=== PATIENT | female | born 1960 | race Caucasian/White ===

== ENCOUNTER 2019-10-02 07:58 | Outpatient (CLI) | payer OTHER, SELFPAY ==
--- NOTE | 2019-10-02 08:04 | ECG_ITS ---
Measurements Intervals [place] Rate: 68 P: 26 ND: 199 QRS: 3 QRSD: 99 T: 66 QT: 389 QTc: 416 Interpretive Statements SINUS RHYTHM BORDERLINE AV CONDUCTION DELAY VOLTAGE CRITERIA FOR LVH BORDERLINE R WAVE PROGRESSION, ANTERIOR LEADS BORDERLINE ST ABNORMALITY- ANT/LAT LEADS BASELINE ARTIFACT- I, II, AVR, AVF BORDERLINE ECG Electronically Signed On 10-02-2019 9:15:47 BONE PROCESS OPERATOR by Elton Riley D.O.
== END 2019-10-02 07:59 | disposition home or self-care (01) ==
LOC: ANHSURGERY 08:04
PROVIDERS: Visit Provider Orthopaedic Surgery
DX: I10 Essential (primary) hypertension (principal)
CPT/HCPCS: 93005

== ENCOUNTER 2019-10-08 08:47 | Emergency (ER) | payer OTHER, SELFPAY ==
[2019-10-08 09:07] VITALS: BP 139/93; PULSE 63; RESP 16; TEMP 36.9; O2SAT 99
--- NOTE | 2019-10-08 09:41 | ED.GENADULT ---
HPI - General Adult General Chief complaint: Urogenital-Female Stated complaint: UTI Time Seen by Provider: 10/08/19 09:41 Source: patient and RN notes reviewed Mode of arrival: ambulatory Limitations: no limitations History of Present Illness HPI narrative: 59-year-old female presents with urinary complaints for 1 day. Dysuria consist of burning, frequency, and urgency.? History of UTIs, last one 4-5 months ago. Takes Keflex 250 mg after sex, last had sex on October 04 and used Keflex. Pyridium with little relief. Mounika says she usually gets UTI symptoms on Sunday after sexual intercourse. Denies fever or chills. No significant pelvic pain. No vaginal discharge.? No concerns for STDs. Exacerbating factors urinating.? Denies hematuria or vaginal bleeding. Denies being , LMP.? No flank pain.Denies nausea, vomiting, and abdominal pain.? Tolerating liquids well.? Remains active. Mounika denies being , Postmenopausal. Some parts of this dictation were generated by voice recognition software and may contain typographical and/or grammatical inaccuracies. Related Data Home Medications Medication Instructions Recorded Confirmed amlodipine 5 mg tablet 5 mg PO DAILY 09/23/19 10/08/19 cephalexin 250 mg capsule 250 mg PO WEEKLY 09/23/19 10/08/19 cholecalciferol (vitamin D3) 125 5,000 unit PO DAILY 09/23/19 10/08/19 mcg (5,000 unit) capsule gabapentin 600 mg tablet 600 mg PO QPM 09/23/19 10/09/19 omeprazole 20 mg capsule,delayed 20 mg PO BID 09/23/19 10/08/19 release capsaicin 1 applic TOPICAL BID 09/26/19 10/08/19 calcium carbonate [Calcium 600] 600 mg PO DAILY 10/09/19 10/09/19 vit C-E-zinc [id number]-cgug-dgl-[id number] 1 cap PO DAILY 10/09/19 10/09/19 [ICaps AREDS2] Allergies Allergy/AdvReac Type Severity Reaction Status Date / Time No Known Allergies Allergy Verified 10/08/19 09:26 Review of Systems Review of Systems: Narrative: CONSTITUTIONAL: Denies fever, chills, sweats. EYES: Denies visual changes, redness, discharge. ENT: Denies rhinorrhea, congestion, sore throat, otalgia. CARDIOVASCULAR: Denies chest pain, palpitations, edema. RESPIRATORY: Denies dyspnea, wheezing, cough. GASTROINTESTINAL: Denies abdominal pain, nausea, vomiting, diarrhea. GENITOURINARY: Complains of dysuria (burning, frequency, and urgency). Denies hematuria, abnormal discharge. SKIN: Denies rash or itching. MUSCULOSKELETAL: Denies acute back pain, joint pain, or myalgia. NEUROLOGIC: Denies numbness or focal weakness. PSYCHIATRIC: Denies anxiety or depression. All systems reviewed & are unremarkable except as noted in HPI and below. [facility] Past Medical History Medical History GERD (gastroesophageal reflux disease) Headache Hearing loss Hypertension Subscapularis tendinitis of right shoulder Surgical History Surgical History History of appendectomy Labral tear of long head of right biceps tendon Family History Family History Other Cancer Hypertension Social History Social History Smoking status: Never smoker Alcohol intake: current Drinks per week: 4 Gender identity (if verbalized by the patient): Female Comments At time of signature, agree with nurse past medical, surgical, social, and family history.? There is no relevant family history pertinent to the presenting complaint. Exam Narrative: Exam Narrative: GENERAL: This is a well-nourished, well-developed patient, in no apparent distress.? Talks in full sentences and ambulates with steady gait without dyspnea. HEAD: normocephalic, atraumatic. EYES: PERRL. Sclera clear/white. Vision is grossly intact. CARDIOVASCULAR: Regular rate and rhythm without murmurs, gallops, or rubs. RESPIRATORY: Clear to auscultation. Breath s
== END 2019-10-08 09:55 | disposition home or self-care (01) ==
PROVIDERS: Emergency Provider Nurse Practitioner Family
DX: R30.0 Dysuria (principal); K21.9 Gastro-esophageal reflux disease without esophagitis; I10 Essential (primary) hypertension
CPT/HCPCS: 81003; 87086; 87088; 99213; G0463

== ENCOUNTER 2019-10-23 00:44 | Day surgery (SDC) | payer OTHER, SELFPAY ==
[2019-09-26 12:53] VITALS: BMI 25.8
[2019-10-23] VITALS (10 sets, daily range): BP systolic 120–143; BP diastolic 56–88; PULSE 66–77; RESP 12–20; TEMP 36.6–36.8; O2SAT 92–98
--- NOTE | 2019-10-23 06:38 | WPDHPUPDATE1 ---
History and Physical Update Update Date/Time: 10/23/19 06:38 History and Physical has been reviewed, including an updated exam of the patient. There are NO changes in the patient's condition. Risks, benefits, and alternatives have been discussed and questions answered. Patient agrees to proceed with procedure.
[2019-10-23] MEDS: LACTATED RINGERS 1,000 ML 30 ML IV CONT ×2 (06:45→11:15)
--- NOTE | 2019-10-23 06:49 | WPDANESEPPF ---
Anes - Initial Pre Proc Eval Procedure: Operation Date: 10/23/19 07:30 Proposed Procedures p Right Shoulder Arthroscopy With Debridement, Biceps Tenotomy, Possible Rotator Cuff Repair, Proceed As Indicated - Jaiden Orourke MD Date/Time: 10/23/19 06:49 Surgeon: Jaiden Orourke MD Pre Op Diagnosis: Right Shoulder Biceps Tear & Rt Rotator Cuff Tear Patient Data Age: 59 Gender: F Height: 5 ft 9 in Weight: 79.38 kg Allergies Allergy/AdvReac Type Severity Reaction Status Date / Time No Known Allergies Allergy Verified 10/08/19 09:26 Home Medications Medication Instructions Recorded Confirmed Type amlodipine 5 mg tablet 5 mg PO DAILY 09/23/19 10/08/19 History cephalexin 250 mg capsule 250 mg PO WEEKLY 09/23/19 10/08/19 History cholecalciferol (vitamin D3) 125 5,000 unit PO DAILY 09/23/19 10/08/19 History mcg (5,000 unit) capsule gabapentin 600 mg tablet 600 mg PO QPM 09/23/19 10/09/19 History omeprazole 20 mg capsule,delayed 20 mg PO BID 09/23/19 10/08/19 History release capsaicin 1 applic TOPICAL BID 09/26/19 10/08/19 History sulfamethoxazole-trimethoprim 1 tablet PO Q12H #14 tablet 10/08/19 10/09/19 Rx [Bactrim DS] calcium carbonate [Calcium 600] 600 mg PO DAILY 10/09/19 10/09/19 History vit C-E-zinc er-mbap-zfg-zeax 1 cap PO DAILY 10/09/19 10/09/19 History [ICaps AREDS2] Patient hx anesthesia problems: none Family hx anesthesia problems: none PMFSH Past Medical History Medical History GERD (gastroesophageal reflux disease) Headache Hearing loss Hypertension Subscapularis tendinitis of right shoulder Surgical History Surgical History History of appendectomy Labral tear of long head of right biceps tendon Family History Family History Other Cancer Hypertension Social History Social History Smoking status: Never smoker Alcohol intake: current Drinks per week: 4 Gender identity (if verbalized by the patient): Female Anes - Eval Final PreProcedure Day of Procedure 10/23/19 06:49 Patient weight: normal Heart: regular rate and rhythm Lungs: clear to auscultation Airway: Mallampati scale class II Neurological: alert and oriented Last oral intake: >/= 8 hours ASA classification: II Emergent: no Anesthetic plan: proceed Anesthesia type and monitoring: general LMA and standard monitoring Informed Consent: The patient's anesthetic plan and its attendant risks and benefits were discussed with the patient/family/POA. Questions were solicited and answers provided to the satisfaction of the patient/family/POA.
[2019-10-23] MEDS: IBUPROFEN IV 800 MG/200 ML 800 MG/200 ML BAG 400 MG IVPB (07:51)
[2019-10-23] MEDS: ceFAZolin 2 GM/D5W 50 ML 2 GM/50 ML BAG IVPB (08:03)
[2019-10-23] MEDS: BUPIVACAINE/EPINEPHRINE 0.5% 10 ML VIAL INFILTRATE (08:37)
--- NOTE | 2019-10-23 10:25 | PM.PROC ---
Procedure Note - Detailed Date of procedure: 10/23/19 Pre-op diagnosis: Right Shoulder Biceps Tear & Rt Rotator Cuff Tear Post-op diagnosis: same Procedure performed: RT shoulder arthroscopy, debridement, biceps tenotomy, rotator cuff repair Description of procedure: Indications: Patient is a 59-year-old woman with right shoulder pain. She failed 2 rounds of physical therapy. An MRI demonstrates tear of the biceps with subluxation and possible rotator cuff tear. She presents now for operative treatment. What was done: Patient identified in the preoperative holding. Informed consent given. Operative extremity marked. Patient received intravenous antibiotics. Patient brought to the operating room where underwent general anesthetic by anesthesia team. Positioned supine on operating room table. Time-out performed confirming the patient, site of the surgery and the plan. Patient was then positioned in the beach chair position with careful securing of the head and neck. Right shoulder was then prepped and draped usual sterile surgical fashion using a ChloraPrep skin solution. Local anesthetic with 0.5% Marcaine with epinephrine was used at the portal sites. Standard posterior arthroscopy portal position with a 22 gauge spinal needle and infiltrating of the joint with saline. Eleven blade knife used to incise the skin and blunt penetration of the soft tissue and posterior capsule. Camera and inflow restarted through this portal. The shoulder was inspected and findings were noted. Anterior portal was then made using positioning from a 22 gauge spinal needle, 11 blade knife for the skin and blunt penetration of the anterior capsule. 4.5 mm arthroscopic shaver introduced and a debridement of the shoulder joint was performed including the glenoid and humeral head, undersurface of the rotator cuff, labrum and the rotator cuff tear site itself. Arthroscopic 1 introduced in bleeding points were coagulated. Any excess synovitis was removed with the Wand. The proximal biceps was then released with the arthroscopic Wand. There was partial retraction of the tendon but not complete retraction. The arthroscope was then positioned into the subacromial space. A lateral portal was made with 11 blade knife and blunt penetration and the shaver was introduced and debridement of the subacromial bursa was performed. From this position the full-thickness rotator cuff was able to be better visualized. The lateral incision was then lengthened 1 cm for a mini open type approach. Retractors were placed in the deltoid muscle was split in line with the skin incision. The rotator cuff tear was identified. The footprint on the humeral tuberosity was then prepared with a rongeur and rasp. Thorough irrigation was performed. Two medial row anchors were then placed using a punch followed by placement of the corkscrew suture anchors. Suture tape was then passed through the rotator cuff to provide sufficient tissue for repair. Repair was then performed by using 2 lateral anchors and cross stitching the suture tape. The arm was abducted to aid in the repair. Sutures were cut and the arm was then taken through a full range of motion and noted to be stable. If no impingement. There was no excess tear or dog ear which required repair. Wounds thoroughly irrigated antibiotic solution. The deltoid was repaired with 0 Vicryl suture. Subcutaneous tissue repaired with 3 0 Monocryl interrupted suture and the skin repaired with 3 Monocryl subcuticular running stitch. Steri-Strips applied followed by sterile dressing. Patient then awoke from anesthesia, extubated and taken to the recovery room in stable condition. All sponge needle and instrument counts correct in the case. Implants: Arthrex 4.75 mm speed bridge rotator cuff repair system with 4 anchors. Anesthesia: GLMA Surgeon: Jaiden Orourke MD [employer] Electrical Engineer: nurse practitioner physician assistant Estimated blood loss (mL): 10 Drains: No Packing: No Pathology: none
[2019-10-23] MEDS: ONDANSETRON INJ 4 MG/2 ML VIAL IV PUSH (11:31)
== END 2019-10-23 13:05 | disposition home or self-care (01) ==
PROVIDERS: Visit Provider Orthopaedic Surgery
PROC: (CPT 29805; principal; 2019-10-23 07:30)
DX: S46.111A Strain of muscle, fascia and tendon of long head of biceps, right arm, initial encounter (principal); S46.011A Strain of muscle(s) and tendon(s) of the rotator cuff of right shoulder, initial encounter; X50.0XXA Overexertion from strenuous movement or load, initial encounter; I10 Essential (primary) hypertension; K21.9 Gastro-esophageal reflux disease without esophagitis
CPT/HCPCS: 29827; 29823; A4565; C1713; J0690; J1100; J1741; J2250; J2270; J2405; J2704; J3010; J7120

== ENCOUNTER 2020-06-13 13:01 | Emergency (ER) | payer OTHER, SELFPAY ==
--- NOTE | 2020-06-13 13:06 | ED.SKABFB ---
HPI - Skin/Abscess/Foreign Bdy General Chief complaint: Skin/Abscess/Foreign Body Stated complaint: poison hans Time Seen by Provider: 06/13/20 13:06 Source: patient and RN notes reviewed History of Present Illness HPI narrative: Patient is a 59-year-old female who presents the urgent care with complaints of rash to bilateral legs, abdomen, face. Patient states that she uses tecnu scrub after any known or possible contact of poison hans. However, patient noticed the first area of rash to the inside of the left knee which is now on the right lower leg, right side of the abdomen, and right side of the face. Patient states that she has gotten poison hans [place] Denies of any new contact with lotions, creams, detergents. No other acute complaints. No acute distress noted. Patient aware of the plan of care. Some parts of this dictation were generated by voice recognition software and may contain typographical and/or grammatical inaccuracies. Related Data Home Medications Medication Instructions Recorded Confirmed amlodipine 5 mg tablet 5 mg PO DAILY 09/23/19 06/13/20 cholecalciferol (vitamin D3) 125 5,000 unit PO DAILY 09/23/19 10/23/19 mcg (5,000 unit) capsule gabapentin 600 mg tablet 600 mg PO QPM 09/23/19 06/13/20 omeprazole 20 mg capsule,delayed 20 mg PO BID 09/23/19 06/13/20 release ICaps AREDS2 1 cap PO DAILY 10/09/19 10/09/19 calcium carbonate [Calcium 600] 600 mg PO DAILY 10/09/19 10/23/19 Allergies Allergy/AdvReac Type Severity Reaction Status Date / Time No Known Allergies Allergy Verified 12/30/19 08:39 Review of Systems Review of Systems: Narrative: CONSTITUTIONAL: Denies fever, chills, or sweats. EYES: Denies visual changes, redness, or discharge. ENT: Denies rhinorrhea, congestion, sore throat, or otalgia. CARDIOVASCULAR: Denies chest pain, palpitations, or edema. RESPIRATORY: Denies cough or dyspnea. GASTROINTESTINAL: Denies abdominal pain, nausea, vomiting, or diarrhea. GENITOURINARY: Denies dysuria or hematuria. SKIN: Reports of a raised rash to the inside of the left knee, right lower leg, right abdomen and right face MUSCULOSKELETAL: Denies back pain, joint pain, or myalgia. NEUROLOGIC: Denies headache, numbness, or weakness. All other systems reviewed are negative, except as documented in HPI. [facility] Past Medical History Medical History (Updated 06/13/20 @ 13:26 by SANDEEP Sinha) GERD (gastroesophageal reflux disease) Headache Hearing loss Hypertension Subscapularis tendinitis of right shoulder Surgical History Surgical History History of appendectomy Labral tear of long head of right biceps tendon Family History Family History Other Cancer Hypertension Social History Social History Smoking status: Never smoker Alcohol intake: current Drinks per week: 4 Gender identity (if verbalized by the patient): Female Comments At the time of my signature, I reviewed and agree with the nursing past medical, surgical, social, and family history. There is no relevant family history pertinent to the patient complaint. Exam Narrative: Exam Narrative: GENERAL: This is a well-nourished, well-developed patient, in no apparent distress. HEAD: normocephalic, atraumatic. EYES: PERRL. Sclera clear/white. Vision is grossly intact. EARS: External ears normal NOSE: External nose normal with no obvious nasal discharge, nares without redness, no rhinorrhea. THROAT: Mucous membranes moist NECK: Neck supple, SKIN: Nonpustular/mildly erythemic papular dermatitis noted to the inside of the left knee, right lower leg, right abdomen and one small area to the right cheek. Warm, intact with no suspicious lesions, good texture and turgor. NEURO: awake, alert, and oriented to person, place and time. There we
[2020-06-13 13:15] VITALS: BP 177/91; PULSE 78; RESP 20; TEMP 36.6; O2SAT 98
== END 2020-06-13 13:38 | disposition home or self-care (01) ==
PROVIDERS: Emergency Provider Nurse Practitioner Family
DX: L25.9 Unspecified contact dermatitis, unspecified cause (principal); K21.9 Gastro-esophageal reflux disease without esophagitis; I10 Essential (primary) hypertension
CPT/HCPCS: 99213; G0463

== ENCOUNTER 2020-11-14 17:41 | Emergency (ER) | payer OTHER, SELFPAY ==
--- NOTE | 2020-11-14 17:59 | ED.WOUNDLAC ---
HPI - Wound/Laceration General Chief Complaint: Wound/Laceration Stated Complaint: Laceration on right hand Time Seen by Provider: 11/14/20 17:55 History of Present Illness HPI narrative: 60-year-old female presents to the [facility] with a 1-1/2 cm laceration to the palmar aspect of right hand. Happened approximately 30 minutes prior to arrival. Bleeding is well controlled. Unknown last Tdap. Patient states that she was washing a cup and was washing it when it broke and cut her hand. Patient has full range of motion of all 5 fingers. No numbness or tingling in extremities. Sensation intact in all 5 fingers and capillary refill is under 2 seconds. Related Data Home Medications Medication Instructions Recorded Confirmed amlodipine 5 mg tablet 5 mg PO DAILY 09/23/19 11/14/20 cholecalciferol (vitamin D3) 125 5,000 unit PO DAILY 09/23/19 11/14/20 mcg (5,000 unit) capsule gabapentin 600 mg tablet 600 mg PO QPM 09/23/19 11/14/20 omeprazole 20 mg capsule,delayed 20 mg PO BID 09/23/19 11/14/20 release ICaps AREDS2 1 cap PO DAILY 10/09/19 11/14/20 calcium carbonate [Calcium 600] 600 mg PO DAILY 10/09/19 11/14/20 montelukast mg 11/14/20 Allergies Allergy/AdvReac Type Severity Reaction Status Date / Time No Known Allergies Allergy Verified 11/14/20 17:49 Review of Systems Review of Systems: Narrative: CONSTITUTIONAL: Denies fever, chills, or sweats. EYES: Denies visual changes, redness, or discharge. ENT: Denies rhinorrhea, congestion, sore throat, or otalgia. CARDIOVASCULAR: Denies chest pain, palpitations, or edema. RESPIRATORY: Denies cough or dyspnea. GASTROINTESTINAL: Denies abdominal pain, nausea, vomiting, or diarrhea. GENITOURINARY: Denies dysuria or hematuria. SKIN: Denies rash or itching. Laceration base of right hand please see diagram MUSCULOSKELETAL: Denies back pain, joint pain, or myalgia. NEUROLOGIC: Denies headache, numbness, or weakness. PSYCHIATRIC: Denies anxiety or depression. All other systems reviewed are negative, except as documented in HPI. [facility] Past Medical History Medical History GERD (gastroesophageal reflux disease) Headache Hearing loss Hypertension Subscapularis tendinitis of right shoulder Surgical History Surgical History History of appendectomy Labral tear of long head of right biceps tendon Family History Family History Other Cancer Hypertension Social History Social History Smoking status: Never smoker Alcohol intake: current Drinks per week: 4 Gender identity (if verbalized by the patient): Female Comments At the time of my signature, I reviewed and agree with the nursing past medical, surgical, social, and family history. There is no relevant family history pertinent to the patient complaint. Exam Narrative: Exam Narrative: GENERAL: This is a well-nourished, well-developed patient, in no apparent distress. HEAD: normocephalic, atraumatic. EYES: PERRL. Sclera clear/white. EARS: External ears normal. NECK: Neck supple, non-tender without lymphadenopathy, masses or thyromegaly. CARDIOVASCULAR: Regular rate and rhythm without murmurs, gallops, or rubs. RESPIRATORY: Clear to auscultation. Breath sounds equal bilaterally. No wheezes, rales, or rhonchi. GASTROINTESTINAL: Abdomen soft, non-tender, nondistended. Bowel sounds are active. No hepato-splenomegaly, or palpable masses. No guarding. SKIN: warm, intact with no suspicious lesions or rash, good texture and turgor. 2 cm laceration to palmar aspect right hand. NEURO: awake, alert, and oriented to person, place and time. There were no obvious focal neurologic abnormalities. EXTREMITIES: No joint tenderness, effusion, or edema noted. No calf tenderness. Negative Homans sign bilaterally. BACK: Nontender without defor
[2020-11-14 18:00] VITALS: BP 154/85; PULSE 63; RESP 16; TEMP 36.7; O2SAT 98
[2020-11-14] MEDS: TETANUS,DIPHTHERIA,AC PERTUSSIS ADULT (0.5 ML) BOOSTRIX IM (18:15)
== END 2020-11-14 18:29 | disposition home or self-care (01) ==
PROVIDERS: Emergency Provider Nurse Practitioner
DX: S61.411A Laceration without foreign body of right hand, initial encounter (principal); W25.XXXA Contact with sharp glass, initial encounter; Z23 Encounter for immunization; K21.9 Gastro-esophageal reflux disease without esophagitis; I10 Essential (primary) hypertension
CPT/HCPCS: 12001; 90471; 90715; 99212; G0463

== ENCOUNTER 2021-05-10 08:42 | Emergency (ER) | payer OTHER, SELFPAY ==
[2021-05-10 08:59] VITALS: BP 142/97; PULSE 79; RESP 16; TEMP 36.6; O2SAT 99
--- NOTE | 2021-05-10 09:08 | ED.FEMALEGU ---
HPI - Female Genitourinary General Chief complaint: Urogenital-Female Stated complaint: UTI Source: patient Mode of arrival: ambulatory Limitations: no limitations History of Present Illness HPI Narrative: 60-year-old female presents to [facility] with complaints of urinary urgency, frequency, pain and burning since this morning. Patient does report long history of urinary tract infections and does take cephalexin prior to intercourse. Patient last took cephalexin 2 days ago. Patient denies abdominal pain, flank pain, vaginal discharge or concern for STDs. MD elicited complaint: UTI Onset (ago): hour(s) (1) Vaginal discharge: none Vaginal bleeding: none Urinary symptoms: Dysuria, Urgency and Frequency Associated symptoms: denies other symptoms Treatment prior to arrival: none Patient : No Related Data Home Medications Medication Instructions Recorded Confirmed amlodipine 5 mg tablet 5 mg PO DAILY 09/23/19 05/10/21 cholecalciferol (vitamin D3) 125 5,000 unit PO DAILY 09/23/19 05/10/21 mcg (5,000 unit) capsule gabapentin 600 mg tablet 600 mg PO QPM 09/23/19 05/10/21 omeprazole 20 mg capsule,delayed 20 mg PO BID 09/23/19 05/10/21 release ICaps AREDS2 1 cap PO DAILY 10/09/19 05/10/21 calcium carbonate [Calcium 600] 600 mg PO DAILY 10/09/19 05/10/21 montelukast 10 mg PO DAILY 11/14/20 05/10/21 azelastine 1 mcg INTRANASAL DIRECTED 05/10/21 05/10/21 fluticasone propionate 2 mcg INTRANASAL DAILY 05/10/21 05/10/21 Allergies Allergy/AdvReac Type Severity Reaction Status Date / Time No Known Allergies Allergy Verified 05/10/21 09:06 Review of Systems Constitutional: Constitutional: Denies chills and Denies fatigue ENT: Denies sore throat Cardiovascular: Cardiovascular: Denies chest pain, Denies rapid heart rate, Denies radiating jaw, neck or arm pain and Denies slow heart rate Respiratory: Respiratory: Denies chest congestion, Denies cough, Denies dyspnea and Denies wheezing Gastrointestinal: Gastrointestinal: Denies abdominal pain, Denies diarrhea, Denies nausea and Denies vomiting Genitourinary: Genitourinary: Reports nocturia, Reports dysuria, Denies flank pain and Denies vaginal discharge [facility] Past Medical History Medical History (Updated 05/10/21 @ 09:12 by Jerica Ellison APRN) GERD (gastroesophageal reflux disease) Headache Hearing loss Hypertension Subscapularis tendinitis of right shoulder Surgical History Surgical History History of appendectomy Labral tear of long head of right biceps tendon Family History Family History Other Cancer Hypertension Social History Social History Smoking status: Never smoker Alcohol intake: current Drinks per week: 4 Gender identity (if verbalized by the patient): Female Comments At time of signature, I agree with nursing past medical, surgical, social and family history. There is no relevant family history pertinent to the presenting complaint. Exam Const: General: no acute distress Nutritional Appearance: well nourished Orientation/consciousness: patient oriented x3 Neck: Neck: normal visual inspection Resp: Effort & Inspection: normal respiratory effort and not tachypneic Auscultation: clear to auscultation bilaterally Cardio: Rate: regular rate, not bradycardic and not tachycardic Rhythm: regular rhythm GI: GI Palp: Yes Soft to palpation, No Tenderness to palpation present (GI), No Guarding due to palpation present (GI) and No Rigid due to palpation Auscultation: normal bowel sounds : General: Yes bladder normal to palpation and Yes no CVA tenderness Back/Spine/Pelvis: Back: no CVA tenderness Skin: General skin exam: normal color Rashes: no rashes Neuro: General: patient oriented x3 and moves all extremities Psych: Mental Status: mental status
== END 2021-05-10 09:18 | disposition home or self-care (01) ==
PROVIDERS: Emergency Provider Nurse Practitioner Family
DX: N30.00 Acute cystitis without hematuria (principal); K21.9 Gastro-esophageal reflux disease without esophagitis; I10 Essential (primary) hypertension
CPT/HCPCS: 81003; 87086; 87088; 99213; G0463

== ENCOUNTER 2021-06-08 08:20 | Emergency (ER) | payer OTHER, SELFPAY ==
--- NOTE | 2021-06-08 08:27 | ED.FEMALEGU ---
HPI - Female Genitourinary General Chief complaint: Urogenital-Female Stated complaint: uti Time Seen by Provider: 06/08/21 08:55 Source: patient and RN notes reviewed Mode of arrival: ambulatory Limitations: no limitations History of Present Illness HPI Narrative: 60-year-old female presents with concern for urinary tract infection symptoms. Reports symptoms started last night, woke up in the middle the night. She reports frequency, urgency, burning reports history of urinary tract infections. Reports she was on Macrobid a month ago for urinary tract infection. Reports she takes 1 dose of cephalexin after intercourse to prevent UTIs. She denies fever, body aches, nausea, vomiting, back pain, abdominal pain. MD elicited complaint: UTI Related Data Home Medications Medication Instructions Recorded Confirmed amlodipine 5 mg tablet 5 mg PO DAILY 09/23/19 05/10/21 cholecalciferol (vitamin D3) 125 5,000 unit PO DAILY 09/23/19 05/10/21 mcg (5,000 unit) capsule gabapentin 600 mg tablet 600 mg PO QPM 09/23/19 05/10/21 omeprazole 20 mg capsule,delayed 20 mg PO BID 09/23/19 05/10/21 release ICaps AREDS2 1 cap PO DAILY 10/09/19 05/10/21 calcium carbonate [Calcium 600] 600 mg PO DAILY 10/09/19 05/10/21 montelukast 10 mg PO DAILY 11/14/20 05/10/21 azelastine 1 mcg INTRANASAL DIRECTED 05/10/21 05/10/21 fluticasone propionate 2 mcg INTRANASAL DAILY 05/10/21 05/10/21 Allergies Allergy/AdvReac Type Severity Reaction Status Date / Time No Known Allergies Allergy Verified 05/10/21 09:06 Review of Systems Review of Systems: CONSTITUTIONAL: Denies malaise, chills, sweats, or fever. CARDIOVASCULAR: Denies chest pain, palpitations, or edema. RESPIRATORY: Denies cough or dyspnea. GASTROINTESTINAL: Denies abdominal pain, nausea, vomiting, diarrhea GENITOURINARY: Reports dysuria, frequency, urgency. Denies back pain or hematuria. SKIN: Reports mild vaginal itching MUSCULOSKELETAL: Denies back pain, or myalgia. All systems reviewed & are unremarkable except as noted in HPI and below PMFSH Past Medical History Medical History (Updated 10/13/21 @ 09:04 by Emma Portillo NP) GERD (gastroesophageal reflux disease) Headache Hearing loss Hypertension Subscapularis tendinitis of right shoulder Surgical History Surgical History History of appendectomy Labral tear of long head of right biceps tendon Family History Family History Other Cancer Hypertension Social History Social History Smoking status: Never smoker Alcohol intake: current Drinks per week: 4 Gender identity (if verbalized by the patient): Female Comments At time of signature, agree with nursing past medical, surgical, social and family history. There is no relevant family history pertinent to the presenting complaint Exam Narrative: GENERAL: Well-appearing, well-nourished, and in no acute distress. HEAD: Normocephalic. EYES: PERRLA, conjunctivae clear. NECK: Supple. No lymphadenopathy CHEST: Clear to auscultation. No respiratory distress. HEART: Regular rate and rhythm. ABDOMEN: Soft, nontender upon palpation, nondistended, normal active bowel sounds, no palpable or pulsatile masses, no guarding. No CVA tenderness SKIN: Warm, dry, no rash. NEURO: Alert and oriented x3. PSYCH: Normal mood and affect Course Course Emergency Course: Patient is aware of diagnosis, understands and agrees to treatment plan. Anticipatory guidance given. Patient agrees to follow-up as directed and is aware of reasons to seek care at the emergency department. Portions of this record may have been created with voice recognition software Vital Signs Vital signs: Reviewed. MDM - Female Genitourinary MDM Narrative Medical decision making narrative: Patient took Azo, UA unable to determine infection.
[2021-06-08 08:35] VITALS: BP 130/83; PULSE 61; RESP 18; TEMP 36.6; O2SAT 97
== END 2021-06-08 09:15 | disposition home or self-care (01) ==
PROVIDERS: Emergency Provider Nurse Practitioner
DX: R35.0 Frequency of micturition (principal); R30.0 Dysuria; R39.15 Urgency of urination; K21.9 Gastro-esophageal reflux disease without esophagitis; I10 Essential (primary) hypertension
CPT/HCPCS: 87077; 87086; 87088; 87186; 99213; G0463

== ENCOUNTER 2021-08-19 10:44 | Emergency (ER) | payer OTHER, SELFPAY ==
[2021-08-19 11:42] VITALS: BP 152/97; PULSE 81; RESP 16; TEMP 36.8; O2SAT 98
--- NOTE | 2021-08-19 12:33 | ED.NAVMDI ---
HPI - Nausea/Vomiting/Diarrhea General Chief complaint: Nausea/Vomiting/Diarrhea Stated complaint: abd pain Time Seen by Provider: 08/19/21 12:15 Source: patient and RN notes reviewed Mode of arrival: ambulatory Limitations: no limitations History of Present Illness HPI Narrative: Patient presents today planing of a 3-day history of extreme burping and belching. 2 days ago she was fine , but last night she developed a decreased appetite and fatigue. This morning she vomited once after eating a bowl of oatmeal. She denies any nausea, abdominal pain, constipation and diarrhea. She has history of GERD and has been taking Prilosec, Advil, and [place], which has been providing some relief. MD elicited complaint: vomiting and other (Belching) Related Data Home Medications Medication Instructions Recorded Confirmed amlodipine 5 mg tablet 5 mg PO DAILY 09/23/19 08/19/21 cholecalciferol (vitamin D3) 125 5,000 unit PO DAILY 09/23/19 08/19/21 mcg (5,000 unit) capsule gabapentin 600 mg tablet 600 mg PO QPM 09/23/19 08/19/21 omeprazole 20 mg capsule,delayed 20 mg PO BID 09/23/19 08/19/21 release ICaps AREDS2 1 cap PO DAILY 10/09/19 08/19/21 calcium carbonate [Calcium 600] 600 mg PO DAILY 10/09/19 08/19/21 montelukast 10 mg PO DAILY 11/14/20 08/19/21 azelastine 1 mcg INTRANASAL DIRECTED 05/10/21 08/19/21 fluticasone propionate 2 mcg INTRANASAL DAILY 05/10/21 08/19/21 Allergies Allergy/AdvReac Type Severity Reaction Status Date / Time No Known Allergies Allergy Verified 08/19/21 11:51 Review of Systems Review of Systems: CONSTITUTIONAL: Denies body aches, fever, chills, or sweats. EYES: Denies visual changes, redness, or discharge. ENT: Denies rhinorrhea, congestion, sore throat, or otalgia. CARDIOVASCULAR: Denies chest pain, palpitations, or edema. RESPIRATORY: Denies cough or dyspnea. GASTROINTESTINAL: Denies abdominal pain, nausea, or diarrhea.+ Belching, vomiting GENITOURINARY: Denies dysuria or hematuria. SKIN: Denies rash, itching, or wounds. MUSCULOSKELETAL: Denies back pain, joint pain, or myalgia. NEUROLOGIC: Denies headache, numbness, tingling, or weakness. PSYCH: Denies depression or anxiety. [facility] Past Medical History Medical History (Updated 08/19/21 @ 12:38 by Bety Lion, SANDEEP, ) GERD (gastroesophageal reflux disease) Headache Hearing loss Hypertension Subscapularis tendinitis of right shoulder Surgical History Surgical History History of appendectomy Labral tear of long head of right biceps tendon Family History Family History Other Cancer Hypertension Social History Social History Smoking status: Never smoker Alcohol intake: current Drinks per week: 4 Gender identity (if verbalized by the patient): Female Comments At time of signature, I have reviewed and agree with nursing past medical, surgical, social and family history unless otherwise noted. Please see nursing chart for further information. There is no relevant family history pertinent to the presenting complaint Exam Narrative: GENERAL: Well-appearing, well-nourished, and in no acute distress. HEAD: Normocephalic, atraumatic. EYES: EOMI. No redness or drainage. Conjunctivae normal. ENT: Mucous membranes pink and moist. NECK: Normal AROM. Supple. No lymphadenopathy. CHEST: No respiratory distress. Clear to auscultation. HEART: Regular rate and rhythm. No murmur appreciated. Normal peripheral pulses. ABDOMEN: Soft, nontender, nondistended, normal active bowel sounds. Frequent belching. MUSCULOSKELETAL: No bony tenderness. EXTREMITIES: Normal range of motion. No edema. SKIN: Warm, dry, no rash. Capillary refill normal. Normal skin turgor. NEURO: No focal deficits. Alert and oriented x3. Gait steady. PSYCH: Normal af
== END 2021-08-19 12:45 | disposition home or self-care (01) ==
PROVIDERS: Emergency Provider Nurse Practitioner
DX: K21.9 Gastro-esophageal reflux disease without esophagitis (principal); I10 Essential (primary) hypertension
CPT/HCPCS: 99211; G0463

== ENCOUNTER 2021-08-31 09:52 | Emergency (ER) | payer OTHER, SELFPAY ==
[2021-08-31 10:46] VITALS: BP 153/90; PULSE 62; RESP 16; TEMP 36.6; O2SAT 99
--- NOTE | 2021-08-31 11:26 | ED.FEMALEGU ---
HPI - Female Genitourinary General Chief complaint: Urogenital-Female Stated complaint: uti Time Seen by Provider: 08/31/21 11:26 Source: patient Mode of arrival: ambulatory Limitations: no limitations History of Present Illness HPI Narrative: Mounika Beach is a 60 yo female with GERD and HTN [facility] complaints of burning and frequency that started last night and into this morning. She has had UTIs in the past and is on a preventative pill of Keflex when she has intercourse because she is DNA tested for UTI and is being treated by her TRAVEL COUNSELOR-she is using it infrequently enough that it will not impact treating her UTI with this Related Data Home Medications Medication Instructions Recorded Confirmed amlodipine 5 mg tablet 5 mg PO DAILY 09/23/19 08/31/21 gabapentin 600 mg tablet 600 mg PO QPM 09/23/19 08/31/21 omeprazole 20 mg capsule,delayed 20 mg PO BID 09/23/19 08/31/21 release ICaps AREDS2 1 cap PO DAILY 10/09/19 08/31/21 calcium carbonate [Calcium 600] 600 mg PO DAILY 10/09/19 08/31/21 azelastine 1 mcg INTRANASAL DIRECTED 05/10/21 08/31/21 fluticasone propionate 2 mcg INTRANASAL DAILY 05/10/21 08/31/21 Allergies Allergy/AdvReac Type Severity Reaction Status Date / Time No Known Allergies Allergy Verified 08/19/21 11:51 Review of Systems Review of Systems: CONSTITUTIONAL: Denies fever, chills, sweats. EYES: Denies visual changes, redness, discharge. ENT: Denies rhinorrhea, congestion, sore throat, otalgia. CARDIOVASCULAR: Denies chest pain, palpitations, edema. RESPIRATORY: Denies dyspnea, wheezing, cough GASTROINTESTINAL: Denies abdominal pain, nausea, vomiting, diarrhea. GENITOURINARY: Patient has frequency and this morning has burning SKIN: Denies rash or itching. NEUROLOGIC: Denies numbness, or focal weakness. PSYCHIATRIC: Denies anxiety or depression. [facility] Past Medical History Medical History (Updated 08/31/21 @ 11:43 by Estela Nielsen CNP) GERD (gastroesophageal reflux disease) Headache Hearing loss Hypertension Subscapularis tendinitis of right shoulder Surgical History Surgical History History of appendectomy Labral tear of long head of right biceps tendon Family History Family History Other Cancer Hypertension Social History Social History Smoking status: Never smoker Alcohol intake: current Drinks per week: 4 Gender identity (if verbalized by the patient): Female Comments At time of signature, I agree with nursing past medical, surgical, social and family history. There is no relevant family history pertinent to the presenting complaint. Exam Narrative: GENERAL: This is a well-nourished, well-developed patient, in mild distress. HEAD: normocephalic, atraumatic. EYES: . Sclera clear/white. Vision is grossly intact. EARS: External ears normal. Hearing grossly intact. NOSE: External nose normal nares without redness, no rhinorrhea. THROAT: Mucous membranes moist, NECK: Neck supple, CARDIOVASCULAR: Regular rate and rhythm without murmurs, gallops, or rubs. RESPIRATORY: Clear to auscultation. Breath sounds equal bilaterally. No wheezes, rales, or rhonchi. GASTROINTESTINAL: SKIN: warm, intact with no suspicious lesions or rash, good texture and turgor. NEURO: awake, alert, and oriented to person, place and time. There were no obvious focal neurologic abnormalities. Steady gait EXTREMITIES: Normal range of motion. BACK: Nontender without deformity Course Course Emergency Course: Patient is here with complaints of burning and frequency that started last night Discussion started on Keflex 500 mg 1 twice daily x5 days Level of Care: Express Care Visit Vital Signs Vital signs: Vital Signs Temperature 97.8 F 08/31/21 10:46 Pulse Rate 62 08/31/21 10:46 Respiratory
== END 2021-08-31 12:05 | disposition home or self-care (01) ==
PROVIDERS: Emergency Provider Nurse Practitioner
DX: N30.90 Cystitis, unspecified without hematuria (principal); K21.9 Gastro-esophageal reflux disease without esophagitis; I10 Essential (primary) hypertension
CPT/HCPCS: 81003; 87077; 87086; 87088; 87186; 99213; G0463

== ENCOUNTER 2021-10-12 08:57 | Outpatient (CLI) | payer OTHER, SELFPAY ==
--- NOTE | 2021-10-12 09:00 | ECG_ITS ---
Measurements Intervals [place] Rate: 68 P: 22 OR: 209 QRS: -12 QRSD: 92 T: 24 QT: 397 QTc: 423 Interpretive Statements SINUS RHYTHM INCOMPLETE RIGHT BUNDLE BRANCH BLOCK VOLTAGE CRITERIA FOR LVH BORDERLINE ECG Electronically Signed On 10-12-2021 10:23:08 [employer]AD RADI[employer]CH[employer]OLOG[employer] by Elton Riley D.O.
== END 2021-10-12 08:58 | disposition home or self-care (01) ==
PROVIDERS: Visit Provider Podiatrist Foot & Ankle Surgery
DX: Z01.818 Encounter for other preprocedural examination (principal); I10 Essential (primary) hypertension
CPT/HCPCS: 93005

== ENCOUNTER 2021-10-14 03:58 | Day surgery (SDC) | payer OTHER, SELFPAY ==
[2021-10-10 16:20] VITALS: BMI 26.6
--- NOTE | 2021-10-10 16:57 | PC.NURSE ---
Addendum entered by Dorota Brush RN 10/11/21 11:19: please take Amlodipine morning of surgery with a sip of water along with meds listed below. Original Note: Report to the Outpatient Waiting Room, entrance under the green pavilion located off [facility], at time 0600 on date 10/14/21. OR Time: 0730. - You will be asked a series of questions to screen for COVID 19 for your protection. - A mask is required within the hospital. Preoperative COVID Testing Requirements: No COVID Test needed if: (proof is required; if not received patient will have Rapid Test prior to entry) - Patient has received COVID Vaccine at least 14 days prior to procedure date or - Patient has positive COVID test result within last 90 days of surgery date. COVID Test needed if above criteria is not met If not COVID vaccinated a COVID test must be conducted within 72 hours of surgery and patient is asked to isolate self from time of testing until procedure. You will go to the [facility] for your COVID testing. The [facility] site is located at the corner of [address] [facility]. You will only be called if COVID results are positive and your surgeon may reschedule your elective surgery date. Patients may have clear liquids (water, carbonated beverages, clear teas, apple juice) until 3 hours prior to surgery with a maximum of 20 ounces. - No food from midnight until time of surgery - Infants may have breast milk until 4 hours before surgery, formula 6 hours prior to surgery. - Children will be allowed to drink immediately following surgery. If applicable, please bring a bottle or sippy cup to assist with drinking. Juice, water, soda, and popsicles are readily available. For infants on formula, please bring formula the day of surgery. Pacifiers are allowed. Take the following medications with a SIP of water the morning of surgery: azelastine, fluticasone Medications to discontinue per physician vitamins Date to take last dose 10/11/21 Please no make-up, nail luxembourger, hairspray, perfume, deodorant, or body powder the day of surgery. No jewelry (including any body piercings) or valuables the day of surgery, leave them at home. Please take a shower or bath the night before, or the morning of, surgery with an antibacterial soap. Wear comfortable, loose fitting clothing. Children are encouraged to wear pajamas. - Jewelry must be removed prior to entering the operating room. Rings and piercings that are not removed may be cut off. - The hospital will not accept responsibility for valuables. - Please leave all valuables, including medications, at home the day of surgery. If you are going home after surgery, a licensed nascar driver must drive you home. - NO public transportation without another adult. - We recommend that an adult stay with you for 24 hours following discharge. - We also recommend that you do not drive, make important decision, drink alcoholic beverages, or take any drugs that were not prescribed by your health care provider for at least 24 hours after your discharge time. For Pediatric surgeries, we recommend two adults accompany the child home (only one inside the building at this time). Follow any additional instructions given to you from your surgeon. Telephone instructions given to Mounika Beach and asked if any additional questions and then verbalized understanding. Patient advised to call surgeon office or pre surgery nurse liaison [phone] if any additional questions.
[2021-10-14] VITALS (7 sets, daily range): BP systolic 125–160; BP diastolic 64–91; PULSE 71–86; RESP 12–20; TEMP 36.8–36.9; O2SAT 96–100
--- NOTE | ~2021-10-14 | XR_ITS ---
EXAMINATION: XR surgery orthopedic DATE: 10/14/2021 08:48 INDICATION: Left foot arthrodesis TECHNIQUE: 2 fluoroscopic images of the left foot were obtained during procedure performed by Dr. Darian payne. Radiologist was not present for the imaging or procedure. The amount of fluoroscopy time used during this procedure was 0.3 minutes. COMPARISON: None. FINDINGS: First tarsal metatarsal arthrodesis with dorsal plate and screw fixation between the first metatarsal and medial cuneiform and additional lag screw fixation extending between the base of the first metat arsal and the middle cuneiform. Realignment osteotomy at the base of the first proximal phalanx with dorsal staple fixation. Alignment appears near-anatomic. No fractures identified although sensitivity decreased by fluoroscopic technique. Joint spaces are unremarkable. IMPRESSION: 1. First tarsal metatarsal arthrodesis and alignment osteotomy at the base of the first proximal phal anx. See procedure note for further detail. Reviewed, dictated and finalized at location A. [facility] IMPRESSION: 1. First tarsal metatarsal arthrodesis and alignment osteotomy at the base of t he first proximal phalanx. See procedure note for further detail.
--- NOTE | 2021-10-14 06:30 | WPDANESEPPF ---
Anes - Initial Pre Proc Eval Procedure: Operation Date: 10/14/21 07:30 Proposed Procedures p Lapidus Bunionectomy Left Foot, - Delano Busch JR, MD s Kush Phalangeal Osteotomy Left Hallux - Delano Busch JR, MD Date/Time: 10/14/21 06:30 Surgeon: Delano Busch JR, MD Pre Op Diagnosis: bunion left foot Patient Data Age: 61 Gender: F Height: 1.75 m Weight: 82 kg Allergies Allergy/AdvReac Type Severity Reaction Status Date / Time No Known Allergies Allergy Verified 08/19/21 11:51 Home Medications Medication Instructions Recorded Confirmed Type amlodipine 5 mg tablet 5 mg PO DAILY 09/23/19 10/10/21 History gabapentin 600 mg tablet 600 mg PO QPM 09/23/19 10/10/21 History omeprazole 20 mg capsule,delayed 20 mg PO BID 09/23/19 10/10/21 History release ICaps AREDS2 1 cap PO DAILY 10/09/19 10/10/21 History calcium carbonate [Calcium 600] 600 mg PO DAILY 10/09/19 10/10/21 History azelastine 1 mcg INTRANASAL DIRECTED 05/10/21 10/10/21 History fluticasone propionate 2 mcg INTRANASAL DAILY 05/10/21 10/10/21 History cephalexin 500 mg PO Q12H #10 cap 08/31/21 10/10/21 Rx cetirizine [Zyrtec] 5 mg PO DAILY 10/10/21 10/10/21 History Patient hx anesthesia problems: none Family hx anesthesia problems: none Results Review: All pre-operative results and documents have been reviewed as part of the pre-operative evaluation. [facility] Past Medical History Medical History GERD (gastroesophageal reflux disease) Headache Hearing loss Hypertension Subscapularis tendinitis of right shoulder Surgical History Surgical History History of appendectomy Labral tear of long head of right biceps tendon Family History Family History Other Cancer Hypertension Social History Social History Smoking status: Never smoker Alcohol intake: current Drinks per week: 4 Substance use: never Living arrangements: with family Gender identity (if verbalized by the patient): Female Spiritual care concerns: No Anes - Eval Final PreProcedure Day of Procedure 10/14/21 06:30 Patient weight: overweight Heart: regular rate and rhythm Lungs: clear to auscultation Airway: Mallampati scale class II Neurological: alert and oriented Last oral intake: >/= 8 hours ASA classification: II Emergent: no Anesthetic plan: proceed Anesthesia type and monitoring: general LMA and standard monitoring Results Review: All pre-operative results and documents have been reviewed as part of the pre-operative evaluation. Informed Consent: The patient's anesthetic plan and its attendant risks and benefits were discussed with the patient/family/POA. Questions were solicited and answers provided to the satisfaction of the patient/family/POA.
[2021-10-14] MEDS: LACTATED RINGERS 1,000 ML 30 ML IV CONT ×2 (06:55→09:05)
[2021-10-14] MEDS: SCOPOLAMINE 1.5 MG PATCH TRANSDERM (07:01)
--- NOTE | 2021-10-14 07:08 | WPDHPUPDATE1 ---
History and Physical Update Update Date/Time: 10/14/21 07:08 History and Physical has been reviewed, including an updated exam of the patient. There are NO changes in the patient's condition. Risks, benefits, and alternatives have been discussed and questions answered. Patient agrees to proceed with procedure.
--- NOTE | 2021-10-14 07:16 | WPDANESPNB ---
Anes - Peripheral Nerve Block Date/Time: 10/14/21 07:16 I have discussed with the patient/family/POA the placement of a peripheral nerve block for post-operative pain management, including associated risks, benefits, complications, and side effects. Alternative methods of post-operative analgesia were detailed. Questions were solicited and answers provided to the satisfaction of the patient/family/POA. Time-Out: A pre-procedural Time-Out was completed immediately before starting the procedure and confirmed: Patient Identification, Site, Procedure, Patient Position and the Availability of Requisite Equipment. Clinical Indications: Acute post-operative pain management requested by the operative surgeon. Nerve Block Insertion Note Anes-nerve block: posterior fossa sciatic left and other (saphenous) Patient position: supine Skin prep: chlorhexidine Needle: 22 gauge, stimulating, insulated echogenic needle. Needle length: 80 mm Technique: nerve stimulation lost at (mA) (0.2) Injectate: bupivacaine 0.5% with epi 5 mcg/ml (25cc sciatic, 10cc saphenous) and dexamethasone (mg) (8) Observations: tolerated well Complications: none Procedure start time:: 709 Procedure end time:: 714
[2021-10-14] MEDS: ceFAZolin 2 GM/D5W 50 ML 2 GM/50 ML BAG IVPB (07:20)
--- NOTE | 2021-10-14 09:06 | W.PM.PROC2 ---
Procedure Note - Detailed Date of Procedure 10/14/21 Pre-op Diagnosis Bunion left foot Post-op Diagnosis same Procedure Performed Lapidus bunionectomy left foot Kush phalangeal osteotomy left hallux Surgeon Delano Busch JR, WILFRID Anesthesia general and regional Indications Painful left forefoot Description of Procedure Under mild sedation, the patient was brought to the operating room, placed on the operating table in the supine position. A pneumatic ankle tourniquet was placed about the patient's ankle. Following general anesthesia and a previous popliteal fossa block, the foot was then scrubbed, prepped, and draped in the usual aseptic manner. An Esmarch bandage was then used to examine the patient's foot and pneumatic ankle tourniquet was then inflated. Surgery began in the following manner. Attention was directed to the dorsal aspect of the 1st metatarsocuneiform of the foot where fluoroscopy was used to identify the joint. A 3 cm incision was made overlying the dorsal aspect of the 1st metatarsocuneiform joint of the foot just medial to the extensor hallucis longus tendon. The incision was then continued deep down through the subcutaneous tissues using sharp and blunt dissection. All bleeders were ligated and cauterized as necessary. At this point, the extensor tendon was identified and reflected laterally. Next, the periosteum and capsular incision was made at the full length of the skin incision exposing the medial cuneiform as well as the base of the 1st metatarsal. Next, a sagittal bone saw was introduced from dorsal to plantar across the 1st metatarsocuneiform joint in order to free up any ankylosed portions of the joint and also to release any adhesions. Two Steinmann Pins were driven from dorsal to plantar 1cm proximal and distal to the 1st metatarsal cuneiform joint. The provided curved osteotome and curette was used to resect the cartilage and subchondral bone and a 2.0mm drill bit was used to fenestrate the joint to promote fusion. At this point, a small 2 cm incision was made along the lateral aspect of the 1st metatarsophalangeal joint of the right foot and a lateral release consisting of a lateral capsule incision as well as release of the adductor hallucis tendon with the tenotomy as well as releasing the distal aspect and lateral aspect and proximal aspect of the fibular sesamoid. After this, a lateral release was performed. The hallux was noted to be slightly reduced as far as the track-bound hallux. A 3m incision was made medial to the first metatarsal head extending proximal to the proximal phalanx. A 1.4mm Steinmann pin was driven from medial to lateral across the 1st metatarsal head. Next the Lapifuse positioner was used to obtain 3 plane correction of the hallux abductovalgus deformity. Fluoroscopy was used to make sure that the 1st MPJ was congruous and the sesamoid apparatus was centered under the first metatarsal. Next a 4mm cannulated screw was driven from the medial base of the 1st metatarsal to the central and lateral cuneiform bone. Excellent compression was noted, next a Lapifuse plate was placed dorsal medially along the 1st metatarsal cuneiform joint and 4 locking and one eccentrically drilled non locking screws was used to further compress the joint to ensure arthrodesis. At this point the positioner was removed and fluoroscopy was used to make sure that deformity correction was maintained. The patient still had slight hallux abductus so I made a closing medial base wedge resection from the base of the proximal phalanx and compressed the osteotomy with a [employer] 8mm nitinol compression staple. After the Kush osteotomy the hallux was noted to be in a rectus position. The periosteum and capsular structures were reapproximated and coapted utilizing horizontal mattress as well as simple interrupted suture fashion technique along the 1st metatarsophalangeal joint and then 3-0 PDS was
--- NOTE | 2021-10-14 09:48 | SUR.PHASEI ---
PT AWAKE AND ALERT. DENIES PAIN. READY TO SEE SPOUSE AND SIT IN RECLINER.
== END 2021-10-14 10:52 | disposition home or self-care (01) ==
PROVIDERS: Visit Provider Podiatrist Foot & Ankle Surgery
PROC: (CPT 28299; principal; 2021-10-14 07:30)
PROC: (CPT 28750; 2021-10-14 07:30)
DX: M21.612 Bunion of left foot (principal); G89.18 Other acute postprocedural pain; I10 Essential (primary) hypertension; K21.9 Gastro-esophageal reflux disease without esophagitis; H91.90 Unspecified hearing loss, unspecified ear
CPT/HCPCS: 28298; 64450; 64445; A9270; C1713; C9290; J0690; J1100; J2250; J2370; J2405; J2704; J3010; J7120

== ENCOUNTER 2022-12-14 01:48 | Day surgery (SDC) | payer OTHER, SELFPAY ==
[2022-12-05 10:45] VITALS: BMI 26.6
--- NOTE | 2022-12-13 15:32 | PM.HPGS ---
History of Present Illness History of Present Illness Consent: Risks, benefits, and alternatives have been discussed and questions answered. Patient agrees to proceed with procedure. Chief complaint: positive cologuard Narrative: Mounika Beach is a 62 year old female Referred for colon cancer screening. A Cologuard test was positive. Review of Systems Review of Systems: All systems reviewed & are unremarkable except as noted in HPI and below PMFSH Past Medical History Medical History GERD (gastroesophageal reflux disease) Headache Hearing loss Hypertension Subscapularis tendinitis of right shoulder Surgical History Surgical History History of appendectomy Labral tear of long head of right biceps tendon Family History Family History Other Cancer Hypertension Social History Social History Smoking status: Never smoker Alcohol intake: current Drinks per week: 4 Substance use: never Substance use type: does not use Living arrangements: with family Gender identity (if verbalized by the patient): Female Spiritual care concerns: No Meds Home Medications and Allergies Home Medications Medication Instructions Recorded Confirmed Type amlodipine 5 mg tablet 5 mg PO DAILY 09/23/19 12/05/22 History gabapentin 600 mg tablet 600 mg PO QPM 09/23/19 12/05/22 History omeprazole 20 mg capsule,delayed 20 mg PO BID 09/23/19 12/05/22 History release calcium carbonate 600 mg calcium 600 mg PO DAILY 10/09/19 12/05/22 History (1,500 mg) tablet (Calcium) vit C 250 mg-vit E 200 unit-zinc 1 cap PO BID 10/09/19 12/05/22 History ox 12.5 uj-zfnbyc-ahmdvj-zeax capsule (ICaps AREDS2) azelastine 137 mcg (0.1 %) nasal 1 mcg intranasal DIRECTED 05/10/21 12/05/22 History spray aerosol fluticasone propionate 50 2 spray intranasal DAILY 05/10/21 12/05/22 History mcg/actuation nasal spray,suspension cetirizine 5 mg tablet 5 mg PO BID 10/10/21 12/05/22 History cephalexin 250 mg capsule 250 mg PO DAILY PRN other 12/05/22 12/05/22 History Allergies Allergy/AdvReac Type Severity Reaction Status Date / Time No Known Allergies Allergy Verified 12/14/22 06:34 Exam Const: General: alert Orientation/consciousness: patient oriented x3 Resp: Auscultation: clear to auscultation bilaterally Cardio: Rhythm: regular rhythm GI: GI Palp: Yes Soft to palpation and No Tenderness to palpation present (GI) Neuro: General: patient oriented x3 Assessment and Plan Assessment and plan (1) Colon cancer screening: Code(s): Z12.11 - Encounter for screening for malignant neoplasm of colon Status: Acute Assessment and Plan: Colonoscopy with possible biopsy or polypectomy or cautery or injection of substances.
[2022-12-14 06:37] VITALS: BP 148/101; PULSE 78; RESP 18; TEMP 36.4; O2SAT 98
[2022-12-14] MEDS: LACTATED RINGERS 1,000 ML 150 ML IV CONT (06:45)
--- NOTE | 2022-12-14 07:08 | WPDANESEPPF ---
Anes - Initial Pre Proc Eval Procedure: Operation Date: 12/14/22 07:30 Proposed Procedures p Colonoscopy - Conrad Ortega MD Date/Time: 12/14/22 07:08 Surgeon: Conrad Ortega MD Pre Op Diagnosis: positive cologuard Patient Data Age: 62 Gender: F Height: 1.75 m Weight: 83.2 kg Last Vital Signs Temp 97.5 F L 12/14/22 06:37 Pulse 78 12/14/22 06:37 Resp 18 12/14/22 06:37 BP 148/101 H 12/14/22 06:37 Pulse Ox 98 12/14/22 06:37 O2 Del Method Room Air 12/14/22 06:37 Allergies Allergy/AdvReac Type Severity Reaction Status Date / Time No Known Allergies Allergy Verified 12/14/22 06:34 Home Medications Medication Instructions Recorded Confirmed Type amlodipine 5 mg tablet 5 mg PO DAILY 09/23/19 12/05/22 History gabapentin 600 mg tablet 600 mg PO QPM 09/23/19 12/05/22 History omeprazole 20 mg capsule,delayed 20 mg PO BID 09/23/19 12/05/22 History release calcium carbonate 600 mg calcium 600 mg PO DAILY 10/09/19 12/05/22 History (1,500 mg) tablet (Calcium) vit C 250 mg-vit E 200 unit-zinc 1 cap PO BID 10/09/19 12/05/22 History ox 12.5 op-fgbbys-uzzrgv-zeax capsule (ICaps AREDS2) azelastine 137 mcg (0.1 %) nasal 1 mcg intranasal DIRECTED 05/10/21 12/05/22 History spray aerosol fluticasone propionate 50 2 spray intranasal DAILY 05/10/21 12/05/22 History mcg/actuation nasal spray,suspension cetirizine 5 mg tablet 5 mg PO BID 10/10/21 12/05/22 History cephalexin 250 mg capsule 250 mg PO DAILY PRN other 12/05/22 12/05/22 History Patient hx anesthesia problems: none Family hx anesthesia problems: none Results Review: All pre-operative results and documents have been reviewed as part of the pre-operative evaluation. [facility] Past Medical History Medical History (Updated 12/13/22 @ 15:33 by Conrad Ortega MD) GERD (gastroesophageal reflux disease) Headache Hearing loss Hypertension Subscapularis tendinitis of right shoulder Surgical History Surgical History History of appendectomy Labral tear of long head of right biceps tendon Family History Family History Other Cancer Hypertension Social History Social History Smoking status: Never smoker Alcohol intake: current Drinks per week: 4 Substance use: never Substance use type: does not use Living arrangements: with family Gender identity (if verbalized by the patient): Female Spiritual care concerns: No Anes - Eval Final PreProcedure Day of Procedure 12/14/22 07:08 Patient weight: normal Heart: regular rate and rhythm Lungs: clear to auscultation Airway: Mallampati scale class II Neurological: alert and oriented Last oral intake: >/= 8 hours ASA classification: II Emergent: no Anesthetic plan: proceed Anesthesia type and monitoring: general GIVS and standard monitoring Results Review: All pre-operative results and documents have been reviewed as part of the pre-operative evaluation. Informed Consent: The patient's anesthetic plan and its attendant risks and benefits were discussed with the patient/family/POA. Questions were solicited and answers provided to the satisfaction of the patient/family/POA.
[2022-12-14 07:57] VITALS: BP 122/78; PULSE 77; RESP 20; O2SAT 97
[2022-12-14 08:07] VITALS: BP 110/72; PULSE 68; RESP 21; O2SAT 99
[2022-12-14 08:17] VITALS: BP 156/86; PULSE 65; RESP 17; O2SAT 98
== END 2022-12-14 08:23 | disposition home or self-care (01) ==
PROVIDERS: Visit Provider Internal Medicine Gastroenterology
PROC: 0DJD8ZZ Inspection of Lower Intestinal Tract, Via Natural or Artificial Opening Endoscopic (ICD-10-PCS; CPT 45378; principal; 2022-12-14 07:30)
DX: Z12.11 Encounter for screening for malignant neoplasm of colon (principal); D12.8 Benign neoplasm of rectum; R19.5 Other fecal abnormalities; I10 Essential (primary) hypertension; K21.9 Gastro-esophageal reflux disease without esophagitis
CPT/HCPCS: 45385; 88305; J2704; J7120

== ENCOUNTER 2025-02-22 09:37 | Emergency (ER) | payer OTHER, SELFPAY ==
[2025-02-22 09:45] VITALS: BP 166/84; PULSE 76; RESP 16; TEMP 36.5; O2SAT 100
--- NOTE | 2025-02-22 10:06 | ED_ITS ---
HPI - Abdominal Pain General Chief Complaint: Abdominal Pain Stated Complaint: ABD PAIN Time Seen by Provider: 02/22/25 09:50 Source: patient and RN notes reviewed Mode of arrival: ambulatory Limitations: no limitations History of Present Illness HPI narrative: 64-year-old female presents Express Care complaining of right lower quadrant pain since yesterday. Patient states she can not pinpoint to specific area in her right lower quadrant. Patient states that is sharp intense stabbing pain that comes and goes. Patient said denied it was very intense and she had to take some Motrin and said it helped. Patient says she is still having the pain this morning but is not as intense as it was the night. Patient states she has a history of an appendectomy. Patient denies any nausea, vomiting, diarrhea, fevers, vaginal bleeding, urinary symptoms, no blood in her urine, bloody stools, or vomiting blood. Patient states her last bowel movement was this morning. Related Data Home Medications ?Medication ?Instructions ?Recorded ?Confirmed ?Last Taken ?Type gabapentin 600 mg tablet 600 mg PO QPM 09/23/19 02/22/25 12/13/22 History calcium carbonate (Calcium 600) 600 mg PO DAILY 10/09/19 02/22/25 12/13/22 History vit C 250 mg-vit E 200 unit-zinc 1 cap PO BID 10/09/19 02/22/25 12/13/22 History ox 12.5 oq-phtijb-scueqo-zeax capsule (ICaps AREDS2) azelastine 137 mcg (0.1 %) nasal 1 mcg intranasal DIRECTED 05/10/21 02/22/25 12/13/22 History spray fluticasone propionate 50 2 spray intranasal DAILY 05/10/21 02/22/25 12/13/22 History mcg/actuation nasal spray,suspension cetirizine 5 mg tablet 5 mg PO BID 10/10/21 02/22/25 12/13/22 History cephalexin 250 mg capsule 250 mg PO DAILY PRN other 12/05/22 02/22/25 12/13/22 History amlodipine 5 mg tablet 10 mg PO DAILY 04/03/23 02/22/25 Unknown History cholecalciferol (vitamin D3) 10 10 mcg PO DAILY 11/03/24 11/03/24 Unknown History mcg (400 unit) capsule famotidine 40 mg tablet 40 mg PO DAILY 11/03/24 11/03/24 Unknown History montelukast 10 mg tablet 10 mg PO DAILY 11/03/24 11/03/24 Unknown History multivitamin with iron (Daily 1 tablet PO DAILY 11/03/24 11/03/24 Unknown History Vitamin with Iron tablet) ferrous sulfate 325 mg (65 mg mg 02/22/25 Unknown History iron) tablet (FeroSul) hydrochlorothiazide 25 mg tablet mg 02/22/25 Unknown History Allergies Allergy/AdvReac Type Severity Reaction Status Date / Time No Known Allergies Allergy Verified 02/22/25 11:00 Review of Systems Review of Systems: CONSTITUTIONAL: Denies fever, chills, body aches, or sweats. EYES: Denies visual changes, redness, or discharge. ENT: Denies rhinorrhea, congestion, sore throat, or otalgia. CARDIOVASCULAR: Denies chest pain, palpitations, or edema. RESPIRATORY: Denies cough or dyspnea. GASTROINTESTINAL: Positive for abdominal pain. Negative for nausea, vomiting, melena, hematochezia, or diarrhea. GENITOURINARY: Denies dysuria, flank pain, hesitancy, frequency, vaginal bleeding, or hematuria. SKIN: Denies rash or itching. MUSCULOSKELETAL: Denies back pain, joint pain, or myalgia. NEUROLOGIC: Denies headache, numbness, or weakness. PSYCHIATRIC: Denies anxiety or depression. All other systems reviewed are negative, except as documented in HPI. [facility] Past Medical History Medical History Chronic cough Impingement of right shoulder Rotator cuff tendinitis GERD (gastroesophageal reflux disease) Hypertension Hearing loss Headache Subscapularis tendinitis of right shoulder Surgical History Surgical History History of appendectomy Labral tear of long head of right biceps tendon Family History Family History Other Cancer Hypertension Social History Social History Smoking status: Never smoker Alcohol intake: current Drinks per week: 4 Substance use: never Substance use type: does not use Living arrangements: with family Gender identity (if verbalized by the patient): Female Spiritual care concerns: No Comments At the time of my signature, I reviewed and agree with the nursing past medical, surgical, social, and family history. There is no relevant family history pertinent to the patient complaint. Exam Narrative: GENERAL: This is a well-nourished, well-developed adult, in no apparent distress. They are non ill-appearing, nontoxic appearing. HEAD: normocephalic, atraumatic. EYES: Sclera clear/white. Conjunctiva normal. Vision is grossly intact. Extraocular movements intact EARS: External ears normal, Hearing grossly intact. NOSE: External nose normal THROAT: Mucous membranes moist, NECK: Neck supple, CARDIOVASCULAR: Regular rate and rhythm without murmurs, gallops, or rubs. RESPIRATORY: Clear to auscultation. Breath sounds equal bilaterally. No wheezes, rales, or rhonchi. GASTROINTESTINAL: Abdomen soft, flat, tender to palpation to right lower quadrant,, nondistended. Bowel sounds are active. No hepato-splenomegaly, or palpable masses. No guarding or rigidity. No rebound tenderness. Negative obturator sign. SKIN: warm, Dry, intact with no suspicious lesions or rash, good texture and turgor. NEURO: awake, alert, and oriented to person, place and time. There were no obvious focal neurologic abnormalities. EXTREMITIES: No joint tenderness, effusion, or edema noted. BACK: Nontender without deformity. No CVA tenderness. Course Course Emergency Course: Portions of this record may have been created with voice recognition software Level of Care: Express Care Visit Vital Signs Vital signs: Vital Signs Temperature 97.7 F 02/22/25 09:45 Pulse Rate 76 02/22/25 09:45 Respiratory Rate 16 02/22/25 09:45 Blood Pressure 166/84 H 02/22/25 09:45 Pulse Oximetry 100 02/22/25 09:45 Temperature 97.7 F 02/22/25 09:45 Pulse Rate 76 02/22/25 09:45 Respiratory Rate 16 02/22/25 09:45 Blood Pressure 166/84 H 02/22/25 09:45 Pulse Oximetry 100 02/22/25 09:45 Reviewed Transfer Transfered to: [facility] Transportation: Other (Private vehicle) Transfer rationale: Higher level care, advanced imaging, further testing and evaluation, right lower quadrant pain Accepting physician: Dr. Delacruz MDM - Abdominal Pain MDM Narrative Medical decision making narrative: Patient has right lower quadrant tenderness, states she has had a previous appendectomy. However given patient's symptoms, it is recommend the patient seek a higher level care and proceed immediately to the emergency department. Patient is agreeable to go to [facility]. [facility] and spoke to Dr. Delacruz who is aware this patient accepted the patient for transfer. Patient advised to remain NPO and proceed immediately to the ER. Patient is hemodynamically stable for transfer. Patient is in no apparent distress, nontoxic appearing. Patient states spouse will take her via private vehicle. Differential Diagnosis Differential diagnosis: Likely abdominal pain, acute appendicitis, calculus of kidney, constipation, diverticulitis and other (Ovarian cyst) Critical Care Time Critical Care Time Critical Care Time: No Discharge Plan Discharge Clinical Impression: Acute right lower quadrant pain Patient Disposition: Acute Care Hospital Condition: Stable Patient Language: Ukrainian Prescriptions: No Action ferrous sulfate [FeroSul] 325 mg (65 mg iron) tablet hydrochlorothiazide 25 mg tablet azelastine 137 mcg (0.1 %) aerosol,spray 1 mcg INTRANASAL DIRECTED fluticasone propionate 50 mcg/actuation spray,suspension 2 spray INTRANASAL DAILY gabapentin 600 mg tablet 600 mg PO QPM amlodipine 5 mg tablet 10 mg PO DAILY cholecalciferol (vitamin D3) 10 mcg (400 unit) capsule 10 mcg PO DAILY multivitamin with iron [Daily Vitamin with Iron] Tablet 1 tablet PO DAILY famotidine 40 mg tablet 40 mg PO DAILY montelukast 10 mg tablet 10 mg PO DAILY omeprazole 40 mg capsule,delayed release(DR/EC) 40 mg PO BID 90 Days Qty: 180 3RF calcium carbonate [Calcium 600] 600 mg calcium (1,500 mg) Tablet 600 mg PO DAILY ICaps AREDS2 250 mg-200 unit -12.5 mg-1 mg Capsule 1 cap PO BID dicyclomine 20 mg tablet 20 mg PO TID PRN (Reason: abdominal pain) Qty: 20 0RF cetirizine 5 mg Tablet 5 mg PO BID cephalexin 250 mg capsule 250 mg PO DAILY PRN (Reason: other) Follow-up/Referrals: [place], [Primary Care Provider] - Time of Disposition: 10:06
== END 2025-02-22 10:08 | disposition short-term general hospital (02) ==
DX: R10.31 Right lower quadrant pain (principal); I10 Essential (primary) hypertension; K21.9 Gastro-esophageal reflux disease without esophagitis
CPT/HCPCS: 99212; G0463

== ENCOUNTER 2025-02-22 10:36 | Emergency (ER) | payer OTHER, SELFPAY ==
--- NOTE | ~2025-02-22 | CT_ITS ---
Non-contrast CT scan of the Abdomen and Pelvis Clinical indication: Abdominal pain Technique: 2.5 mm axial scans were obtained through the abdomen and pelvis without intravenous or or al contrast. Dose reduction technique was used on this scan by utilizing automated exposure control a nd iterative reconstruction technique. The dose-length product (DLP) was 433.98 mGy-cm. Findings: Images through the lung bases reveal no abnormalities. There is no evidence of renal or ureteral calculi. The kidneys and the ureters are nondilated. The liver, spleen, pancreas, gallbladder, and adrenals appear normal. There is no aortic aneurysm. P ossible 17 mm densely calcified splenic artery aneurysm. There is no evidence of bowel obstruction. Images through the pelvis were performed. There is no evidence of ascites or lymphadenopathy. Urinary bladder unremarkable. No pelvic mass seen. No ascites. Impression: No acute abnormality. Possible 17 mm densely calcified splenic artery aneurysm. Reviewed, dictated and finalized at location . Impression: No acute abnormality. Possible 17 mm densely calcified splenic artery aneurysm.
--- NOTE | ~2025-02-22 | US_ITS ---
Pelvic ultrasound. Clinical History: Right lower quadrant pain Technique: Realtime transabdominal and transvaginal scanning of the pelvis was performed. Color flow Doppler and Doppler spectral analysis were performed. Findings: The uterus is absent, compatible prior hysterectomy. Neither ovary clearly visualized. No abnormal adnexal mass seen. There is no evidence of free fluid in the cul de sac. Impression: Neither ovary clearly visualized. No abnormal adnexal mass seen. Status post hysterectomy. Reviewed, dictated and finalized at location . Impression: Neither ovary clearly visualized. No abnormal adnexal mass seen. Status post hysterectomy.
[2025-02-22 10:40] VITALS: BP 171/93; PULSE 93; RESP 18; TEMP 36.5; O2SAT 99
--- NOTE | 2025-02-22 11:06 | ED.ABDPAIN ---
HPI - Abdominal Pain General Chief Complaint: Abdominal Pain Stated Complaint: abd pain Time Seen by Provider: 02/22/25 10:40 History of Present Illness HPI narrative: 64-year-old female with history of hypertension and GERD as well as a surgical history including appendectomy, hysterectomy. Patient presents to the emergency department with right lower quadrant pain that is focal in pinpoint and colicky in nature. She states that there are no exacerbating or alleviating factors and pain comes on gradually and reaches intensity shortly afterwards followed by dissipating on its own. Has tried some Motrin at home with some intermittent relief of symptoms. Does not notice any component to trigger symptoms such as food or with exertion, movement. Symptoms going on for last 3 days and she went to urgent care today and referred to the emergency department for further evaluation. Presently patient is asymptomatic and denies any pain but is able to reproduce the area in question with palpation. Denies any other symptoms such as nausea, vomiting, constipation, fever, chill, shortness of breath or chest pain. Related Data Home Medications ?Medication ?Instructions ?Recorded ?Confirmed ?Last Taken ?Type gabapentin 600 mg tablet 600 mg PO QPM 09/23/19 02/23/25 12/13/22 History calcium carbonate (Calcium 600) 600 mg PO DAILY 10/09/19 02/23/25 12/13/22 History vit C 250 mg-vit E 200 unit-zinc 1 cap PO BID 10/09/19 02/23/25 12/13/22 History ox 12.5 ed-infqyr-zpdhuk-zeax capsule (ICaps AREDS2) azelastine 137 mcg (0.1 %) nasal 1 mcg intranasal DIRECTED 05/10/21 02/23/25 12/13/22 History spray fluticasone propionate 50 2 spray intranasal DAILY 05/10/21 02/23/25 12/13/22 History mcg/actuation nasal spray,suspension cetirizine 5 mg tablet 5 mg PO BID 10/10/21 02/23/25 12/13/22 History cephalexin 250 mg capsule 250 mg PO DAILY PRN other 12/05/22 02/23/25 12/13/22 History amlodipine 5 mg tablet 10 mg PO DAILY 04/03/23 02/23/25 Unknown History cholecalciferol (vitamin D3) 10 10 mcg PO DAILY 11/03/24 02/23/25 Unknown History mcg (400 unit) capsule famotidine 40 mg tablet 40 mg PO DAILY 11/03/24 02/23/25 Unknown History montelukast 10 mg tablet 10 mg PO DAILY 11/03/24 02/23/25 Unknown History multivitamin with iron (Daily 1 tablet PO DAILY 11/03/24 02/23/25 Unknown History Vitamin with Iron tablet) ferrous sulfate 325 mg (65 mg 325 mg PO DAILY 02/22/25 02/23/25 Unknown History iron) tablet (FeroSul) hydrochlorothiazide 25 mg tablet 25 mg PO DAILY 02/22/25 02/23/25 Unknown History Allergies Allergy/AdvReac Type Severity Reaction Status Date / Time No Known Allergies Allergy Verified 02/23/25 14:43 Review of Systems Review of Systems: As reviewed above in [facility] Past Medical History Medical History Chronic cough Impingement of right shoulder Rotator cuff tendinitis GERD (gastroesophageal reflux disease) Hypertension Hearing loss Headache Subscapularis tendinitis of right shoulder Surgical History Surgical History History of appendectomy Labral tear of long head of right biceps tendon Family History Family History Other Cancer Hypertension Social History Social History Smoking status: Never smoker Alcohol intake: current Drinks per week: 1 Substance use: never Substance use type: does not use Living arrangements: with family Gender identity (if verbalized by the patient): Female Spiritual care concerns: No Exam Narrative: GENERAL: [Well-appearing, well-nourished, and in no acute distress.] HEAD: [Normocephalic, atraumatic.] EYES: [PERRLA and EOMI.] ENT: Nares clear, no rhinorrhea or epistaxis. Mucous membranes moist. NECK: Supple. CHEST: [Clear to auscultation. No respiratory distress.] HEART: [Regular rate and rhythm]. No murmur heard. [Normal peripheral pulses.] ABDOMEN: [Soft, nondistended], focal pinpoint tenderness to palpation over the right lower quadrant without any rebound or guarding, no CVA tenderness, no exacerbation with movement or manipulation of the right lower extremity or hip. Negative radial drill press set up operator Corbett's and Rovsing signs. EXTREMITIES: Normal range of motion. [No edema.] SKIN: Warm, dry, no rash. NEURO: [No focal deficits]. Alert and oriented [x3.] PSYCH: [Normal mood and affect.] Course Vital Signs Vital signs: Vital Signs Temperature 36.5 C 02/22/25 10:40 Pulse Rate 93 02/22/25 10:40 Respiratory Rate 18 02/22/25 10:40 Blood Pressure 171/93 H 02/22/25 10:40 Pulse Oximetry 99 02/22/25 10:40 Oxygen Delivery Room Air 02/22/25 10:40 Temperature 36.5 C 02/22/25 10:40 Pulse Rate 75 02/22/25 14:02 Respiratory Rate 18 02/22/25 14:02 Blood Pressure 170/89 H 02/22/25 14:02 Pulse Oximetry 99 02/22/25 14:02 Oxygen Delivery Room Air 02/22/25 10:40 MDM - Abdominal Pain MDM Narrative Medical decision making narrative: 64-year-old female presenting with intermittent right lower quadrant pain for last few days that is very pinpoint location with no other associated symptoms. No urinary symptoms nausea, vomiting, constipation, fever, chills. History of appendectomy and hysterectomy but still has her ovaries. No history of ovarian cysts or masses to her knowledge. Pain is focal and presently only reproducible with deep palpation but patient states that she intermittently gets waves of significant pain that causes her to bend over in pain but this is short-lived. She has normal vital signs aside from some asymptomatic hypertension. Differential includes ovarian cyst or torsion, kidney stone, stump appendicitis, intra-abdominal infection, diverticulitis, colitis. Pelvic ultrasound and CT of the abdomen without contrast was ordered for further delineation. Patient is presently asymptomatic but will be given pain medications upon request. Laboratory studies and urinalysis obtained. Patient's laboratory studies are reassuring without any leukocytosis or anemia. Normal platelet count. Electrolytes are largely unremarkable, normal renal function, normal glucose, normal LFTs. Urinalysis without any blood or infection. Pelvic ultrasound shows no clear visualized will ovary but no adnexal masses are seen which is reassuring. No free fluid in the pelvic cul-de-sac. CT of the abdomen pelvis with no acute abnormalities. Calcified splenic artery aneurysm which patient is already aware of an knows about and has outpatient monitoring for this without symptoms. Given patient's lack of symptoms at this time and unremarkable CT scan pelvic ultrasound and laboratory studies I believe she can be safely discharged with outpatient follow-up and return precautions and will be sent home with Bentyl as needed for her cramping abdominal pain which seems intermittent in nature but has no clear focal cause. Medical Records Attestation: I reviewed the patient's medical records. Lab Data Attestation: I reviewed the patient's lab results. 02/22/25 11:04 02/22/25 11:04 Labs: Lab Results 02/22/25 Range/Units 11:04 WBC 7.5 (4.5-10.0) K/mm3 RBC 4.76 (4.2-5.4) M/mm3 Hgb 13.6 (12.0-15.0) g/dL Hct 41.3 (37.0-47.0) % MCV 86.8 (80-100) fl MCH 28.6 (26-34) pg MCHC 32.9 (32-36) g/dl RDW 15.6 H (11.5-14.5) % Plt Count 281 (150-375) k/mm3 MPV 9.8 (7.4-10.4) fl Immature Gran % (Auto) 0.8 H (0-0.5) % Neut % (Auto) 50.4 (45.5-73.1) % Lymph % (Auto) 33.6 (18.3-44.2) % [place] % (Auto) 12.1 H (2.6-8.5) % Eos % (Auto) 2.3 (0-4.4) % Baso % (Auto) 0.8 (0.2-1.2) % Lymph # (Auto) 2.50 (0.9-3.2) K/mm3 Hamb[place] # (Auto) 0.9 H (0.1-0.6) K/mm3 Eos # (Auto) 0.2 (0-0.3) K/mm3 Baso # (Auto) 0.1 (0.0-0.1) K/mm3 Abs Immat Gran (auto) 0.06 H (0.00-0.031) K/mm3 Absolute Neuts (auto) 3.8 (1.3-6.7) K/mm3 Absolute Nucleated RBC 0.000 (0.0-0.012) K/mm3 Nucleated RBC % 0.0 (0.0-0.2) % Sodium 134 L (137-145) mmol/L Potassium 3.3 L (3.4-5.0) mmol/L Chloride 94 L (98-107) mmol/L Carbon Dioxide 31 H (22-30) mmol/L Anion Gap 9 (4-12) mmol/L BUN 15 (7-17) mg/dL Creatinine 0.64 L (0.7-1.0) mg/dL Estim Creat Clear Calc 80 ml/min Estimated GFR > 60 (59 - ) Glucose 97 (65-110) mg/dL Calcium 9.5 (8.4-10.2) mg/dL Total Bilirubin 0.5 (0.2-1.3) mg/dL AST 31 (14-36) U/L ALT 24 (6-35) U/L Alkaline Phosphatase 87 (38-126) U/L Total Protein 8.3 H (6.3-8.2) g/dL Albumin 4.8 (3.5-5.1) g/dL Lipase 129 (23-300) U/L Urine Color Yellow (Yellow) Urine Appearance Clear (Clear) Urine pH 7.5 (5.0-9.0) Ur Specific [place] 1.010 (1.001-1.035) Urine Protein Negative (Negative) mg/dL Urine Glucose (UA) Negative (Negative) mg/dL Urine Ketones Negative (Negative) mg/dL Ur Blood (Man) Negative (Negative) Urine Nitrate Negative (Negative) Urine Bilirubin Negative (Negative) Urine Urobilinogen 0.2 (<2.0) mg/dL Leukocyte Esterase Rfl Trace H (Negative) ELIO/UL Urine RBC 0-2 (0-2) /hpf Urine WBC 0-5 (0-3) /hpf Ur Squamous Epith Cells Occasional (Few) /hpf Urine Bacteria None seen /hpf Urine Casts 0-2 Imaging Data Attestation: I personally reviewed and interpreted this imaging study as follows: My impression: Impressions Abdomen/Pelvis CT 02/22/25 11:26 Impression: No acute abnormality. Possible 17 mm densely calcified splenic artery aneurysm. Pelvis Ultrasound 02/22/25 12:13 Impression: Neither ovary clearly visualized. No abnormal adnexal mass seen. Status post hysterectomy. Radiologist's impression: ITS Impressions Abdomen/Pelvis CT 02/22/25 11:26 Impression: No acute abnormality. Possible 17 mm densely calcified splenic artery aneurysm. Pelvis Ultrasound 02/22/25 12:13 Impression: Neither ovary clearly visualized. No abnormal adnexal mass seen. Status post hysterectomy. Discharge Plan Discharge Clinical Impression: Colicky right lower quadrant pain Patient Disposition: Home Condition: Stable Instructions: Antibiotic Form, Acute Abdominal Pain (ED) Additional Instructions: Your laboratory studies are all reassuring and there are no signs of infection in her urine or blood. CT scan shows no acute abnormalities aside from the splenic artery aneurysm which is known to you without any interval changes or concern at this time. The ultrasound does not show any adnexal masses or concern in the pelvis. Your symptoms do not seem to have an identifiable cause at this time but no apparent urgent or emergent concerns are identified. We can send you home with Sonja which can help with these kinds of abdominal cramping sensations in heavy follow-up with regular doctor. Return with any emergent concerns at any time. Patient Language: Cymraes Prescriptions: New dicyclomine 20 mg tablet 20 mg PO TID PRN (Reason: abdominal pain) Qty: 20 0RF No Action ferrous sulfate [FeroSul] 325 mg (65 mg iron) tablet 325 mg PO DAILY hydrochlorothiazide 25 mg tablet 25 mg PO DAILY azelastine 137 mcg (0.1 %) aerosol,spray 1 mcg INTRANASAL DIRECTED fluticasone propionate 50 mcg/actuation spray,suspension 2 spray INTRANASAL DAILY gabapentin 600 mg tablet 600 mg PO QPM amlodipine 5 mg tablet 10 mg PO DAILY cholecalciferol (vitamin D3) 10 mcg (400 unit) capsule 10 mcg PO DAILY multivitamin with iron [Daily Vitamin with Iron] Tablet 1 tablet PO DAILY famotidine 40 mg tablet 40 mg PO DAILY montelukast 10 mg tablet 10 mg PO DAILY omeprazole 40 mg capsule,delayed release(DR/EC) 40 mg PO BID 90 Days Qty: 180 3RF calcium carbonate [Calcium 600] 600 mg calcium (1,500 mg) Tablet 600 mg PO DAILY ICaps AREDS2 250 mg-200 unit -12.5 mg-1 mg Capsule 1 cap PO BID cetirizine 5 mg Tablet 5 mg PO BID cephalexin 250 mg capsule 250 mg PO DAILY PRN (Reason: other) Follow-up/Referrals: [place], [Primary Care Provider] - Time of Disposition: 13:48
[2025-02-22 11:12] LABS: Basophils Absolute Auto 0.1 K/mm3 (0.0-0.1); Basophils Percent Auto 0.8 % (0.2-1.2); Eosinophils Absolute Auto 0.2 K/mm3 (0-0.3); Eosinophils Percent Auto 2.3 % (0-4.4); Hematocrit 41.3 % (37.0-47.0); Hemoglobin 13.6 g/dL (12.0-15.0); Immature Granulocyte Absolute 0.06 K/mm3 (0.00-0.031); Immature Granulocyte Percent A 0.8 % (0-0.5); Lymphocytes Percent Auto 33.6 % (18.3-44.2); Mean Corpuscular HGB Conc 32.9 g/dl (32-36); Mean Corpuscular Hemoglobin 28.6 pg (26-34); Mean Corpuscular Volume 86.8 fl (80-100); Mean Platelet Volume 9.8 fl (7.4-10.4); Monocytes Absolute Auto 0.9 K/mm3 (0.1-0.6); Monocytes Percent Auto 12.1 % (2.6-8.5); Neutrophils Absolute Auto 3.8 K/mm3 (1.3-6.7); Neutrophils Percent Auto 50.4 % (45.5-73.1); Platelet Count Result 281 k/mm3 (150-375); Red Blood Count 4.76 M/mm3 (4.2-5.4); Red Cell Distribution Width 15.6 % (11.5-14.5); White Blood Count 7.5 K/mm3 (4.5-10.0)
[2025-02-22 11:19] LABS: Add Urine Microscopic? YES; Appearance Urine Clear (Clear); Bacteria Urine None Seen /hpf; Bilirubin Urine Negative (Negative); Blood Urine Negative (Negative); Color Urine Yellow (Yellow); Glucose Urine UA Negative (Negative); Ketones Urine Negative (Negative); Leukocyte Esterase Ur Trace LEU/UL (Negative); Nitrate Urine Negative (Negative); Non Pathogenic Casts 0-2; Protein Urine Negative (Negative); RBC Urine 0-2 /hpf (0-2); Squamous Epithelial Cell Urine Occasional /hpf (Few); Urobilinogen Urine 0.2 mg/dL (<2.0); WBC Urine 0-5 /hpf (0-3); pH Urine 7.5 (5.0-9.0)
[2025-02-22 11:23] LABS: Alanine Aminotransferase 24 U/L (6-35); Albumin Level 4.8 g/dL (3.5-5.1); Alkaline Phosphatase 87 U/L (38-126); Anion Gap 9 mmol/L (4-12); Aspartate Amino Transferase 31 U/L (14-36); Bilirubin,Total 0.5 mg/dL (0.2-1.3); Blood Urea Nitrogen 15 mg/dL (7-17); Calcium 9.5 mg/dL (8.4-10.2); Carbon Dioxide 31 mmol/L (22-30); Chloride 94 mmol/L (98-107); Estimated CRCL calculation 80 ml/min; Estimated Glomerular Filt Rate > 60; Glucose 97 mg/dL (65-110); Lipase 129 U/L (23-300); Potassium 3.3 mmol/L (3.4-5.0); Sodium 134 mmol/L (137-145); Total Protein 8.3 g/dL (6.3-8.2)
[2025-02-22] MEDS: LACTATED RINGERS 1,000 ML 999 ML IV CONT (12:21)
[2025-02-22 14:02] VITALS: BP 170/89; PULSE 75; RESP 18; O2SAT 99
== END 2025-02-22 14:04 | disposition home or self-care (01) ==
PROVIDERS: Emergency Provider Student in an Organized Health Care Education/Training Program
DX: R10.31 Right lower quadrant pain (principal); I10 Essential (primary) hypertension; I72.8 Aneurysm of other specified arteries; K21.9 Gastro-esophageal reflux disease without esophagitis; Z90.710 Acquired absence of both cervix and uterus
CPT/HCPCS: 36415; 74176; 76856; 80053; 81001; 83690; 85025; 96360; 99284; J7120

== ENCOUNTER 2025-03-12 02:20 | Day surgery (SDC) | payer OTHER, SELFPAY ==
[2025-02-23 14:48] VITALS: BMI 26.6
--- OUTSIDE RECORDS SUMMARY | 2025-03-12 02:23 | XMS_ITS | Clinical Summary ---
Author Organization [facility] Address [address] [place] [address] Care Team Providers Care Mica Machine Operator Name Role Phone [facility]ergies No known active allergies Medications amLODIPine (NORVASC) 5 mg tablet 02/26/20 21 Active cetirizine (ZyrTEC) 10 mg tablet 02/23/20 21 Active cholecalcifero l (VITAMIN D-3) 5,000 unit capsule cholecalciferol (vitamin D3) 125 mcg (5,000 unit) capsule Active estrogens, conjugated, (Premarin) vaginal cream Premarin 0.625 mg/gram vaginal cream Active gabapentin (NEURONTIN) 600 mg tablet 02/26/20 21 Active meloxicam (MOBIC) 15 mg tablet meloxicam 15 mg tablet Active omeprazole (PriLOSEC) 20 mg capsule omeprazole 20 mg capsule,delayed release Active ofloxacin (FLOXIN) 0.3 % otic solution Administer 5 drops into the right ear 2 (two) times a day 5 mL 2 07/16/20 21 Active HYDROcodone-ac etaminophen (NORCO) 5-325 mg per tabletIndicati ons:Pain Take 1 tablet by mouth every 6 (six) hours as needed for pain 15 tablet 07/14/20 21 Active azelastine (ASTELIN) 137 mcg (0.1 %) nasal spray 10/31/19 22 Active fluticasone propionate (FLONASE) 50 mcg/actuation nasal spray 11/25/19 22 Active Xarelto 10 mg tablet 10/07/19 22 Active cephalexin (KEFLEX) 250 mg capsule 12/18/19 23 Active EPINEPHrine (EpiPen 2-Bryant) 0.3 mg/0.3 mL auto-injection syringe as directed Active montelukast (SINGULAIR) 10 mg tablet 1 tab(s) Active famotidine (PEPCID) 40 mg tablet 1 tab(s) Active polyethylene glycol (GoLYTELY) 236-22.74-6.74 -5.86 gram solution Follow Instructions sent by Doctors office by mail 4000 mL 09/17/19 24 Active hydroCHLOROthi azide (HYDRODIURIL) 12.5 mg tablet 10/05/19 24 Active Norvasc 10 mg tablet 1 tablet (10 mg total) 01/25/20 23 Active Active Problems Problem Noted Date Diagnosed Date Encounter for colonoscopy following colon polyp removal 09/17/2023 Encounter for colonoscopy du e to history of adenomatous colonic polyps 09/17/2023 Family history of colon polyps, unspecified 08/28 Hearing disorder, conductive 03/29/2021 Overview (03/29/2021): Added automatically from request for surgery [id number] Tinnitus 03/28/2021 Conductive hearing loss, bilateral 03/28/2021 Knee pain 10/19/2015 Pain of toe 04/08/2014 Bunion 04/08/2014 Nocturia 12/30/2010 Surgical History Surgery Date Site/Laterality Comments MA APPENDECTOMY Appendectomy - (Added by TW Conv) FOOT SURGERY Foot Surgery - (Added by TW Conv) STAPEDECTOMY 08/27/2020 - 08/26/2021 Right COLONOSCOPY POLYPECTOMY PARTIAL HYSTERECTOMY VITRECTOMY Bilateral Medical History Medical History Date Comments Personal history of other di seases of the circulatory system History of hypertension - (A dded by TW Conv) Stress incontinence Female stres s incontinence - (Added by TW Conv) PONV (postoperative nausea and vomiting) Colon polyp GERD (gastroesophageal reflux disease) Hypertension Family History Medical History Relation Name Comments Scoliosis Daughter Family history of scoliosis - (Added by TW Conv) Colon polyps Father Hypertension Father Family history of hypertension - (Added by TW Conv) Stroke Father Family history of cerebrovascular accident (CVA) - (Added by TW Conv) Cancer Mother Family history of malignant neoplasm - (Added by TW Conv) Hypertension Mother Family history of hypertension - (Added by TW Conv) Colon polyps Sister Relation Name Status Comments Daughter Father Mother Sister Social History Tobacco Use Types Packs/Day Years Used Date Smoking Tobacco: Never Tobacco Cessation:Counseling Given: Not Answered AUDIT-C Answer Date Recorded Q1: How often do you have a drink containing alc ohol? 2-3 times a week 11/01/2023 Q2: How many drinks containi ng alcohol do you have on a typical day when you are drinking? 1 or 2 11/01/2023 Q3: How often do you have si x or more drinks on one occasion? Never 11/01/2023 Personal Safety Answer Date Recorded Have you ever been in or are you currently in a harmful physical or emotional relationship or is someone making you feel afraid or unsafe? Denies 11/01/2023 Comments No Sex and Gender Information Value Date Recorded Sex Assigned at Not on file Legal Sex Female 8:51 AM CHIEF DESIGN DRAFTER Gender Identity Female 04/04/2021 9:17 AM CDT Sexual Orientation Not on file Obstetrics History Last Filed Vital Signs Vital Sign Reading Time Taken Comments Blood Pressure 142/77 11/01/2023 8:55 AM CHIEF DESIGN DRAFTER Pulse 72 11/01/2023 8:55 AM CHIEF DESIGN DRAFTER Temperature 36.2 C (97.2 F) 11/01/2023 8:25 AM CHIEF DESIGN DRAFTER Respiratory Rate 30 11/01/2023 8:55 AM CHIEF DESIGN DRAFTER Oxygen Saturation 99% 11/01/2023 8:55 AM CHIEF DESIGN DRAFTER Inhaled Oxygen Concentration - - Weight 86.2 kg (190 lb) 11/01/2023 7:05 AM CHIEF DESIGN DRAFTER Height 175.3 cm (5' 9) 11/01/2023 7:05 AM CHIEF DESIGN DRAFTER Body Mass Index 28.06 11/01/2023 7:05 AM CHIEF DESIGN DRAFTER Plan of Treatment Health Maintenance Due Date Last Done Comments Breast Cancer Screening-Mammogram 1960 Depression Screening 1960 Hepatitis C Screening 1960 Hepatitis B Screening 1979 Regular Well Visit/Exam 18-64 1979 Zoster Vaccine (1 of 2) 2011 Covid-19 Vaccine (4 - 2023-2 5 season) 2024 08/05/2021, 11/14/2020, 10/23/2020 Influenza Vaccine (#1) 2025 , 08/06/2019, 06/16/2018 DTaP/Tdap/Td Vaccine (2 - Td or Tdap) 11/14/2030 11/14/2020 Colon Cancer Screening-Colonoscopy 10/31/2033 11/01/2023, 02/15/2023 Pneumococcal vaccine <65 Aged Out No longer eligible based on patient's age to complete this topic Medical Devices Implanted Type Area Collar Stitcher Device Identifier Shelf Expiration Date Model / Serial / Lot Screws Right: Foot [employer] [id number] Eclipse .6mm 4.5mm Wide Flat Ribbon Incus 360d Piston Otology - [id number] Implanted:Qty: 1 on 07/14/2021 by Cole Adam MD at [facility] Right: Ear [employer] [id number] 04/23/2023 [id number] / / [id number] Procedures Procedure Name Priority Date/Time Associated Diagnosis Comments COLONOSCOPY 11/01/2023 7:47 AM CHIEF DESIGN DRAFTER from Last 3 Months or Most Recently Relevant to Health Maintenance Results * Colonoscopy (11/01/2023 7:47 AM CHIEF DESIGN DRAFTER) Anatomical Region Laterality Modality Other Narrative Procedure Note Junaid Stewart MD - 11/01/2023 7:47 AM CST ENDOSCOPY LAB Patient Name: Mounika Beach Procedure Date: 11/01/2023 7:47 AM Date of : 1960 Admit Type: Outpatient Age: 63 Gender: Female Attending MD: Massimo Stewart M.D. Room: [facility] ENDOSCOPY ROOM 03 Note Status: Finalized Procedure: Colonoscopy Indications: Surveillance: Personal history of colonic polyps, Incomplete colonoscopy 1 year ago, virtualcolography demonstrated a cecal polyp Providers: Massimo Stewart M.D. Referring MD: Conrad Ortega M.D., [facility] Medicines: Monitored Anesthesia Care Complications: No immediate complications. Estimated Blood Loss: Estimated blood loss was minimal. Procedure: Pre-Anesthesia Assessment: - Immediately prior to administration ofmedications, the patient was re-assessed for adequacy to receive sedatives. The benefits, risks and alternatives of theprocedure and sedation were discussed and informed consentwas obtained. All questions were answered. Please referto the signed informed consent document in the medical record. The scope was passed under direct vision.The [id number] was introduced through the anusand advanced to the cecum, identified by appendiceal orifice and ileocecal valve. The colonoscopy was performed without difficulty. The patient tolerated the procedure well. The quality of the bowel preparation was good. The quality of the bowel preparation was evaluated using the BBPS (BostonBowel Preparation Scale) with scores of: Right Colon = 3, Transverse Colon = 3 and Left Colon = 3 (entiremucosa seen well with no residual staining, smallfragments of stool or opaque liquid). The total BBPS score equals 9. Bowel prep was administered using a split dose. Findings: Five sessile polyps were found in the sigmoid colon (one), ascending colon (three) and cecum (one). The polyps were 3 to 6 mm in size.These polyps were removed with a cold biopsy forceps. Resection andretrieval were complete. An 8 mm polyp was found in the transverse colon. The polyp wassessile. The polyp was removed with a cold snare. Resection and retrieval were complete. The exam was otherwise without abnormality on direct and retroflexion views. Impression: - Six total polyps. Resected and retrieved. - The examination was otherwise normal on directand retroflexion views. Recommendation: - Await pathology results. Repeat colonoscopy in 3 years for surveillance. Electronically signed by Massimo Stewart MD Massimo Stewart M.D. 11/01/2023 8:23:46 AM Number of Addenda: 0 Note Initiated On: 11/01/2023 7:47 AM Junaid Stewart MD ENDOSCOPY PROCEDURES Final Result from Last 3 Months or Most Recently Relevant to Health Maintenance Insurance [employer] [facility] Advance Directives For more information, please contact: [phone] * Full Code (Latest Code Status on File) Date Activated Date Inactivated Comments 11/01/2023 7:11 AM 11/01/2023 1:06 PM Care Teams Mica Machine Operator Relationship Specialty Start Date End Date [facility] [address] [place] [address] PCP - General 10/23/23
--- OUTSIDE RECORDS SUMMARY | 2025-03-12 02:23 | XMS_ITS | Patient Health Record ---
Author Organization [facility] Address [address] [place], [place] [id number] Care Team Providers Care Technical Implementation Lead Name Role Phone MOLLY Roe Unavailable Reason For Referral No Information Plan Of Treatment No Information Insurance Providers Payer Name Payer Address Payer Phone Subscriber Number Group Number Insured Name Patient Relationship to Insured Coverage Start Date Coverage End Date Chidi Beckham ([place] 1[place]) [address] [place], [place] [id number] KIMBERLI NICHOLE Self - patient is the insured
--- OUTSIDE RECORDS SUMMARY | 2025-03-12 02:23 | XMS_ITS | Referral Summary ---
Author Organization [facility] Medical Office Building [address] Address [address] [place] [address] Care Team Providers Care Interactive Developer Name Role Phone [facility] Allergies No known active [...] (03/29/2021): Added automatically from request for surgery [id number] Tinnitus 03/28/2021 Conductive hearing loss, bilateral 03/28/2021 Knee pain 10/19/2015 Pain of toe 04/08/2014 Bunion 04/08/2014 Nocturia 12/30/2010 Social History Tobacco Use Types Packs/Day Years [...] on file Legal Sex Female 8:51 AM LOCATION WORKER Gender Identity Female 04/04/2021 9:17 AM CDT Sexual Orientation Not on file Last Filed Vital Signs Vital Sign Reading Time Taken Comments Blood Pressure 142/77 11/01/2023 8:55 AM LOCATION WORKER Pulse 72 11/01/2023 8:55 AM LOCATION WORKER Temperature 36.2 C (97.2 F) 11/01/2023 8:25 AM LOCATION WORKER Respiratory Rate 30 11/01/2023 8:55 AM LOCATION WORKER Oxygen Saturation 99% 11/01/2023 8:55 AM LOCATION WORKER Inhaled Oxygen Concentration - - Weight 86.2 kg (190 lb) 11/01/2023 7:05 AM LOCATION WORKER Height 175.3 cm (5' 9) 11/01/2023 7:05 AM LOCATION WORKER Body Mass Index 28.06 11/01/2023 7:05 AM LOCATION WORKER Plan of Treatment Not on file Medical Devices Implanted Type Area Panel Sewer Device Identifier Shelf Expiration Date Model / Serial / Lot Screws Right: Foot [employer] 472-450 Eclipse .6mm 4.5mm Wide Flat Ribbon Incus 360d Piston Otology - [id number] Implanted:Qty: 1 on 07/14/2021 by Cole Adam MD at [facility] Right: Ear [employer] [id number] 04/23/2023 [id number] / / [id number] Procedures Procedure Name Priority Date/Time Associated Diagnosis Comments COLONOSCOPY 11/01/2023 7:47 AM LOCATION WORKER from Last 3 Months or Most Recently Relevant to Health Maintenance Results * Colonoscopy (11/01/2023 7:47 AM LOCATION WORKER) Anatomical Region Laterality Modality Other Narrative Procedure Note Junaid Stewart MD - 11/01/2023 7:47 AM CST ENDOSCOPY LAB Patient Name: Mounika Beach Procedure Date: 11/01/2023 7:47 AM Date of : 1960 Admit Type: Outpatient Age: 63 Gender: Female Attending MD: Massimo Stewart M.D. Room: [facility] ENDOSCOPY ROOM 03 Note Status: Finalized Procedure: Colonoscopy Indications: Surveillance: Personal history of colonic polyps, Incomplete colonoscopy 1 year ago, virtualcolography demonstrated a cecal polyp Providers: Massimo Stewart M.D. Referring MD: Conrad Ortega M.D., [facility] Medicines: Monitored Anesthesia Care Complications: No immediate [...] The scope was passed under direct vision.The [id number] was introduced through the anusand advanced to [...] Most Recently Relevant to Health Maintenance Insurance [employer] [facility] CLAIMS [facility] [place] [facility] Advance Directives For more information, please contact: [phone] * Full Code (Latest Code Status on File) Date Activated Date Inactivated Comments 11/01/2023 7:11 AM 11/01/2023 1:06 PM Care Teams Interactive Developer Relationship Specialty Start Date End Date [facility] [address] [place] [address] PCP - General 10/23/23
--- OUTSIDE RECORDS SUMMARY | 2025-03-12 02:23 | XMS_ITS | Clinical Summary ---
Author Organization [facility] Address [address] [place] [address] Care Team Providers Care Caption Writer Name Role Phone Mk Rod MD Primary Care Provider Social History Tobacco Use Types Packs/Day Years Used Date Smoking Tobacco: Never Assessed Comments Unknown Sex and Gender Information Value Date Recorded Sex Assigned at Not on file Legal Sex Female 8:11 PM CDT Gender Identity Not on file Sexual Orientation Not on file Plan of Treatment Health Maintenance Due Date Last Done Comments Cervical Cancer Screening Pa p Smear (Age 30 to 64) Every 3 Years 1960 Colorectal Cancer Screening Colonoscopy (10 Years) 1961 Annual Physical 1964 Hepatitis C 1979 DTaP, Tdap and Td Vaccines ( 1 - Tdap) 1980 Cervical Cancer Screening Pa p with HPV Testing (Age 30 to 64) Every 5 Years 1991 Cervical Cancer Screening with HPV 1991 Mammogram Screening 2001 Pneumococcal Vaccine: 50+ Ye ars (1 of 1 - PCV) 2011 Zoster Vaccines (1 of 2) 2011 COVID-19 Vaccine (2023-2 5 season) 2024 RSV Immunization or 60+ Years (1 - 1-dose 75+ series) 2036 Meningococcal B Vaccine Aged Out No l onger eligible based on patient's age to complete this topic Meningococcal Vaccine Aged Out No bassem lexii eligible based on patient's age to complete this topic RSV Immunizations Under 20 Months Aged Out No longer eligible based on patient's age to complete this topic Care Teams Caption Writer Relationship Specialty [place] [address] [place] [address] PCP - General 11/20/12
--- OUTSIDE RECORDS SUMMARY | 2025-03-12 02:24 | XMS_ITS | Patient Health Record ---
Author Organization [facility] ([address]) Address [address] [place] [address] Care Team Providers Care Relay Motorman Name Role Phone MarylouwillieIndy Primary Care Provider Robbie Garcia Unavailable [phone] Joshua Parra Unavailable [phone] Allergies No Known Allergies Reason For Referral Referring Provider First Name Stephanie Referring Provider Last Name Richar Garcia Referring Provider Speciality Audiologis ts Referred Organization [facility] Referred Provider Joshua Parra Referred Address [address] [place], [place],[address], Referred Provider Specialty Allergy/Immu nology Referral Priority Routine Medications Medication SIG (Take, Route, Frequency, Duration) Notes Start Date End Date Status PriLOSEC OTC 20 MG 1 tab(s) orally BID, PRN Active EpiPen 2-Bryant 0.3 MG/0.3ML as directed intramuscularly once; Duration: 30 day(s) Active Azelastine HCl 137 MCG/SPRAY 2 spray(s) intranasally 2 times a day; Duration: 90 days Active ZyrTEC Allergy 10 MG 1 tab(s) orally once a day; Duration: 90 days Active amLODIPine Besylate 5 MG 1 tab(s) orally once a day Active GABAPENTIN 100 mg 1 cap(s) orally Qday Active FeroSul 325 (65 Fe) MG Oral; Duration: 9 0 Days Active CALCIUM CARBONATE 500 mg 1 tab(s) chewed once a day Active hydroCHLOROthiazide *Please revi ew and pick correct strength-formul ation from Medispan options. If intended option is not shown, discontinue and re-order from Quick Search* Active Montelukast Sodium 10 MG 1 tab(s) orally 30 minutes prior to shots; Duration: 30 day(s) Active Famotidine 40 MG 1 tab(s) orally 30 minutes prior to shots; Duration: 30 day(s) Active ZYRTEC 10 mg 1 tab(s) orally once a day; Duration: 90 days Active PRILOSEC OTC 20 mg 1 tab(s) orally BID, PRN Active CEPHALEXIN 500 mg 1 cap(s) orally weekly Active Vitamin D3 125 MCG (5000 UT) Oral; Duration: 90 Days Active AMLODIPINE 5 mg 1 tab(s) orally once a day Not-Taking FLONASE 0.05 mg/inh 2 spray(s) intranasally (avoid nasal septum) once a day Not-Taking MONTELUKAST SODIUM 10 mg 1 tab(s) orally 30 minutes prior to shots; Duration: 30 day(s) Active FAMOTIDINE 40 mg 1 tab(s) orally 30 minutes prior to shots; Duration: 30 day(s) Active EPINEPHrine 0.3 MG/0.3ML as directed Injection as needed; Duration: 30 days 5 Active AZELASTINE HYDROCHLORIDE NASAL 137 mcg/inh 2 spray(s) intranasally 2 times a day; Duration: 90 days Active HYDROCHLOROTHIAZIDE Not-Taking FLONASE 0.05 mg/inh 2 spray(s) intranasally (avoid nasal septum) once a day Active EPIPEN 2-BRYANT 0.3 mg as directed intramuscularly once; Duration: 30 day(s) Not-Taking Calcium Carbonate 500 MG 1 TAB(S) CHEWED ONCE A DAY *Please review and pick correct strength-formul ation from Medispan options. If intended option is not shown, discontinue and re-order from Quick Search* Active Flonase Allergy Relief 50 MCG/ACT 2 spray(s) intranasally (avoid nasal septum) once a day Active NASAL WASHES N/A as directed intranasally as needed; Duration: 30 days Active SIT (TRADITIONAL) variable per schedule SC per schedule; Duration: to be determined Active Cephalexin 500 MG 1 cap(s) orally weekly Active Gabapentin 100 MG 1 cap(s) orally Qday Active Immunizations Vaccine Route Administration Date Status Comme nts Covid 19 (Pfizer) Unknown 10/23/2020 Administered Covid 19 (Pfizer) Unknown 11/14/2020 Administered Covid 19 (Pfizer) Unknown 08/05/2021 Administered H1N1 Influenza Unknown 10/01/2009 Administered Portal I nformation Hepatitis B (20 and more) Unknown 03/04/2021 Administer ed Portal Information Influenza Unknown 06/10/2020 Administered Portal Infor mation NOC Tdap Unknown 11/14/2020 Administered NOC Tdap Unknown 12/09/2020 Administered Portal Infor mation Hepatitis A Unknown 03/11/2007 Administered Portal Info rmation Social History Tobacco Use: Social History Observation Description Date Details (start date - stop date) Never Smoker NA - NA Smoking Smart Form: Question Answer Notes Are you a: never smoker Problems Problem Type SNOMED Code ICD Code Onset Dates Problem Status W/U Status Risk Notes Problem Information temporarily unavailable Wheezing (R06.2) Active confirmed Problem Information temporarily unavailable Insomnia, unspecified (G47.00) Active confirmed Problem Information temporarily unavailable Other chronic allergic conjunctivitis (H10.45) Active confirmed Problem Information temporarily unavailable Essential (primary) hypertension (I10) Active confirmed Problem Information temporarily unavailable Allergic rhinitis due to pollen (J30.1) Active confirmed Problem Information temporarily unavailable Allergic rhinitis due to animal (cat) (dog) hair and dander (J30.81) Active confirmed Problem Information temporarily unavailable Other allergic rhinitis (J30.89) Active confirmed Problem Information temporarily unavailable Allergic rhinitis, unspecified (J30.9) Active confirmed Problem Information temporarily unavailable Cough (R05) Active confirmed Problem Information temporarily unavailable Allergic rhinitis due to pollen (J30.1) Active confirmed Problem Information temporarily unavailable Allergic rhinitis due to animal (cat) (dog) hair and dander (J30.81) Active confirmed Problem Information temporarily unavailable Other allergic rhinitis (J30.89) Active confirmed Problem Information temporarily unavailable Other chronic allergic conjunctivitis (H10.45) Active confirmed Problem Information temporarily unavailable Gastro-esophageal reflux disease without esophagitis (K21.9) Active confirmed Problem Information temporarily unavailable Chronic cough (R05.3) Active confirmed Vital Signs Blood pressure diastolic 83 mm Hg 10/27/2024 Oximetry 100 % 10/27/2024 Height 70 in 10/27/2024 Blood pressure systolic 147 mm Hg 10/27/2024 Weight 187.6 lbs 10/27/2024 BMI 26.91 kg/m2 10/27/2024 Encounters Encounter Location Date Provider Diagnosis [address] [phone] 11/19/2024 Joshua Fidel Allergic rhinitis du e to pollen J30.1 ; Allergic rhinitis due to animal (cat) (dog) hair and dander J30.81 ; Other allergic rhinitis J30.89 and Other chronic allergic conjunctivitis H10.[address] [address] 12/01/2024 Joshua Fidel Allergic rhinitis du e to pollen J30.1 ; Allergic rhinitis due to animal (cat) (dog) hair and dander J30.81 ; Other allergic rhinitis J30.89 and Other chronic allergic conjunctivitis H10.45 [facility] [address] [place] [phone] 12/08/2024 Joshua Parra Allergic rhinitis du e to pollen J30.1 ; Allergic rhinitis due to animal (cat) (dog) hair and dander J30.81 ; Other allergic rhinitis J30.89 and Other chronic allergic conjunctivitis H10.[address] [address] 04/09/2024 Joshua Parra Allergic rhinitis du e to pollen J30.1 ; Allergic rhinitis due to animal (cat) (dog) hair and dander J30.81 ; Other allergic rhinitis J30.89 and Other chronic allergic conjunctivitis H10.[address] [address] 05/05/2024 Joshua Parra Allergic rhinitis du e to pollen J30.1 ; Allergic rhinitis due to animal (cat) (dog) hair and dander J30.81 ; Other allergic rhinitis J30.89 and Other chronic allergic conjunctivitis H10.45 [facility] [address] [place] [phone] 06/04/2024 Joshua Parra Allergic rhinitis du e to pollen J30.1 ; Allergic rhinitis due to animal (cat) (dog) hair and dander J30.81 ; Other allergic rhinitis J30.89 and Other chronic allergic conjunctivitis H10.45 [facility] [address] [place] [phone] 07/02/2024 Joshua Parra Allergic rhinitis du e to pollen J30.1 ; Allergic rhinitis due to animal (cat) (dog) hair and dander J30.81 ; Other allergic rhinitis J30.89 and Other chronic allergic conjunctivitis H10.[address] [address] 07/31/2024 Joshua Parra Allergic rhinitis du e to pollen J30.1 ; Allergic rhinitis due to animal (cat) (dog) hair and dander J30.81 ; Other allergic rhinitis J30.89 and Other chronic allergic conjunctivitis H10.[address] [address] 08/28/2024 Joshua Parra Allergic rhinitis du e to pollen J30.1 ; Allergic rhinitis due to animal (cat) (dog) hair and dander J30.81 ; Other allergic rhinitis J30.89 and Other chronic allergic conjunctivitis H10.45 [facility] [address] [place] [phone] 09/29/2024 Joshua Parra Allergic rhinitis du e to pollen J30.1 ; Allergic rhinitis due to animal (cat) (dog) hair and dander J30.81 ; Other allergic rhinitis J30.89 and Other chronic allergic conjunctivitis H10.[address] [address] 10/27/2024 Robbie Singh Allergic rhinitis du e to pollen J30.1 ; Chronic cough R05.3 ; Wheezing R06.2 ; Allergic rhinitis due to animal (cat) (dog) hair and dander J30.81 ; Other allergic rhinitis J30.89 ; Other chronic allergic conjunctivitis H10.45 and Gastro-esophageal reflux disease without esophagitis K21.9 [facility] [address] [place] [phone] 11/12/2024 Joshua Parra Allergic rhinitis du e to pollen J30.1 ; Allergic rhinitis due to animal (cat) (dog) hair and dander J30.81 ; Other allergic rhinitis J30.89 and Other chronic allergic conjunctivitis H10.45 [facility] [address] [address] 01/12/2025 Joshua Parra Allergic rhinitis du e to pollen J30.1 ; Allergic rhinitis due to animal (cat) (dog) hair and dander J30.81 ; Other allergic rhinitis J30.89 and Other chronic allergic conjunctivitis H10.45 [facility] [address] [address] 02/09/2025 Joshua Parra Allergic rhinitis du e to pollen J30.1 ; Allergic rhinitis due to animal (cat) (dog) hair and dander J30.81 ; Other allergic rhinitis J30.89 and Other chronic allergic conjunctivitis H10.45 Assessments Encounter Date Diagnosis (ICD Code) Assessment Notes Treatment Notes Treatment Clinical Notes Section Notes 04/09/2024 Allergic rhinitis due to pollen (ICD-10 - J30.1) 05/05/2024 Allergic rhinitis due to pollen (ICD-10 - J30.1) 06/04/2024 Allergic rhinitis due to pollen (ICD-10 - J30.1) 07/02/2024 Allergic rhinitis due to pollen (ICD-10 - J30.1) 07/31/2024 Allergic rhinitis due to pollen (ICD-10 - J30.1) 08/28/2024 Allergic rhinitis due to pollen (ICD-10 - J30.1) 09/29/2024 Allergic rhinitis due to pollen (ICD-10 - J30.1) 10/27/2024 Allergic rhinitis due to pollen (ICD-10 - J30.1) Mounika clearly suffers from atopic disease based upon our skin testing and history. She continues on meds and allergy-specific avoidance measures and SCIT without issues. She continues to see improvement with SCIT. Has not needef Zyrtec this past Winter. Currently on new vial build. Procedure tolerated today without large local or systemic reaction. Keep AIE on hand for hours after SCIT. Continue triple premedication. Consider increasing SCIT frequency in peak seasons PRN 11/12/2024 Allergic rhinitis due to pollen (ICD-10 - J30.1) 11/19/2024 Allergic rhinitis due to pollen (ICD-10 - J30.1) 12/01/2024 Allergic rhinitis due to pollen (ICD-10 - J30.1) 12/08/2024 Allergic rhinitis due to pollen (ICD-10 - J30.1) 01/12/2025 Allergic rhinitis due to pollen (ICD-10 - J30.1) 10/27/2024 Chronic cough (ICD-10 - R05.3) Cough likely multifactorial given her history of severe atopic disease and GERD. Since adding in Azelastine her symptoms have improved. Now reproting worse when lying down. Currently set to establish [facility] as she also has increased hearburn. Agree with currnent plan. No other SOB or wheezing. Continue on current medications. Last spirometry was normal Consider repeat spirometry. 02/09/2025 Allergic rhinitis due to pollen (ICD-10 - J30.1) 02/09/2025 Allergic rhinitis due to animal (cat) (dog) hair and dander (ICD-10 - J30.81) 01/12/2025 Allergic rhinitis due to animal (cat) (dog) hair and dander (ICD-10 - J30.81) 12/08/2024 Allergic rhinitis due to animal (cat) (dog) hair and dander (ICD-10 - J30.81) 12/01/2024 Allergic rhinitis due to animal (cat) (dog) hair and dander (ICD-10 - J30.81) 11/19/2024 Allergic rhinitis due to animal (cat) (dog) hair and dander (ICD-10 - J30.81) 11/12/2024 Allergic rhinitis due to animal (cat) (dog) hair and dander (ICD-10 - J30.81) 09/29/2024 Allergic rhinitis due to animal (cat) (dog) hair and dander (ICD-10 - J30.81) 10/27/2024 Wheezing (ICD-10 - R06.2) Prior wheezing and prior controller use. Watch for recurrent symptoms and consider NGA trial PRN. Otherwise, plan as above. She denies interval wheezing 08/28/2024 Allergic rhinitis due to animal (cat) (dog) hair and dander (ICD-10 - J30.81) 07/31/2024 Allergic rhinitis due to animal (cat) (dog) hair and dander (ICD-10 - J30.81) 07/02/2024 Allergic rhinitis due to animal (cat) (dog) hair and dander (ICD-10 - J30.81) 06/04/2024 Allergic rhinitis due to animal (cat) (dog) hair and dander (ICD-10 - J30.81) 05/05/2024 Allergic rhinitis due to animal (cat) (dog) hair and dander (ICD-10 - J30.81) 04/09/2024 Allergic rhinitis due to animal (cat) (dog) hair and dander (ICD-10 - J30.81) 04/09/2024 Other allergic rhinitis (ICD-10 - J30.89) 05/05/2024 Other allergic rhinitis (ICD-10 - J30.89) 06/04/2024 Other allergic rhinitis (ICD-10 - J30.89) 07/02/2024 Other allergic rhinitis (ICD-10 - J30.89) 07/31/2024 Other allergic rhinitis (ICD-10 - J30.89) 08/28/2024 Other allergic rhinitis (ICD-10 - J30.89) 09/29/2024 Other allergic rhinitis (ICD-10 - J30.89) 10/27/2024 Allergic rhinitis due to animal (cat) (dog) hair and dander (ICD-10 - J30.81) Continue avoidance, meds and continue SCIT per schedule. 11/12/2024 Other allergic rhinitis (ICD-10 - J30.89) 11/19/2024 Other allergic rhinitis (ICD-10 - J30.89) 12/01/2024 Other allergic rhinitis (ICD-10 - J30.89) 12/08/2024 Other allergic rhinitis (ICD-10 - J30.89) 01/12/2025 Other allergic rhinitis (ICD-10 - J30.89) 02/09/2025 Other allergic rhinitis (ICD-10 - J30.89) 11/12/2024 Other chronic allergic conjunctivitis (ICD-10 - H10.45) 02/09/2025 Other chronic allergic conjunctivitis (ICD-10 - H10.45) 01/12/2025 Other chronic allergic conjunctivitis (ICD-10 - H10.45) 12/08/2024 Other chronic allergic conjunctivitis (ICD-10 - H10.45) 12/01/2024 Other chronic allergic conjunctivitis (ICD-10 - H10.45) 11/19/2024 Other chronic allergic conjunctivitis (ICD-10 - H10.45) 10/27/2024 Other allergic rhinitis (ICD-10 - J30.89) Continue avoidance, meds and continue SCIT per schedule. 09/29/2024 Other chronic allergic conjunctivitis (ICD-10 - H10.45) 08/28/2024 Other chronic allergic conjunctivitis (ICD-10 - H10.45) 07/31/2024 Other chronic allergic conjunctivitis (ICD-10 - H10.45) 07/02/2024 Other chronic allergic conjunctivitis (ICD-10 - H10.45) 06/04/2024 Other chronic allergic conjunctivitis (ICD-10 - H10.45) 05/05/2024 Other chronic allergic conjunctivitis (ICD-10 - H10.45) 04/09/2024 Other chronic allergic conjunctivitis (ICD-10 - H10.45) 10/27/2024 Other chronic allergic conjunctivitis (ICD-10 - H10.45) Given ocular signs and symptoms I encouraged allergy avoidance measures and meds as above. If symptoms persist, consider adding additional medications including intraocular antihistamine/mast cell stabilizer, PRN and continue SCIT as an adjunctive measure. 10/27/2024 Gastro-esophageal reflux disease without esophagitis (ICD-10 - K21.9) Likely underlying contributor to cough. Agree with plan to establish with new GI 10/27/2024 Other Plan Of Treatment Next Appt Details Provider Name:Joshua Parar , 03/16/2025 08:30:00 AM, [address], [address], Provider Name:Nadia sanchez, 05/18/2025 09:30:00 AM, [address], [address], [place], [address], Insurance Providers Payer Name Payer Address Payer Phone Subscriber Number Group Number Insured Name Patient Relationship to Insured Coverage Start Date Coverage End Date [facility] [place] [address] [place] [address] [phone] [id number] Roberto Beach Spouse - patient is the spouse of the insured 01/01/202 5 Medical (General) History Medical History History ICD Code Essential (primary) hypertension I10 Insomnia, unspecified G47.00 Allergic rhinitis due to pollen J30.1 Allergic rhinitis due to animal (cat) (d og) hair and dander J30.81 Other allergic rhinitis J30.89 Other chronic allergic conjunctivitis H1 0.45 Surgical History Surgery Date(Month/Year) Hysterectomy 12/05/2012 Endoscopy 10/05/2016 Bunionectomy 07/06/2006 Rotator cuff repair - bicep tendon repai r 10/23/2019 Bunionectomy Left Foot 10/14/2021 Hospitalization History Reason Date(Month/Year) SEE SURGICAL HX
--- OUTSIDE RECORDS SUMMARY | 2025-03-12 02:24 | XMS_ITS ---
Author Organization [facility] [employer] [place] ([address]) Address [address] [place] [address] Care Team Providers Care Painter Chassis Name Role Phone Indy Nunez Primary Care Provider UnavailRobbie Peres Unavailable [phone] Joshua Parra Unavailable [phone] REASON FOR VISIT SCIT - Traditional Schedule Allergy immunotherapy Medications Medication SIG (Take, Route, Frequency, Duration) Notes Start Date End Date Status Montelukast Sodium 10 MG 1 tab(s) orally 30 minutes prior to shots; Duration: 30 day(s) Active hydroCHLOROthiazide *Please revi ew and pick correct strength-formul ation from Medispan options. If intended option is not shown, discontinue and re-order from Quick Search* Active Famotidine 40 MG 1 tab(s) orally 30 minutes prior to shots; Duration: 30 day(s) Active FeroSul 325 (65 Fe) MG Oral; Duration: 9 0 Days Active Vitamin D3 125 MCG (5000 UT) Oral; Duration: 90 Days Active EpiPen 2-Bryant 0.3 MG/0.3ML as directed intramuscularly once; Duration: 30 day(s) Active ZyrTEC Allergy 10 MG 1 tab(s) orally once a day; Duration: 90 days Active Azelastine HCl 137 MCG/SPRAY 2 spray(s) intranasally 2 times a day; Duration: 90 days Active amLODIPine Besylate 5 MG 1 tab(s) orally once a day Active PriLOSEC OTC 20 MG 1 tab(s) orally BID, PRN Active NASAL WASHES N/A as directed intranasally as needed; Duration: 30 days Active Flonase Allergy Relief 50 MCG/ACT 2 spray(s) intranasally (avoid nasal septum) once a day Active Cephalexin 500 MG 1 cap(s) orally weekly Active Calcium Carbonate 500 MG 1 TAB(S) CHEWED ONCE A DAY *Please review and pick correct strength-formul ation from Medispan options. If intended option is not shown, discontinue and re-order from Quick Search* Active Gabapentin 100 MG 1 cap(s) orally Qday Active MONTELUKAST SODIUM 10 mg 1 tab(s) orally 30 minutes prior to shots; Duration: 30 day(s) Active SIT (TRADITIONAL) variable per schedule SC per schedule; Duration: to be determined Active FAMOTIDINE 40 mg 1 tab(s) orally 30 minutes prior to shots; Duration: 30 day(s) Active FLONASE 0.05 mg/inh 2 spray(s) intranasally (avoid nasal septum) once a day Active AZELASTINE HYDROCHLORIDE NASAL 137 mcg/inh 2 spray(s) intranasally 2 times a day; Duration: 90 days Active CALCIUM CARBONATE 500 mg 1 tab(s) chewed once a day Active PRILOSEC OTC 20 mg 1 tab(s) orally BID, PRN Active ZYRTEC 10 mg 1 tab(s) orally once a day; Duration: 90 days Active GABAPENTIN 100 mg 1 cap(s) orally Qday Active CEPHALEXIN 500 mg 1 cap(s) orally weekly Active HYDROCHLOROTHIAZIDE Not-Taking EPINEPHrine 0.3 MG/0.3ML as directed Injection as needed; Duration: 30 days Active EPIPEN 2-BRYANT 0.3 mg as directed intramuscularly once; Duration: 30 day(s) Not-Taking FLONASE 0.05 mg/inh 2 spray(s) intranasally (avoid nasal septum) once a day Not-Taking AMLODIPINE 5 mg 1 tab(s) orally once a day Not-Taking Encounters Encounter Location Date Provider Diagnosis [facility] [address] [place] [address] 12/08/2024 Joshua Parra Allergic rhinitis du e to pollen J30.1 ; Allergic rhinitis due to animal (cat) (dog) hair and dander J30.81 ; Other allergic rhinitis J30.89 and Other chronic allergic conjunctivitis H10.45 Assessments Encounter Date Diagnosis (ICD Code) Assessment Notes Treatment Notes Treatment Clinical Notes Section Notes 12/08/2024 Allergic rhinitis due to pollen (ICD-10 - J30.1) 12/08/2024 Allergic rhinitis due to animal (cat) (dog) hair and dander (ICD-10 - J30.81) 12/08/2024 Other allergic rhinitis (ICD-10 - J30.89) 12/08/2024 Other chronic allergic conjunctivitis (ICD-10 - H10.45) Plan Of Treatment Next Appt Details Follow Up: 1 Week, Reason: Provider Name:Joshua Parra , 03/16/2025 08:30:00 AM, [address] [facility], [address], [address], Provider Name:Nadia sanchez, 05/18/2025 09:30:00 AM, [address] [facility], [address], [address], Progress Notes * Mounika BEACH BDOB: [birth year] (64 yo F)Acc No.[id number]:12/08/2024 SCIT-Aeroallergen Patient: Mounika GALLEGOS Provider: Jenna Parra MD :[id number] A ge:64 Y S ex:Female Date:12/08/2024 Address:[address] [place], [place] [id number] Pcp:Indy Nunez Subjective: * Chief Complaints: * 1 . SCIT - Traditional Schedule Allergy immunotherapy. * HPI: * Introduction: The patient is here for scheduled immunotherapy. Please see the attached specialty form regarding the specifics of the administration of these vaccines. As per our protocol, they must undergo a screening health questionnaire (medication changes, reaction(s) to last immunotherapy dose(s), current health status, ACT (if appropriate), self-injectable epinephrine on patient(?) and peak flow (if appropriate)). Also, the patient must wait in our office for 30 minutes after receiving the vaccine(s). Furthermore, every patient must have an epinephrine pen (self-injectable) with them at the time of administration--and carry if for the following 1.5 hours after they leave our office. The patient must also have taken their antihistamine the day of the injection, preferably 2 hours prior. The consent form for SCIT (subcutaneous immunotherapy) is on file. * Medical History: * Medications: T aking CALCIUM CARBONATE 500 mg tablet, chewable 1 tab(s) chewed once a day , Taking GABAPENTIN 100 mg capsule 1 cap(s) orally Qday , Taking CEPHALEXIN 500 mg capsule 1 cap(s) orally weekly , Taking PRILOSEC OTC 20 mg delayed release tablet 1 tab(s) orally BID, PRN , Taking ZYRTEC 10 mg tablet 1 tab(s) orally once a day , Taking FLONASE 0.05 mg/inh spray 2 spray(s) intranasally (avoid nasal septum) once a day , Taking AZELASTINE HYDROCHLORIDE NASAL 137 mcg/inh spray 2 spray(s) intranasally 2 times a day , Taking FAMOTIDINE 40 mg tablet 1 tab(s) orally 30 minutes prior to shots , Taking MONTELUKAST SODIUM 10 mg tablet 1 tab(s) orally 30 minutes prior to shots , Taking SIT (TRADITIONAL) variable see record per schedule SC per schedule , Taking NASAL WASHES N/A 1 quart of sterilized tap water or distilled water, 1 tsp NaCl, 1 pinch of baking soda as directed intranasally as needed , Taking Flonase Allergy Relief 50 MCG/ACT Suspension 2 spray(s) intranasally (avoid nasal septum) once a day , Taking Calcium Carbonate 500 MG TABLET, CHEWABLE 1 TAB(S) CHEWED ONCE A DAY , Notes to Pharmacist: *Please review and pick correct strength-formulation from Medispan options. If intended option is not shown, discontinue and re-order from Quick Search*, Taking Gabapentin 100 MG Capsule 1 cap(s) orally Qday , Taking Cephalexin 500 MG Capsule 1 cap(s) orally weekly , Taking PriLOSEC OTC 20 MG Tablet Delayed Release 1 tab(s) orally BID, PRN , Taking amLODIPine Besylate 5 MG Tablet 1 tab(s) orally once a day , Taking ZyrTEC Allergy 10 MG Tablet 1 tab(s) orally once a day , Taking Azelastine HCl 137 MCG/SPRAY Solution 2 spray(s) intranasally 2 times a day , Taking EpiPen 2-Bryant 0.3 MG/0.3ML Solution Auto-injector as directed intramuscularly once , Taking Famotidine 40 MG Tablet 1 tab(s) orally 30 minutes prior to shots , Taking Montelukast Sodium 10 MG Tablet 1 tab(s) orally 30 minutes prior to shots , Taking hydroCHLOROthiazide , Notes to Pharmacist: *Please review and pick correct strength-formulation from [employer] options. If intended option is not shown, discontinue and re-order from Quick Search*, Taking FeroSul 325 (65 Fe) MG Tablet Oral , Taking Vitamin D3 125 MCG (5000 UT) Capsule Oral , Taking EPINEPHrine 0.3 MG/0.3ML Solution Auto-injector as directed Injection as needed , Not- Taking/PRN FLONASE 0.05 mg/inh spray 2 spray(s) intranasally (avoid nasal septum) once a day , Not-Taking/PRN AMLODIPINE 5 mg tablet 1 tab(s) orally once a day , Not- Taking/PRN EPIPEN 2-BRYANT 0.3 mg kit as directed intramuscularly once , Not-Taking/PRN HYDROCHLOROTHIAZIDE Objective: * Vitals: Assessment: * Assessment: 1. A llergic rhinitis due to pollen - J30.1 (Primary) 2 . A llergic rhinitis due to animal (cat) (dog) hair and dander - J30.81 3 . O ther allergic rhinitis - J30.89 4 . O ther chronic allergic conjunctivitis - H10.45 Plan: * Treatment: * Follow Up: 1 Week * Billing Information: * Visit Code: * Procedure Codes: 15504 IMMUNOTHERAPY INJECTIONS. * Electronic signature of Manjula Parra MD, FAAAAI on 03/12/2025 at 02:24 AM CDT Sign off status: Pending * Provider: Jenna Parra MD Date: 0 12/08/2024 Generated for Anna galvez/Nevaeh/Jase on: 0 03/12/2025 02:24 AM CDT History and Physical Notes * HPI (History of Present Illness) Category Sub-Category Detail Notes Category Not es *Introduction The patient is here for scheduled immunotherapy. Please see the attached specialty form regarding the specifics of the administration of these vaccines. As per our protocol, they must undergo a screening health questionnaire (medication changes, reaction(s) to last immunotherapy dose(s), current health status, ACT (if appropriate), self-injectable epinephrine on patient(?) and peak flow (if appropriate)). Also, the patient must wait in our office for 30 minutes after receiving the vaccine(s). Furthermore, every patient must have an epinephrine pen (self-injectable) with them at the time of administration--and carry if for the following 1.5 hours after they leave our office. The patient must also have taken their antihistamine the day of the injection, preferably 2 hours prior. The consent form for SCIT (subcutaneous immunotherapy) is on file.
--- OUTSIDE RECORDS SUMMARY | 2025-03-12 02:26 | XMS_ITS | Continuity of Care Document ---
Author Name [facility] Organization [facility] Care Team Providers Care Management Lead Name Role Phone [facility] Unavailable Unavailable Problems Combined list of problems from Department of Defense and Veterans Affairs facilities. It does not include entries that were removed or entered in error. Problem Status Onset Date Problem Type Date of Resolution Comments Source Right lower quadrant pain Active 5 Diagnosis 0055C-375 th [facility] estefani Unspecified contact dermatitis due to plants, except food Active 9 Condition DoD Acute cystitis without hematuria Active 9 Condition DoD Acute cystitis with hematuria Active 9 Condition DoD Incomplete rotator cuff tear or rupture of right shoulder, not specified as traumatic Active 9 Condition DoD CERVICAL POLYPS Active Condition DoD Gynecologic Services Contraceptive General Counseling Inactive Condition will thin k about her next BP method....opt ions discussed DoD PHARYNGITIS Inactive Condition DoD Dermatophytosis, unspecified Active Condition DoD Allergic rhinitis due to pollen Active Condition DoD OTITIS MEDIA Active Condition DoD ALLERGIC RHINITIS - ANIMALS Active Condition DoD ALLERGIC RHINITIS - DUST MITE Active Condition DoD ALLERGIC RHINITIS - POLLEN Active Condition DoD Allergen Desensitization Inactive Condition DoD ESOPHAGEAL REFLUX Active Condition [facility] visit for: postsurgical exam Active Condition [facility] Observation For Suspected Condition Inactive Condition [facility] Outpatient Physician Consultation Active Condition DoD excessive bleeding during period (menorrhagia) Active Condition DoD CONDITIONS INFLUENCING HEALTH STATUS Active Condition DoD HYPOKALEMIA Inactive Condition DoD BUNION LEFT Active Condition [facility] visit for: refer patient without exam or treatment Inactive Condition DoD ANEMIA Active Condition [facility] Preventive Medicine Establ. Patient Checkup Adult 18-[address] [facility] Patient Counseling: Active Condition Do D Gynecologic Services Contraceptive Management Inactive Condition DoD CERVICALGIA Active Condition DoD Overweight Active Condition DoD Aftercare Active Condition DoD visit for: screening malignant neoplasm colon Inactive Condition DoD Colonoscopy (Fiberoptic) Screening Inactive Condition [facility] Gynecologic Service Prescrip Of Contracept Agent - Repeat Rx Inactive Condition [facility] visit for: screening exam Inactive Condition DoD drip or drainage down throat from above Active Condition DoD Patient Education - Asthma Active Condition DoD ASTHMA Active Condition DoD visit for: issue repeat prescription Inactive Condition DoD UTEROVAGINAL PROLAPSE Active Condition DoD OVARIAN CYST LEFT Active Condition DoD abdominal pain Active Condition DoD Anal Pap Smear Abnormal Atypical Squamous Cells Of Undetermined Significance Active Condition DoD ASTHMA EXERCISE-INDUCED Active Condition DoD Abnormal Pap Smear: ASCUS Favor Benign Active Condition DoD BACTERIAL VAGINOSIS Inactive Condition D oD cough Active Condition DoD SINUSITIS Inactive Condition DoD visit for: issue repeat prescription for medication Inactive Condition DoD EUSTACHIAN TUBE DYSFUNCTION Inactive Condition DoD UPPER RESPIRATORY INFECTION Inactive Condition DoD Gynecologic Services Intrauterine Device (IUD) Reinsertion Inactive Condition DoD Test Negative Inactive Condition DoD visit for: screening exam cardiovascular disorders Active Condition DoD HYPERTENSION (SYSTEMIC) Active Condition DoD Mammogram Screening Inactive Condition D oD ROUTINE GYNECOLOGICAL EXAM WITH CERVICAL PAP SMEAR Inactive Condition DoD Inquiry And Counseling: Contraceptive Practices Inactive Condition DoD headache Inactive Condition DoD lightheadedness Inactive Condition DoD Blood Pressure Isolated Elevated Active Condition DoD pain during urination (dysuria) Active Condition DoD visit for: screening exam hypertension Active Condition DoD URINARY TRACT INFECTION Active Condition DoD DYSFUNCTIONAL UTERINE BLEEDING Active Condition DoD visit for: laboratory Active Condition DoD Laboratory Studies Active Condition DoD urinary symptoms Active Condition DoD joint pain, localized in the hip Active Condition DoD HIP SPRAIN LEFT Inactive Condition DoD MENOMETRORRHAGIA Active Condition DoD menses abnormal Active Condition DoD BREAST LUMP OR MASS Active Condition Do D visit for: screening exam for malignant neoplasm cervix Inactive Condition DoD NORMAL ROUTINE HISTORY AND PHYSICAL Active Condition DoD Need For Vaccination Hepatitis A Inactive Condition DoD DERMATOPHYTOSIS TINEA PEDIS Inactive Condition pt w/ active severe maceration and ulcer at base of right pinky toe; pt currrently on ABX for strep; pt showed how to perform wet to dry treatments; once healed pt to ensure feet are dry and to apply med to area when starts to 'split' DoD PHARYNGITIS STREPTOCOCCUS, GROUP A: BETA HEMOLYTIC Inactive Condition Pt to take full course of abx, to get new toothbrush after on abx for 24 hours and to follow-up if not better in 3-5 days. 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 Will place a profile for no running on hard surfaces DoD visit for: services physical Inactive Condition DoD STRESS INCONTINENCE Active Condition Will refer to gynecology for her well woman exam with hx of abn paps and follow-up on her prolonged periods and stress incontinence. DoD CYSTITIS ACUTE Inactive Condition DoD visit for: pre-employment physical Inactive Condition DoD visit for: screening exam pulmonary tuberculosis Inactive Condition DoD Gynecologic Services Intrauterine Device (IUD) Checking Active Condition DoD ROUTINE PELVIC EXAM Inactive Condition D oD ALLERGIC RHINITIS Active Condition DoD control method - intrauterine device (IUD) Active Condition DoD MENORRHAGIA Active Condition DoD UTERINE NEOPLASM, BENIGN - LEIOMYOMA Active Condition DoD Allergic rhinitis Active Condition 0055 C-375 th [facility] est[facility] Asthma Active Condition 0055C-375 th [facility] estef[facility] Esophageal reflux finding Active Condition 0055C-375 th [facility] estefani PARDEEP - Iron deficiency anemia Active Condition 0055C-3 75 th [facility] estef[facility] Primary hypertension Active Condition 0 055C-375 th [facility] estef[facility] Splenic artery aneurysm Active Condition 0055C-375 th [facility] estef[facility] Medications Combined list of outpatient medications from Department of Defense and Veterans Affairs facilities.Medications provided include 1) outpatient medications from the last 15 months, and 2) patient-reported medications. Medication Details Route Status Patient Instructions Prescription Expires Prescription Number Last Dispense Date Ordering Provider Order Date Order Qty Source amLODIPine 10 mg oral tablet 1 tab(s), Oral, Daily, # 90 tab(s), 3 total refill(s ), Hard Stop, Pharmacy : [facility] Oral (given by mouth) Complet ed 12/22/2024 5 2024 90.0 0055C-3 [facility] Erma amLODIPine 10 mg oral tablet 1 tab(s), Oral, Daily, Take one tablet by mouth daily, # 90 tab(s), 3 total refill(s ), Jose Maria nvwillie, Pharmacy : [facility] Oral (given by mouth) Ordered 5 2024 90.0 0055C-3 75[facility] amLODIPine 10 mg oral tablet 1 tab(s), Oral, Daily, # 90 tab(s), 3 total refill(s ), Jose Maria harmon, Pharmacy : [facility] Oral (given by mouth) Discont inued 01/14/2024 4 2023 90.0 0055C-3 [facility] amLODIPine 10 mg oral tablet 1 tab(s), Oral, Daily, # 30 tab(s), 0 total refill(s ), Jose Maria [facility], Pharmacy : [facility] Oral (given by mouth) Discont inued 02/28/2023 3 2022 30.0 0055C-3 [facility] amLODIPine 5 mg oral tablet TAKE ONE TABLET BY MOUTH DAILY, # 90 EA, 2 total refill(s ), Acute Discont inued 01/27/2023 3 2022 90.0 Ambulat ory Pharmac y AZELASTINE 0.1 % AMANDA SPRP [30 ML] May cause drowsine ss.Do not drink alcohol. Obtain advice for OTCs.May impair driving. For the nose.Kerri ck with your doctor before becoming . 02/05/2025 [id number] 4 [address] [place] [address]) AZELASTINE 0.1 % AMNADA SPRP [30 ML] May cause drowsine ss.Do not drink alcohol. Obtain advice for OTCs.May impair driving. For the nose.Kerri ck with your doctor before becoming . 12/09/2024 [id number] 4 [address] [place] [address]) azelastine 137 mcg/inh (0.1%) nasal spray 1 spray(s) , Nostril- Both, BID, # 30 mL, 3 total refill(s ), Hard Stop, 1 spray(s) in each nostril daily, Pharmacy : [facility] Nostri l-Both (into the nose) Complet ed 12/22/2024 4 2024 30.0 0055C-3 [facility] azelastine 137 mcg/inh (0.1%) nasal spray 1 spray(s) , Nostril- Both, BID, [place] in each nostril twice a day, # 30 mL, 3 total refill(s ), Maintena nce, 1 spray(s) in each nostril daily, Pharmacy : [facility] Nostri l-Both (into the nose) Ordered 5 2024 30.0 0055C-3 75th [facility] azelastine 137 mcg/inh (0.1%) nasal spray 1 spray(s) , Nostril- Both, BID, [place] in each nostril twice a day, # 30 mL, 3 total refill(s ), Hard Stop, 1 spray(s) in each nostril daily, Pharmacy : [facility] Nostri l-Both (into the nose) Complet ed 12/25/20242024 30.0 0055C-3 75th [facility] azelastine 137 mcg/inh (0.1%) nasal spray 60 mL, 0 total refill(s ), Soft Stop Discont inued 01/27/20232022 0055C-3 75th [facility] azelastine 137 mcg/inh (0.1%) nasal spray See Instruct ions, 1 spray(s) in each nostril daily, # 3 EA, 3 total refill(s ), Hard Stop, 1 spray(s) in each nostril daily, Pharmacy : [facility] Complet ed 02/06/2024 4 2023 3.0 0055C-3 75th [facility] azelastine 137 mcg/inh (0.1%) nasal spray See Instruct ions, 1 spray in each nostril twice daily, # 1 EA, 3 total refill(s ), Maintena nce, Pharmacy : [facility] Discont inued 01/14/2024 4 2023 1.0 0055C-3 75th [facility] azelastine 137 mcg/inh (0.1%) nasal spray See Instruct ions, 1 spray(s) in each nostril daily, # 3 EA, 3 total refill(s ), Maintena nce, 1 spray(s) in each nostril daily, Pharmacy : [facility] Discont inued 12/10/20232023 3.0 0055C-[address] [place] [address] Erma calcium (as carbonate) 500 mg oral tablet 0 total refill(s ), Maintena nce Ordered 2022 0055C-[address] [place], [place] [address]ROMERO Erma cephalexin 250 mg oral capsule See Instruct ions, 1 cap(s) Oral once prior to intercou rse., # 30 cap(s), 1 total refill(s ), Acute, 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, Pharmacy : [facility] Complet ed 09/04/2024 2024 30.0 0055C-3 [facility] Erma cephalexin 250 mg oral capsule See Instruct ions, 1 cap(s) Oral once prior to intercou rse., # 30 cap(s), 1 total refill(s ), Acute, 03/27/25 12:00:00 AM CDT, Pharmacy : [facility] , Urinary, uncompli cated UTI Ordered 03/27/2025 5 2024 30.0 0055C-3 75[facility] Erma cephalexin 250 mg oral capsule See Instruct ions, 1 cap(s) Oral once prior to intercou rse., # 30 cap(s), 1 total refill(s ), Acute, 09/04/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 05/13/2024 [id number] 3 2023 90 [employer]ma [facility] [place] cetirizine 10 mg oral tablet 1 tab(s), Oral, Daily, Take one tablet daily for allergie s, # 90 tab(s), 3 total refill(s ), Maintena nce, Pharmacy : [facility] Oral (given by mouth) Ordered 5 2023 90.0 0055C-3 75[facility] MARIBETH Bella cetirizine 10 mg oral tablet 1 tab(s), Oral, BID, PRN allergy symptoms , TAKE ONE TABLET TWICE DAILY FOR ALLERGIE S, # 180 tab(s), 3 total refill(s ), [facility], Pharmacy : [facility] Oral (given by mouth) Discont inued 04/08/2024 4 2023 180.0 0055C[facility]3 [facility] cetirizine 10 mg oral tablet 1 tab(s), Oral, Daily, Take one tablet daily for allergie s, # 90 tab(s), 3 total refill(s ), Hard Stop, 06/16/24 3:28:40 PM CDT, Pharmacy : [facility] Oral (given by mouth) Complet ed 06/16/2024 4 2023 90.0 0055C-3 [facility] MARIB[facility] Bella cetirizine 10 mg oral tablet 1 tab(s), Oral, BID, PRN allergy symptoms , TAKE ONE TABLET TWICE DAILY FOR ALLERGIE S, # 180 tab(s), 3 total refill(s ), [facility], Pharmacy : [facility] Oral (given by mouth) Discont inued 09/04/20232023 180.0 0055C-3 [facility] cetirizine 10 mg oral tablet 120 tab(s), 0 total refill(s ), Soft Stop Discont inued 01/27/20232022 0055C-3 75[facility] Erma cetirizine 10 mg oral tablet 1 tab(s), Oral, Daily, 120 tab(s), # 90 tab(s), 3 total refill(s ), [facility], Pharmacy : [facility] Oral (given by mouth) Discont inued 05/14/2023 3 2022 90.0 0055C-3 [facility] cholecalcif ac 125 mcg (5000 intl units) oral capsule 1 cap(s), Oral, Daily, with food, # 90 cap(s), 0 total refill(s ), Hard Stop, Pharmacy : [facility] Oral (given by mouth) Complet ed 12/25/2024 5 2024 90.0 0055C-3 75[facility] MARIBETH Bella cholecalcif ac 125 mcg (5000 intl units) oral capsule 1 cap(s), Oral, Daily, with food, # 90 cap(s), 0 total refill(s ), Maintena nve, Pharmacy : [facility] Oral (given by mouth) Ordered 5 2024 90.0 0055C-3 75[facility] MAR[facility] Bella Compounded Prilosec Capsule Conventiona l 20 mg Oral Take or use exactly as directed .Obtain advice for OTCs.Lamontcésar simon whole. 01/27/2024 [id number] 3 2023 180 [employer] [facility] Erma [facility] [place] EpiPen 2-Bryant 0.3 mg injectable kit 0.3 mg, IntraMus cular, As Directed , Inject 1 pen into muscle of mid-oute r thigh as needed for allergic emergenc y. Seek medical attentio n. May repeat dose with new pen after 5 minutes if symptoms persist, # 2 EA, 1 total refill(s ), Liannea [facility], Pharmacy : [facility] IntraM uscula r (in a muscle ) Ordered 5 2024 2.0 0055C-3 75[facility] MARIBETH Bella famotidine 40 mg oral tablet 1 tab(s), Oral, Daily, take one tablet by mouth daily as needed, # 30 tab(s), 1 total refill(s ), Hard Stop, 12/25/24 2:19:54 PM CDT, Pharmacy : [facility] Oral (given by mouth) Complet ed 12/25/2024 4 2024 30.0 0055C-3 75[facility] MARIBETH Bella famotidine 40 mg oral tablet 1 tab(s), Oral, Daily, take one tablet by mouth daily as needed, # 90 tab(s), 3 total refill(s ), Maintena nve, Pharmacy : [facility] Oral (given by mouth) Ordered 5 2024 90.0 0055C-3 [facility] ferrous sulfate 325 mg (65 mg elemental iron) oral delayed release tablet 1 tab(s), Oral, every other day, # 45 tab(s), 0 total refill(s ), Maintena nce, Pharmacy : [facility] Oral (given by mouth) Discont inued 12/25/2024 5 2024 45.0 0055C-3 75[facility] ferrous sulfate 325 mg (65 mg elemental iron) oral tablet 1 tab(s), Oral, every other day, # 45 tab(s), 0 total refill(s ), Maintena nce, Pharmacy : [facility] Oral (given by mouth) Ordered 5 2024 45.0 0055C-3 [facility] ferrous sulfate 325 mg (65 mg elemental iron) oral tablet 1 tab(s), Oral, every other day, # 45 tab(s), 0 total refill(s ), Hard Stop, Pharmacy : [facility] Oral (given by mouth) Complet ed 12/25/20242024 45.0 0055C-3 [facility] Flonase 50 mcg/inh nasal spray 50 mcg, Nostril- Both, BID, use one spray in both nostrils twice daily, # 3 EA, 5 total refill(s ), Maintena nce, please dispense 3 bottles if able., Pharmacy : [facility] Nostri l-Both (into the nose) Discont inued 01/21/2025 4 2024 3.0 0055C-3 [facility] Flonase 50 mcg/inh nasal spray 50 mcg, Nostril- Both, BID, # 16 g, 5 total refill(s ), Maintena nce, Pharmacy : [facility] Nostri l-Both (into the nose) Ordered 5 2024 16.0 0055C-3 [facility] Flonase 50 mcg/inh nasal spray 50 mcg, Nostril- Both, BID, use one spray in both nostrils twice daily, # 16 g, 5 total refill(s ), Maintena nce, please dispense 3 bottles if able., Pharmacy : [facility] Nostri l-Both (into the nose) Discont inued 05/21/20232022 16.0 0055C-3 75[facility] Erma Flonase 50 mcg/inh nasal spray 50 mcg, Nostril- Both, BID, use one spray in both nostrils twice daily, # 3 EA, 5 total refill(s ), Maintena nce, please dispense 3 bottles if able., Pharmacy : [facility] Nostri l-Both (into the nose) Discont inued 10/04/20232023 3.0 0055C-3 75[facility] Erma FLONASE-OTC (BRAND) 50 MCG AMANDA SPSN [9.9] Take or use exactly as directed .For the nose. 10/03/2024 [id number] 4 2023 48 [facility] Erma [facility] [place] fluticasone 50 mcg/inh nasal spray See Instruct ions, use one spray in each nostril twice daily ., # 16 g, 3 total refill(s ), Maintena nce, Pharmacy : [facility] Discont inued 10/05/2023 4 2023 16.0 0055C-3 75[facility] Erma fluticasone 50 mcg/inh nasal spray 32 spray(s) , 0 total refill(s ), Soft Stop Discont inued 01/27/20232022 0055C-3 75[facility] Erma fluticasone 50 mcg/inh nasal spray 50 mcg, Nostril- Both, Daily, 32 spray(s) , # 16 g, 3 total refill(s ), Maintena nce, Pharmacy : [facility] Nostri l-Both (into the nose) Discont inued 09/04/2023 3 2023 16.0 0055C-[address] [place] [address] Erma gabapentin 600 mg oral tablet 1 tab(s), Oral, Daily, 90 tab(s), # 90 tab(s), 3 total refill(s ), Hard Stop, 12/22/24 4:37:02 PM CDT, Pharmacy : [facility] Oral (given by mouth) Complet ed 12/22/2024 5 2024 90.0 0055C-[address] [place] [address] gabapentin 600 mg oral tablet TAKE ONE TABLET BY MOUTH EVERY NIGHT, # 90 EA, 2 total refill(s ), Acute Discont inued 01/27/2023 3 2022 90.0 Ambulat ory Pharmac y gabapentin 600 mg oral tablet 1 tab(s), Oral, Daily, Take one tablet by mouth daily, # 90 tab(s), 3 total refill(s ), Maintena [facility], Pharmacy : [facility] Oral (given by mouth) Ordered 5 2024 90.0 0055C-[address] [place] [address] gabapentin 600 mg oral tablet 1 tab(s), Oral, Daily, 90 tab(s), # 90 tab(s), 3 total refill(s ), Hard Stop, 02/06/24 12:57:39 PM CDT, Pharmacy : [facility] Oral (given by mouth) Complet ed 02/06/2024 4 2023 90.0 0055C-3 [facility] Hydrochloro thiazide (Oretic) Tablet 25 mg Oral Take orange juice or banana.T fidel with food/mil k.Avoid exposure to sun.Take or use exactly as directed . 01/13/2025 [id number] 4 [address] [place] [address]) Hydrochloro thiazide (Oretic) Tablet 25 mg Oral Take orange juice or banana.T fidel with food/mil k.Avoid exposure to sun.Take or use exactly as directed . 12/09/2024 [id number] 4 [address] [place] [address]) hydroCHLORO thiazide 12.5 mg oral tablet 1 tab(s), Oral, Daily, for blood pressure , # 45 tab(s), 0 total refill(s ), Maintena nve, Pharmacy : [facility] Oral (given by mouth) Discont inued 04/08/2024 4 2023 45.0 0055C-3 [facility] hydroCHLORO thiazide 12.5 mg oral tablet 1 tab(s), Oral, Daily, for blood pressure , # 30 tab(s), 0 total refill(s ), [facility] Oral (given by mouth) Discont inued 10/26/2023 4 2023 30.0 0055C-3 [facility] hydroCHLORO thiazide 25 mg oral tablet 1 tab(s), Oral, Daily, for blood pressure , # 90 tab(s), 0 total refill(s ), [facility] Oral (given by mouth) Discont inued 04/08/2024 4 2023 90.0 0055C-3 [facility] hydroCHLORO thiazide 25 mg oral tablet 1 tab(s), Oral, Daily, for blood pressure , # 90 tab(s), 0 total refill(s ), [facility], [facility] Oral (given by mouth) Discont inued 04/30/2024 4 2023 90.0 0055C-3 [facility] hydroCHLORO thiazide 25 mg oral tablet 1 tab(s), Oral, Daily, for blood pressure , # 90 tab(s), 3 total refill(s ), [facility] Oral (given by mouth) Ordered 5 2023 90.0 0055C-3 [facility] hydroCHLORO thiazide 25 mg oral tablet 1 tab(s), Oral, Daily, for blood pressure , # 30 tab(s), 0 total refill(s ), [facility] Oral (given by mouth) Discont inued 01/14/2024 4 2023 30.0 0055C-[address] [place] [address] montelukast 10 mg oral tablet 1 tab(s), Oral, Daily, take one tablet by mouth daily as needed, # 30 tab(s), 1 total refill(s ), [facility], Pharmacy : [facility] Oral (given by mouth) Complet ed 12/25/2024 4 2024 30.0 0055C-[address] [place] [address] Erma montelukast 10 mg oral tablet 1 tab(s), Oral, Daily, take one tablet by mouth daily as needed, # 90 tab(s), 3 total refill(s ), [facility], Pharmacy : [facility] Oral (given by mouth) Ordered 5 2024 90.0 0055C-[address] [place], [place] [address]Dora Bella Naproxen (Naprosyn) Tablet 500 mg Oral Take with food/mil k.Obtain advice for OTCs.May cause drowsine ss/dizzi ness.Kerri ck with your doctor before becoming . 01/13/2025 [id number] 4 2023 60 [employer] [facility]ma [facility] [place] naproxen 500 mg oral tablet 1 tab(s), Oral, BID, Take BID as needeed for knee pain, # 60 tab(s), 0 total refill(s ), Acute, 04/26/24 12:00:00 AM CDT, Pharmacy : [facility] Oral (given by mouth) Complet ed 04/26/2024 4 2023 60.0 0055C-[address] [place], [place] [address]Dora Bella omeprazole 20 mg oral delayed release capsule 1 cap(s), Oral, BID, take one tablet by mouth twice a day every day, # 180 cap(s), 3 total refill(s ), [facility], [facility] Oral (given by mouth) Discont inued 12/25/2024 5 2024 180.0 0055C-3 [facility] Erma omeprazole 20 mg oral delayed release capsule 120 cap(s), 0 total refill(s ), Soft Stop Discont inued 01/27/20232022 0055C-[address] [place] [address] Erma omeprazole 20 mg oral delayed release capsule 1 cap(s), Oral, BID, 120 cap(s), # 180 cap(s), 3 total refill(s ), Maintena nce, Pharmacy : [facility] Oral (given by mouth) Discont inued 03/19/2024 4 2023 180.0 0055C-[address] [place] [address] Erma omeprazole 40 mg oral delayed release capsule 1 cap(s), Oral, BID, 30 to 60 minutes before breakfas t and dinner., # 180 cap(s), 2 total refill(s ), [facility], Pharmacy : [facility] Oral (given by mouth) Ordered 08/10/2025 5 2024 180.0 0055C-[address] [place] [address] [place] Allergies, Adverse Reactions, Alerts Combined list of allergies from Department of Defense and Veterans Affairs facilities. It does not include entries that were removed or entered in error. Substance Category Reaction Severity Reaction type Status Date Reported Comments Source OTHER Drug allergy (disorder) active 6 [employer] Other Living Organism Allergy to substance Unknown Unknown Active 2 - [facility] OTHER {Cla } Drug allergy (disorder) Unknown active 2 [employer] [place] [place] Immunizations Combined list of available immunizations from the Department of Defense and Veterans Affairs facilities. Immunization Series Date Given Administered By Site Reaction Lot Number CVX Code Drug Sheet Cutting Operator Status Comments Source Influenza, injectable, MDCK-pf 2023 JOSHUARWASHIN GTON 153 complet ed Result Comment: Route: Unknown Manufactu rer: [facility] (SEQ) 0055A-[address] [place] [address] [place] Influenza, inj, MDCK, quadrivalent- pf 2022 JOSHUARWASHIN GTON 171 complet ed Result Comment: Route: Unknown Manufactu rer: [facility] (SEQ) 0055A-[address] [place], [place] [address]Dora Bella influenza, injectable, quadrivalent- pf 2021 JOSHUARWASHIN GTON 150 complet ed Result Comment: Route: Unknown Manufactu rer: [facility] (SKB) 5A-[address] [place] [address] [place] tetanus-dipht h toxoids (Td) adult/adol 2021 zzLef t Arm [id number] sanofi pasteur complet ed tetanus-d iphth toxoids (Td) adult/ado l 02/01/22 Given Ambulat ory Pharmac y tetanus and diphtheria toxoids, adsorbed, preservative free, for adult use (2 Lf of tetanus toxoid and 2 Lf of diphtheria toxoid) 1 2021 Unknown, Provider [id number] Sanofi Pasteur ([facility]) complet ed tetanus and diphtheri a toxoids, adsorbed, preservat rebekah free, for adult use (2 Lf of tetanus toxoid and 2 Lf of diphtheri a toxoid) DoD COVID Vaccine Pfizer 2020 DANIA LOVELACEON 208 complet ed COVID Vaccine Pfizer 08/05/21 Recorded 0055A-[address] [place] [address] hepatitis B adult vaccine 2020 zzLef t Arm [id number] AptDeco ne complet ed hepatitis B adult vaccine 03/04/21 Given Ambulat ory Pharmac y hepatitis B vaccine, adult dosage 1 2020 Unknown, Provider [id number] [facility] (SKB) complet ed hepatitis B vaccine, adult dosage DoD COVID Vaccine Pfizer 2020 [id number] PFIZER complet ed COVID Vaccine Pfizer 11/14/20 Given Ambulat ory Pharmac y SARS-COV-2 (COVID-19) vaccine, mRNA, spike protein, LNP, preservative free, 30 mcg/0.3mL dose 2 2020 Unknown, Provider [id number] Rachio, [employer] (PFR) complet ed SARS-COV- 2 (COVID-19 ) vaccine, mRNA, spike protein, LNP, preservat rebekah free, 30 mcg/0.3mL dose DoD tetanus, diphtheria, acellular pertu is 2020 DAINA LOPEZ [id number] complet ed tetanus, diphtheri a, acellular pertussis 11/14/20 Recorded 0055A-[address] [place] [address] COVID Vaccine Pfizer 2020 [id number] PFIZER complet ed COVID Vaccine Pfizer 10/23/20 Given Ambulat ory Pharmac y SARS-COV-2 (COVID-19) vaccine, mRNA, spike protein, LNP, preservative free, 30 mcg/0.3mL dose 1 2020 Unknown, Provider [id number] Rachio, [employer] (PFR) complet ed SARS-COV- 2 (COVID-19 ) vaccine, mRNA, spike protein, LNP, preservat rebekah free, 30 mcg/0.3mL dose DoD hepatitis B adult vaccine 2020 zzLef t Arm [id number] 43 GlaxoSmithKli ne complet ed hepatitis B adult vaccine 09/03/20 Given Ambulat ory Pharmac y hepatitis B vaccine, adult dosage 1 2020 Unknown, [facility] [id number] complet ed hepatitis B vaccine, adult dosage DoD hepatitis B adult vaccine 2019 zzLef t Arm [id number] 43 GlaxoSmithKli ne complet ed hepatitis B adult vaccine 07/26/20 Given Ambulat ory Pharmac y hepatitis B vaccine, adult dosage 1 2019 Unknown, Provider [id number] [employer] (SKB) complet ed hepatitis B vaccine, adult dosage DoD influenza, recombinant, quadrivalent, injectable, preservative free 2019 ALUL, () Not Given influenza , recombina nt, quadrival ent,injec table, preservat rebekah free DoD influenza virus vaccine, inactivated 2019 JOSHUARWASHIN GTON 88 complet ed Result Comment: Route: Unknown Manufactu rer: [facility] ([facility]) 0055A-3 [facility] [place] influenza, injectable, quadrivalent, preservative free 2018 ALUL, () Not Given influenza , injectabl e, quadrival ent, preservat rebekah free DoD influenza, injectable, quadrivalent- pf 2018 JOSHUARWASHIN GTON 150 complet ed Result Comment: Route: Unknown Manufactu rer: [facility] ([facility]) 0055A-3 [facility] [place] influenza, injectable, quadrivalent- pf 2017 150 GlaxoSmithKli ne complet ed influenza , injectabl e, quadrival ent-pf 06/16/18 Given Ambulat ory Pharmac y Influenza, inj, MDCK, quadrivalent- pf 2016 zzLef t Arm [id number] [employer] complet ed Influenza , inj, MDCK, quadrival ent-pf 07/25/17 Given Ambulat ory Pharmac y Influenza, injectable, Madin Anjana Canine Kidney, preservative free, quadrivalent 1 2016 Unknown, Provider [id number] 171 [employer] (SEQ) complet ed Influenza , injectabl e, Madin Highland Canine Kidney, preservat rebekah free, quadrival ent DoD influenza, seasonal, injectable-pf 2015 zzLef t Arm [id number] [employer] complet ed influenza , seasonal, injectabl e-pf 07/18/16 Given Ambulat ory Pharmac y Influenza, seasonal, injectable, preservative free 1 2015 Unknown, Provider [id number] [employer] (SEQ) complet ed Influenza , seasonal, injectabl e, preservat rebekah free DoD influenza, injectable, quadrivalent 2014 zzLef t Arm [id number] 158 [facility] , injectabl e, quadrival ent 06/21/15 Given Ambulat ory Pharmac y influenza, injectable, quadrivalent, contains preservative 1 2014 Unknown, Provider [id number] [facility] (SKB) complet ed influenza , injectabl e, quadrival ent, contains preservat rebekah DoD influenza, seasonal, injectable-pf 2013 zzLef t Arm [id number] 140 Novartis Pharmaceutica ls complet ed influenza , seasonal, injectabl e-pf 06/15/14 Given Ambulat ory Pharmac y Influenza, seasonal, injectable, preservative free 1 2013 Unknown, Provider [id number] 140 Novartis Pharmaceutica l Tati. (NOV) complet ed Influenza , seasonal, injectabl e, preservat rebekah free DoD influenza, seasonal, injectable-pf 2012 zzLef t Arm [id number] 140 sanofi pasteur complet ed influenza , seasonal, injectabl e-pf 06/23/13 Given Ambulat ory Pharmac y Influenza, seasonal, injectable, preservative free 8 2012 Unknown, Provider [id number] 140 Sanofi Pasteur ([facility]) complet ed Influenza , seasonal, injectabl e, preservat rebekah free DoD influenza, seasonal, injectable 2011 [id number] sanofi pasteur complet ed influenza , seasonal, injectabl e 05/27/12 Given Ambulat ory Pharmac y Influenza, seasonal, injectable 0 2011 [id number] 141 Sanofi Pasteur ([facility]) complet ed Influenza , seasonal, injectabl e DoD tetanus, diphtheria, acellular pertu is 2011 [id number] 115 GlaxoSmithKli ne complet ed tetanus, diphtheri a, acellular pertussis 03/15/12 Given Ambulat ory Pharmac y tetanus toxoid, reduced diphtheria toxoid, and acellular pertu is vaccine, adsorbed 1 [id number] [place] [address] (SKB) complet ed tetanus toxoid, reduced diphtheri a toxoid, and acellular pertussis vaccine, adsorbed DoD influenza virus vaccine, live 2010 [id number] 111 Medimmune Inc comple t ed influenza virus vaccine, live 05/19/11 Given Ambulat ory Pharmac y influenza virus vaccine, live, attenuated, for intranasal use 0 2010 [id number] 111 MedImmune, Inc. (MED) complet ed influenza virus vaccine, live, attenuate d, for intranasa l use DoD influenza virus vaccine, live 2009 [id number] 111 Medimmune Inc comple t ed influenza virus vaccine, live 07/12/10 Given Ambulat ory Pharmac y influenza virus vaccine, live, attenuated, for intranasal use 1 2009 [id number] 111 MedImmune, Inc. (MED) complet ed influenza virus vaccine, live, attenuate d, for intranasa l use DoD Novel Influenza-H1N 1-09,live virus,nasal 2009 [id number] 125 Medimmune Inc comple t ed Novel Influenza -O3W8-07, live virus,amanda al 10/01/09 Given Ambulat ory Pharmac y Novel Influenza-H1N 1-09, live virus for nasal administratio n 1 2009 [id number] 125 [employer] Inc. (MED) complet ed Novel Influenza -U0L0-47, live virus for nasal administr ation DoD influenza virus vaccine, live 2008 [id number] 111 Medimmune Inc complet ed influenza virus vaccine, live 06/28/09 Given Ambulat ory Pharmac y influenza virus vaccine, live, attenuated, for intranasal use 1 2008 [id number] 111 MedImmune, Inc. (MED) complet ed influenza virus vaccine, live, attenuate d, for intranasa l use DoD influenza virus vaccine, live 2007 [id number] 111 Medimmune Inc comple t ed influenza virus vaccine, live 06/25/08 Given Ambulat ory Pharmac y influenza virus vaccine, live, attenuated, for intranasal use 1 2007 [id number] 111 [employer] (MED) complet ed influenza virus vaccine, live, attenuate d, for intranasa l use DoD influenza virus vaccine, live 2007 [id number] 111 Med[employer] Inc comple t ed influenza virus vaccine, live 10/04/07 Given Ambulat ory Pharmac y influenza virus vaccine, live, attenuated, for intranasal use 1 2007 [id number] 111 [employer] (MED) complet ed influenza virus vaccine, live, attenuate d, for intranasa l use DoD hepatitis A adult vaccine 2006 [id number] 52 GlaxoSmithKli ne complet ed hepatitis A adult vaccine 03/11/07 Given Ambulat ory Pharmac y hepatitis A vaccine, adult dosage 2 2006 [id number] 52 [employer] (SKB) complet ed hepatitis A vaccine, adult dosage DoD hepatitis A adult vaccine 2006 [id number] [id number] 52 GlaxoSmithKli ne complet ed hepatitis A adult vaccine 09/03/06 Given Ambulat ory Pharmac y influenza virus vaccine,split 2006 [id number] 15 GlaxoSmithKli ne complet ed influenza virus vaccine,s plit 09/03/06 Given Ambulat ory Pharmac y influenza virus vaccine, split virus (incl. purified surface antigen)-reti red CODE 1 2006 [id number] 15 [employer] (SKB) complet ed influenza virus vaccine, split virus (incl. purified surface antigen)- retired CODE DoD hepatitis A vaccine, adult dosage 1 2006 [id number] 9AA 52 [employer] (SKB) complet ed hepatitis A vaccine, adult dosage DoD tuberculin purified protein derivative 2004 zzLef t Arm [id number] 96 sanofi pasteur complet ed Patient Tolerance : Negative Ambulat ory Pharmac y tuberculin skin test; purified protein derivative solution, intradermal 1 2004 Unknown, Provider [id number] 96 Sanofi Pasteur ([facility]) complet ed tuberculi n skin test; purified protein derivativ e solution, intraderm al DoD tetanus-dipht h toxoids (Td) adult/adol 2003 [id number] sanofi pasteur complet ed tetanus-d iphth toxoids (Td) adult/ado l 11/12/03 Given Ambulat ory Pharmac y measles, mumps and rubella virus vaccine 0 2003 03 () Not Given measles, mumps and rubella virus vaccine DoD tetanus and diphtheria toxoids, adsorbed, preservative free, for adult use (2 Lf of tetanus toxoid and 2 Lf of diphtheria toxoid) 1 2003 [id number] 09 Sanofi Pasteur ([facility]) complet ed tetanus and diphtheri a toxoids, adsorbed, preservat rebekah free, for adult use (2 Lf of tetanus toxoid and 2 Lf of diphtheri a toxoid) DoD varicella virus vaccine 0 2003 21 () Not Given varicella virus vaccine DoD meningococcal polysaccharid e (MPSV4) 2003 32 complet ed meningoco ccal polysacch aride (MPSV4) 10/26/03 Given Ambulat ory Pharmac y meningococcal polysaccharid e vaccine (MPSV4) 1 2003 32 Transcribed (TRS) complet ed meningoco ccal polysacch aride vaccine (MPSV4) DoD poliovirus vaccine, live, oral 1985 02 complet ed polioviru s vaccine, live, oral 04/24/86 Given Ambulat ory Pharmac y trivalent poliovirus vaccine, live, oral 3 1985 02 Transcribed (TRS) complet ed trivalent polioviru s vaccine, live, oral DoD measles/mumps /rubella virus vaccine 1969 03 complet ed measles/m umps/rube lla virus vaccine 12/25/69 Given Ambulat ory Pharmac y measles, mumps and rubella virus vaccine 1 1969 03 Transcribed (TRS) complet ed measles, mumps and rubella virus vaccine DoD Results Combined list of recent chemistry, hematology and other laboratory results from Department of Defense and Veterans Affairs, ranging from 15 months to all on record, depending upon the facility. Order Name Results Value Reference Range Date Interpretation Specimen Comments Source Hematolog y Eosinophil % Auto 3 % 0 - 5 12/30 N 0055A-3 [facility] Hematolog y Baso Absolute 0.1 x10^3/mc L 0.0 - 0.1103 12/30 N [facility] [place] Absolute 0.6 x10^3/mc L 0.2 - 0.8103 12/30 N -[address] [place] [address] Hematolog y Eos Absolute 0.2 x10^3/mc L 0.0 - 0.7103 12/[address] [place] [address] Hematolog y Monocyte % Auto 9 % 1 - 12 12/[address] [place] [address] Hematolog y Lymph Absolute 2.4 x10^3/mc L 1.2 - 4.0103 12/30 N - [address] [place] [address] Hematolog y Neutrophil % Auto 51 % 46 - 77 12/[address] [place] [address] Hematolog y Lymphocyte % Auto 35 % 20 - 40 12/[address] [place] [address] Hematolog y Basophil % Auto 1.2 % 0.0 - 2.5 12/[address] [place] [address] Hematolog y Neutro Absolute 3.6 x10^3/mc L 2.0 - 7.0103 12/[address] [place] [address] Chemistry Vitamin D 25 OH 53.6 ng/mL 30.0 - 100.0 12/30 N Interpretiv e Data: Classificat ion of Vitamin D Status: Deficient: <20 ng/mL Insufficien t: 20-29 ng/mL Sufficient: 30-100 ng/mL Possible Toxicity: >100 ng/mL This assay is for the quantitativ e determinati on of total 25 (OH) vitamin D. It is intended as an aid in the determinati on of vitamin D sufficiency . Results should always be interpreted in conjunction with the patient's medical history, clinical presentatio n, and other findings. Testing performed by [facility] [employer]. [id number]-U [facility] Hematolog y Platelets 300 x10^3/mc L 150 - 160101 12/[address] [place] [address] Hematolog y MCHC 31.4 g/dL 33.0 - 36.5 12/30 L - [address] [place] [address] Hematolog y MPV 10.6 fL 7.4 - 10.4 12/30 H 0055A-[address] [place] [address] [place] Hematolog y RDW 19.2 % 11.0 - 14.9 12/30 H 0055A-[address] [place] [address] Hematolog y Hemoglobin 12.8 g/dL 11.0 - 15.0 12/30 N 0055A-[address] [place] [address] [place] Hematolog y MCH 26 pg 28 - 33 12/30 L 0055A-[address] [place] [address] [place] Hematolog y MCV 83 fL 80 - 97 12/30 N 0055A-[address] [place] [address] Hematolog y Hematocrit 41 % 34 - 46 12/30 N 0055A-[address] [place] [address] [place] Hematolog y RBC 4.9 x10^6/mc L 3.6 - 5.0106 12/30 N 0055A-[address] [place] [address] [place] Hematolog y WBC 6.9 x10^3/mc L 4.0 - 11.0103 12/30 N 0055A-[address] [place] [address] [place] Hematolog y Differentia l? Auto (12/30/24 12:43 PM) 12/30 N 5A-[address] [place] [address] Chemistry TIBC 342 ug/dL 250 - 400 12/30 N 5600A[facility]U [facility] Chemistry Iron 49 ug/dL 37 - 145 12/30 N Interpretiv e Data: METHODOLOGY : Testing performed by colorimetri c assay. 5600A-U [facility] Chemistry UIBC, 293.0 ug/dL 112.0 - 347.0 12/30 N 5600A-U [facility] Chemistry Transferrin Sat 14 % 14 - 50 12/30 N 5600A-U [facility] Chemistry Ferritin Lvl 18.80 ng/mL 13.00 - 150.00 12/30 N Interpretiv e Data: METHODOLOGY : Testing performed by electrochem iluminescen t immunoassay (ECLIA). 5600A-U [facility] Hematolog y Differentia l? Auto+Mor ph 16 *ABN* (12/05/24 12:13 PM) 12/05 A Result Comment: Verified by slide screen. 0055A-[address] [place] [address]- [place] Hematolog y Hematocrit 36 % 34 - 46 12/05 N 0055A-3 [facility]- [place] Hematolog y MPV 10.2 fL 7.4 - 10.4 12/05 N 0055A-3 [facility]- [place] Hematolog y Platelets 290.0 x10^3/mc L 150.0 - 450.0103 12/05 N 0055A-3 [facility]- [place] Hematolog y MCV 80 fL 80 - 97 12/05 N 0055A-3 [facility]- [place] Hematolog y RBC 4.5 x10^6/mc L 3.6 - 5.0106 12/05 N 0055A-3 [facility]- [place] Hematolog y RDW 20.5 % 11.0 - 14.9 12/05 H 0055A-3 [facility]- [place] Hematolog y WBC 8.4 x10^3/mc L 4.0 - 11.0103 12/05 N 0055A-[address] [place] [address]- [place] Hematolog y Hemoglobin 11.8 g/dL 11.0 - 15.0 12/05 N 0055A-3 [facility] [place] Hematolog y MCH 26 pg 28 - 33 12/05 L 0055A-3 [facility] [place] Hematolog y MCHC 32.9 g/dL 33.0 - 36.5 12/05 L 0055A-[address] [place] [address]- [place] Chemistry UIBC, 269.0 ug/dL 112.0 - 347.0 12/05 N [facility] Chemistry Transferrin Sat 20 % 14 - 50 12/05 N 56[facility] Chemistry TIBC 336 ug/dL 250 - 400 12/05 N 56[facility]U [facility] Chemistry Iron 67 ug/dL 37 - 145 12/05 N Interpretiv e Data: METHODOLOGY : Testing performed by colorimetri c assay. 5600A-U [facility] Chemistry Ferritin Lvl 22.50 ng/mL 13.00 - 150.00 12/05 N Interpretiv e Data: METHODOLOGY : Testing performed by electrochem iluminescen t immunoassay (ECLIA). 5600A-U [facility] Hematolog y PLT Estimate Not Performe d (12/05/24 12:13 PM) 150.0 - 450.0 12/05 N 0055A-3 [facility]- [place] Hematolog y Anisocytosi s 2+ *ABN* (12/05/24 12:13 PM) 12/05 A 0055A-3 [facility] [place] Hematolog y Stomatocyte s 2+ *ABN* (12/05/24 12:13 PM) 12/05 A 0055A-3 [facility] [place] Hematolog y Target Cells Occasion al (12/05/24 12:13 PM) 12/05 N 0055A-3 [facility] [place] Hematolog y Eosinophil % Auto 2 % 0 - 5 12/05 N 0055A-3 [facility] [place] Hematolog y Lymphocyte % Auto 21.8 % 20.0 - 40.0 12/05 N 0055A-3 [facility] [place] Hematolog y Eos Absolute 0.1 x10^3/mc L 0.0 - 0.7103 12/05 N 0055A-3 [facility] [place] Hematolog y Lymph Absolute 1.8 x10^3/mc L 1.2 - 4.0103 12/05 N 0055A-3 [facility] [place] Hematolog y Neutro Absolute 5.5 x10^3/mc L 2.0 - 7.0103 12/05 N 0055A-3 [facility]- [place] Hematolog y Neutrophil % Auto 65.5 % 46.0 - 77.0 12/05 N 0055A-3 [facility]- [place] Hematolog y Coryell Absolute 0.8 x10^3/mc L 0.2 - 0.8103 12/05 N 0055A-3 [facility] [place] Hematolog y Monocyte % Auto 10 % 1 - 12 12/05 N 0055A-3 [facility] [place] Hematolog y Baso Absolute 0.1 x10^3/mc L 0.0 - 0.1103 12/05 N 0055A-3 [facility]- [place] Hematolog y Basophil % Auto 0.7 % 0.0 - 2.5 12/05 N 0055A-[address] [place] [address]- [place] Hematolog y RDW 15.3 % 11.0 - 14.9 09/16 H 0055A-3 [facility] [place] Hematolog y MPV 8.9 fL 7.4 - 10.4 09/16 N 0055A-[address] [place] [address]- [place] Hematolog y Platelets 346.0 x10^3/mc L 150.0 - 450.0103 09/16 N 0055A-[address] [place] [address]- [place] Hematolog y RBC 3.9 x10^6/mc L 3.6 - 5.0106 09/16 N 0055A-[address] [place] [address]- [place] Hematolog y MCHC 31.8 g/dL 33.0 - 36.5 09/16 L 0055A-[address] [place] [address]- [place] Hematolog y MCV 79 fL 80 - 97 09/16 L 0055A-[address] [place] [address] [place] Hematolog y Hemoglobin 9.8 g/dL 11.0 - 15.0 09/16 L 0055A-[address] [place] [address] [place] Hematolog y MCH 25 pg 28 - 33 09/16 L 0055A-[address] [place] [address] [place] Hematolog y Hematocrit 31 % 34 - 46 09/16 L 0055A-[address] [place] [address] [place] Hematolog y Differentia l? Auto (09/16/24 3:34 PM) 09/16 N 0055A-[address] [place] [address] [place] Hematolog y WBC 6.8 x10^3/mc L 4.0 - 11.0103 09/16 N 0055A-[address] [place] [address] Chemistry AGAP 9.00 0.00 - 15.00 09/16 N 0055A-[address] [place] [address] Chemistry Glucose Lvl 93 mg/dL 74 - 99 09/16 N 0055A-3 [facility] Chemistry Potassium Lvl 3.2 mmol/L 3.5 - 5.1 09/16 L 0055A-[address] [place] [address] Chemistry Sodium 135 mmol/L 136 - 145 09/16 L 0055A-3 [facility] Chemistry Protein Total 7.3 g/dL 6.4 - 8.3 09/16 N -[address] [place] [address] Chemistry Creatinine Level 0.80 mg/dL 0.57 - 1.11 09/16 N -[address] [place] [address] Chemistry CO2 29 mmol/L 22 - 29 09/16 N [address] [place] [address] Chemistry BUN 16 mg/dL 7 - 20 09/16 N -[address] [place] [address] Chemistry BUN/Creat Ratio 20 mg/dL 12 - 20 09/16 N -[address] [place] [address] Chemistry Calcium 9.0 mg/dL 8.4 - 10.2 09/16 N [address] [place] [address] Chemistry Chloride 97 mmol/L 98 - 107 09/[address] [place] [address] Chemistry Bilirubin Total 0.4 mg/dL 0.2 - 1.2 09/16 N [address] [place] [address] Chemistry Albumin 4.20 g/dL 3.50 - 5.20 09/16 N -[address] [place] [address] Chemistry Alk Phos 75 U/L 40 - 150 09/[address] [place] [address] Chemistry ALT 17 U/L 5 - 55 09/16 N [address] [place] [address] Chemistry AST 18 U/L 5 - 34 09/16 N [address] [place] [address] Chemistry eAvg Glucose 105 mg/dL 09/[address] [place] [address] Chemistry Hemoglobin A1c 5.3 % 4.0 - 5.6 09/16 N Interpretiv e Data: Normal: 4.0 - 5.6% Increased Risk: 5.7 - 6.4% Diabetic Range: 6.5% For patients without diabetes, the normal range for the hemoglobin A1c test is between 4% and 5.6%. Hemoglobin A1c levels between 5.7% and 6.4% indicate increased risk of diabetes, and levels of 6.5% or higher indicate diabetes. Because studies have repeatedly shown that out-of-cont rol diabetes results in complicatio ns from the disease, the goal for people with diabetes is a hemoglobin A1c less than 7%. The higher the hemoglobin A1c, the higher the risks of developing complicatio ns related to diabetes. If confirmatio n is needed, consider recalling the patient and ordering Hemoglobin Electrophor esis. [facility] Chemistry Triglycerid es 102 mg/dL 7 - 149 09/16 N Interpretiv e Data: AGES 0-9: Desirable: < 75 mg/dL Borderline High: 75-99 mg/dL High: >/= 100 mg/dL AGES 10-19: Desirable: < 90 mg/dL Borderline High: 90-129 mg/dL High: >/= 130 mg/dL ADULTS: Desirable: < 150 mg/dL Borderline High: 150-199 mg/dL High: >/= 240 mg/dL Very High: >/= 500 mg/dL [facility] Chemistry HDL Cholesterol 51 mg/dL 40 - 59 09/16 N Interpretiv e Data: HDL (HIGH DENSITY LIPOPROTEIN ): ADULTS: Low: < 40 mg/dL High: >/= 60 mg/dL AGES 0 -19: Low: < 40 mg/dL Borderline Low: 40 - 45 mg/dL Acceptable: > 45 mg/dL [facility] Chemistry LDL 117 mg/dL 100 - 130 09/16 N Interpretiv e Data: AGES 0-19: Desirable: < 110 mg/dL Borderline High: 110-129 mg/dL High: >/= 130 mg/dL ADULTS: Desirable: <100 mg/dL Near/above optimal: 100-130 mg/dL Borderline High: 131-159 mg/dL High: 160-189 mg/dL Very High: 190 mg/dL [facility] Chemistry LDL/HDL 2 09/[address] [place], [place] [address] Chemistry Chol/HDL 3 mg/dL 09/[address] [place], [place] [address] Chemistry Cholesterol Total 175 mg/dL 09/16 N Interpretiv e Data: According to the [place] [employer] : AGES 0-19: Desirable: < 170 mg/dL Borderline High: 170-199 mg/dL High Blood Cholesterol : >/= 200 mg/dL ADULTS: Desirable < 200 mg/dL Borderline High: 200-239 mg/dL High Blood Cholesterol : >/= 240 mg/dL [facility] [place] Chemistry TSH 0.922 mIU/L 0.270 - 4.200 09/16 N Interpretiv e Data: Recommend: TPO/Thyrope roxidase Antibody when TSH result is > 4.2 uIU/mL [facility] Chemistry Vitamin D 25 OH 26 ng/mL 30 - 100 09/16 L Interpretiv e Data: Classificat ion of Vitamin D Status: Deficient: <20 ng/mL Insufficien t: 20-29 ng/mL Sufficient: 30-100 ng/mL Possible Toxicity: >100 ng/mL This assay is for the quantitativ e determinati on of total 25 (OH) vitamin D. It is intended as an aid in the determinati on of vitamin D sufficiency . Results should always be interpreted in conjunction with the patient's medical history, clinical presentatio n, and other findings. Testing performed by Electrochem iluminescen ce. [facility] Chemistry Iron 20 ug/dL 37 - 145 09/16 L Interpretiv e Data: METHODOLOGY : Testing performed by colorimetri c assay. [facility] Chemistry TIBC 373 ug/dL 250 - 400 09/16 N [facility] Chemistry Transferrin Sat 5 % 14 - 50 09/16 L [facility] Chemistry UIBC, 353.0 ug/dL 112.0 - 347.0 09/16 H [facility] Chemistry Ferritin Lvl 7.97 ng/mL 13.00 - 150.00 09/16 L Interpretiv e Data: METHODOLOGY : Testing performed by electrochem iluminescen t immunoassay (ECLIA). [facility] Hematolog y Lymph Absolute 2.1 x10^3/mc L 1.2 - 4.0103 09/16 N [facility] [place] Hematolog y Basophil % Auto 0.7 % 0.0 - 2.5 09/16 N 0055A[facility] [place] Hematolog y Eos Absolute 0.1 x10^3/mc L 0.0 - 0.7103 09/16 N 0055A[facility] [place] Hematolog y Eosinophil % Auto 2 % 0 - 5 09/[address] [place] [address] Hematolog y Lymphocyte % Auto 30.4 % 20.0 - 40.0 09/[address] [place] [address] Hematolog y Baso Absolute 0.0 x10^3/mc L 0.0 - 0.1103 09/[address] [place] [address] Hematolog y Coryell Absolute 0.7 x10^3/mc L 0.2 - 0.8103 09/[address] [place] [address] Hematolog y Monocyte % Auto 10 % 1 - 12 09/[address] [place] [address] Hematolog y Neutro Absolute 3.9 x10^3/mc L 2.0 - 7.0103 09/[address] [place] [address] Hematolog y Neutrophil % Auto 57.5 % 46.0 - 77.0 09/[address] [place] [address] Chemistry eGFR CKD EPI 83 mL/min/1 .73_m2 09/16 Interpretiv e Data: Estimated Glomerular Filtration Rate (eGFR) calculated using the 2020 Chronic Kidney Disease-Epi demiology (CKD-EPI) Collaborati on creatinine equation; units of measure are mL/min/1.73 m2. Results are only valid for adults (>=18 years) whose serum creatinine is in steady state. eGFR calculation s are not valid for patients with acute kidney injury and for patients on dialysis. Creatinine- based estimates of kidney function may also be inaccurate in patients with reduced creatinine generation due to decreased muscle mass (e.g., malnutritio n, severe hypoalbumin emia, sarcopenia, chronic neuromuscul ar disease, amputations , severe heart failure or liver disease) and in patients with increased creatinine generation due to increased muscle mass (e.g., muscle builders, anabolic steroids) or increased dietary intake. CKD is diagnosed based on abnormaliti es of kidney structure or function, present for >3 months, with implication s for health and disease. CKD is classified and staged based on cause, eGFR and albuminuria (quantified as urine albumin to creatinine ratio). An eGFR >60 mL/min/1.73 m2 in the absence of increased urine albumin excretion or structural abnormaliti es does not CKD. eGFR provides only an estimate of measured GFR within +/- 30% for most patients. As mentioned, nutritional status and muscle mass, among many factors, may lead to inaccuracy in the estimate. Consider ordering the creatinine- cystatin C panel if better accuracy is needed for clinical decision-savage jin. eGFR (mL/min/1.7 3 m2) CKD stage Interpretat ion Normal 60-89 Mild decrease 45-59 Mild to moderate decrease 30-44 Moderate to severe decrease 15-29 Severe decrease <15 Kidney failure -3 [facility] [place] Hematolog y Basophil % Auto 1.2 % 0.0 - 2.5 09/27 N - [facility] [place] Hematolog y Baso Absolute 0.1 x10^3/mc L 0.0 - 0.1103 09/27 N [facility] [place] Hematolog y Eosinophil % Auto 2 % 0 - 5 09/27 N [facility] [place] Hematolog y Eos Absolute 0.1 x10^3/mc L 0.0 - 0.7103 09/27 N -3 [facility] [place] Hematolog y Lymphocyte % Auto 28.9 % 20.0 - 40.0 09/27 N 3 [facility] [place] [facility] Lymph Absolute 2.0 x10^3/mc L 1.2 - 4.0103 09/27 N -3 [facility] [place] Hematolog y Monocyte % Auto 10 % 1 - 12 09/27 N 005-3 [facility] [place] Hematolog y Neutro Absolute 4.0 x10^3/mc L 2.0 - 7.0103 09/27 N -3 [facility] [place] Hematolog y Coryell Absolute 0.7 x10^3/mc L 0.2 - 0.8103 09/27 N - [facility] [place] Hematolog y Neutrophil % Auto 57.7 % 46.0 - 77.0 09/27 N - [address] [place] [address]- [place] Chemistry Sodium 138 mmol/L 136 - 145 09/27 N - [address] [place] [address] Chemistry Protein Total 7.2 g/dL 6.4 - 8.3 09/27 N 5A-[address] [place] [address]- [place] [facility] AGAP 8.00 0.00 - 15.00 09/27 N 5A-[address] [place] [address]- [place] Chemistry Albumin 4.10 g/dL 3.50 - 5.20 09/27 N 5A-[address] [place] [address] Chemistry Alk Phos 90 U/L 40 - 150 09/27 N 5A-[address] [place] [address] Chemistry ALT 15 U/L 5 - 55 09/27 N 5A-[address] [place] [address] Chemistry AST 17 U/L 5 - 34 09/27 N -[address] [place] [address] Chemistry Bilirubin Total 0.6 mg/dL 0.2 - 1.2 09/27 N 5A-[address] [place] [address] Chemistry BUN 16 mg/dL 7 - 20 09/27 N -[address] [place] [address] Chemistry BUN/Creat Ratio 23 mg/dL 12 - 20 09/27 H 5A-[address] [place] [address] Chemistry Calcium 9.6 mg/dL 8.4 - 10.2 09/27 N -[address] [place] [address] Chemistry Chloride 102 mmol/L 98 - 107 09/27 N -[address] [place] [address] Chemistry CO2 28 mmol/L 22 - 29 09/27 N -[address] [place] [address] Chemistry Creatinine Level 0.70 mg/dL 0.57 - 1.11 09/27 N 5A-[address] [place] [address] Chemistry Glucose Lvl 88 mg/dL 74 - 99 09/27 N 5A-[address] [place] [address] Chemistry Potassium Lvl 3.8 mmol/L 3.5 - 5.1 09/27 N -[address] [place] [address] Chemistry Chol/HDL 4 mg/dL 09/27 0055A-[address] [place] [address] Chemistry Triglycerid es 123 mg/dL 7 - 149 09/27 N Interpretiv e Data: AGES 0-9: Desirable: < 75 mg/dL Borderline High: 75-99 mg/dL High: >/= 100 mg/dL AGES 10-19: Desirable: < 90 mg/dL Borderline High: 90-129 mg/dL High: >/= 130 mg/dL ADULTS: Desirable: < 150 mg/dL Borderline High: 150-199 mg/dL High: >/= 240 mg/dL Very High: >/= 500 mg/dL [address] [place], [place] [address] Chemistry LDL 123 mg/dL 100 - 130 09/27 N Interpretiv e Data: AGES 0-19: Desirable: < 110 mg/dL Borderline High: 110-129 mg/dL High: >/= 130 mg/dL ADULTS: Desirable: <100 mg/dL Near/above optimal: 100-130 mg/dL Borderline High: 131-159 mg/dL High: 160-189 mg/dL Very High: 190 mg/dL [facility] LDL/HDL 2 09/[address] [place], [place] [address] Chemistry Cholesterol Total 185 mg/dL 09/27 N Interpretiv e Data: According to the [place] [employer] : AGES 0-19: Desirable: < 170 mg/dL Borderline High: 170-199 mg/dL High Blood Cholesterol : >/= 200 mg/dL ADULTS: Desirable < 200 mg/dL Borderline High: 200-239 mg/dL High Blood Cholesterol : >/= 240 mg/dL [address] [place], [place] [address] Chemistry HDL Cholesterol 51 mg/dL 40 - 59 09/27 N Interpretiv e Data: HDL (HIGH DENSITY LIPOPROTEIN ): ADULTS: Low: < 40 mg/dL High: >/= 60 mg/dL AGES 0 -19: Low: < 40 mg/dL Borderline Low: 40 - 45 mg/dL Acceptable: > 45 mg/dL [address] [place] [address]- [facility] Hematocrit 39 % 34 - 46 09/27 N - [address] [place] [address]- [facility] Hemoglobin 12.8 g/dL 11.0 - 15.0 09/27 N - [address] [place] [address]- [facility] MCV 90 fL 80 - 97 09/27 N - [address] [place] [address]- [place] MCH 30 pg 28 - 33 09/27 N -[address] [place] [address]- [place] MCHC 32.8 g/dL 33.0 - 36.5 09/27 L 5A-3 [facility] [place] Hematolog y Platelets 276.0 x10^3/mc L 150.0 - 450.0103 09/27 N - [facility] [place] Hematolog y RBC 4.3 x10^6/mc L 3.6 - 5.0106 09/27 N -3 [facility] [place] H[facility]olog y MPV 10.2 fL 7.4 - 10.4 09/27 N -3 [facility] [place] Hematolog y RDW 13.7 % 11.0 - 14.9 09/27 N - [facility] [place] Hematolog y WBC 6.9 x10^3/mc L 4.0 - 11.0103 09/27 N - [address] [place] [address]- [place] [facility] Differentia l? Auto (09/27/23 10:41 AM) 09/27 N - [address] [place] [address] Chemistry eAvg Glucose 100 mg/dL 09/[address] [place] [address] Chemistry Hemoglobin A1c 5.1 % 4.0 - 5.6 09/27 N Interpretiv e Data: Normal: 4.0 - 5.6% Increased Risk: 5.7 - 6.4% Diabetic Range: 6.5% For patients without diabetes, the normal range for the hemoglobin A1c test is between 4% and 5.6%. Hemoglobin A1c levels between 5.7% and 6.4% indicate increased risk of diabetes, and levels of 6.5% or higher indicate diabetes. Because studies have repeatedly shown that out-of-cont rol diabetes results in complicatio ns from the disease, the goal for people with diabetes is a hemoglobin A1c less than 7%. The higher the hemoglobin A1c, the higher the risks of developing complicatio ns related to diabetes. If confirmatio n is needed, consider recalling the patient and ordering Hemoglobin Electrophor esis. [address] [place] [address] Chemistry Potassium Lvl 3.8 mmol/L 3.5 - 5.1 09/[address] [place] [address] Chemistry Sodium 138 mmol/L 136 - 145 09/[address] [place] [address]- [place] [facility] Phosphorus 3.6 mg/dL 2.3 - 4.7 09/[address] [place] [address]- [place] [facility] Creatinine Level 0.70 mg/dL 0.57 - 1.11 09/[address] [place] [address]- [place] [facility] Glucose Lvl 88 mg/dL 74 - 99 09/[address] [place] [address] Chemistry Calcium 9.6 mg/dL 8.4 - 10.2 09/[address] [place] [address] Chemistry CO2 28 mmol/L 22 - 29 09/[address] [place] [address] Chemistry BUN 16 mg/dL 7 - 20 09/[address] [place] [address] Chemistry BUN/Creat Ratio 23 mg/dL 12 - 20 09/[address] [place] [address] Chemistry Albumin 4.10 g/dL 3.50 - 5.20 09/[address] [place] [address] Chemistry AGAP 8.00 0.00 - 15.00 09/[address] [place] [address] Chemistry Albumin 4.10 g/dL 3.50 - 5.20 09/[address] [place] [address] Chemistry Alk Phos 90 U/L 40 - 150 09/[address] [place] [address] Chemistry ALT 15 U/L 5 - 55 09/27 N [address] [place] [address] Chemistry AST 17 U/L 5 - 34 09/27 N -[address] [place] [address] Chemistry Bilirubin Direct 0.2 mg/dL 0.1 - 0.5 09/27 N -[address] [place] [address] Chemistry Bilirubin Total 0.6 mg/dL 0.2 - 1.2 09/[address] [place] [address] Chemistry Protein Total 7.2 g/dL 6.4 - 8.3 09/27 N - [address] [place] [address] Chemistry eGFR CKD EPI 98 mL/min/1 .73_m2 09/27 Interpretiv e Data: Estimated Glomerular Filtration Rate (eGFR) calculated using the 2020 Chronic Kidney Disease-Epi demiology (CKD-EPI) Collaborati on creatinine equation; units of measure are mL/min/1.73 m2. Results are only valid for adults (>=18 years) whose serum creatinine is in steady state. eGFR calculation s are not valid for patients with acute kidney injury and for patients on dialysis. Creatinine- based estimates of kidney function may also be inaccurate in patients with reduced creatinine generation due to decreased muscle mass (e.g., malnutritio n, severe hypoalbumin emia, sarcopenia, chronic neuromuscul ar disease, amputations , severe heart failure or liver disease) and in patients with increased creatinine generation due to increased muscle mass (e.g., muscle builders, anabolic steroids) or increased dietary intake. CKD is diagnosed based on abnormaliti es of kidney structure or function, present for >3 months, with implication s for health and disease. CKD is classified and staged based on cause, eGFR and albuminuria (quantified as urine albumin to creatinine ratio). An eGFR >60 mL/min/1.73 m2 in the absence of increased urine albumin excretion or structural abnormaliti es does not CKD. eGFR provides only an estimate of measured GFR within +/- 30% for most patients. As mentioned, nutritional status and muscle mass, among many factors, may lead to inaccuracy in the estimate. Consider ordering the creatinine- cystatin C panel if better accuracy is needed for clinical decision-savage jin. eGFR (mL/min/1.7 3 m2) CKD stage Interpretat ion Normal 60-89 Mild decrease 45-59 Mild to moderate decrease 30-44 Moderate to severe decrease 15-29 Severe decrease <15 Kidney failure 0055A-3 [facility] Vital Signs Combined list of inpatient and outpatient Vital Signs from Department of Defense and Veterans Affairs, ranging from 12 months to all on record, depending upon the facility. Vital Sign Value Date Comments Source Systolic Blood Pressure 116 mm[Hg] 02/28/2023 13:53:00 [facility] Diastolic Blood Pressure 69 mm[Hg] 02/28/2023 13:53:00 [facility] Temperature Oral 36.7 Esme 02/28/2023 13:53:00 [facility] Respiratory Rate 16 br/min 02/28/2023 13:53:00 [facility] Mean Arterial Pressure, Calc 85 mm[Hg] 02/28/2023 13:53:00 [facility] BP Site Left arm 02/28/2023 13:53:00 00[facility] Peripheral Pulse Rate 75 bpm 02/28/2023 13:53:00 [facility] Blood Pressure Manual Automatic 02/28/2023 13:53:00 [facility] Peripheral Pulse Rate 74 bpm 02/24/2025 18:08:00 [facility] Mean Arterial Pressure, Calc 90 mm[Hg] 02/24/2025 18:08:00 [facility] Respiratory Rate 16 br/min 02/24/2025 18:08:00 [facility] BP Site Left arm 02/24/2025 18:08:00 0055[facility] Systolic Blood Pressure 119 mm[Hg] 02/24/2025 18:08:00 [facility] Diastolic Blood Pressure 76 mm[Hg] 02/24/2025 18:08:00 [facility] Temperature Oral 36.7 Esme 02/24/2025 18:08:00 [facility] Blood Pressure Manual Automatic 02/24/2025 18:08:00 [facility] Blood Pressure Manual Automatic 12/25/2024 19:26:00 [facility] BP Site Left arm 12/25/2024 19:26:00 0055C [facility] Systolic Blood Pressure 122 mm[Hg] 12/25/2024 19:26:00 [facility] Diastolic Blood Pressure 79 mm[Hg] 12/25/2024 19:26:00 [facility] Mean Arterial Pressure, Calc 93 mm[Hg] 12/25/2024 19:26:00 [facility] Peripheral Pulse Rate 80 bpm 12/25/2024 19:26:00 [facility] Respiratory Rate 14 br/min 12/25/2024 19:26:00 [facility] Temperature Oral 36.4 Esme 12/25/2024 19:26:00 [facility] Mean Arterial Pressure, Calc 97 mm[Hg] 04/30/2024 15:38:00 [facility] Peripheral Pulse Rate 82 bpm 04/30/2024 15:38:00 [facility] Systolic Blood Pressure 130 mm[Hg] 04/30/2024 15:38:00 [facility] Diastolic Blood Pressure 80 mm[Hg] 04/30/2024 15:38:00 [facility] Blood Pressure Manual Automatic 04/30/2024 15:38:00 [facility] BP Site Left arm 04/30/2024 15:38:00 00[facility] Temperature Oral 37 Esme 04/30/2024 15:38:00 [facility] Respiratory Rate 12 br/min 04/30/2024 15:38:00 [facility] Temperature Oral 36.8 Esme 10/26/2023 20:49:00 [facility] BP Site Left arm 10/26/2023 20:49:00 0055[facility] Blood Pressure Manual Automatic 10/26/2023 20:49:00 [facility] Systolic Blood Pressure 125 mm[Hg] 10/26/2023 20:49:00 [facility] Diastolic Blood Pressure 69 mm[Hg] 10/26/2023 20:49:00 [facility] Mean Arterial Pressure, Calc 88 mm[Hg] 10/26/2023 20:49:00 [facility] Peripheral Pulse Rate 71 bpm 10/26/2023 20:49:00 [facility] Respiratory Rate 16 br/min 10/26/2023 20:49:00 [facility] Blood Pressure Manual Automatic 09/30/2024 17:19:00 [facility] Temperature Oral 36.6 Esme 09/30/2024 17:19:00 [facility] BP Site Left arm 09/30/2024 17:19:00 00[facility] Mean Arterial Pressure, Calc 89 mm[Hg] 09/30/2024 17:19:00 [facility] Respiratory Rate 16 br/min 09/30/2024 17:19:00 [facility] Peripheral Pulse Rate 78 bpm 09/30/2024 17:19:00 [facility] Systolic Blood Pressure 121 mm[Hg] 09/30/2024 17:19:00 [facility] Diastolic Blood Pressure 73 mm[Hg] 09/30/2024 17:19:00 [facility] Mean Arterial Pressure, Calc 98 mm[Hg] 01/27/2023 14:42:00 [facility] Systolic Blood Pressure 139 mm[Hg] 01/27/2023 14:42:00 [facility] Diastolic Blood Pressure 78 mm[Hg] 01/27/2023 14:42:00 [facility] Blood Pressure Manual Automatic 01/27/2023 14:42:00 [facility] Temperature Oral 36.4 Esme 01/27/2023 14:42:00 [facility] BP Site Left arm 01/27/2023 14:42:00 0055[facility] -[facility] Respiratory Rate 16 br/min 01/27/2023 14:42:00 [facility] Peripheral Pulse Rate 72 bpm 01/27/2023 14:42:00 [facility] Temperature Oral 36.6 Esme 10/04/2023 16:07:00 [facility] BP Site Left arm 10/04/2023 16:07:00 00[facility] Respiratory Rate 16 br/min 10/04/2023 16:07:00 [facility] Blood Pressure Manual Automatic 10/04/2023 16:07:00 [facility] Mean Arterial Pressure, Calc 110 mm[Hg] 10/04/2023 16:07:00 [facility] Systolic Blood Pressure 153 mm[Hg] 10/04/2023 16:07:00 [facility] Diastolic Blood Pressure 88 mm[Hg] 10/04/2023 16:07:00 [facility] Peripheral Pulse Rate 70 bpm 10/04/2023 16:07:00 [facility] Systolic Blood Pressure 132 mm[Hg] 01/14/2024 14:37:00 [facility] Diastolic Blood Pressure 85 mm[Hg] 01/14/2024 14:37:00 [facility] Peripheral Pulse Rate 80 bpm 01/14/2024 14:37:00 [facility] Mean Arterial Pressure, Calc 101 mm[Hg] 01/14/2024 14:37:00 [facility] Respiratory Rate 18 br/min 01/14/2024 14:37:00 [facility] Temperature Oral 36.6 Esme 01/14/2024 14:37:00 [facility] Blood Pressure Manual Automatic 01/14/2024 14:37:00 [facility] BP Site Right arm 01/14/2024 14:37:00 0055[facility] Encounters Combined list of: 1) Encounters from Department of Veterans Affairs facilities going backup to the last 18 months, not all VA inpatient encounters are included; 2) Encounters from the Department of Defense facilities going backup to 280 months. Location Location Details Encounter Type Encounter Number Reason For Visit Attending Provider ADM Date DC Date Status Disposition Source [facility](Urgent [facility] FE) OUTPATIENT [id number] POSSIBL E STREP THROAT ARIANA MUÑOZ 10/18 Released w/o Limitations [facility] FE) [facility]([employer] [place]) OUTPATIENT [id number] annual pap CHRISTINA SKELTON 11/01 Released w/o Limitations [facility]([employer] [place]) [facility]) OUTPATIENT [id number] need ref RERE CHARLES 12/14 Released w/o Limitations [facility]) [facility] FE) OUTPATIENT [id number] iud ins CELESTINO AREVALO 01/10 Released w/o Limitations [facility]) [facility](human intelligence [facility] FE) TELE CONSULT [id number] request for patrol guard referra ALTON Ochoa 02/01 [facility](Tri age RN [facility] FE) [facility] FE) OUTPATIENT [id number] f/u CELESTINO AREVALO 02/01 Released w/o Limitations [facility] FE) [facility]) OUTPATIENT [id number] CELESTINO AREVALO 02/11 Released w/o Limitations [facility]) [facility]) OUTPATIENT [id number] allergi MAC Stovall 12/21 Released w/o Limitations [facility]) [facility]([employer] [place]) OUTPATIENT [id number] PT NEEDS ANNUAL PAP CHRISTINA SKELTON 02/20 Released w/o Limitations [facility]([employer] [place]) [employer] [facility] [place] Non-GME FHI2) OUTPATIENT [id number] TB TEST SHAWN HURLEY 04/04 Released w/o Limitations [employer] [facility] [place]F amily Practic e Non-GME FHI2) [employer] [facility] [place] Non-GME FHI2) OUTPATIENT [id number] MELISSA Becker 04/25 Released w/o Limitations [employer] [facility] [place]F amily Practic e Non-GME FHI2) [employer] [facility] [place] Non-GME FHI2) OUTPATIENT [id number] uti JOAO ROMAN 09/13 Released w/o Limitations [address] [place] [address] [employer] ([facility]F amily Practic e Non-GME FHI2) [address] [place] [address] [employer] [facility] Non-[facility]ME FHI2) OUTPATIENT [id number] bladder issues JOAO ROMAN 09/29 Released w/o Limitations [address] [place] [address] [employer] ([facility]F amily Practic e Non-GME FHI2) [address] [place] [address] [employer] ([facility] Non-GME FHI2) OUTPATIENT [id number] huge bruise on foot not getting better JEB VELARDE 11/09 Released w/o Limitations [address] [place] [address] [employer] ([facility]F amily Practic e Non-GME FHI2) [address] [place] [address] [employer] ([facility] Non-GME FHI2) OUTPATIENT [id number] rcpha JOAO ROMAN 01/16 Released w/o Limitations [address] [place] [address] [employer] ([facility]F amily Practic e Non-GME FHI2) [address] [place] [address] [employer] ([facility]Pod iatry) OUTPATIENT [id number] BUNION HAYLEE JONES 02/05 Released w/o Limitations [address] [place] [address] [employer] ([facility]P odiatry ) [address] [place] [address] [employer] ([facility] Practice Non-GME FHI2) OUTPATIENT [id number] annual exam JOAO ROMAN 02/13 Released w/o Limitations [address] [place] [address] [employer] ([facility]F amily Practic e Non-GME FHI2) [address] [place] [address] [employer] [place] Practice Non-GME FHI1) TELE CONSULT [id number] ER visit MARK JUSTA 03/[address] [place] [address] [employer] ([facility]F amily Practic e Non-GME FHI1) [address] [place] [address] [employer] ([facility]Pod iatry) OUTPATIENT [id number] PREOP HAYLEE JONES 03/14 Released w/o Limitations [address] [place] [address] Group [employer] ([facility]P odiatry ) [facility] [employer] ([facility]Phy sical Therapy) OUTPATIENT [id number] BRIAN VALENCIA 03/14 Released w/o Limitations [employer] ([facility]P hysical Therapy ) [employer] ([facility]Pod iatry) OUTPATIENT [id number] postop HAYLEE JONES P 03/20 Released w/o Limitations [employer] ([facility]P odiatry ) [facility] [employer] ([facility]Pod iatry) OUTPATIENT [id number] rt foot XOP mwj HAYLEE JONES P 04/02 Released w/o Limitations [employer] ([facility]P odiatry ) [facility] [employer] ([facility]Pod iatry) OUTPATIENT [id number] f/u HAYLEE JONES P 04/16 Released w/o Limitations [employer] ([facility]P odiatry ) [facility] [employer] ([facility]Pod iatry) OUTPATIENT [id number] POP HAYLEE JONES P 05/02 Released w/o Limitations [employer] ([facility]P odiatry ) [facility] [employer] ([facility]Pod iatry) OUTPATIENT [id number] f/u rt foot needs xrays HAYLEE JONES P 05/25 Released w/o Limitations [employer] ([facility]P odiatry ) [facility] [employer] ([facility]Pod iatry) OUTPATIENT [id number] f/u rt foot HAYLEE JONES P 07/09 Released w/o Limitations [employer] ([facility]P odiatry ) [facility] [employer] ([facility]Fam alysa Practice Non-GME FHI2) OUTPATIENT [id number] R. ankle pain JOAO ROMAN 09/03 Released w/o Limitations [employer] ([facility]F amily Practic e Non-GME FHI2) [employer] ([facility]Pod iatry) OUTPATIENT [id number] f/u rt foot/an kle pain EVA JONESEL Jenna 09/19 Released w/o Limitations [facility] [employer] ([facility]P odiatry ) [facility] [employer] ([facility] Practice Non-GME FHI1) TELE CONSULT [id number] referra l for eye care- IVANIA Irvin 09/21[facility] [employer] ([facility]F amily Practic e Non-GME FHI1) [address] [place] [address] [employer] ([facility] alysa Practice Non-GME FHI1) OUTPATIENT [id number] poison TIAGO Ivey 12/24 Released w/o Limitations [facility] [employer] ([facility]F amily Practic e Non-GME FHI1) [address] [place] [address] [employer] ([facility]) OUTPATIENT [id number] [facility] PHA JEB VELARDE 01/09 Released w/o Limitations [facility] [employer] ([facility]) [address] [place] [address] [employer] ([facility] Practice Non-GME FHI1) OUTPATIENT [id number] strep test JOAO ROMAN 02/22 Released w/o Limitations [address] [place] [address] [employer] ([facility]F amily Practic e Non-GME FHI1) [address] [place] [address] [employer] ([facility] Non-GME FHI2) OUTPATIENT [id number] Have my foot looked at HIRAM CANTOR 02/22 Released w/o Limitations [address] [place] [address] [employer] ([facility]F amily Practic e Non-GME FHI2) [address] [place] [address] [employer] ([facility] Practice Non-GME FHI1) OUTPATIENT [id number] hep a shot-pc m JOAO Coelho 03/11 Released w/o Limitations [facility] [employer] ([facility]F amily Practic e Non-GME FHI1) [address] [place] [address] [employer] ([facility] Practice Non-GME FHI2) OUTPATIENT [id number] Pap smear JOAO ROMAN 05/21 Released w/o Limitations [facility] [employer] ([facility]F amily Practic e Non-GME FHI2) [facility] [employer] ([facility]Phy sical Therapy) OUTPATIENT [id number] DAILYDANIELLAMaggy BRIAN Karen 05/28 Released w/o Limitations [facility] [employer] ([facility]P hysical Therapy ) [address] [place] [address] [employer] ([facility] Practice Non-GME FHI1) OUTPATIENT [id number] [facility] Based Assessm ent TIAGO MIJARES 12/26 Released w/o Limitations [facility] [employer] ([facility]F amily Practic e Non-GME FHI1) [address] [place] [address] [employer] ([facility] Non-GME FHI1) OUTPATIENT [id number] allergi COLLINS Hall 01/28 Released w/o Limitations [facility] [employer] ([facility]F amily Practic e Non-GME FHI1) [address] [place] [address] [employer] ([facility] Practice Non-GME FHI1) OUTPATIENT [id number] lump on breast MEMO FIGUEROA 04/06 Released w/o Limitations [facility] [employer] ([facility]F amily Practic e Non-GME FHI1) [address] [place] [address] [employer] ([facility] Practice Non-GME FHI2) TELE CONSULT [id number] Seen by MARK Figueroa, needs mammo changed from routine screeni lenny, to bilat diagnos AVELINO Bond 04/06[facility] [employer] [facility]F amily Practic e Non-GME FHI2) [address] [place] [address] [employer] ([facility] Practice Non-GME FHI2) OUTPATIENT [id number] lump in breast JOAO ROMAN 06/02 Released w/o Limitations [address] [place] [address] [employer] ([facility]F amily Practic e Non-GME FHI2) [address] [place] [address] [employer] [facility]Marker [employer] ecology) OUTPATIENT [id number] menses abnorma l HEMAL NICHOLE 06/12 Released w/o Limitations [address] [place] [address] [employer] ([facility]G ynecolo gy) [facility] [employer] ([facility]Fam alysa Practice Non-GME FHI2) TELE CONSULT [id number] AYUSH SALGADOLY R 06/[address] [place] [address] [employer] ([facility]F amily Practic e Non-GME FHI2) [address] [place] [address] [employer] ([facility] alysa Practice Non-GME FHI2) TELE CONSULT [id number] AYUSH SALGADOLY R 06/[address] [place] [address] [employer] ([facility]F amily Practic e Non-GME FHI2) [facility] [employer] ([facility]Fam alysa Practice Non-GME FHI2) OUTPATIENT [id number] left hip pain,du ll/tomasz p jarretan t pain HIRAM CANTOR 08/13 Released w/o Limitations [facility] [employer] ([facility]F amily Practic e Non-GME FHI2) [facility] [employer] ([facility]Phy sical Therapy) OUTPATIENT [id number] tensor fasciae latae pain TESS DOBSON 08/25 Released w/o Limitations [employer] ([facility]P hysical Therapy ) [facility] [employer] ([facility]Phy sical Therapy) OUTPATIENT [id number] SONIA MOHAN 09/01 Released w/o Limitations [employer] ([facility]P hysical Therapy ) [facility] [employer] ([facility]Phy sical Therapy) OUTPATIENT [id number] MICHAEL OREILLY 09/04 Released w/o Limitations [employer] ([facility])(P hysical Therapy ) [facility] [employer] ([facility]Phy sical Therapy) OUTPATIENT [id number] SONIA MOHAN 09/07 Released w/o Limitations [facility] [employer] ([facility]P hysical Therapy ) [facility] [employer] ([facility]Phy sical Therapy) OUTPATIENT [id number] MICHAEL OREILLY 09/09 Released w/o Limitations [facility] [employer] ([facility]P hysical Therapy ) [employer] ([facility]Phy sical Therapy) OUTPATIENT [id number] SONIA MOHAN 09/15 Released w/o Limitations [employer] ([facility]P hysical Therapy ) [employer] ([facility]Phy sical Therapy) OUTPATIENT [id number] SONIA MOHAN 09/17 Released w/o Limitations [employer] ([facility]P hysical Therapy ) [employer] ([facility]Phy sical Therapy) OUTPATIENT [id number] TESS DOBSON 09/21 Released w/o Limitations [employer] ([facility]P hysical Therapy ) [employer] ([facility] Team 4) OUTPATIENT [id number] annual pap [phone] JOAO ROMAN 02/03 Released w/o Limitations [employer] ([facility] Team 4) [employer] ([facility] Team 4) TELE CONSULT [id number] Lab Review LAM SALGADO R 02/10 [employer] ([facility] Team 4) [facility] [employer] ([facility] Team 4) TELE CONSULT [id number] Lab results JOAO ROMAN 02/18 [employer] ([facility] Team 4) [employer] ([facility] Team 4) TELE CONSULT [id number] Lab Review LAM SALGADO R 02/19 [employer] ([facility] Team 4) [facility] [employer] ([facility] Team 4) TELE CONSULT [id number] LAM Rider R 04/09 [employer] ([facility] Team 4) [employer] ([facility] Team 4) OUTPATIENT [id number] abnorma l menstru al bleedin g [phone] KENIA LAM YU 06/22 Released w/o Limitations [address] [place] [address] [employer] ([facility] Team 4) [address] [place] [address] [employer] [facility] ecology[facility] OUTPATIENT [id number] DYSFUNC TIONAL UTERINE BLEEDIN G CRISSY SAAB 07/08 Released w/o Limitations [address] [place] [address] [employer] ([facility]G ynecolo gy) [address] [place] [address] [employer] [facility]Ob/ Marker Maker) TELE CONSULT [id number] EMB appt RACHEL FAUST 07/[address] [place] [address] [employer] [facility]O b/Marker Maker) [address] [place] [address] [employer] [facility]Marker [employer] ecology[facility] OUTPATIENT [id number] emb per CRISSY Dugan i 07/16 Released w/o Limitations [address] [place] [address] [employer] ([facility])(G ynecolisa gy) [address] [place] [address] [employer] [facility] Team 4) OUTPATIENT [id number] poss UTI LAM AQUINO 07/19 Released w/o Limitations [address] [place] [address] [employer] ([facility] Team 4) [address] [place] [address] [employer] [facility] Team 4) OUTPATIENT [id number] possibl e high blood pressur e [phone] KARISHMA ANGEL 07/21 Released w/o Limitations [address] [place] [address] [employer] [facility] Team 4) [address] [place] [address] [employer] [facility]Ob/ Marker Maker) TELE CONSULT [id number] EMB Results CRISSY SAAB 07/[address] [place] [address] [employer] [facility]O b/Marker Maker) [address] [place] [address] [employer] [facility]Ob/ Marker Maker) TELE CONSULT [id number] Results and medicat ions CRISSY SAAB 08/[address] [place] [address] [employer] [facility]O b/Marker Maker) [address] [place] [address] [employer] [facility] Team 4) OUTPATIENT [id number] R/O UTI PCM Ms Kenia LAM AQUINO 10/19 Released w/o Limitations [employer] ([facility]S [facility] Team 4) [facility] Medical [facility] [employer] [facility]Fam alysa Med Tm B Non-AD BCC) TELE CONSULT [id number] Audio notes / Lab Results LAM AQUINO 10/29 [employer] ([facility]F amily Med Tm B Non-AD BCC) [facility] [employer] [facility]Fam alysa Med Tm B Non-AD BCC) OUTPATIENT [id number] poison karly [phone] JET MARSHALL 02/21 Released w/o Limitations [employer] ([facility])(F amily Med Tm B Non-AD BCC) [facility] [employer] ([facility]War rior Op Med Cln Tm A Ad) TELE CONSULT [id number] Poison Karly, took meds wrong - JUAN ALBERTO Ellis 03/02 [facility] [employer] ([facility]W arrior Op Med Cln Tm A Ad) [facility] [employer] [facility]Sco tt [facility] Team 3) OUTPATIENT [id number] C/PHA LAM AQUINO 03/17 Released w/o Limitations [facility] [employer] ([facility] Team 3) [facility] [employer] ([facility])(War rior Op Med Cln Tm A Ad) OUTPATIENT [id number] hyperte nsion LAM AQUINO 04/04 Released w/o Limitations [employer] ([facility])(W arrior Op Med Cln Tm A Ad) [facility] [employer] ([facility]War rior Op Med Cln Tm A Ad) OUTPATIENT [id number] BP Check 08/31 LAM AQUINO 04/05 Released w/o Limitations [facility] [employer] ([facility]W arrior Op Med Cln Tm A Ad) [facility] [employer] ([facility]War rior Op Med Cln Tm A Ad) OUTPATIENT [id number] BP check LAM AQUINO 04/06 Released w/o Limitations [facility] [employer] [facility]W arrior Op Med Cln Tm A Ad) [employer] [facility]War rior Op Med Cln Tm A Ad) OUTPATIENT [id number] BP check 3/5 LAM AQUINO YU 04/12 Released w/o Limitations [facility] [employer] [facility]W arrior Op Med Cln Tm A Ad) [facility])(War rior Op Med Cln Tm A Ad) OUTPATIENT [id number] BP check LAM AQUINO YU 04/13 Released w/o Limitations [facility] [employer] [facility]W arrior Op Med Cln Tm A Ad) [facility])(War rior Op Med Cln Tm A Ad) OUTPATIENT [id number] BP check 12/29 LAM AQUINO YU 04/14 Released w/o Limitations [address] [place] [address] Group [employer] [facility]W arrior Op Med Cln Tm A Ad) [facility] Medical [facility])(Marker [employer] ecology) OUTPATIENT [id number] pap [phone] ARTHUR HELMS 04/18 Released w/o Limitations [address] [place] [address] [facility])(G ynecolo gy) [address] [place] [address] [employer])(War rior Op Med Cln Tm A Ad) OUTPATIENT [id number] follow up on blood pressur e AQUINO LAM YU 04/18 Released w/o Limitations [address] [place] [address] [facility]W arrior Op Med Cln Tm A Ad) [address] [place] [address] [employer] [facility]War rior Op Med Cln Tm A Ad) TELE CONSULT [id number] Pt has questio joe galvez her BP and working out. [phone] or [phone] JUAN ALBERTO CERVANTES 04/19 Referred for Appointment [address] [place] [address] [employer] [facility]W arrior Op Med Cln Tm A Ad) [facility] [employer] [facility])([employer] ecology) TELE CONSULT [id number] Re: Remind Pt. of labs needed prior to procedu re DRE CLINTON 04/19 Released to Self Care [facility] Medical [facility] [employer] [facility])(G ynecolo gy) [facility] Medical [facility] [employer] [facility])(Car diology ([place])) OUTPATIENT [id number] ekg RIGOBERTO ARREOLA I 04/27 Released w/o Limitations [address] [place] [address] [employer] ([facility])(C ardiolo gy (MTF)) [address] [place] [address] [employer] [facility]War rior Op Med Cln Tm A Ad) TELE CONSULT [id number] f/u MRI results JUAN ALBERTO CERVANTES 04/28 Referred for Appointment [address] [place] [address] [employer] [facility])(W arrior Op Med Cln Tm A Ad) [address] [place] [address] [employer] [facility] ecology) OUTPATIENT [id number] Mirena inserti on [id number] ANALIA ARTHUR S 05/03 Released w/o Limitations [address] [place] [address] [facility])(G ynecolo gy) [address] [place] [address] [facility])(Ob/ Marker Maker) TELE CONSULT [id number] results RACHEL FAUST 05/03 Referred for Appointment [address] [place] [address] [employer] [facility])(O b/Marker Maker) [address] [place] [address] [facility])(War rior Op Med Cln Tm A Ad) OUTPATIENT [id number] f/u blood pressur e - [id number] LAM AQUINO 05/23 Released w/o Limitations [address] [place] [address] [employer] [facility]W arrior Op Med Cln Tm A Ad) [address] [place] [address] [employer])(War rior Op Med Cln Tm A Ad) OUTPATIENT [id number] allergi es/snee zing [phone] LAM AQUINO 06/23 Released w/o Limitations [address] [place] [address] [employer] [facility]W arrior Op Med Cln Tm A Ad) [address] [place] [address] [employer]War rior Op Med Cln Tm A Ad) TELE CONSULT [id number] Kenia agarwal [phone] JUAN ALBERTO CERVANTES 07/[address] [place] [address] [facility]W arrior Op Med Cln Tm A Ad) [facility] ([facility]War rior Op Med Cln Tm A Ad) OUTPATIENT [id number] f/u medicat ion for bladder YOLANDA AQUINOMARK NICHOLAS 07/19 Released w/o Limitations [address] [place] [address] Group [facility] ([facility]W arrior Op Med Cln Tm A Ad) [facility])(War rior Op Med Cln Tm A Ad) TELE CONSULT [id number] [place] /[phone] or [phone]/ne eds [place] referra l for hearing aid JUAN ALBERTO CERVANTES 07/[address] [place] [address] Group [facility])(W arrior Op Med Cln Tm A Ad) [facility] Medical [facility])(War rior Op Med Cln Tm A Ad) TELE CONSULT [id number] [place] /[phone] or [phone]/wa nts differe nt med than LISINOP RIL, dry cough JUAN ALBERTO CERVANTES 08/02 [facility] Group [facility] ([facility]W arrior Op Med Cln Tm A Ad) [facility] Group [facility])(War rior Op Med Cln Tm A Ad) OUTPATIENT [id number] conitnu e cough - [id number] LAM AQUINO 10/05 Released w/o Limitations [facility] ([facility]W arrior Op Med Cln Tm A Ad) [facility] Medical [facility])(War rior Op Med Cln Tm A Ad) TELE CONSULT [id number] Request ing PFT test - [place] [phone] [id number]/ca dkk LAM SALGADO 11/[address] [place] [address] Group [facility])(W arrior Op Med Cln Tm A Ad) [address] [place] [address] [facility])(Pul monary Functions ) OUTPATIENT [id number] Cough GERRI CANTRELL 12/02 Released w/o Limitations [facility]P ulmonar y Functio ns) [facility])(War rior Op Med Cln Tm A Ad) TELE CONSULT [id number] Please Advise - Ismael - [phone] - [facility] JUAN ALBERTO CERVANTES 12/[address] [place] [address] [facility])(W arrior Op Med Cln Tm A Ad) [address] [place] [address] [facility])(War rior Op Med Cln Tm A Ad) OUTPATIENT [id number] f/u PFT...[id number] [place] VAL[place]IA 01/06 Released w/o Limitations [address] [place] [address] [facility])(W arrior Op Med Cln Tm A Ad) [address] [place] [address] [facility])(War rior Op Med Cln Tm A Ad) TELE CONSULT [id number] Heavy menstra l cycle and clottin g request ing appt [phone] CAD [facility] SHELIA ARAGON 03/[address] [place] [address] [facility])(W arrior Op Med Cln Tm A Ad) [address] [place] [address] [facility])(War rior Op Med Cln Tm A Ad) OUTPATIENT [id number] Pt on menses for 3 weeks now heavy bleedin g with clots JET MARSHALL 04/07 Released w/o Limitations [address] [place] [address] [facility])(W arrior Op Med Cln Tm A Ad) [address] [place] [address])(War rior Op Med Cln Tm A Ad) TELE CONSULT [id number] PCM: William Valdivia . JUAN ALBERTO CERVANTES 04/[address] [place] [address] [facility])(W arrior Op Med Cln Tm A Ad) [address] [place] [address] [facility])(Sco tt Flight Medicine Tm) OUTPATIENT [id number] [facility] 04/24 Released w/o Limitations [address] [place] [address] [facility])(S cott Flight Medicin e Tm) [address] [place] [address])(Marker Maker ecology) OUTPATIENT [id number] Menomet rorrhag ALISSA Ramos 04/25 Released w/o Limitations [address] [place] [address] Erma Tammy [facility]G ynecolo gy) [address] [place] [address] [facility])(Ob/ Marker Maker) TELE CONSULT [id number] ascus Neg hpv SUZANNE GUZMAN A 05/08 [facility] Tammy ([facility]O b/Marker Maker) [facility]War rior Op Med Cln Tm A Ad) OUTPATIENT [id number] Strep Walk-In TRESSA DEXTER C 05/16 Released w/o Limitations [employer] Erma PARHAM ([facility]W arrior Op Med Cln Tm A Ad) [facility])(Marker Maker ecology) OUTPATIENT [id number] discuss hystere ctomy - [id number] CARMELA LOFTON 05/18 Released w/o Limitations [address] [place] [address] Group Erma PAR[facility])(G ynecolo gy) [facility])(War rior Op Med Cln Tm A Ad) OUTPATIENT [id number] f/u hb/p... [id number] DEXTERTRESSA GHOTRA C 05/19 Released w/o Limitations [facility] Erma PARHAM ([facility]W arrior Op Med Cln Tm A Ad) [facility])(Marker Maker ecology) TELE CONSULT [id number] f/u appt RACHEL Blackburn 05/[address] [place] [address] Group Erma [facility] ([facility]G ynecolo gy) [facility] ([facility])(War rior Op Med Cln Tm A Ad) TELE CONSULT [id number] Meds refills /Schaef er/JUSTA Almanza 05/30 [facility] ([facility]W arrior Op Med Cln Tm A Ad) [facility] Erma [facility] ([facility]Marker Maker ecology) OUTPATIENT [id number] colDEBBIE Spence 06/09 Released w/o Limitations [facility] Erma [facility] ([facility]G ynecolo gy) [facility] Erma B [facility]Marker Maker ecology) OUTPATIENT [id number] pre op CARMELA LOFTON 06/22 Released w/o Limitations [facility] Erma [facility] ([facility]G ynecolo gy) [address] [place] [address] [facility] ([facility])(Marker Maker ecology) TELE CONSULT [id number] time an locatio n for surgery CARMELA LOFTON 06/[address] [place] [address] [facility])(G ynecolo gy) [address] [place] [address] [facility]) DIRECT TO MTF FROM OTHER THAN ER OR APU [id number] CARMELA LOFTON 06/28 CANCELLED ADMISSION [address] [place] [address] [facility] ([facility] [address] [place] [address] [facility]) DIRECT TO MTF FROM OTHER THAN ER OR APU [id number] SLACARMELA Espana 06/28 DISCHARGED HOME [address] [place] [address] [facility] ([facility] [address] [place] [address] [facility])(Marker Maker ecology) TELE CONSULT [id number] Two week follow up appt for polyp removal (JATINDER) CARMELA LOFTON 07/[address] [place] [address] [facility])(Akin franklincolisa gy) [address] [place] [address] [facility])(War rior Op Med Cln Tm A Ad) OUTPATIENT [id number] abd pain [phone] TRESSA DEXTER 07/13 Released w/o Limitations [address] [place] [address] [facility])(W arrior Op Med Cln Tm A Ad) [address] [place] [address] [facility])(War rior Op Med Cln Tm A Ad) TELE CONSULT [id number] Rad. Result Review results with patient JUAN ALBERTO CERVANTES 07/[address] [place] [address] [facility])(W arrior Op Med Cln Tm A Ad) [address] [place] [address] [facility])(Marker Maker ecology) OUTPATIENT [id number] post op - [id number] CARMELA LOFTON 07/25 Released w/o Limitations [address] [place] [address] [facility])(G ynecolo gy) [address] [place] [address] [facility])(War rior Op Med Cln Tm A Ad) TELE CONSULT [id number] Teresee r - pt needs refill for inhaler - [phone] 2. IVANNA COONEY 07/[address] [place] [address] [facility])(W arrior Op Med Cln Tm A Ad) [address] [place] [address] Group [facility])(Marker Maker ecology) TELE CONSULT [id number] Notes Entered by: [facility] LOFTON 20 Oct 2011 1653 ------- ------- ------- ------- -- F/u FRED Burks 10/[address] [place] [address] [facility])(G virgil gy) [address] [place] [address] [facility])(Fam alysa Med Tm B Non-AD BCC) TELE CONSULT [id number] Notes Entered by: Wilner VELARDE 02 Nov 2011 1331 ------- ------- ------- ------- -- SONIA Vance 11/[address] [place] [address])(F amily Med Tm B Non-AD BCC) [address] [place] [address])(War rior Op Med Cln Tm A Ad) OUTPATIENT [id number] f/u allergi es [id number] TRESSA DEXTER 11/27 Released w/o Limitations [address] [place] [address] [facility])(W arrior Op Med Cln Tm A Ad) [address] [place] [address] [facility])(War rior Op Med Cln Tm A Ad) TELE CONSULT [id number] Notes Entered by: CYRUS LAUREN 18 Dec 2011 1126 ------- ------- ------- ------- -- Ref/Lyn phillipsfer/6 22.9952 or 960.005 Erasmo/JUSTA Spear 12/[address] [place] [address] [facility])(W arrior Op Med Cln Tm A Ad) [address] [place] [address] [facility])(Marker Maker ecology) OUTPATIENT [id number] irregul ar CARMELA Muro 01/24 Released w/o Limitations [address] [place] [address] [facility])(Akin herman gy) [address] [place] [address])(War rior Op Med Cln Tm A Ad) TELE CONSULT [id number] Notes Entered by: Monalisa ECHEVARRIA 26 Jan 2012 0715 ------- ------- ------- ------- -- Med refill HCTZ 25 mg daily [id number] Paige davis/morales LOPEZNUPURTaras Grajeda 01/[address] [place] [address])(W arrior Op Med Cln Tm A Ad) [address] [place] [address])(Marker Maker ecology) TELE CONSULT [id number] Notes Entered by: JUSTA CLAIRE 26 Jan 2012 0740 ------- ------- ------- ------- -- Regina matos re: hystere ctomy CARMELA LOFTON 01/[address] [place] [address])(G ydietercolisa gy) [address] [place] [address])(All ergy Resource Sharing) OUTPATIENT [id number] ASTHMA LUCIO HANSEN 02/04 Released w/o Limitations [address] [place] [address])(A llergy Resourc e Sharing ) [address] [place] [address])(Marker Maker ecology) OUTPATIENT [id number] robinson - [id number] CARMELA LOFTON 02/15 Released w/o Limitations [address] [place] [address])(G virgil gy) [address] [place] [address])(Marker Maker ecology) TELE CONSULT [id number] Notes Entered by: [facility] LO[facility] 07 Mar 2012 1128 ------- ------- ------- ------- -- F/u CARMELA COOK 03/[address] [place] [address])(Akin herman gy) [address] [place] [address])(Marker Maker ecology) TELE CONSULT [id number] Notes Entered by: RACHEL FAUST 11 Mar 2012 0926 ------- ------- ------- ------- -- When to start depo CARMELA LOFTON 03/[address] [place] [address])(G ynecolo gy) [address] [place] [address])(Marker Maker ecology) OUTPATIENT [id number] Notes Entered by: JUSTA CLAIRE 15 Mar 2012 1248 ------- ------- ------- ------- -- medroxy progest erone injecti on RACHEL FAUST Es 03/15 Released w/o Limitations [address] [place] [address])(G ynecolo gy) [address] [place] [address])(Sco tt [facility] Team 3) TELE CONSULT [id number] Notes Entered by: LORENA OCHOA 12 Apr 2012 1505 ------- ------- ------- ------- -- India Nicolas r/220-1 160/cad IVANNA Woods 04/[address] [place] [address])(S cott [facility] Team 3) [address] [place] [address])(Ob/ Marker Maker) TELE CONSULT [id number] Notes Entered by: GUERDA SUBRAMANIAN CIA 18 Apr 2012 1618 ------- ------- ------- ------- -- Needs date next depo is due - slat - cad/[facility] KYREE CAMARA 04/[address] [place] [address])(O b/Marker Maker) [address] [place] [address])(Fam alysa Med Tm B Non-AD BCC) TELE CONSULT [id number] Notes Entered by: AGUILAR CERON 30 Apr 2012 0804 ------- ------- ------- ------- -- Call to on-call provide r on 2011 at 1320. AGUILAR CERON 04/[address] [place] [address])(F amily Med Tm B Non-AD BCC) [address] [place] [address])(War rior Op Med Cln Tm A Ad) TELE CONSULT [id number] Notes Entered by: OLLIE KEN 01 May 2012 1540 ------- ------- ------- ------- -- FLORIAN/DONTE THORNE 05/[address] [place] [address] [facility])(W arrior Op Med Cln Tm A Ad) [address] [place] [address] Erma LOTammy [facility])(Sco tt [facility] Fam Res Tm Green) OUTPATIENT [id number] 2nd floor Erma PARHAM/brittney zhao copy MIRIAM ROY 05/21 Released w/o Limitations [address] [place] [address] Er[facility] PAR[facility]AM [facility])(S [facility] Fam Res Tm Green) [address] [place] [address] [facility] PAR[facility]AM [facility])(Sco tt [facility] FAMRES Tm Blue) TELE CONSULT [id number] Notes Entered by: KARISHMA GUPTA 22 May 2012 1030 ------- ------- ------- ------- -- Call back C-scope on [id number] 2- MIRIAM Blanco 05/[address] [place] [address] Er[facility] PARHAM [facility]S [facility] FAMRES Tm Blue) [address] [place] [address] Er[facility] PARHAM [facility])(Sco tt [facility] Team 3) TELE CONSULT [id number] Notes Entered by: AYUSH GRANT 24 May 2012 0812 ------- ------- ------- ------- -- ELIOT and Dr. Baron sullivan/Kenia ochoar/220 -1160/K LINDA REECE Ryan 05/[address] [place] [address] [facility] PAR[facility]AM [facility])(S [facility] Team 3) [address] [place] [address] Erma Tammy [facility])(Marker Maker ecology) OUTPATIENT [id number] Notes Entered by: RACHEL FAUST 06 Jun 2012 1255 ------- ------- ------- ------- -- Depo Injecti on RACHEL FAUST 06/06 Released w/o Limitations [address] [place] [address] Erma B [facility])(G ynecolo gy) [address] [place] [address] [facility])([facility] Team 3) TELE CONSULT [id number] Notes Entered by: DONTE BURROUGHS 14 Jun 2012 1431 ------- ------- ------- ------- -- Lab results DONTE BURROUGHS 06/[address] [place] [address] [facility])([facility] Team 3) [address] [place] [address] Erma B [facility])(Marker Maker ecology) OUTPATIENT [id number] well woman/f ollow-u p dysplas ia/220- 1160 HARRIS MONROE 06/26 Released w/o Limitations [address] [place], [place] [address]B [facility])(G ynecolo gy) [address] [place], [place] [address]B [facility])(Marker Maker ecology) TELE CONSULT [id number] Notes Entered by: RACHEL FAUST 11 Jul 2012 1500 ------- ------- ------- ------- -- results RACHEL FAUST 07/[address] [place] [address])(G ynecolo gy) [address] [place] [address])([facility] Team 3) OUTPATIENT [id number] richarin g in right shoulde r [id number] KAVEH KAMINSKI 08/07 Released w/o Limitations [address] [place], [place] [address]B [facility])([facility] Team 3) [address] [place] [address] Erma B [facility])(Marker Maker ecology) OUTPATIENT [id number] Notes Entered by: César BALL 28 Aug 2012 1343 ------- ------- ------- ------- -- Luigi nunez on KYREE CAMARA 08/28 Released w/o Limitations [address] [place] [address] [employer] [employer] [facility])(G ynecolo gy) [address] [place], [place] [address]B [facility])(Marker Maker ecology) TELE CONSULT [id number] Notes Entered by: ALPESH EVANS 29 Aug 2012 0958 ------- ------- ------- ------- -- Window for next Depo shot LUCIA TREJO 08/29 [facility]Akin ynecolo gy) [address] [place] [address] Group Erma B [facility])(Sco tt [facility] Fam Res Tm Green) TELE CONSULT [id number] Notes Entered by: ALPESH EVANS 02 Sep 2012 1336 ------- ------- ------- ------- -- EMETERIO Hernandez 09/02 [facility])(S [facility] [employer] [facility] [place]) [facility])(Marker Maker ecology) TELE CONSULT [id number] Notes Entered by: ALPESH EVANS 03 Sep 2012 1332 ------- ------- ------- ------- -- TRANSIT DEPARTMENT CLERK f/u LUCIA TREJO 09/03 Referred for Appointment [facility])(Akin herman gy) [address] [place] [address])([facility] [employer] [facility] [place]) TELE CONSULT [id number] Notes Entered by: NEETU GRISSOM 20 Sep 2012 0853 ------- ------- ------- ------- -- Regina Turcios - [id number] TIAGO VALDIVIA 09/20 Referred for Appointment [facility] Erma B [facility])(S [facility] [employer] [facility] [place]) [facility] Erma B [facility])(Marker Maker ecology) OUTPATIENT [id number] discuss hystere ctomy/h eaamanday CARMELA Landa 09/26 Released w/o Limitations [facility] Erma BLANCHARDB ([facility]G ynecolisa gy) [facility] Erma B ([facility])(Marker Maker ecology) TELE CONSULT [id number] Notes Entered by: LUCIA TREJO 04 Oct 2012 1345 ------- ------- ------- ------- -- Results LUCIA TREJO 10/[address] [place] [address] [facility])(Akin herman gy) [address] [place] [address])(Ob/ Marker Maker) TELE CONSULT [id number] Notes Entered by: [facility] LOFT[facility] 11 Oct 2012 0938 ------- ------- ------- ------- -- F/u u/s RACHEL FAUST 10/[address] [place] [address] [facility] ([facility])(O b/Marker Maker) [address] [place] [address] [facility])(Ob/ Marker Maker) TELE CONSULT [id number] Notes Entered by: Monalisa ECHEVARRIA 15 Oct 2012 0848 ------- ------- ------- ------- -- Has Regina matos about surgery [facility] ed with Rolly [id number] LUCIA TREJO 10/[address] [place] [address])(O b/Marker Maker) [address] [place] [address] [facility])(War rior Op Med Cln Tm A Ad) OUTPATIENT [id number] f/u for high blood pressur e, bunion on foot [phone] TRESSA DEXTER 10/16 Released w/o Limitations [address] [place] [address] Erma B [facility])(W arrior Op Med Cln Tm A Ad) [address] [place] [address] Erma BLANCHARD ([facility])(Marker Maker ecology) OUTPATIENT [id number] pre op [phone] CARMELA LOFTON 10/22 Released w/o Limitations [address] [place] [address] Erma BLANCHARDB ([facility])(Akin herman gy) [address] [place] [address] [facility] ([facility])(Ob/ Marker Maker) TELE CONSULT [id number] Notes Entered by: [facility] LO[facility] 23 Oct 2012 0840 ------- ------- ------- ------- -- F/u CBC CARMELA LOFTON 10/[address] [place] [address])(O b/Marker Maker) [address] [place] [address])(Ob/ Marker Maker) TELE CONSULT [id number] Notes Entered by: [facility] LOFTON 25 Oct 2012 1510 ------- ------- ------- ------- -- F/u anemia, planned surgery CARMELA LOFTON 10/[address] [place] [address])(O b/Marker Maker) [address] [place] [address])(War rior Op Med Cln Tm A Ad) TELE CONSULT [id number] Notes Entered by: AYUSH GRANT 28 Oct 2012 0920 ------- ------- ------- ------- -- Referra l Podiatr y not in/[facility]/ [phone] CAM CELESTIN 10/28 Referred for Appointment [address] [place] [address])(W arrior Op Med Cln Tm A Ad) [address] [place] [address])(Marker Maker ecology) TELE CONSULT [id number] Notes Entered by: CYRUS LAUREN 04 Nov 201225 ------- ------- ------- ------- -- Med [facility] /618.96 0.0055c CARMELA Abernathy 11/[address] [place] [address])(G virgil gy) [address] [place] [address])(Sco tt [facility] Team 3) TELE CONSULT [id number] Notes Entered by: DONTE BURROUGHS 11 Nov 2012 0731 ------- ------- ------- ------- -- after hours call DONTE BURROUGHS 11/[address] [place] [address])(S cott [facility] Team 3) [address] [place] [address])(War rior Op Med Cln Tm A Ad) TELE CONSULT [id number] Notes Entered by: CYRUS LAUREN 11 Nov 2012 0837 ------- ------- ------- ------- -- ER follow up and REF/Lyn aefer/6 [phone] CAM CELESTIN 11/11 Referred for Appointment [address] [place] [address])(W arrior Op Med Cln Tm A Ad) [address] [place] [address])(Ob/ Marker Maker) TELE CONSULT [id number] Notes Entered by: [facility] LOFTON 15 Nov 2012 1400 ------- ------- ------- ------- -- F/u pre-op labs CARMELA LOFTON 11/[address] [place] [address])(O b/Marker Maker) [address] [place] [address])(Shaq e [facility] t) TELE CONSULT [id number] Notes Entered by: MILAGROS SALDANA 22 Nov 2012 1020 ------- ------- ------- ------- -- CC: [facility] tiMILAGROS Ballard 11/[address] [place] [address])(C ase Manage ent) [address] [place] [address])(Ob/ Marker Maker) TELE CONSULT [id number] Notes Entered by: AYUSH GRANT 26 Nov 2012 0947 ------- ------- ------- ------- -- F/U Appt w/Rolly re: Hystere ctomy/S kenny / ERIKA TRIPATHI 11/[address] [place] [address])(O b/Marker Maker) [address] [place] [address])(Marker Maker ecology) TELE CONSULT [id number] Notes Entered by: JEFFREY ZARAGOZA 26 Nov 2012 1143 ------- ------- ------- ------- -- Network Results -GYNECO LOGY 11/20/12 ROLLYFRANCOISEVA Darby 11/[address] [place] [address])(G ydietercolisa gy) [address] [place] [address])(Shaq Crenshaw t) TELE CONSULT [id number] Notes Entered by: IVANIA HAYNES 28 Nov 2012 1604 ------- ------- ------- ------- -- Care coordin IVANIA Yin 11/28 Other Not Elsewhere Classified [address] [place] [address])(C ase Manage ent) [address] [place] [address])(War rior Op Med Cln Tm A Ad) TELE CONSULT [id number] Notes Entered by: GUERDA SUBRAMANIAN CIA 06 Dec 2012 0817 ------- ------- ------- ------- -- Referra l for Opthmol juan, *appt Nov* - CAM Gonzalez 12/06 Referred for Appointment [address] [place] [address])(W arrior Op Med Cln Tm A Ad) [address] [place] [address])(Marker Maker ecology) TELE CONSULT [id number] Notes Entered by: LUCIA TREJO 09 Dec 2012 1509 ------- ------- ------- ------- -- Medicat ion LUCIA Salmon 12/[address] [place] [address])(Akin herman gy) [address] [place] [address])(War rior Op Med Cln Tm A Ad) TELE CONSULT [id number] Notes Entered by: HENNY PURDY 10 Dec 2012 1501 ------- ------- ------- ------- -- Network results - Optomet ry 3 TRESSA DEXTER 12/[address] [place] [address])(W arrior Op Med Cln Tm A Ad) [address] [place] [address])(War rior Op Med Cln Tm A Ad) TELE CONSULT [id number] Notes Entered by: HENNY PURDY 10 Dec 2012 1512 ------- ------- ------- ------- -- Network results - [facility] - 3 TRESSA DEXTER 12/10 [facility])(W arrior Op Med Cln Tm A Ad) [facility])(War rior Op Med Cln Tm A Ad) OUTPATIENT [id number] F/U BP [id number] TRESSA DEXTER 12/10 Released w/o Limitations [address] [place] [address] Group [facility])(W arrior Op Med Cln Tm A Ad) [address] [place] [address] Group [facility])(War rior Op Med Cln Tm A Ad) TELE CONSULT [id number] Notes Entered by: HENNY PURDY 17 Dec 2012 0953 ------- ------- ------- ------- -- Network results - [facility] - 3 TRESSA DEXTER 12/17 [facility])(W arrior Op Med Cln Tm A Ad) [facility])(Marker Maker ecology) TELE CONSULT [id number] Notes Entered by: GUERDA SUBRAMANIAN CIA 27 Dec 2012 1307 ------- ------- ------- ------- -- Hystere ctomy one month - isabella baxter/S ERIKA Brandon 12/27 [facility])(Akin herman gy) [address] [place] [address] [facility])(Marker Maker ecology) OUTPATIENT [id number] post op - [id number] CARMELA LOFTON 12/30 Released w/o Limitations [facility])(Akin herman gy) [address] [place] [address] [facility])(War rior Op Med Cln Tm A Ad) TELE CONSULT [id number] Notes Entered by: HENNY PURDY 19 Feb 2013 1405 ------- ------- ------- ------- -- Network results - [facility] brendan - 3 TRESSA DEXTER 02/[address] [place] [address] Group [facility])(W arrior Op Med Cln Tm A Ad) [address] [place] [address])(War rior Op Med Cln Tm A Ad) OUTPATIENT [id number] Notes Entered by: CALISTA CHANEL 24 Feb 2013 0756 ------- ------- ------- ------- -- walk in AGUILAR MUÑOZ 02/24 Released w/o Limitations [address] [place] [address])(W arrior Op Med Cln Tm A Ad) [address] [place] [address])(War rior Op Med Cln Tm A Ad) TELE CONSULT [id number] Notes Entered by: NEETU GRISSOM 04 Mar 2013 1302 ------- ------- ------- ------- -- Med christi davis - [id number] CAM CELESTIN 03/04 Referred for Appointment [facility])(W arrior Op Med Cln Tm A Ad) [address] [place] [address])(All ergy Resource Sharing) OUTPATIENT [id number] Asthma LUCIO HANSEN 03/27 Released w/o Limitations [address] [place] [address] Group [facility])(A llergy Resourc e Sharing ) [facility] Medical [facility])(All ergy Resource Sharing) OUTPATIENT [id number] f/u asthma LUCIO HANSEN 05/26 Released w/o Limitations [address] [place] [address])(A llergy Resourc e Sharing ) [address] [place] [address])([facility] alysa Med Tm B Non-AD BCC) TELE CONSULT [id number] Notes Entered by: KAYDEN CHAPMAN 30 May 2013 1358 ------- ------- ------- ------- -- Network Results - PODIATR Y 3 BELL EMERSON 05/[address] [place] [address])(F amily Med Tm B Non-AD BCC) [address] [place] [address])(All ergy) TELE CONSULT [id number] Notes Entered by: Monalisa BELLA ON18 Jun 2013 1100 ------- ------- ------- ------- -- medicat ion LUCIO HANSEN 06/[address] [place] [address])(A llergy) [address] [place] [address])(All ergy Resource Sharing) OUTPATIENT [id number] Follow up LUCIO HANSEN 06/23 Released w/o Limitations [address] [place] [address])(A llergy Resourc e Sharing ) [address] [place] [address])(Marker Maker ecology) TELE CONSULT [id number] Notes Entered by: JEFFREY ZARAGOZA 02 Jul 2013 1529 ------- ------- ------- ------- -- Network Results -GYNECO LOGY 11/20/12 CARMELA LOFTON 07/[address] [place] [address])(G ynecolo gy) [address] [place] [address])(Fam alysa Med Tm B Non-AD BCC) OUTPATIENT [id number] heartbu rn issues/ 229.104 7 BELL EMERSON 07/15 Released w/o Limitations [address] [place] [address])(F amily Med Tm B Non-AD BCC) [address] [place] [address])(War rior Op Med Cln Tm A Ad) TELE CONSULT [id number] Notes Entered by: HENNY PURDY 29 Aug 2013 0842 ------- ------- ------- ------- -- Network results Ophthal mology 3 IDANIABELL Gutierrez Akin 08/[address] [place] [address])(W arrior Op Med Cln Tm A Ad) [address] [place] [address])(All ergy) OUTPATIENT [id number] Notes Entered by: JADE MORENO 29 Aug 2013 1710 ------- ------- ------- ------- -- Allergy shot KEVYN SCHERER 08/29 Released w/o Limitations [address] [place] [address])(A llergy) [address] [place] [address])(War rior Op Med Cln Tm A Ad) TELE CONSULT [id number] Notes Entered by: CANDACE TORRES 06 Oct 2013 0800 ------- ------- ------- ------- -- Hand Weaver- Vertigo , Ear infecti on ONUR BARKLEY 10/[address] [place] [address])(W arrior Op Med Cln Tm A Ad) [address] [place] [address])(All ergy) OUTPATIENT [id number] Notes Entered by: JADE MORENO 23 Oct 2013 1518 ------- ------- ------- ------- -- Allergy shots LUCIO HANSEN 10/23 Released w/o Limitations [address] [place] [address] ([facility]A [place]ergy) [address] [place] [address])(All ergy Resource Sharing) OUTPATIENT [id number] Notes Entered by: Monalisa BELLA 27 Oct 2013 1548 ------- ------- ------- ------- -- allergy shots LAURA BELLA 10/27 Released w/o Limitations [address] [place] [address])(A llergy Resourc e Sharing ) [address] [place] [address])(War rior Op Med Cln Tm A Ad) TELE CONSULT [id number] Notes Entered by: JEB UNGER 28 Oct 2013 1449 ------- ------- ------- ------- -- Network results - Urgent Care 014 BELL EMERSON 10/[address] [place] [address])(W arrior Op Med Cln Tm A Ad) [address] [place] [address])(Marker Maker ecology) OUTPATIENT [id number] dysplas ia pt - 229 1047 annual wwe SHAWN MUÑOZ 10/31 Released w/o Limitations [address] [place] [address])(G ynecolo gy) [address] [place] [address])(All ergy) OUTPATIENT [id number] Notes Entered by: JADE MORENO 03 Nov 2013 1551 ------- ------- ------- ------- -- Allergy shots JADE LITTLE 11/03 Released w/o Limitations [address] [place] [address])(A llergy) [address] [place] [address])(All ergy Resource Sharing) OUTPATIENT [id number] Notes Entered by: Monalisa BELLA 10 Nov 2013 1402 ------- ------- ------- ------- -- allergy shots LAURA BELLA 11/10 Released w/o Limitations [address] [place] [address])(A llergy Resourc e Sharing ) [address] [place] [address])(All ergy Resource Sharing) OUTPATIENT [id number] Notes Entered by: Monalisa BELLA 17 Nov 2013 1444 ------- ------- ------- ------- -- allergy shots LAURA BELLA 11/17 Released w/o Limitations [address] [place] [address])(A llergy Resourc e Sharing ) [address] [place] [address])(All ergy) OUTPATIENT [id number] Notes Entered by: JADE MORENO 25 Nov 2013 1532 ------- ------- ------- ------- -- Allergy shots JADE LITTLE 11/25 Released w/o Limitations [address] [place] [address] Group Erma PARHAM ([facility]A llergy) [address] [place] [address] Group Erma B ([facility]All ergy Resource Sharing) OUTPATIENT [id number] Notes Entered by: Monalisa BELLA 02 Dec 2013 1533 ------- ------- ------- ------- -- allergy shots LAURA BELLA 12/02 Released w/o Limitations [address] [place] [address] Group Erma BLANCHARDB ([facility]A llergy Resourc e Sharing ) [address] [place] [address] Group Erma BLANCHARDB ([facility]All ergy Resource Sharing) OUTPATIENT [id number] Notes Entered by: Monalisa BELLA 09 Dec 2013 1512 ------- ------- ------- ------- -- allergy shots LAURA BELLA 12/09 Released w/o Limitations [facility] Erma BLANCHARDB ([facility]A llergy Resourc e Sharing ) [address] [place] [address] Group Erma BLANCHARDB ([facility]All ergy) OUTPATIENT [id number] Notes Entered by: Monalisa BELLA 16 Dec 2013 1611 ------- ------- ------- ------- -- Allergy shot LAURA BELLA 12/16 Released w/o Limitations [address] [place] [address] Group Erma BLANCHARDB ([facility]A llergy) [address] [place] [address] Erma B ([facility]All ergy) OUTPATIENT [id number] Notes Entered by: NOEMI LAURENT 22 Dec 2013 1511 ------- ------- ------- ------- -- allergy shots LAM LAURENT 12/22 Released w/o Limitations [address] [place] [address] Group Erma BLANCHARDB ([facility]A llergy) [address] [place] [address] Erma BLANCHARDB ([facility]All ergy) OUTPATIENT [id number] Notes Entered by: NOEMI LAURENT 29 Dec 2013 1440 ------- ------- ------- ------- -- allergy shot ANASTASIIAAYUSH CONDEJORGE Suggs 12/29 Released w/o Limitations [address] [place] [address] Group Erma PARHAM ([facility]A llergy) [address] [place] [address] Erma B ([facility]All ergy) OUTPATIENT [id number] Notes Entered by: JADE MORENO 05 Jan 2014 1518 ------- ------- ------- ------- -- Allergy shot JADE LITTLE 01/05 Released w/o Limitations [address] [place] [address] Group Erma B ([facility]A llergy) [address] [place] [address] Erma B ([facility]All ergy Resource Sharing) OUTPATIENT [id number] Notes Entered by: Monalisa BELLA 26 Jan 2014 1350 ------- ------- ------- ------- -- allergy shotLAURA Streeter 01/26 Released w/o Limitations [address] [place] [address] Group Erma BLANCHARDB ([facility]A llergy Resourc e Sharing ) [address] [place] [address] Erma B ([facility])(Fam alysa Med Tm B Non-AD BCC) OUTPATIENT [id number] discuss problem s with foot BELL EMERSON 02/11 Released w/o Limitations [address] [place] [address] Erma B ([facility])(F amily Med Tm B Non-AD BCC) [address] [place] [address] Erma B ([facility]All ergy Resource Sharing) OUTPATIENT [id number] F/U LUCIO HANSEN 02/16 Released w/o Limitations [address] [place] [address] Erma BLANCHARDB ([facility]A llergy Resourc e Sharing ) [address] [place] [address] Erma B ([facility]All ergy) OUTPATIENT [id number] Notes Entered by: JADE MORENO 16 Feb 2014 1649 ------- ------- ------- ------- -- Allergy shot JADE LITTLE 02/16 Released w/o Limitations [address] [place] [address] Er[facility] ([facility]A llergy) [address] [place] [address] [facility] ([facility]All ergy Resource Sharing) OUTPATIENT [id number] Notes Entered by: Monalisa BELLA ONATHAN 13 Mar 2014 1646 ------- ------- ------- ------- -- allergy shots CANDACE MEDRANO 03/13 Released w/o Limitations [address] [place] [address] [facility] ([facility]A llergy Resourc e Sharing ) [address] [place] [address] Erma [facility])(Fam alysa Med Tm B Non-AD BCC) TELE CONSULT [id number] Notes Entered by: CYRUS LAUREN 06 Apr 2014 1402 ------- ------- ------- ------- -- NAL ANGELA f/u [facility]/Nataly scoe/61 [phone] JUAN ALBERTO CERVANTES 04/[address] [place] [address] Er[facility])(F amily Med Tm B Non-AD BCC) [address] [place] [address] Er[facility])(All ergy Resource Sharing) OUTPATIENT [id number] Notes Entered by: Monalisa BELLA 16 Apr 2014 1322 ------- ------- ------- ------- -- allergy shots LAURA BELLA 04/16 Released w/o Limitations [address] [place] [address] Erma BLANCHARD ([facility]A llergy Resourc e Sharing ) [address] [place] [address] Er[facility])(All ergy Resource Sharing) OUTPATIENT [id number] Notes Entered by: Monalisa BELLA 12 May 2014 1556 ------- ------- ------- ------- -- allergy shots LAURA BELLA 05/12 Released w/o Limitations [address] [place] [address] [facility] ([facility]A llergy Resourc e Sharing ) [address] [place] [address] Erma [facility])(War rior Op Med Cln Tm A Ad) TELE CONSULT [id number] Notes Entered by: MIRTA SINGH 22 May 2014 1118 ------- ------- ------- ------- -- Network Results - SURGERY - 04/08/14 BELL EMERSON 05/[address] [place] [address] Er[facility])(W arrior Op Med Cln Tm A Ad) [address] [place] [address] [facility])(Fam alysa Med Tm B Non-AD BCC) TELE CONSULT [id number] Notes Entered by: ALEXANDER LONDON 01 Jun 2014 0810 ------- ------- ------- ------- -- Urgent Care Retro-a ctive referra ALEXANDER Carey 06/01 Referred for Appointment [address] [place] [address] [facility])(F amily Med Tm B Non-AD BCC) [address] [place] [address] Er[facility])(Fam alysa Med Tm B Non-AD BCC) OUTPATIENT [id number] bottom lip swollen /numb/s montez 0600/61 8.960.0 055 BELL EMERSON 06/10 Released w/o Limitations [address] [place] [address] [facility])(F amily Med Tm B Non-AD BCC) [address] [place] [address])(All ergy Resource Sharing) OUTPATIENT [id number] Notes Entered by: Monalisa BELLA 15 Jun 2014 1456 ------- ------- ------- ------- -- allergy shots YOANDY MARIE 06/15 Released w/o Limitations [address] [place] [address] [facility]A llergy Resourc e Sharing ) [address] [place] [address] Er[facility])(All ergy Resource Sharing) OUTPATIENT [id number] Notes Entered by: Monalisa BELLA22 Jun 2014 1449 ------- ------- ------- ------- -- Allergy YOANDY Gardner 06/22 Released w/o Limitations [address] [place] [address] [facility])(A llergy Resourc e Sharing ) [address] [place] [address] [facility])(Fam alysa Med Tm B Non-AD BCC) TELE CONSULT [id number] Notes Entered by: JHON HURTADO 03 Jul 2014 0953 ------- ------- ------- ------- -- Opthamo jayy garcia Renewal Request ed BRIANNE HURTADO 07/03 Referred for Appointment [address] [place] [address] [facility])(F amily Med Tm B Non-AD BCC) [address] [place] [address])(All ergy Resource Sharing) OUTPATIENT [id number] Notes Entered by: Monalisa BELLA 06 Jul 2014 0851 ------- ------- ------- ------- -- allergy shots LAURA BELLA 07/06 Released w/o Limitations [address] [place] [address] [facility]A llergy Resourc e Sharing ) [address] [place] [address] Er[facility])(Fam alysa Med Tm B Non-AD BCC) OUTPATIENT [id number] medicat ion review/ /960.00 55 BELL EMERSON 07/13 Released w/o Limitations [address] [place] [address] [facility])(F amily Med Tm B Non-AD BCC) [address] [place] [address])(All ergy Resource Sharing) OUTPATIENT [id number] Notes Entered by: Monalisa BELLA 13 Jul 2014 1438 ------- ------- ------- ------- -- Allergy Shots LAURA BELLA 07/13 Released w/o Limitations [address] [place] [address] Erma BLANCHARD ([facility]A llergy Resourc e Sharing ) [address] [place] [address] [facility])(All ergy Resource Sharing) OUTPATIENT [id number] Notes Entered by: Monalisa BELLA 20 Jul 2014 1433 ------- ------- ------- ------- -- allergy shots LAURA BELLA 07/20 Released w/o Limitations [address] [place] [address] Erma PARHAM ([facility]A llergy Resourc e Sharing ) [facility]All ergy) OUTPATIENT [id number] Notes Entered by: Monalisa BELLA 28 Jul 2014 1424 ------- ------- ------- ------- -- allergy shots LAURA BELLA 07/28 Released w/o Limitations [address] [place] [address] Group Erma BLANCHARDB ([facility]A llergy) [address] [place] [address] Erma [facility]All ergy) OUTPATIENT [id number] Notes Entered by: JADE MORENO 04 Aug 2014 1555 ------- ------- ------- ------- -- Allergy shot LAURA BELLA 08/04 Released w/o Limitations [address] [place] [address] Erma BLANCHARDB ([facility]A llergy) [address] [place] [address] [facility])(All ergy Resource Sharing) OUTPATIENT [id number] Notes Entered by: Monalisa BELLA 13 Aug 2014 1516 ------- ------- ------- ------- -- allergy shots LAURA BELLA 08/13 Released w/o Limitations [address] [place] [address] Erma BLANCHARDB ([facility]A llergy Resourc e Sharing ) [address] [place] [address] Erma BLANCHARDB [facility]All ergy) OUTPATIENT [id number] Notes Entered by: JADE MORENO 24 Aug 2014 1531 ------- ------- ------- ------- -- Allergy shot JADE LITTLE 08/24 Released w/o Limitations [address] [place] [address] Group Erma BLANCHARDB ([facility]A llergy) [address] [place] [address] Erma B ([facility]All ergy) OUTPATIENT [id number] Notes Entered by: JADE OMRENO 31 Aug 2014 1631 ------- ------- ------- ------- -- Allergy short LAURA BELLA 08/31 Released w/o Limitations [address] [place] [address])(A llergy) [address] [place] [address])(All ergy) OUTPATIENT [id number] Notes Entered by: JADE MORENO 09 Sep 2014 1426 ------- ------- ------- ------- -- Allergy shot JADE LITTLE 09/09 Released w/o Limitations [address] [place] [address])(A llergy) [address] [place] [address])(All ergy Resource Sharing) OUTPATIENT [id number] Notes Entered by: KEVYN PATIÑO 17 Sep 2014 1448 ------- ------- ------- ------- -- Allergy Shots KEVYN PATIÑO 09/17 Released w/o Limitations [address] [place] [address])(A llergy Resourc e Sharing ) [address] [place] [address])(Fam alysa Med Tm B Non-AD BCC) TELE CONSULT [id number] Notes Entered by: Raymond ECHEVARRIA 21 Sep 2014 1246 ------- ------- ------- ------- -- Med refill/ Piute /[phone] or [phone] SHAWN Lewis 09/[address] [place] [address])(F amily Med Tm B Non-AD BCC) [address] [place] [address])(All ergy Resource Sharing) OUTPATIENT [id number] Notes Entered by: KEVYN PATIÑO 24 Sep 2014 1419 ------- ------- ------- ------- -- Allergy Shots KEVYN PATIÑO 09/24 Released w/o Limitations [address] [place] [address])(A llergy Resourc e Sharing ) [address] [place] [address])(All ergy Resource Sharing) OUTPATIENT [id number] Notes Entered by: KEVYN PATIÑO 26 Oct 2014 1329 ------- ------- ------- ------- -- Allergy Shots KEVYN PATIÑO 10/26 Released w/o Limitations [facility] Erma PARHAM ([facility])(A llergy Resourc e Sharing ) [address] [place] [address] Group Erma BLANCHARDB ([facility]All ergy) OUTPATIENT [id number] Notes Entered by: JADE MORENO 24 Nov 2014 1440 ------- ------- ------- ------- -- JADE FLORES 11/24 Released w/o Limitations [facility] Erma BLANCHARDB ([facility]A llergy) [address] [place] [address] Group [employer] ([facility])(Fam alysa Med Tm B Non-AD BCC) TELE CONSULT [id number] Notes Entered by: JEB UNGER 03 Dec 2014 1414 ------- ------- ------- ------- -- Network results - Urgent Care 014 BELL EMERSON 12/03 [facility] Erma BLANCHARDB ([facility])(F amily Med Tm B Non-AD BCC) [address] [place] [address] Group Erma BLANCHARDB ([facility])(All ergy Resource Sharing) OUTPATIENT [id number] Notes Entered by: KEVYN PATIÑO 24 Dec 2014 1526 ------- ------- ------- ------- -- KEVYN FOSTER 12/24 Released w/o Limitations [facility] Erma BLANCHARDB ([facility])(A llergy Resourc e Sharing ) [facility] Erma BLANCHARDB ([facility])(All ergy Resource Sharing) OUTPATIENT [id number] Notes Entered by: Monalisa BELLA ON21 Jan 2015 1350 ------- ------- ------- ------- -- LAURA CASTRO 01/21 Released w/o Limitations [address] [place] [address] Group Erma BLANCHARDB ([facility]A llergy Resourc e Sharing ) [address] [place] [address] Erma BLANCHARDB ([facility])(Fam alysa Med Tm B Non-AD BCC) TELE CONSULT [id number] Notes Entered by: HENNY PURDY 05 Feb 2015 1510 ------- ------- ------- ------- -- Network results Ophthal brendan 4 BELL EMERSON 02/[address] [place] [address])(F amily Med Tm B Non-AD BCC) [address] [place] [address])(All ergy Resource Sharing) OUTPATIENT [id number] Notes Entered by: KEVYN PATIÑO 24 Feb 2015 1309 ------- ------- ------- ------- -- KEVYN FOSTER 02/24 Released w/o Limitations [address] [place] [address])(A [facility] e Sharing ) [address] [place] [address])(Fam alysa Med Tm B Non-AD BCC) OUTPATIENT [id number] Notes Entered by: NIKOLE SORENSEN 24 Mar 2015 0827 ------- ------- ------- ------- -- walk-in /BELL SHANNON 03/24 Released w/o Limitations [address] [place] [address])(F amily Med Tm B Non-AD BCC) [address] [place] [address])(Med ication Refill Clinic) TELE CONSULT [id number] Notes Entered by: RAVI HANNA 29 Mar 2015 1556 ------- ------- ------- ------- -- Med Renewal /Zach gutierrez/ LESLIE PAEZ 03/[address] [place] [address])(Nubia carlson on Refill Clinic) [address] [place] [address])(All ergy Resource Sharing) OUTPATIENT [id number] Notes Entered by: MATIAS FELTON 02 Apr 2015 1411 ------- ------- ------- ------- -- MATIAS ARRINGTON 04/02 Released w/o Limitations [address] [place] [address] [facility])(A llergy Resourc e Sharing ) [address] [place] [address])(All ergy Resource Sharing) OUTPATIENT [id number] F/U Allergy LUCIO HANSEN 04/05 Released w/o Limitations [address] [place] [address])(A llergy Resourc e Sharing ) [address] [place] [address])(Fam alysa Med Tm B Non-AD BCC) TELE CONSULT [id number] Notes Entered by: Raymond ECHEVARRIA 20 Apr 2015 1035 ------- ------- ------- ------- -- Allergy referra l off base/Br iscoe/6 [phone] NADIA GARCIA 04/20 Referred for Appointment [address] [place] [address])(F amily Med Tm B Non-AD BCC) [address] [place] [address])(All ergy) OUTPATIENT [id number] Notes Entered by: MATIAS FELTON 10 May 2015 1518 ------- ------- ------- ------- -- MATIAS ARRINGTON 05/10 Released w/o Limitations [address] [place] [address] ([facility]A llergy) [address] [place] [address])(All ergy Resource Sharing) OUTPATIENT [id number] Notes Entered by: KEVYN PATIÑO 20 May 2015 1422 ------- ------- ------- ------- -- KEVYN FOSTER 05/20 Released w/o Limitations [address] [place] [address] [facility])(A llergy Resourc e Sharing ) [address] [place] [address])(Med ication Refill Clinic) TELE CONSULT [id number] Notes Entered by: RAVI HANNA 28 Jun 2015 1559 ------- ------- ------- ------- -- Med Renewal /Zach e/ LESLIE PAEZ 06/[address] [place] [address] Group [facility] ([facility]Nubia carlson on Refill Clinic) [address] [place] [address] [facility])(Fam alysa Med Tm B Non-AD BCC) TELE CONSULT [id number] Notes Entered by: DEONDRE GARCIA 08 Jul 2015 0824 ------- ------- ------- ------- -- Ophthal [facility] NADIA GARCIA 07/08 Referred for Appointment [address] [place] [address] Group [facility])(F amily Med Tm B Non-AD BCC) [address] [place] [address])(Fam alysa Med Tm B Non-AD BCC) TELE CONSULT [id number] Notes Entered by: HENNY PURDY 13 Jul 2015 0933 ------- ------- ------- ------- -- Network Results - [facility] brendan 5 JOVAN FORRESTER 07/[address] [place] [address] Group [facility])(F amily Med Tm B Non-AD BCC) [address] [place] [address])(Fam alysa Med Tm B Non-AD BCC) TELE CONSULT [id number] Notes Entered by: BRITTNEY WILKES 27 Jul 2015 0712 ------- ------- ------- ------- -- SX - Burning in Chest / Idania / RG RIVERO 07/27 Referred for Appointment [address] [place] [address] [facility])(F amily Med Tm B Non-AD BCC) [address] [place] [address] [facility])(Fam alysa Med Tm B Non-AD BCC) OUTPATIENT [id number] BP checkup BELL EMERSON 07/30 Released w/o Limitations [address] [place] [address] [facility])(F amily Med Tm B Non-AD BCC) [address] [place] [address] [facility])(Fam alysa Med Tm B Non-AD BCC) TELE CONSULT [id number] Notes Entered by: JEB UNGER 13 Aug 2015 1317 ------- ------- ------- ------- -- Network results Physica l Therapy 015 BELL ESPINOZA 08/[address] [place] [address])(F amily Med Tm B Non-AD BCC) [address] [place] [address])(Fam alysa Med Tm B Non-AD BCC) OUTPATIENT [id number] Knee BELL Solomon 09/14 Released w/o Limitations [address] [place] [address])(F amily Med Tm B Non-AD BCC) [address] [place] [address])(Fam alysa Med Tm B Non-AD BCC) TELE CONSULT [id number] Notes Entered by: HENNY PURDY 16 Sep 2015 1541 ------- ------- ------- ------- -- Network - Results Physica l Therapy 6 BELL BORJA 09/[address] [place] [address])(F amily Med Tm B Non-AD BCC) [address] [place] [address])(Fam alysa Med Tm B Non-AD BCC) TELE CONSULT [id number] Notes Entered by: DORENE HAMLIN 20 Sep 2015 1551 ------- ------- ------- ------- -- IDANIA /REFERR NADIA HATFIELD 09/20 Referred for Appointment [address] [place] [address])(F amily Med Tm B Non-AD BCC) [address] [place] [address])(Med ication Refill Clinic) TELE CONSULT [id number] Notes Entered by: JAYDE LONGORIA ELS 04 Oct 2015 0924 ------- ------- ------- ------- -- Med Renewal //Brisc oe//960 .0055 LESLIE PAEZ 10/[address] [place] [address])(M edicati on Refill Clinic) [address] [place] [address])(War rior Op Med Cln Tm A Ad) TELE CONSULT [id number] Notes Entered by: AGUILAR CERON 11 Oct 20152021 ------- ------- ------- ------- -- Followu p on MRI of knee AGUILAR CERON 10/[address] [place] [address])(W arrior Op Med Cln Tm A Ad) [address] [place] [address])(Med ication Refill Clinic) TELE CONSULT [id number] Notes Entered by: Wilner PAEZ 12 Oct 2015 1011 ------- ------- ------- ------- -- MiCare renewal / LESLIE Ch 10/[address] [place] [address])(M edicati on Refill Clinic) [address] [place] [address])(Fam alysa Med Tm B Non-AD BCC) TELE CONSULT [id number] Notes Entered by: HENNY PURDY 13 Oct 2015 1543 ------- ------- ------- ------- -- Network results Physica l Therapy 6 BELL BORJA 10/[address] [place] [address])(F amily Med Tm B Non-AD BCC) [address] [place] [address])(Med ication Refill Clinic) TELE CONSULT [id number] Notes Entered by: Wilner PAEZ 04 Jan 2016 1026 ------- ------- ------- ------- -- [employer] renewal / LESLIE Ch 01/[address] [place] [address])(M edicati on Refill Clinic) [address] [place] [address] [facility])(Med ication Refill Clinic) TELE CONSULT [id number] Notes Entered by: Wilner PAEZ 27 Mar 2016 0902 ------- ------- ------- ------- -- Justine bryan / LESLIE Ch 03/27 [address] [place] [address] [facility])([facility]) [address] [place] [address])(War rior Op Med Cln Tm A Ad) TELE CONSULT [id number] Notes Entered by: MYRNA FRENCH 10 Apr 2016 1558 ------- ------- ------- ------- -- KATTY Fleming 04/10 Referred for Appointment [address] [place] [address])(W arrior Op Med Cln Tm A Ad) [address] [place] [address])(Fam alysa Med Tm B Non-AD BCC) TELE CONSULT [id number] Notes Entered by: Es DOMINIQUE 14 Apr 2016 1454 ------- ------- ------- ------- -- Network Results OPHTHAL MOLOGY 04/14/20 16 AGUILAR MOYER 04/[address] [place] [address] [facility])(F amily Med Tm B Non-AD BCC) [address] [place] [address])(Fam alysa Med Tm B Non-AD BCC) TELE CONSULT [id number] Notes Entered by: NALDO CARBAJAL 03 May 2016 0832 ------- ------- ------- ------- -- Network Results -RADIOL OGY 09/25/15 MRI RT KNEE MICHAEL CORADO 05/[address] [place] [address])(F amily Med Tm B Non-AD BCC) [address] [place] [address])(Fam alysa Med Tm B Non-AD BCC) OUTPATIENT [id number] Nasal Congest ion, R Ear pain, sore throat [id number] THERESA ALLEN 06/28 Released w/o Limitations [address] [place] [address] [facility])(F amily Med Tm B Non-AD BCC) [address] [place] [address] [facility])([facility] alysa Med Tm B Non-AD BCC) OUTPATIENT [id number] right ear problem s/sore throat x 2wks not getting better CANDIE ROSS 07/18 Released w/o Limitations [address] [place] [address] [facility])(F amily Med Tm B Non-AD BCC) [address] [place] [address] [facility])([facility] alysa Med Tm B Non-AD BCC) TELE CONSULT [id number] Notes Entered by: SOWMYA EMERSON 25 Jul 2016 0832 ------- ------- ------- ------- -- Prescri BELL Verdin 07/[address] [place] [address] [facility])( amily Med Tm B Non-AD BCC) [address] [place] [address] [facility])([facility] alysa Med Tm B Non-AD BCC) TELE CONSULT [id number] Notes Entered by: THERESA ALLEN 25 Jul 2016 1536 ------- ------- ------- ------- -- Med refill THERESA ALLEN 07/[address] [place] [address] [facility])(F amily Med Tm B Non-AD BCC) [address] [place] [address] [facility])([facility] alysa Med Tm B Non-AD BCC) TELE CONSULT [id number] Notes Entered by: Ryan HEAD 28 Jul 2016 1436 ------- ------- ------- ------- -- SHAWN Gan 07/[address] [place] [address] [facility])(F amily Med Tm B Non-AD BCC) [facility])(Fam alysa Med Tm B Non-AD BCC) TELE CONSULT [id number] Notes Entered by: MINO BURKS 09 Aug 2016 1256 ------- ------- ------- ------- -- Network Results AUDIOLO GY 07/27/16 LUIS ALBERTO ALEJANDRO THERESA DANIEL 08/[address] [place] [address])(F amily Med Tm B Non-AD BCC) [address] [place] [address])(Fam alysa Med Tm B Non-AD BCC) TELE CONSULT [id number] Notes Entered by: CANDACE UPTON 15 Aug 2016 1329 ------- ------- ------- ------- -- [facility] Team 2: CANDACE Estevez 08/15 Referred for Appointment [address] [place] [address])(F amily Med Tm B Non-AD BCC) [address] [place] [address])(Fam alysa Med Tm B Non-AD BCC) TELE CONSULT [id number] Notes Entered by: JEB UNGER 19 Sep 2016 0839 ------- ------- ------- ------- -- Network results Otorhin olaryng ology [ENT] 016 BELL ESPINOZA 09/[address] [place] [address])(F amily Med Tm B Non-AD BCC) [address] [place] [address])(Fam alysa Med Tm B Non-AD BCC) TELE CONSULT [id number] Notes Entered by: ANJALI CEDENO 21 Sep 2016 0853 ------- ------- ------- ------- -- Network Results - Optomet ry 7 BELL DANG 09/[address] [place] [address])(F amily Med Tm B Non-AD BCC) [address] [place] [address])(War rior Op Med Cln Tm A Ad) TELE CONSULT [id number] Notes Entered by: DENILSON MAR 02 Oct 2016 0719 ------- ------- ------- ------- -- Micare/ /MARINA Xie 10/02 Referred for Appointment [address] [place] [address] [facility])(W arrior Op Med Cln Tm A Ad) [address] [place] [address] [facility])(Fam alysa Med Tm B Non-AD BCC) OUTPATIENT [id number] L Wrist Pain, Lifting and wrist popped/ [id number] BELL EMERSON 10/11 Released w/o Limitations [address] [place] [address] [facility])(F amily Med Tm B Non-AD BCC) [address] [place] [address] [facility])([facility] alysa Med Tm B Non-AD BCC) OUTPATIENT [id number] annual physica l, labs, medicat ions BELL EMERSON 10/20 Released w/o Limitations [address] [place] [address] [facility])(F amily Med Tm B Non-AD BCC) [address] [place] [address] [facility])([facility] alysa Med Tm B Non-AD BCC) OUTPATIENT [id number] left eye swollen , red,455 [id number] BELL EMERSON 11/29 Released w/o Limitations [address] [place] [address] [facility])(F amily Med Tm B Non-AD BCC) [address] [place] [address])([facility] alysa Med Tm B Non-AD BCC) OUTPATIENT [id number] casper castellanos n/refer ral for Rt foot CANDIE ROSS D 03/08 Released w/o Limitations [address] [place] [address] [facility])(F amily Med Tm B Non-AD BCC) [address] [place] [address] [facility])(Fam alysa Med Tm B Non-AD BCC) TELE CONSULT [id number] Notes Entered by: ANJALI CEDENO 27 Mar 2017 1038 ------- ------- ------- ------- -- Network Results Urgent Care 7 BELL DANG 03/[address] [place] [address] Group [facility])(F amily Med Tm B Non-AD BCC) [address] [place] [address] [facility])(Fam alysa Med Tm B Non-AD BCC) TELE CONSULT [id number] Notes Entered by: Malorie ALMAZAN 03 Apr 2017 1500 ------- ------- ------- ------- -- [facility] Message / Prescri ptjeronimo/ RG Augustine 04/03 Referred for Appointment [address] [place] [address] Group [facility])(F amily Med Tm B Non-AD BCC) [address] [place] [address] [facility])(Fam alysa Med Tm B Non-AD BCC) TELE CONSULT [id number] Notes Entered by: BRITTNEY WILKES 04 Apr 2017 0831 ------- ------- ------- ------- -- STAT Update Referra l Request - Appt Mar / Idania / Bonnie - - sgj RG RIVERO 04/04 Referred for Appointment [address] [place] [address] Group [facility])(F amily Med Tm B Non-AD BCC) [address] [place] [address] [facility])(Fam alysa Med Tm B Non-AD BCC) TELE CONSULT [id number] Notes Entered by: CAMILA URBAN 08 May 2017 0943 ------- ------- ------- ------- -- Network results Gastroe nterolo gy 017 BELL MILLER 05/[address] [place] [address] Group [facility])(F amily Med Tm B Non-AD BCC) [address] [place] [address] [facility])(Fam alysa Med Tm B Non-AD BCC) OUTPATIENT [id number] Heel BELL Parikh 09/04 Released w/o Limitations [address] [place] [address] [facility])(F amily Med Tm B Non-AD BCC) [address] [place] [address])(Fam alysa Med Tm B Non-AD BCC) TELE CONSULT [id number] Notes Entered by: NALDO CARBAJAL SONIYA Es 13 Sep 2017 1116 ------- ------- ------- ------- -- Network Results -GASTRO ENTEROL OGY 04/03/17 MICHAEL CORADO 09/[address] [place] [address])(F amily Med Tm B Non-AD BCC) [address] [place] [address])(Fam alysa Med Tm B Non-AD BCC) TELE CONSULT [id number] Notes Entered by: GENOVEVA HOGUE 16 Oct 2017 0727 ------- ------- ------- ------- -- Sx: Painful urinati on, urgency , frequen cy/Bris new/229 /1047 or 960.005 5/RAFAEL Rawls 10/16 Advice Assessment [address] [place] [address])(F amily Med Tm B Non-AD BCC) [address] [place] [address])([facility] alysa Med Tm B Non-AD BCC) OUTPATIENT [id number] Painful Urinati on, 622.995 2 BELL EMERSON 10/23 Released w/o Limitations [address] [place] [address])(F amily Med Tm B Non-AD BCC) [address] [place] [address])(Fam alysa Med Tm B Non-AD BCC) TELE CONSULT [id number] Notes Entered by: CANDACE UPTON 29 Oct 2017 0802 ------- ------- ------- ------- -- Patient Portal [facility] Team 2: RAFAEL Pratt 10/29 Advice Assessment [address] [place] [address])(F amily Med Tm B Non-AD BCC) [address] [place] [address])(Fam alysa Med Tm B Non-AD BCC) TELE CONSULT [id number] Notes Entered by: CANDACE UPTON 07 Nov 2017 1135 ------- ------- ------- ------- -- Patient Portal [facility] Team 2: Heidi DEXTERS SAYDA Monalisa 11/[address] [place] [address])(F amily Med Tm B Non-AD BCC) [address] [place] [address])(Fam alysa Med Tm B Non-AD BCC) TELE CONSULT [id number] Notes Entered by: SOWMYA EMERSON 19 Nov 2017 1706 ------- ------- ------- ------- -- BELL Mendoza 11/[address] [place] [address])(F amily Med Tm B Non-AD BCC) [address] [place] [address])(War rior Op Med Cln Tm A Ad) TELE CONSULT [id number] Notes Entered by: DYLAN VASQUEZ 19 Dec 2017 0913 ------- ------- ------- ------- -- [facility] message : Medicat ion orders JOVAN FORRESTER 12/[address] [place] [address])(W arrior Op Med Cln Tm A Ad) [address] [place] [address])(War rior Op Med Cln Tm A Ad) OUTPATIENT [id number] Chronic headach es on right back neck JOVAN FORRESTER 12/27 Released w/o Limitations [address] [place] [address])(W arrior Op Med Cln Tm A Ad) [address] [place] [address])(War rior Op Med Cln Tm A Ad) OUTPATIENT [id number] Notes Entered by: Akin VOSS 04 Mar 2018 1301 ------- ------- ------- ------- -- walk in sharan CASTILLOSEANTHERESA 03/04 Released w/o Limitations [address] [place] [address])(W arrior Op Med Cln Tm A Ad) [address] [place], [place] [address])(War rior Op Med Cln Tm A Ad) TELE CONSULT [id number] Notes Entered by: MINO BURKS 04 Apr 2018 1110 ------- ------- ------- ------- -- PHIL Sanchez 04/04 Referred for Appointment [address] [place] [address])(W arrior Op Med Cln Tm A Ad) [address] [place] [address])(War rior Op Med Cln Tm A Ad) TELE CONSULT [id number] Notes Entered by: BRITTNEY WILKES 13 Jun 2018 1405 ------- ------- ------- ------- -- Med Kenya / Ashly / 229-300 7 / 742-936 2 - BRET Latham 06/13 Referred for Appointment [address] [place] [address] Group [facility])(W arrior Op Med Cln Tm A Ad) [address] [place] [address])([employer] ecology) TELE CONSULT [id number] Notes Entered by: MERLE BRADEN 23 Jul 2018 0716 ------- ------- ------- ------- -- Sx-vagi nal itching /burnin g/urgen /619- [phone] or (0800-1 600) KARINE Talbert 07/23 Referred for Appointment [address] [place] [address])(G ynecolo gy) [address] [place] [address])(Fam alysa Med Tm B Non-AD BCC) OUTPATIENT [id number] Notes Entered by: DESIRAE KESSLER 26 Jul 2018 0758 ------- ------- ------- ------- -- Walk in THERESA CAMPOS 07/26 Released w/o Limitations [address] [place] [address])(F amily Med Tm B Non-AD BCC) [facility])([employer] ecology) OUTPATIENT [id number] WWE 229.104 7 QUENTIN CARRILLO 07/30 Released w/o Limitations [address] [place] [address])(G ynecolo gy) [address] [place] [address])([employer] ecology) TELE CONSULT [id number] Notes Entered by: Nubia MARCANO 10 Sep 2018 1555 ------- ------- ------- ------- -- Lab ERIKA TRIPATHI 09/10 Referred for Appointment [address] [place] [address])(G ynecolo gy) [address] [place] [address])(War rior Op Med Cln Tm A Ad) TELE CONSULT [id number] Notes Entered by: MELISSA TORRES 13 Sep 2018 1126 ------- ------- ------- ------- -- DAVID Medina 09/[address] [place] [address])(W arrior Op Med Cln Tm A Ad) [address] [place] [address])(Marker Maker ecology) TELE CONSULT [id number] Notes Entered by: DIONE MONROE 17 Sep 2018 1809 ------- ------- ------- ------- -- results RACHEL FAUST 09/18 Referred for Appointment [address] [place] [address])(G lucio gy) [address] [place] [address])([place] - [facility] [facility]) OUTPATIENT [id number] 7 Pain in unspeci fied RAJANI Banerjee 09/27 Released w/o Limitations [address] [place] [address])(V A - Orthope dics) [address] [place] [address])([place] - Orthopedi cs) OUTPATIENT [id number] 4 shouldwillie r s/p RAJANI RUIZ 10/11 Released w/o Limitations [address] [place] [address] [facility])(V A - Orthope dics) [address] [place] [address] [facility])(War rior Op Med Cln Tm A Ad) TELE CONSULT [id number] Notes Entered by: MERLE BRADEN 25 Oct 2018 1445 ------- ------- ------- ------- -- Medicat ion refill/ 618 [phone] 47 or BENY Barker 10/25 Other Not Elsewhere Classified [address] [place] [address] [facility])(W arrior Op Med Cln Tm A Ad) [address] [place] [address])([place] - Orthopedi cs) OUTPATIENT [id number] Follow up right RAJANI Banerjee 10/30 Released w/o Limitations [address] [place] [address])(V A - Orthope dics) [address] [place] [address])(War rior Op Med Cln Tm A Ad) OUTPATIENT [id number] Notes Entered by: Karen MAGANA 05 Nov 2018 0811 ------- ------- ------- ------- -- walkin fabien e uti/December CANDACE MARKHAM 11/05 Released w/o Limitations [address] [place] [address])(W arrior Op Med Cln Tm A Ad) [address] [place] [address])(War rior Op Med Cln Tm A Ad) TELE CONSULT [id number] Notes Entered by: MICHAEL DOHERTY 07 Nov 2018 0919 ------- ------- ------- ------- -- UTI resista GAURANG Maddox 11/07 Referred for Appointment [address] [place] [address])(W arrior Op Med Cln Tm A Ad) [address] [place] [address])(War rior Op Med Cln Tm A Ad) OUTPATIENT [id number] 9 continu ed vertigo ([facility]--[facility] --Verti go) / 229.104 7 DAVID REYNOSO 11/27 Released w/o Limitations [address] [place] [address] Group [facility])(W arrior Op Med Cln Tm A Ad) [address] [place] [address] Group [facility])(War rior Op Med Cln Tm A Ad) OUTPATIENT [id number] Notes Entered by: JOVANNI RAMOS 29 Nov 2018 0757 ------- ------- ------- ------- -- WALK IN UTI DECEMBERJURGEN 11/29 Released w/o Limitations [address] [place] [address] Group [facility])(W arrior Op Med Cln Tm A Ad) [address] [place] [address] Group [facility])(War rior Op Med Cln Tm A Ad) TELE CONSULT [id number] Notes Entered by: JACKIE SALCEDO 06 Dec 2018 0933 ------- ------- ------- ------- -- BENY Burgess 12/06 Other Not Elsewhere Classified [address] [place] [address] Group [facility])(W arrior Op Med Cln Tm A Ad) [address] [place] [address])(War rior Op Med Cln Tm A Ad) OUTPATIENT [id number] bumps on skin/it gurdeep/618 -[phone] 55 DECEMBERJURGEN 12/11 Released w/o Limitations [address] [place] [address] Group [facility])(W arrior Op Med Cln Tm A Ad) [address] [place] [address] Group [facility])(War rior Op Med Cln Tm A Ad) TELE CONSULT [id number] Notes Entered by: JACKIE SALCEDO 01 Jan 2019 1132 ------- ------- ------- ------- -- Medicat ion renewal BENY FREEDMAN 01/01 Medication Refill Forwarded [address] [place] [address])(W arrior Op Med Cln Tm A Ad) [address] [place] [address])(War rior Op Med Cln Tm A Ad) TELE CONSULT [id number] Notes Entered by: ALEJANDRO GUTIERREZ 07 Jan 2019 1513 ------- ------- ------- ------- -- Network results Optomet ry 019 KSP DECEMBERJURGEN Ryan 01/[address] [place] [address])(W arrior Op Med Cln Tm A Ad) [address] [place] [address])(War rior Op Med Cln Tm A Ad) TELE CONSULT [id number] Notes Entered by: GONZALES ROSS 10 Feb 2019 1409 ------- ------- ------- ------- -- STAT 5 Optomet ry [place] garcia Req-SX- Flashin g 618 -[phone] 47-[facility] BENY FREEDMAN 02/10 Other Not Elsewhere Classified [address] [place] [address])(W arrior Op Med Cln Tm A Ad) [address] [place] [address])(War rior Op Med Cln Tm A Ad) TELE CONSULT [id number] 5 Notes Entered by: JACKIE SALCEDO 18 Feb 2019 0912 ------- ------- ------- ------- -- Medicat ion Change- request [facility] ed quantit y for [employer] BENY FREEDMAN 02/18 Medication Refill Forwarded [address] [place] [address])(W arrior Op Med Cln Tm A Ad) [address] [place] [address])([place] - Orthopedi cs) OUTPATIENT [id number] f/u RAJANI Banerjee 03/05 Released w/o Limitations [address] [place] [address])(V A - Orthope dics) [address] [place] [address])(War rior Op Med Cln Tm A Ad) OUTPATIENT [id number] Notes Entered by: JOVANNI RAMOS 09 Apr 2019 0728 ------- ------- ------- ------- -- walk in uti DECEMBERJURGEN 04/09 Released w/o Limitations [address] [place] [address])(W arrior Op Med Cln Tm A Ad) [address] [place] [address])(Fam alysa Med Tm B Non-AD BCC) TELE CONSULT [id number] 7 Notes Entered by: LAUREN JOHNSTON 10 Jun 2019 1322 ------- ------- ------- ------- -- Med refill BEATRICE GARCIA 06/10 Medication Refill Forwarded [address] [place] [address])(F amily Med Tm B Non-AD BCC) [address] [place] [address])([place] - Orthopedi cs) OUTPATIENT [id number] RAJANI Banerjee 06/30 Released w/o Limitations [address] [place] [address])(V A - Orthope dics) [address] [place] [address])(War rior Op Med Cln Tm A Ad) TELE CONSULT [id number] Notes Entered by: JACKIE SALCEDO 14 Jul 2019 1100 ------- ------- ------- ------- -- BENY Burgess 07/14 Other Not Elsewhere Classified [address] [place] [address])(W arrior Op Med Cln Tm A Ad) [address] [place] [address])([place] - Orthopedi cs) OUTPATIENT [id number] Follow up right RAJANI Banerjee 07/23 Released w/o Limitations [address] [place] [address])(V A - Orthope dics) [address] [place] [address])(War rior Op Med Cln Tm A Ad) OUTPATIENT [id number] snoring keeping awake DECEMBER, JURGEN Davis 08/05 Released w/o Limitations [address] [place] [address])(W arrior Op Med Cln Tm A Ad) [address] [place] [address])(War rior Op Med Cln Tm A Ad) TELE CONSULT [id number] Notes Entered by: KO SALGADO 02 Sep 2019 0940 ------- ------- ------- ------- -- Network results Audiolo gy 019 EERyan LIVJURGEN 09/[address] [place] [address])(W arrior Op Med Cln Tm A Ad) [address] [place] [address])(War rior Op Med Cln Tm A Ad) TELE CONSULT [id number] Notes Entered by: JACKIE SALCEDO 22 Oct 2019 0916 ------- ------- ------- ------- -- Medicat ion Renewal BENY FEREDMAN 10/22 Other Not Elsewhere Classified [address] [place] [address])(W arrior Op Med Cln Tm A Ad) [address] [place] [address])(War rior Op Med Cln Tm A Ad) TELE CONSULT [id number] 3 Notes Entered by: JACKIE SALCEDO 31 Oct 2019 1408 ------- ------- ------- ------- -- BENY Peterson PT 10/30 Other Not Elsewhere Classified [address] [place] [address])(W arrior Op Med Cln Tm A Ad) [address] [place] [address])(War rior Op Med Cln Tm A Ad) TELE CONSULT [id number] Notes Entered by: JACKIE SALCEDO 26 Jan 2020 0858 ------- ------- ------- ------- -- Secure Message - Medicat ion Renewal BENY FREEDMAN 01/25 Medication Refill Forwarded [address] [place] [address])(W arrior Op Med Cln Tm A Ad) [address] [place] [address])(War rior Op Med Cln Tm A Ad) TELE CONSULT [id number] STAT referra l renewal - APPT Feb - [phone] - tsg ARTURO GRIGSBY 02/25 Other Not Elsewhere Classified [facility])(W arrior Op Med Cln Tm A Ad) [facility])(War rior Op Med Cln Tm A Ad) OUTPATIENT [id number] body rash [phone] MAY, JURGEN R 03/02 Released w/o Limitations [facility])(W arrior Op Med Cln Tm A Ad) [address] [place] [address] Group [facility])(War rior Op Med Cln Tm A Ad) TELE CONSULT [id number] 6 [address]: ST RAZ PARRY 02 Mar 2020 1611 ------- ------- ------- ------- -- Network results Optomet ry 020 December, JURGEN Davis 03/02 [facility])(W arrior Op Med Cln Tm A Ad) [address] [place] [address] Group [facility])(War rior Op Med Cln Tm A Ad) TELE CONSULT [id number] 3 Notes En[address]: ST RAZ PARRY 12 Mar 2020 1121 ------- ------- ------- ------- -- Network results Physica l Therapy 020-DecemberJURGEN R 03/12 [facility])(W arrior Op Med Cln Tm A Ad) [facility])(War rior Op Med Cln Tm A Ad) TELE CONSULT [id number] 4 Notes Entered by: JACKIE SALCEDO 17 Mar 2020 1125 ------- ------- ------- ------- -- Secure Message - Medicat ion Renewal BENY FREEDMAN 03/17 Medication Refill Forwarded [address] [place] [address])(W arrior Op Med Cln Tm A Ad) [address] [place] [address])(War rior Op Med Cln Tm A Ad) TELE CONSULT [id number] Notes Entered by: YEIMI GONZALEZ 18 Jun 2020 1545 ------- ------- ------- ------- -- Secure msg: rx inquiry ARTURO GRIGSBY 06/18 Medication Refill Forwarded [address] [place] [address])(W arrior Op Med Cln Tm A Ad) [address] [place] [address])(War rior Op Med Cln Tm A Ad) TELE CONSULT [id number] Notes Entered by: CANDACE UPTON 21 Jun 2020 1155 ------- ------- ------- ------- -- YESSENIA Secure Messagi ng Jun 13, 2020 5:41 PM Prescri ption - Renewal Request ARTURO GRIGSBY 06/21 Other Not Elsewhere Classified [address] [place] [address])(W arrior Op Med Cln Tm A Ad) [address] [place] [address])(Fam alysa Med Tm B Non-AD BCC) TELE CONSULT [id number] Notes Entered by: BRITTNEY WILKES 02 Jul 2020 0928 ------- ------- ------- ------- -- Appt for Annual Check Up / Lab Order Request / Enrique / - COLLINS Salazar 07/02 Released to [facility] [address] [place] [address])(F amily Med Tm B Non-AD BCC) [address] [place] [address])(War rior Op Med Cln Tm A Ad) TELE CONSULT [id number] Notes Entered by: CHERIE WALDEN 12 Jul 2020 0745 ------- ------- ------- ------- -- Med refill SOFIA CHAVEZ 07/12 Released to [facility] [address] [place] [address] [facility])(W arrior Op Med Cln Tm A Ad) [facility])(War rior Op Med Cln Tm A Ad) TELE CONSULT [id number] Notes Entered by: CANDACE UPTON 12 Jul 2020 1546 ------- ------- ------- ------- -- [facility]: CANDACE Estevez 07/12 Released to Self [facility] [address] [place] [address] Group [facility])(W arrior Op Med Cln Tm A Ad) [address] [place] [address] Group [facility])(Fam alysa Med Tm B Non-AD BCC) OUTPATIENT [id number] Routine Physica l/ Lab review FTF MK ARRIAGA 07/21 Released w/o Limitations [address] [place] [address] Group [facility])(F amily Med Tm B Non-AD BCC) [address] [place] [address] [facility])(Fam alysa Med Tm B Non-AD BCC) TELE CONSULT [id number] Notes Entered by: MK ARRIAGA 26 Jul 2020 1543 ------- ------- ------- ------- -- XR results IDA DOWELL 07/26 Released to Self [facility])(F amily Med Tm B Non-AD BCC) [address] [place] [address] Group [facility])(Fam alysa Med Tm B Non-AD BCC) OUTPATIENT [id number] RX eval,[phone] phone call appt DEREK LU 08/31 Released w/o Limitations [address] [place] [address] Group [facility])(F amily Med Tm B Non-AD BCC) [address] [place] [address] [facility])(War rior Op Med Cln Tm A Ad) TELE CONSULT [id number] Notes Entered by: CANDACE UPTON 13 Oct 2020 1339 ------- ------- ------- ------- -- YESSENIA Secure Messagi ng Prescri ption - Renewal Request BENY FREEDMAN 10/13 Medication Refill Forwarded [address] [place] [address])(W arrior Op Med Cln Tm A Ad) [address] [place] [address])(Fam alysa Med Tm B Non-AD BCC) TELE CONSULT [id number] 9 Notes Entered by: CANDACE UPTON 26 Oct 2020 1259 ------- ------- ------- ------- -- YESSENIA Secure Messagi ng Prescri ption - Renewal Request YEIMI GONZALEZ 10/26 Advice Assessment [address] [place] [address])(F amily Med Tm B Non-AD BCC) [address] [place] [address])(Fam alysa Med Tm B Non-AD BCC) TELE CONSULT [id number] 7 Notes Entered by: JACKIE SALCEDO 28 Dec 2020 1401 ------- ------- ------- ------- -- YESSENIA Secure Message - Referra l Request (Enrique ) BENY FREEDMAN 12/28 Other Not Elsewhere Classified [address] [place] [address])(F amily Med Tm B Non-AD BCC) [address] [place] [address])(Fam alysa Med Tm B Non-AD BCC) OUTPATIENT [id number] [phone] [email or web address] Allergi DEREK Rajan 02/21 Released w/o Limitations [address] [place] [address])(F amily Med Tm B Non-AD BCC) [address] [place] [address])(Fam alysa Med Tm B Non-AD BCC) TELE CONSULT [id number] 1 Notes Entered by: ELIZABETH MCKEON 18 Mar 2021 0805 ------- ------- ------- ------- -- F/U Spec - Discuss new medicat ion - Enrique - - SOFIA Botello 03/18 Released to Self Care [address] [place] [address])(F amily Med Tm B Non-AD BCC) [address] [place] [address])(Fam alysa Med Tm B Non-AD BCC) TELE CONSULT [id number] 8 Notes Entered by: ALEJANDRO GUTIERREZ 29 Mar 2021 0925 ------- ------- ------- ------- -- Network results Otolary ngology {ENT} 021 MK BAGLEY 03/[address] [place] [address])(F amily Med Tm B Non-AD BCC) [address] [place] [address])(Fam alysa Med Tm B Non-AD BCC) TELE CONSULT [id number] 6 Notes Entered by: Raymond FREDERICK 19 Apr 2021 1045 ------- ------- ------- ------- -- MK Garcia 04/[address] [place] [address])(F amily Med Tm B Non-AD BCC) [address] [place] [address])(Fam alysa Med Tm B Non-AD BCC) TELE CONSULT [id number] 6 Notes Entered by: Wilner GOMEZ 28 Apr 2021 0943 ------- ------- ------- ------- -- Network results Allergy 021 DEREK WATSON 04/[address] [place] [address])(F amily Med Tm B Non-AD BCC) [address] [place] [address])(Fam alysa Med Tm B Non-AD BCC) TELE CONSULT [id number] 1 Notes Entered by: CANDACE UPTON 22 Jun 2021 1220 ------- ------- ------- ------- -- YESSENIA galvez Prescri ption - Renewal Request CANDACE UPTON 06/22 Medication Refill Forwarded [address] [place] [address])(F amily Med Tm B Non-AD BCC) [address] [place] [address])([facility] alysa Med Tm B Non-AD BCC) TELE CONSULT [id number] 9 Notes Entered by: JEAN MARIE PIERRE 14 Jul 2021 0917 ------- ------- ------- ------- -- STAT Referra l Request -YOAN Winter/YOCASTA E/ YEIMI GONZALEZ 07/14 Other Not Elsewhere Classified [address] [place] [address] [facility])(F amily Med Tm B Non-AD BCC) [address] [place] [address] [facility])([facility] alysa Med Tm B Non-AD BCC) TELE CONSULT [id number] 1 Notes Entered by: CANDACE UPTON 15 Jul 2021 0709 ------- ------- ------- ------- -- YESSENIA Secure Messagi ng Referra l Request YEIMI GONZALEZ 07/15 Other Not Elsewhere Classified [address] [place] [address] [facility])( amily Med Tm B Non-AD BCC) [address] [place] [address])([facility] alysa Med Tm B Non-AD BCC) TELE CONSULT [id number] 5 Notes Entered by: Wilner GOMEZ 15 Aug 2021 0924 ------- ------- ------- ------- -- Network results Otolary ngology 021 MK LUCIANO 08/[address] [place] [address] [facility])(F amily Med Tm B Non-AD BCC) [address] [place] [address])([facility] alysa Med Tm B Non-AD BCC) TELE CONSULT [id number] 8 Notes Entered by: CANDACE UPTON 24 Aug 2021 0910 ------- ------- ------- ------- -- YESSENIA Secure Messagi ng Prescri ption - Renewal Request CANDACE UPTON 08/24 Medication Refill Forwarded [address] [place] [address] [facility])(F amily Med Tm B Non-AD BCC) [address] [place] [address] [facility])(Fam alysa Med Tm B Non-AD BCC) OUTPATIENT [id number] 7 FACE TO FACE: Annual labs and medicti on renewal s MK ARRIAGA 09/01 Released w/o Limitations [address] [place] [address] [facility]F amily Med Tm B Non-AD BCC) [address] [place] [address] [facility])(Fam alysa Med Tm B Non-AD BCC) TELE CONSULT [id number] 8 Notes Entered by: MK ARRIAGA 05 Sep 2021 1216 ------- ------- ------- ------- -- lab results SOFIA CHAVEZ 09/05 Other Not Elsewhere Classified [address] [place] [address] [facility])(F amily Med Tm B Non-AD BCC) [address] [place] [address] [facility])(Fam alysa Med Tm B Non-AD BCC) TELE CONSULT [id number] 7 Notes Entered by: CANDACE UPTON 13 Sep 2021 0708 ------- ------- ------- ------- -- YESSENIA Secure Messagi ng Referra l Request CANDACE UPTON 09/13 Released to Self Care [address] [place] [address] [facility])(F amily Med Tm B Non-AD BCC) [address] [place] [address] [facility])(Fam alysa Med Tm B Non-AD BCC) TELE CONSULT [id number] 5 Notes Entered by: CANDACE UPTON 23 Sep 2021 0740 ------- ------- ------- ------- -- YESSENIA Secure Messagi ng Referra l Request CANDACE UPTON 09/23 Released to Self Care [address] [place] [address] [facility])(F amily Med Tm B Non-AD BCC) [address] [place] [address] [facility])(Fam alysa Med Tm B Non-AD BCC) TELE CONSULT [id number] 3 Notes Entered by: CANDACE UPTON 03 Oct 2021 1416 ------- ------- ------- ------- -- YESSENIA Secure Messagi ng Note to Office CANDACE UPTON 10/03 Released to Self Care [address] [place] [address] [facility])(F amily Med Tm B Non-AD BCC) [address] [place] [address])(Fam alysa Med Tm B Non-AD BCC) OUTPATIENT [id number] results MK ARRIAGA 10/05 Released w/o Limitations [address] [place] [address])(F amily Med Tm B Non-AD BCC) [address] [place] [address])(Fam alysa Med Tm B Non-AD BCC) TELE CONSULT [id number] 0 Notes Entered by: César CAMPBELL 05 Oct 2021 1708 ------- ------- ------- ------- -- Network results LAB/Pat philomena 022 MK GARCIA 10/[address] [place] [address])(F amily Med Tm B Non-AD BCC) [address] [place] [address])(Fam alysa Med Tm B Non-AD BCC) TELE CONSULT [id number] 6 Notes Entered by: CANDACE UPTON 24 Nov 2021 0641 ------- ------- ------- ------- -- YESSENIA Secure Messagi ng Prescri ption - Renewal Request CANDACE UPTON 11/24 Medication Refill Forwarded [address] [place] [address])(F amily Med Tm B Non-AD BCC) [address] [place] [address])(Fam alysa Med Tm B Non-AD BCC) TELE CONSULT [id number] 9 Notes Entered by: RG GRAHAM 12 Dec 2021 1409 ------- ------- ------- ------- -- Network results Otolary ngology [ENT] 022 MK WU 12/[address] [place] [address])(F amily Med Tm B Non-AD BCC) [address] [place] [address])(Fam alysa Med Tm B Non-AD BCC) TELE CONSULT [id number] 3 Notes Entered by: Wilner GOMEZ 29 Dec 2021 1513 ------- ------- ------- ------- -- Network results PODIATR Y 022 MK LUCIANO 12/[address] [place] [address])(F amily Med Tm B Non-AD BCC) [address] [place] [address])(Fam alysa Med Tm B Non-AD BCC) TELE CONSULT [id number] 2 Notes Entered by: Wilner NICHOLAS 27 Jan 2022 1438 ------- ------- ------- ------- -- Secure message CURLY NICHOLAS 01/27 Other Not Elsewhere Classified [address] [place] [address])(F amily Med Tm B Non-AD BCC) [address] [place] [address])(Fam alysa Med Tm B Non-AD BCC) TELE CONSULT [id number] 0 Notes Entered by: CANDACE UPTON 20 Feb 2022 1015 ------- ------- ------- ------- -- YESSENIA Secure Felipa garcia Request CANDACE UPTON 02/20 Medication Refill Forwarded [address] [place] [address])(F amily Med Tm B Non-AD BCC) [address] [place] [address])(Fam alysa Med Tm B Non-AD BCC) TELE CONSULT [id number] 5 Notes Entered by: RENÉ GREEN 06 Jun 2022 1045 ------- ------- ------- ------- -- [facility]- Note to Office SOFIA CHAVEZ 06/06 Medication Refill Forwarded [address] [place] [address])(F amily Med Tm B Non-AD BCC) [address] [place] [address])([facility] alysa Med Tm B Non-AD BCC) TELE CONSULT [id number] 5 Notes Entered by: RG GRAHAM 09 Jun 2022 1332 ------- ------- ------- ------- -- Network results Allergy 022 and LSDEREK DENTON 06/[address] [place] [address] [facility])( amily Med Tm B Non-AD BCC) [address] [place] [address])([facility] alysa Med Tm B Non-AD BCC) TELE CONSULT [id number] 2 Notes Entered by: Wilner NICHOLAS 13 Jun 2022 1143 ------- ------- ------- ------- -- Yessenia/Rx refill SOFIA CHAVEZ 06/13 Other Not Elsewhere Classified [address] [place] [address])(F amily Med Tm B Non-AD BCC) [address] [place] [address])([facility] alysa Med Tm B Non-AD BCC) TELE CONSULT [id number] 2 Notes Entered by: Akin VOSS 13 Jun 2022 1450 ------- ------- ------- ------- -- [facility] msg/med refill SOFIA CHAVEZ 06/13 Medication Refill Forwarded [address] [place] [address])(F amily Med Tm B Non-AD BCC) [address] [place] [address])(Fam alysa Med Tm B Non-AD BCC) TELE CONSULT [id number] 9 Notes Entered by: César MACK 22 Aug 2022 1348 ------- ------- ------- ------- -- RX renewal request (1) TIAGO LOPEZ 08/[address] [place] [address])(F amily Med Tm B Non-AD BCC) [address] [place] [address])(Fam alysa Med Tm B Non-AD BCC) OUTPATIENT [id number] [phone] Annual physica l LINDA GARCIA 10/06 Released w/o Limitations [address] [place] [address])(F amily Med Tm B Non-AD BCC) [address] [place] [address] [facility])(Fam alysa Med Tm B Non-AD BCC) TELE CONSULT [id number] 0 Notes Entered by: LINDA GARCIA 12 Oct 2022 0709 ------- ------- ------- ------- -- Rad results SOFIA CHAVEZ 10/12 Referred for Appointment [address] [place] [address] [facility])(F amily Med Tm B Non-AD BCC) [address] [place] [address] [facility])([facility] alysa Med Tm B Non-AD BCC) TELE CONSULT [id number] 6 Notes Entered by: Akin VOSS 17 Oct 2022 1523 ------- ------- ------- ------- -- Justine fitzgerald/ note to office KALI CASEY 10/17 Other Not Elsewhere Classified [address] [place] [address] [facility])(F amily Med Tm B Non-AD BCC) [address] [place] [address] [facility])(Fam alysa Med Tm B Non-AD BCC) OUTPATIENT [id number] Virtual /xray results , T: LINDA GARCIA 10/24 Released w/o Limitations [address] [place] [address])(F amily Med Tm B Non-AD BCC) [address] [place] [address] [facility])(Fam alysa Med Tm B Non-AD BCC) TELE CONSULT [id number] 4 Notes Entered by: LINDA GARCIA 12 Nov 20222011 ------- ------- ------- ------- -- Rad results LANA TAYLOR Karen 11/13 Other Not Elsewhere Classified [address] [place] [address])(F amily Med Tm B Non-AD BCC) [address] [place] [address])(Fam alysa Med Tm B Non-AD BCC) OUTPATIENT [id number] VIRTUAL [phone] DISCUSS RAD RESULTS LINDA GARCIA 11/20 Released w/o Limitations [address] [place] [address])(F amily Med Tm B Non-AD BCC) [address] [place] [address])(Fam alysa Med Tm B Non-AD BCC) TELE CONSULT [id number] 8 Notes Entered by: Wilner GOMEZ 15 Dec 2022 1308 ------- ------- ------- ------- -- Network results PHYSICA L THERAPY 023, 023 LINDA TEE 12/[address] [place] [address])(F amily Med Tm B Non-AD BCC) [address] [place] [address])(Fam alysa Med Tm B Non-AD BCC) TELE CONSULT [id number] 1 Notes Entered by: César MACK 18 Dec 2022 1253 ------- ------- ------- ------- -- [facility] RX Renewal Request s (2) ANTOLIN ADAMS 12/18 Medication Refill Forwarded [address] [place] [address])(F amily Med Tm B Non-AD BCC) [address] [place] [address])(Fam alysa Med Tm B Non-AD BCC) TELE CONSULT [id number] 6 Notes Entered by: César MACK 27 Dec 2022 1512 ------- ------- ------- ------- -- [facility] RX renewal VISHAL MACK 12/27 Referred for Appointment [address] [place] [address])(F amily Med Tm B Non-AD BCC) [address] [place] [address] [facility] [place]Fam alysa Med Tm B Non-AD BCC) OUTPATIENT [id number] VIRTUAL lab review, RX renewal s LINDA GARCIA 01/03 Released w/o Limitations [address] [place] [address] [facility] PARHAM [place]F amily Med Tm B Non-AD BCC) [address] [place] [address] [facility] PAR[facility] [place] alysa Med Tm B Non-AD BCC) TELE CONSULT [id number] 9 Notes Entered by: GONZALES ROSS 23 Jan 2023 1340 ------- ------- ------- ------- -- SX- Elevate d Blood Pressur e - Special ist F/U/ Munira / KALI CASEY 01/23 Referred for Appointment [address] [place] [address] [facility] [place]F amily Med Tm B Non-AD BCC) 0055A-375 th [facility] Outpatient [id number] TIAGO ROOT TLER 12/30 Discharge Disposition: Home or Self Care 0055A-[facility] 0055C-[facility] Between Visit [id number] 01/15 Discharge Disposition: Home or Self Care 0055C-[facility] 0055C-[facility] Between Visit [id number] 01/21 Discharge Disposition: Home or Self Care 0055C-[facility] 0055C-[facility] Clinic [id number] Right lower quadran t pain TIAGO LISETTEAMISHA TLER 02/24 Discharge Disposition: Home or Self Care 0055C-[facility] 0055C-[facility] Between Visit [id number] 02/26 Discharge Disposition: Home or Self Care 0055C-3 [facility] Procedures Combined list of: 1) Procedures from [facility], not all VA non-surgical procedures are included; 2) All procedures from the Department of Defense facilities. Procedure Procedure Type Code Date Perfomer Comments Sour e SCREENING PAPANICOLAOU SMEAR; OBTAINING, PREPARING AND CONVEYANCE OF CERVICAL OR VAGINAL SMEAR TO LABORATORY 2004 [facility] REMOVAL OF INTRAUTERINE DEVICE (IUD) 2003 [facility] ENDOMETRIAL SAMPLING (BIOPSY) WITH OR WITHOUT ENDOCERVICAL SAMPLING (BIOPSY), WITHOUT CERVICAL DILATION, ANY METHOD (SEPARATE PROCEDURE) 2003 [facility] INFLUENZA VIRUS VACCINE, TRIVALENT (IIV3), SPLIT VIRUS, 0.5 ML DOSAGE, FOR INTRAMUSCULAR USE 2002 [facility] SCREENING [place]OLAOU SMEAR; OBTAINING, PREPARING AND CONVEYANCE OF CERVICAL OR VAGINAL SMEAR TO LABORATORY 2002 [facility] ACOUSTIC REFLEX TESTING, THRESHOLD 2001 [facility] SCREENING [place] SMEAR; OBTAINING, PREPARING AND CONVEYANCE OF CERVICAL OR VAGINAL SMEAR TO LABORATORY 2001 [facility] SCREENING [place]AOU SMEAR; OBTAINING, PREPARING AND CONVEYANCE OF CERVICAL OR VAGINAL SMEAR TO LABORATORY 2001 [facility] OPHTHALMOLOGICAL SERVICES: MEDICAL EXAMINATION AND EVALUATION WITH INITIATION OF DIAGNOSTIC AND TREATMENT PROGRAM; INTERMEDIATE, NEW PATIENT 2001 [facility] RADIOLOGIC EXAMINATION, ANKLE; 2 VIEWS 2001 DoD SKIN TEST; TUBERCULOSIS, INTRADERMAL 2001 [facility] PSYCHIATRIC EVALUATION OF HOSPITAL RECORDS, OTHER PSYCHIATRIC REPORTS, PSYCHOMETRIC AND/OR PROJECTIVE TESTS, AND OTHER ACCUMULATED DATA FOR MEDICALDIAGNOSTIC PURPOSES 2001 [facility] SCREENING PAP[place]OLAOU SMEAR; OBTAINING, PREPARING AND CONVEYANCE OF CERVICAL OR VAGINAL SMEAR TO LABORATORY 2000 DoD TELE ASSESS & MGT SRV PROV QUAL NONPHYS HLTH CARE PRO TO EST PAT,PARENT,GUARD NOT ORIG REL ASSESS & MGT SRV PROV W/IN PREV 7 DAYS NOR LEAD ASSESS & MGT SRV/PX W/IN NXT 24H/SOON APT; 21-30 MIN MED DIS 2022 DoD QUALIFIED NONPHYSICIAN [employer]ALTH [employer] SUPERVISOR ONLINE DIGITAL ASSESSMENT AND MANAGEMENT, FOR AN ESTABLISHED PATIENT, FOR UP TO 7 DAYS, CUMULATIVE TIME DURING THE 7 DAYS; 11-20 MINUTES 2022 DoD TELE ASSESS & MGT SRV PROV QUAL NONPHYS HLTH CARE PRO TO EST PAT,PARENT,GUARD NOT ORIG REL ASSESS & MGT SRV PROV W/IN PREV 7 DAYS NOR LEAD ASSESS & MGT SRV/PX W/IN NXT 24 HR/SOON APT;5-10 MIN MED DIS 2022 DoD TELE ASSESS & MGT SRV PROV QUAL NONPHYS HLTH CARE PRO TO EST PAT,PARENT,GUARD NOT ORIG REL ASSESS & MGT SRV PROV W/IN PREV 7 DAYS NOR LEAD ASSESS & MGT SRV/PX W/IN NXT 24 HR/SOON APT;5-10 MIN MED DIS 2021 DoD TELE ASSESS & MGT SRV PROV QUAL NONPHYS HLTH CARE PRO TO EST PAT,PARENT,GUARD NOT ORIG REL ASSESS & MGT SRV PROV W/IN PREV 7 DAYS NOR LEAD ASSESS & MGT SRV/PX W/IN NXT 24 HR/SOON APT;5-10 MIN MED DIS 2021 DoD TELE ASSESS & MGT SRV PROV QUAL NONPHYS HLTH CARE PRO TO EST PAT,PARENT,GUARD NOT ORIG REL ASSESS & MGT SRV PROV W/IN PREV 7 DAYS NOR LEAD ASSESS & MGT SRV/PX W/IN NXT 24 HR/SOON APT;5-10 MIN MED DIS 2021 DoD TELE ASSESS & MGT SRV PROV QUAL NONPHYS HLTH CARE PRO TO EST PAT,PARENT,GUARD NOT ORIG REL ASSESS & MGT SRV PROV W/IN PREV 7 DAYS NOR LEAD ASSESS & MGT SRV/PX W/IN NXT 24 HR/SOON APT;5-10 MIN MED DIS 2021 DoD TELE ASSESS & MGT SRV PROV QUAL NONPHYS HLTH CARE PRO TO EST PAT,PARENT,GUARD NOT ORIG REL ASSESS & MGT SRV PROV W/IN PREV 7 DAYS NOR LEAD ASSESS & MGT SRV/PX W/IN NXT 24 HR/SOON APT;5-10 MIN MED DIS 2021 DoD TELE ASSESS & MGT SRV PROV QUAL NONPHYS HLTH CARE PRO TO EST PAT,PARENT,GUARD NOT ORIG REL ASSESS & MGT SRV PROV W/IN PREV 7 DAYS NOR LEAD ASSESS & MGT SRV/PX W/IN NXT 24 HR/SOON APT;5-10 MIN MED DIS 2021 DoD TELE ASSESS & MGT SRV PROV QUAL NONPHYS HLTH CARE PRO TO EST PAT,PARENT,GUARD NOT ORIG REL ASSESS & MGT SRV PROV W/IN PREV 7 DAYS NOR LEAD ASSESS & MGT SRV/PX W/IN NXT 24 HR/SOON APT;5-10 MIN MED DIS 2021 DoD TELE ASSESS & MGT SRV PROV QUAL NONPHYS HLTH CARE PRO TO EST PAT,PARENT,GUARD NOT ORIG REL ASSESS & MGT SRV PROV W/IN PREV 7 DAYS NOR LEAD ASSESS & MGT SRV/PX W/IN NXT 24 HR/SOON APT;5-10 MIN MED DIS 2021 DoD TELE ASSESS & MGT SRV PROV QUAL NONPHYS HLTH CARE PRO TO EST PAT,PARENT,GUARD NOT ORIG REL ASSESS & MGT SRV PROV W/IN PREV 7 DAYS NOR LEAD ASSESS & MGT SRV/PX W/IN NXT 24 HR/SOON APT;5-10 MIN MED DIS 2020 DoD TELE ASSESS & MGT SRV PROV QUAL NONPHYS HLTH CARE PRO TO EST PAT,PARENT,GUARD NOT ORIG REL ASSESS & MGT SRV PROV W/IN PREV 7 DAYS NOR LEAD ASSESS & MGT SRV/PX W/IN NXT 24 HR/SOON APT;5-10 MIN MED DIS 2020 DoD TELE ASSESS & MGT SRV PROV QUAL NONPHYS HLTH CARE PRO TO EST PAT,PARENT,GUARD NOT ORIG REL ASSESS & MGT SRV PROV W/IN PREV 7 DAYS NOR LEAD ASSESS & MGT SRV/PX W/IN NXT 24H/SOON APT; 21-30 MIN MED DIS 2020 DoD TELE ASSESS & MGT SRV PROV QUAL NONPHYS HLTH CARE PRO TO EST PAT,PARENT,GUARD NOT ORIG REL ASSESS & MGT SRV PROV W/IN PREV 7 DAYS NOR LEAD ASSESS & MGT SRV/PX W/IN NXT 24 HR/SOON APT;5-10 MIN MED DIS 2020 DoD TELE ASSESS & MGT SRV PROV QUAL NONPHYS HLTH CARE PRO TO EST PAT,PARENT,GUARD NOT ORIG REL ASSESS & MGT SRV PROV W/IN PREV 7 DAYS NOR LEAD ASSESS & MGT SRV/PX W/IN NXT 24 HR/SOON APT;5-10 MIN MED DIS 2020 DoD WAIVER SERVICES; NOT OTHERWISE SPECIFIED (NOS) 2020 DoD TELE ASSESS & MGT SRV PROV QUAL NONPHYS HLTH CARE PRO TO EST PAT,PARENT,GUARD NOT ORIG REL ASSESS & MGT SRV PROV W/IN PREV 7 DAYS NOR LEAD ASSESS & MGT SRV/PX W/IN NXT 24 HR/SOON APT;5-10 MIN MED DIS 2020 DoD TELE ASSESS & MGT SRV PROV QUAL NONPHYS HLTH CARE PRO TO EST PAT,PARENT,GUARD NOT ORIG REL ASSESS & MGT SRV PROV W/IN PREV 7 DAYS NOR LEAD ASSESS & MGT SRV/PX W/IN NXT 24 HR/SOON APT;5-10 MIN MED DIS 2020 DoD TELE ASSESS & MGT SRV PROV QUAL NONPHYS HLTH CARE PRO TO EST PAT,PARENT,GUARD NOT ORIG REL ASSESS & MGT SRV PROV W/IN PREV 7 DAYS NOR LEAD ASSESS & MGT SRV/PX W/IN NXT 24 HR/SOON APT;5-10 MIN MED DIS 2020 DoD WAIVER SERVICES; NOT OTHERWISE SPECIFIED (NOS) 2020 DoD TELE ASSESS & MGT SRV PROV QUAL NONPHYS HLTH CARE PRO TO EST PAT,PARENT,GUARD NOT ORIG REL ASSESS & MGT SRV PROV W/IN PREV 7 DAYS NOR LEAD ASSESS & MGT SRV/PX W/IN NXT 24 HR/SOON APT;5-10 MIN MED DIS 2019 DoD TELE ASSESS & MGT SRV PROV QUAL NONPHYS HLTH CARE PRO TO EST PAT,PARENT,GUARD NOT ORIG REL ASSESS & MGT SRV PROV W/IN PREV 7 DAYS NOR LEAD ASSESS & MGT SRV/PX W/IN NXT 24H/SOON APT; 11-20 MIN MED DIS 2019 DoD TELE ASSESS & MGT SRV PROV QUAL NONPHYS HLTH CARE PRO TO EST PAT,PARENT,GUARD NOT ORIG REL ASSESS & MGT SRV PROV W/IN PREV 7 DAYS NOR LEAD ASSESS & MGT SRV/PX W/IN NXT 24 HR/SOON APT;5-10 MIN MED DIS 2019 DoD WAIVER SERVICES; NOT OTHERWISE SPECIFIED (NOS) 2019 DoD TELE ASSESS & MGT SRV PROV QUAL NONPHYS HLTH CARE PRO TO EST PAT,PARENT,GUARD NOT ORIG REL ASSESS & MGT SRV PROV W/IN PREV 7 DAYS NOR LEAD ASSESS & MGT SRV/PX W/IN NXT 24 HR/SOON APT;5-10 MIN MED DIS 2019 DoD INJECTION, TRIAMCINOLONE ACETONIDE, NOT OTHERWISE SPECIFIED, 10 MG 2018 DoD INJECTION, TRIAMCINOLONE ACETONIDE, NOT OTHERWISE SPECIFIED, 10 MG 2018 DoD TELE ASSESS & MGT SRV PROV QUAL NONPHYS HLTH CARE PRO TO EST PAT,PARENT,GUARD NOT ORIG REL ASSESS & MGT SRV PROV W/IN PREV 7 DAYS NOR LEAD ASSESS & MGT SRV/PX W/IN NXT 24 HR/SOON APT;5-10 MIN MED DIS 2018 DoD TELE ASSESS & MGT SRV PROV QUAL NONPHYS HLTH CARE PRO TO EST PAT,PARENT,GUARD NOT ORIG REL ASSESS & MGT SRV PROV W/IN PREV 7 DAYS NOR LEAD ASSESS & MGT SRV/PX W/IN NXT 24 HR/SOON APT;5-10 MIN MED DIS 2018 DoD CANALITH REPOSITIONING PROCEDURE(S) (EG, BERNABE MANEUVER, SEMONT MANEUVER), PER DAY 2018 DoD TELE ASSESS & MGT SRV PROV QUAL NONPHYS HLTH CARE PRO TO EST PAT,PARENT,GUARD NOT ORIG REL ASSESS & MGT SRV PROV W/IN PREV 7 DAYS NOR LEAD ASSESS & MGT SRV/PX W/IN NXT 24 HR/SOON APT;5-10 MIN MED DIS 2018 DoD INJECTION, TRIAMCINOLONE ACETONIDE, NOT OTHERWISE SPECIFIED, 10 MG 2018 DoD THERAPEUTIC PROCEDURE, 1 OR MORE AREAS, EACH 15 MINUTES; THERAPEUTIC EXERCISES TO DEVELOP STRENGTH AND ENDURANCE, RANGE OF MOTION AND FLEXIBILITY 2018 DoD TELE ASSESS & MGT SRV PROV QUAL NONPHYS HLTH CARE PRO TO EST PAT,PARENT,GUARD NOT ORIG REL ASSESS & MGT SRV PROV W/IN PREV 7 DAYS NOR LEAD ASSESS & MGT SRV/PX W/IN NXT 24 HR/SOON APT;5-10 MIN MED DIS 2017 DoD TELE ASSESS & MGT SRV PROV QUAL NONPHYS HLTH CARE PRO TO EST PAT,PARENT,GUARD NOT ORIG REL ASSESS & MGT SRV PROV W/IN PREV 7 DAYS NOR LEAD ASSESS & MGT SRV/PX W/IN NXT 24H/SOON APT; 11-20 MIN MED DIS 2017 DoD TELE ASSESS & MGT SRV PROV QUAL NONPHYS HLTH CARE PRO TO EST PAT,PARENT,GUARD NOT ORIG REL ASSESS & MGT SRV PROV W/IN PREV 7 DAYS NOR LEAD ASSESS & MGT SRV/PX W/IN NXT 24 HR/SOON APT;5-10 MIN MED DIS 2017 DoD ONLINE ASSESS &MANAG SERV PROVIDE,A QUAL NONPHYS HCP TO AN ESTABLISHED PAT/GUARDIAN,NOT ORIGINAT FRM RELAT ASSESS &MANAG SERV PROVIDE W/IN THE PREV 7 DAYS,USE THE [email or web address] COMM NETWORK 2017 DoD TELE ASSESS & MGT SRV PROV QUAL NONPHYS HLTH CARE PRO TO EST PAT,PARENT,GUARD NOT ORIG REL ASSESS & MGT SRV PROV W/IN PREV 7 DAYS NOR LEAD ASSESS & MGT SRV/PX W/IN NXT 24 HR/SOON APT;5-10 MIN MED DIS 2017 DoD TELE ASSESS & MGT SRV PROV QUAL NONPHYS HLTH CARE PRO TO EST PAT,PARENT,GUARD NOT ORIG REL ASSESS & MGT SRV PROV W/IN PREV 7 DAYS NOR LEAD ASSESS & MGT SRV/PX W/IN NXT 24 HR/SOON APT;5-10 MIN MED DIS 2017 DoD TELE ASSESS & MGT SRV PROV QUAL NONPHYS HLTH CARE PRO TO EST PAT,PARENT,GUARD NOT ORIG REL ASSESS & MGT SRV PROV W/IN PREV 7 DAYS NOR LEAD ASSESS & MGT SRV/PX W/IN NXT 24 HR/SOON APT;5-10 MIN MED DIS 2016 DoD TELE ASSESS & MGT SRV PROV QUAL NONPHYS HLTH CARE PRO TO EST PAT,PARENT,GUARD NOT ORIG REL ASSESS & MGT SRV PROV W/IN PREV 7 DAYS NOR LEAD ASSESS & MGT SRV/PX W/IN NXT 24 HR/SOON APT;5-10 MIN MED DIS 2016 DoD ONLINE ASSESS &MANAG SERV PROVIDE,A QUAL NONPHYS HCP TO AN ESTABLISHED PAT/GUARDIAN,NOT ORIGINAT FRM RELAT ASSESS &MANAG SERV PROVIDE W/IN THE PREV 7 DAYS,USE THE [employer] [email or web address] COMM NETWORK 2015 DoD TELE ASSESS & MGT SRV PROV QUAL NONPHYS HLTH CARE PRO TO EST PAT,PARENT,GUARD NOT ORIG REL ASSESS & MGT SRV PROV W/IN PREV 7 DAYS NOR LEAD ASSESS & MGT SRV/PX W/IN NXT 24 HR/SOON APT;5-10 MIN MED DIS 2015 DoD TELE ASSESS & MGT SRV PROV QUAL NONPHYS HLTH CARE PRO TO EST PAT,PARENT,GUARD NOT ORIG REL ASSESS & MGT SRV PROV W/IN PREV 7 DAYS NOR LEAD ASSESS & MGT SRV/PX W/IN NXT 24 HR/SOON APT;5-10 MIN MED DIS 2015 DoD TELE ASSESS & MGT SRV PROV QUAL NONPHYS HLTH CARE PRO TO EST PAT,PARENT,GUARD NOT ORIG REL ASSESS & MGT SRV PROV W/IN PREV 7 DAYS NOR LEAD ASSESS & MGT SRV/PX W/IN NXT 24 HR/SOON APT;5-10 MIN MED DIS 2014 DoD TELE ASSESS & MGT SRV PROV QUAL NONPHYS HLTH CARE PRO TO EST PAT,PARENT,GUARD NOT ORIG REL ASSESS & MGT SRV PROV W/IN PREV 7 DAYS NOR LEAD ASSESS & MGT SRV/PX W/IN NXT 24 HR/SOON APT;5-10 MIN MED DIS 2014 DoD PROFESSIONAL SERVICES FOR ALLERGEN IMMUNOTHERAPY NOT INCLUDING PROVISION OF ALLERGENIC EXTRACTS; SINGLE INJECTION 2014 DoD PROFESSIONAL SERVICES FOR ALLERGEN IMMUNOTHERAPY NOT INCLUDING PROVISION OF ALLERGENIC EXTRACTS; SINGLE INJECTION 2014 DoD TELE ASSESS & MGT SRV PROV QUAL NONPHYS HLTH CARE PRO TO EST PAT,PARENT,GUARD NOT ORIG REL ASSESS & MGT SRV PROV W/IN PREV 7 DAYS NOR LEAD ASSESS & MGT SRV/PX W/IN NXT 24 HR/SOON APT;5-10 MIN MED DIS 2014 DoD PROFESSIONAL SERVICES FOR ALLERGEN IMMUNOTHERAPY NOT INCLUDING PROVISION OF ALLERGENIC EXTRACTS; SINGLE INJECTION 2014 DoD PROFESSIONAL SERVICES FOR ALLERGEN IMMUNOTHERAPY NOT INCLUDING PROVISION OF ALLERGENIC EXTRACTS; SINGLE INJECTION 2014 DoD PROFESSIONAL SERVICES FOR ALLERGEN IMMUNOTHERAPY NOT INCLUDING PROVISION OF ALLERGENIC EXTRACTS; SINGLE INJECTION 2014 DoD PROFESSIONAL SERVICES FOR ALLERGEN IMMUNOTHERAPY NOT INCLUDING PROVISION OF ALLERGENIC EXTRACTS; SINGLE INJECTION 2014 DoD PROFESSIONAL SERVICES FOR ALLERGEN IMMUNOTHERAPY NOT INCLUDING PROVISION OF ALLERGENIC EXTRACTS; SINGLE INJECTION 2014 DoD PROFESSIONAL SERVICES FOR ALLERGEN IMMUNOTHERAPY NOT INCLUDING PROVISION OF ALLERGENIC EXTRACTS; SINGLE INJECTION 2014 DoD PROFESSIONAL SERVICES FOR ALLERGEN IMMUNOTHERAPY NOT INCLUDING PROVISION OF ALLERGENIC EXTRACTS; SINGLE INJECTION 2014 DoD TELE ASSESS & MGT SRV PROV QUAL NONPHYS HLTH CARE PRO TO EST PAT,PARENT,GUARD NOT ORIG REL ASSESS & MGT SRV PROV W/IN PREV 7 DAYS NOR LEAD ASSESS & MGT SRV/PX W/IN NXT 24 HR/SOON APT;5-10 MIN MED DIS 2014 DoD PROFESSIONAL SERVICES FOR ALLERGEN IMMUNOTHERAPY NOT INCLUDING PROVISION OF ALLERGENIC EXTRACTS; SINGLE INJECTION 2014 DoD PROFESSIONAL SERVICES FOR ALLERGEN IMMUNOTHERAPY NOT INCLUDING PROVISION OF ALLERGENIC EXTRACTS; SINGLE INJECTION 2014 DoD PROFESSIONAL SERVICES FOR ALLERGEN IMMUNOTHERAPY NOT INCLUDING PROVISION OF ALLERGENIC EXTRACTS; SINGLE INJECTION 2014 DoD PROFESSIONAL SERVICES FOR ALLERGEN IMMUNOTHERAPY NOT INCLUDING PROVISION OF ALLERGENIC EXTRACTS; 2 OR MORE INJECTIONS 2013 DoD PROFESSIONAL SERVICES FOR ALLERGEN IMMUNOTHERAPY NOT INCLUDING PROVISION OF ALLERGENIC EXTRACTS; SINGLE INJECTION 2013 DoD PROFESSIONAL SERVICES FOR ALLERGEN IMMUNOTHERAPY NOT INCLUDING PROVISION OF ALLERGENIC EXTRACTS; SINGLE INJECTION 2013 DoD PROFESSIONAL SERVICES FOR ALLERGEN IMMUNOTHERAPY NOT INCLUDING PROVISION OF ALLERGENIC EXTRACTS; SINGLE INJECTION 2013 DoD PROFESSIONAL SERVICES FOR ALLERGEN IMMUNOTHERAPY NOT INCLUDING PROVISION OF ALLERGENIC EXTRACTS; SINGLE INJECTION 2013 DoD PROFESSIONAL SERVICES FOR ALLERGEN IMMUNOTHERAPY NOT INCLUDING PROVISION OF ALLERGENIC EXTRACTS; 2 OR MORE INJECTIONS 2013 DoD PROFESSIONAL SERVICES FOR ALLERGEN IMMUNOTHERAPY NOT INCLUDING PROVISION OF ALLERGENIC EXTRACTS; SINGLE INJECTION 2013 DoD TELE ASSESS & MGT SRV PROV QUAL NONPHYS HLTH CARE PRO TO EST PAT,PARENT,GUARD NOT ORIG REL ASSESS & MGT SRV PROV W/IN PREV 7 DAYS NOR LEAD ASSESS & MGT SRV/PX W/IN NXT 24 HR/SOON APT;5-10 MIN MED DIS 2013 DoD PROFESSIONAL SERVICES FOR ALLERGEN IMMUNOTHERAPY NOT INCLUDING PROVISION OF ALLERGENIC EXTRACTS; SINGLE INJECTION 2013 DoD PROFESSIONAL SERVICES FOR ALLERGEN IMMUNOTHERAPY NOT INCLUDING PROVISION OF ALLERGENIC EXTRACTS; SINGLE INJECTION 2013 DoD TELE ASSESS & MGT SRV PROV QUAL NONPHYS HLTH CARE PRO TO EST PAT,PARENT,GUARD NOT ORIG REL ASSESS & MGT SRV PROV W/IN PREV 7 DAYS NOR LEAD ASSESS & MGT SRV/PX W/IN NXT 24 HR/SOON APT;5-10 MIN MED DIS 2013 DoD PROFESSIONAL SERVICES FOR ALLERGEN IMMUNOTHERAPY NOT INCLUDING PROVISION OF ALLERGENIC EXTRACTS; SINGLE INJECTION 2013 DoD PROFESSIONAL SERVICES FOR ALLERGEN IMMUNOTHERAPY NOT INCLUDING PROVISION OF ALLERGENIC EXTRACTS; SINGLE INJECTION 2013 DoD PROFESSIONAL SERVICES FOR ALLERGEN IMMUNOTHERAPY NOT INCLUDING PROVISION OF ALLERGENIC EXTRACTS; SINGLE INJECTION 2013 DoD PROFESSIONAL SERVICES FOR ALLERGEN IMMUNOTHERAPY NOT INCLUDING PROVISION OF ALLERGENIC EXTRACTS; SINGLE INJECTION 2013 DoD PROFESSIONAL SERVICES FOR ALLERGEN IMMUNOTHERAPY NOT INCLUDING PROVISION OF ALLERGENIC EXTRACTS; SINGLE INJECTION 2013 DoD PROFESSIONAL SERVICES FOR ALLERGEN IMMUNOTHERAPY NOT INCLUDING PROVISION OF ALLERGENIC EXTRACTS; SINGLE INJECTION 2013 DoD PROFESSIONAL SERVICES FOR ALLERGEN IMMUNOTHERAPY NOT INCLUDING PROVISION OF ALLERGENIC EXTRACTS; SINGLE INJECTION 2013 DoD PROFESSIONAL SERVICES FOR ALLERGEN IMMUNOTHERAPY NOT INCLUDING PROVISION OF ALLERGENIC EXTRACTS; SINGLE INJECTION 2013 DoD PROFESSIONAL SERVICES FOR ALLERGEN IMMUNOTHERAPY NOT INCLUDING PROVISION OF ALLERGENIC EXTRACTS; SINGLE INJECTION 2013 DoD PROFESSIONAL SERVICES FOR ALLERGEN IMMUNOTHERAPY NOT INCLUDING PROVISION OF ALLERGENIC EXTRACTS; 2 OR MORE INJECTIONS 2013 DoD PROFESSIONAL SERVICES FOR ALLERGEN IMMUNOTHERAPY NOT INCLUDING PROVISION OF ALLERGENIC EXTRACTS; 2 OR MORE INJECTIONS 2013 DoD PROFESSIONAL SERVICES FOR ALLERGEN IMMUNOTHERAPY NOT INCLUDING PROVISION OF ALLERGENIC EXTRACTS; 2 OR MORE INJECTIONS 2013 DoD PROFESSIONAL SERVICES FOR ALLERGEN IMMUNOTHERAPY NOT INCLUDING PROVISION OF ALLERGENIC EXTRACTS; 2 OR MORE INJECTIONS 2013 DoD PROFESSIONAL SERVICES FOR ALLERGEN IMMUNOTHERAPY NOT INCLUDING PROVISION OF ALLERGENIC EXTRACTS; 2 OR MORE INJECTIONS 2013 DoD PROFESSIONAL SERVICES FOR ALLERGEN IMMUNOTHERAPY NOT INCLUDING PROVISION OF ALLERGENIC EXTRACTS; 2 OR MORE INJECTIONS 2013 DoD SCREENING PAPANICOLAOU SMEAR; OBTAINING, PREPARING AND CONVEYANCE OF CERVICAL OR VAGINAL SMEAR TO LABORATORY 2013 DoD PROFESSIONAL SERVICES FOR ALLERGEN IMMUNOTHERAPY NOT INCLUDING PROVISION OF ALLERGENIC EXTRACTS; SINGLE INJECTION 2013 DoD PROFESSIONAL SERVICES FOR ALLERGEN IMMUNOTHERAPY NOT INCLUDING PROVISION OF ALLERGENIC EXTRACTS; 2 OR MORE INJECTIONS 2013 DoD PROFESSIONAL SERVICES FOR ALLERGEN IMMUNOTHERAPY NOT INCLUDING PROVISION OF ALLERGENIC EXTRACTS; SINGLE INJECTION 2013 DoD TELE ASSESS & MGT SRV PROV QUAL NONPHYS HLTH CARE PRO TO EST PAT,PARENT,GUARD NOT ORIG REL ASSESS & MGT SRV PROV W/IN PREV 7 DAYS NOR LEAD ASSESS & MGT SRV/PX W/IN NXT 24H/SOON APT; 11-20 MIN MED DIS 2012 DoD TELE ASSESS & MGT SRV PROV QUAL NONPHYS HLTH CARE PRO TO EST PAT,PARENT,GUARD NOT ORIG REL ASSESS & MGT SRV PROV W/IN PREV 7 DAYS NOR LEAD ASSESS & MGT SRV/PX W/IN NXT 24H/SOON APT; 11-20 MIN MED DIS 2012 DoD COORDINATED CARE FEE, MAINTENANCE RATE 2012 DoD CASE MANAGEMENT, EACH 15 MINUTES 2012 DoD TELE ASSESS & MGT SRV PROV QUAL NONPHYS HLTH CARE PRO TO EST PAT,PARENT,GUARD NOT ORIG REL ASSESS & MGT SRV PROV W/IN PREV 7 DAYS NOR LEAD ASSESS & MGT SRV/PX W/IN NXT 24H/SOON APT; 21-30 MIN MED DIS 2012 DoD TELE ASSESS & MGT SRV PROV QUAL NONPHYS HLTH CARE PRO TO EST PAT,PARENT,GUARD NOT ORIG REL ASSESS & MGT SRV PROV W/IN PREV 7 DAYS NOR LEAD ASSESS & MGT SRV/PX W/IN NXT 24H/SOON APT; 11-20 MIN MED DIS 2012 DoD TELE ASSESS & MGT SRV PROV QUAL NONPHYS HLTH CARE PRO TO EST PAT,PARENT,GUARD NOT ORIG REL ASSESS & MGT SRV PROV W/IN PREV 7 DAYS NOR LEAD ASSESS & MGT SRV/PX W/IN NXT 24 HR/SOON APT;5-10 MIN MED DIS 2012 DoD TELE ASSESS & MGT SRV PROV QUAL NONPHYS HLTH CARE PRO TO EST PAT,PARENT,GUARD NOT ORIG REL ASSESS & MGT SRV PROV W/IN PREV 7 DAYS NOR LEAD ASSESS & MGT SRV/PX W/IN NXT 24 HR/SOON APT;5-10 MIN MED DIS 2012 DoD INJECTION, MEDROXYPROGESTERONE ACETATE FOR CONTRACEPTIVE USE, 150 MG 2012 DoD SCREENING PAPANICOLAOU SMEAR; OBTAINING, PREPARING AND CONVEYANCE OF CERVICAL OR VAGINAL SMEAR TO LABORATORY 2011 DoD THERAPEUTIC, PROPHYLACTIC, OR DIAGNOSTIC INJECTION (SPECIFY SUBSTANCE OR DRUG); SUBCUTANEOUS OR INTRAMUSCULAR 2011 DoD TELE ASSESS & MGT SRV PROV QUAL NONPHYS HLTH CARE PRO TO EST PAT,PARENT,GUARD NOT ORIG REL ASSESS & MGT SRV PROV W/IN PREV 7 DAYS NOR LEAD ASSESS & MGT SRV/PX W/IN NXT 24 HR/SOON APT;5-10 MIN MED DIS 2011 DoD COLONOSCOPY, FLEXIBLE; WITH REMOVAL OF TUMOR(S), POLYP(S), OR OTHER LESION(S) BY SNARE TECHNIQUE 2011 DoD THERAPEUTIC, PROPHYLACTIC, OR DIAGNOSTIC INJECTION (SPECIFY SUBSTANCE OR DRUG); SUBCUTANEOUS OR INTRAMUSCULAR 2011 [facility] ENDOMETRIAL SAMPLING (BIOPSY) WITH OR WITHOUT ENDOCERVICAL SAMPLING (BIOPSY), WITHOUT CERVICAL DILATION, ANY METHOD (SEPARATE PROCEDURE) 2011 DoD GONADOTROPIN, CHORIONIC (HCG); QUALITATIVE 2011 DoD TELE ASSESS & MGT SRV PROV QUAL NONPHYS HLTH CARE PRO TO EST PAT,PARENT,GUARD NOT ORIG REL ASSESS & MGT SRV PROV W/IN PREV 7 DAYS NOR LEAD ASSESS & MGT SRV/PX W/IN NXT 24 HR/SOON APT;5-10 MIN MED DIS 2011 DoD VITAL CAPACITY, TOTAL (SEPARATE PROCEDURE) 2011 DoD TELE ASSESS & MGT SRV PROV QUAL NONPHYS HLTH CARE PRO TO EST PAT,PARENT,GUARD NOT ORIG REL ASSESS & MGT SRV PROV W/IN PREV 7 DAYS NOR LEAD ASSESS & MGT SRV/PX W/IN NXT 24 HR/SOON APT;5-10 MIN MED DIS 2010 DoD URINE TEST, BY VISUAL COLOR COMPARISON METHODS 2010 DoD TELE ASSESS & MGT SRV PROV QUAL NONPHYS HLTH CARE PRO TO EST PAT,PARENT,GUARD NOT ORIG REL ASSESS & MGT SRV PROV W/IN PREV 7 DAYS NOR LEAD ASSESS & MGT SRV/PX W/IN NXT 24 HR/SOON APT;5-10 MIN MED DIS 2010 DoD SCREENING PAPANICOLAOU SMEAR; OBTAINING, PREPARING AND CONVEYANCE OF CERVICAL OR VAGINAL SMEAR TO LABORATORY 2010 DoD TELE ASSESS & MGT SRV PROV QUAL NONPHYS HLTH CARE PRO TO EST PAT,PARENT,GUARD NOT ORIG REL ASSESS & MGT SRV PROV W/IN PREV 7 DAYS NOR LEAD ASSESS & MGT SRV/PX W/IN NXT 24 HR/SOON APT;5-10 MIN MED DIS 2010 DoD SPIROMETRY, INCLUDING GRAPHIC RECORD, TOTAL AND TIMED VITAL CAPACITY, EXPIRATORY FLOW RATE MEASUREMENT(S), WITH OR WITHOUT MAXIMAL VOLUNTARY VENTILATION 2010 DoD TELE ASSESS & MGT SRV PROV QUAL NONPHYS HLTH CARE PRO TO EST PAT,PARENT,GUARD NOT ORIG REL ASSESS & MGT SRV PROV W/IN PREV 7 DAYS NOR LEAD ASSESS & MGT SRV/PX W/IN NXT 24H/SOON APT; 11-20 MIN MED DIS 2010 DoD VITAL CAPACITY, TOTAL (SEPARATE PROCEDURE) 2009 DoD GONADOTROPIN, CHORIONIC (HCG); QUALITATIVE 2009 DoD TELE ASSESS & MGT SRV PROV QUAL NONPHYS HLTH CARE PRO TO EST PAT,PARENT,GUARD NOT ORIG REL ASSESS & MGT SRV PROV W/IN PREV 7 DAYS NOR LEAD ASSESS & MGT SRV/PX W/IN NXT 24 HR/SOON APT;5-10 MIN MED DIS 2009 DoD ELECTROCARDIOGRAM, ROUTINE ECG WITH AT LEAST 12 LEADS; INTERPRETATION AND REPORT ONLY 2009 DoD SCREENING PAPANICOLAOU SMEAR; OBTAINING, PREPARING AND CONVEYANCE OF CERVICAL OR VAGINAL SMEAR TO LABORATORY 2009 DoD BLOOD PRESSURE MEASURED (CKD)(DM) 2009 DoD BLOOD PRESSURE MEASURED (CKD)(DM) 2009 DoD BLOOD PRESSURE MEASURED (CKD)(DM) 2009 DoD BLOOD PRESSURE MEASURED (CKD)(DM) 2009 DoD BLOOD PRESSURE MEASURED (CKD)(DM) 2009 DoD ELECTROCARDIOGRAM, ROUTINE ECG WITH AT LEAST 12 LEADS; TRACING ONLY, WITHOUT INTERPRETATION AND REPORT 2009 DoD URINE TEST, BY VISUAL COLOR COMPARISON METHODS 2008 DoD SCREENING PAPANICOLAOU SMEAR; OBTAINING, PREPARING AND CONVEYANCE OF CERVICAL OR VAGINAL SMEAR TO LABORATORY 2008 DoD PHYSICAL THERAPY RE-EVALUATION 2008 DoD APPLICATION OF A MODALITY TO 1 OR MORE AREAS; ELECTRICAL STIMULATION (UNATTENDED) 2008 DoD ELECTRODES (E.G., APNEA MONITOR), PER PAIR 2008 DoD APPLICATION OF A MODALITY TO 1 OR MORE AREAS; HOT OR COLD PACKS 2008 DoD ELECTRODES (E.G., APNEA MONITOR), PER PAIR 2008 DoD APPLICATION OF A MODALITY TO 1 OR MORE AREAS; HOT OR COLD PACKS 2008 DoD APPLICATION OF A MODALITY TO 1 OR MORE AREAS; HOT OR COLD PACKS 2008 DoD SELF-CARE/HOME MANAGMENT TRAIN (EG,ACT OF DAILY LIVING (ADL) &COMPENSAT TRAIN,MEAL PREPARATION,SAFETY PROCS,AND INSTRUCT IN USE OF ASST TECHNOLOGY DEV/ADPT EQUIP) DIR ONE-ON-ONE CONT,EA [address] 2007 [facility] THERAPEUTIC PROCEDURE, 1 OR MORE AREAS, EACH 15 MINUTES; GAIT TRAINING (INCLUDES STAIR CLIMBING) 2006 [facility] SCREENING PAPANICOLAOU SMEAR; OBTAINING, PREPARING AND CONVEYANCE OF CERVICAL OR VAGINAL SMEAR TO LABORATORY 2006 [facility] HEPATITIS A VACCINE (HEPA), ADULT DOSAGE, FOR INTRAMUSCULAR USE 2006 [facility] REMOVAL OR BIVALVING; FULL ARM OR FULL LEG CAST 2005 [facility] APPLICATION OF SHORT LEG CAST (BELOW KNEE TO TOES); 2005 [facility] APPLICATION OF SHORT LEG CAST (BELOW KNEE TO TOES); 2005 [facility] UNLISTED SPECIAL SERVICE, PROCEDURE OR REPORT 2005 [facility] CRUTCHES UNDERARM, WOOD, ADJUSTABLE OR FIXED, PAIR, WITH PADS, TIPS AND HANDGRIPS 2005 [facility] SCREENING PAPANICOLAOU SMEAR; OBTAINING, PREPARING AND CONVEYANCE OF CERVICAL OR VAGINAL SMEAR TO LABORATORY 2005 [facility] SKIN TEST; TUBERCULOSIS, INTRADERMAL 2004 [facility] Injection, triamcinolone acetonide, not otherwise specified, 10 mg 2018 RAJANI STROUD Arthrocentesis Injection Of Shoulder Joint Arthrocentesis Injection Of Shoulder Joint 2018 RAJANI STROUD Non-Physician Phone Call To Patient/Provider Brief (5-10min) Non-Physician Phone Call To Patient/Provider Brief (5-10min) [id number] 2018 BENY FREEDMAN Non-Physician Phone Call To Patient/Provider Brief (5-10min) Non-Physician Phone Call To Patient/Provider Brief (5-10min) [id number] 2018 BENY FREEDMAN Ear Exam Bernabe Maneuver Ear Exam Bernabe Maneuver [id number] [facility] Non-Physician Phone Call To Patient/Provider Brief (5-10min) Non-Physician Phone Call To Patient/Provider Brief (5-10min) [id number] 2018 BENY FREEDMAN Injection, triamcinolone acetonide, not otherwise specified, 10 mg 2018 RAJANI STROUD Injection, lidocaine HCl for intravenous infusion, 10 mg [address] [facility] Arthrocentesis Injection Of Shoulder Joint Arthrocentesis Injection Of Shoulder Joint [id number] 2018 RAJANI STROUD Exercises A isted Exercises For ROM Exercises Assisted Exercises For ROM [id number] [facility] Non-Physician Phone Call To Patient/Provider Brief (5-10min) Non-Physician Phone Call To Patient/Provider Brief (5-10min) [id number] [facility] Non-Physician Phone Call To Pt/Provider Intermed (11-20 min) Non-Physician Phone Call To Pt/Provider Intermed (11-20 min) [id number] [facility] Non-Physician Phone Call To Patient/Provider Brief (5-10min) Non-Physician Phone Call To Patient/Provider Brief (5-10min) [id number] [facility] Internet Med Svc Qual Nonphys Healthcare Prof Estab Patient Internet Med Svc Qual Nonphys Healthcare Prof Estab Patient [id number] [facility] Non-Physician Phone Call To Patient/Provider Brief (5-10min) Non-Physician Phone Call To Patient/Provider Brief (5-10min) [id number] [facility] Internet Med Svc Qual Nonphys Healthcare Prof Estab Patient Internet Med Svc Qual Nonphys Healthcare Prof Estab Patient [id number] [facility] Non-Physician Phone Call To Patient/Provider Brief (5-10min) Non-Physician Phone Call To Patient/Provider Brief (5-10min) [id number] [facility] Non-Physician Phone Call To Patient/Provider Brief (5-10min) Non-Physician Phone Call To Patient/Provider Brief (5-10min) [id number] [facility] Non-Physician Phone Call To Patient/Provider Brief (5-10min) Non-Physician Phone Call To Patient/Provider Brief (5-10min) [id number] [facility] Internet Med Svc Qual Nonphys Healthcare Prof Estab Patient Internet Med [facility] Nonphys Healthcare Prof Estab Patient [id number] [facility] Non-Physician Phone Call To Patient/Provider Brief (5-10min) Non-Physician Phone Call To Patient/Provider Brief (5-10min) [id number] [facility] Non-Physician Phone Call To Patient/Provider Brief (5-10min) Non-Physician Phone Call To Patient/Provider Brief (5-10min) [id number] 2015 NADIA GARCIA DoD Non-Physician Phone Call To Patient/Provider Brief (5-10min) Non-Physician Phone Call To Patient/Provider Brief (5-10min) [id number] [facility] Non-Physician Phone Call To Patient/Provider Brief (5-10min) Non-Physician Phone Call To Patient/Provider Brief (5-10min) [id number] 2014 NADIA GARCIA Desensitization Supervision - Single Injection Desensitization Supervision - Single Injection [id number] 2014 KEVYN PATIÑO Desensitization Supervision - Single Injection Desensitization Supervision - Single Injection [id number] 2014 MATIAS FELTON Non-Physician Phone Call To Patient/Provider Brief (5-10min) Non-Physician Phone Call To Patient/Provider Brief (5-10min) [id number] 2014 NADIA GARCIA Desensitization Supervision - Single Injection Desensitization Supervision - Single Injection [id number] 2014 MATIAS FELTON Desensitization Supervision - Single Injection Desensitization Supervision - Single Injection [id number] 2014 KEVYN PATIÑO Desensitization Supervision - Single Injection Desensitization Supervision - Single Injection [id number] [facility] Desensitization Supervision - Single Injection Desensitization Supervision - Single Injection [id number] 2014 KEVYN PATIÑO Desensitization Supervision - Single Injection Desensitization Supervision - Single Injection [id number] [facility] Desensitization Supervision - Single Injection Desensitization Supervision - Single Injection [id number] 2014 KEVYN PATIÑO Desensitization Supervision - Single Injection Desensitization Supervision - Single Injection [id number] 2014 KEVYN PATIÑO Non-Physician Phone Call To Patient/Provider Brief (5-10min) Non-Physician Phone Call To Patient/Provider Brief (5-10min) [id number] [facility] Desensitization Supervision - Single Injection Desensitization Supervision - Single Injection [id number] [facility] Desensitization Supervision - Single Injection Desensitization Supervision - Single Injection [id number] 2014 JADE LITTLE Desensitization Supervision - Single Injection Desensitization Supervision - Single Injection [id number] 2014 JADE LITTLE Desensitization Supervision - Multiple Extract Injections Desensitization Supervision - Multiple Extract Injections 34438 2013 JADE LITTEL Desensitization Supervision - Single Injection Desensitization Supervision - Single Injection [id number] 2013 LAURA BELLA Desensitization Supervision - Single Injection Desensitization Supervision - Single Injection [id number] 2013 JADE LITTLE Desensitization Supervision - Single Injection Desensitization Supervision - Single Injection [id number] 2013 LAURA BELLA Desensitization Supervision - Single Injection Desensitization Supervision - Single Injection [id number] 2013 LAURA BELLA Desensitization Supervision - Multiple Extract Injections Desensitization Supervision - Multiple Extract Injections [id number] 2013 JADE LITTLE Desensitization Supervision - Single Injection Desensitization Supervision - Single Injection [id number] 2013 LAURA BELLA Non-Physician Phone Call To Patient/Provider Brief (5-10min) Non-Physician Phone Call To Patient/Provider Brief (5-10min) [id number] 2013 BRIANNE HURTADO Desensitization Supervision - Single Injection Desensitization Supervision - Single Injection [id number] 2013 JADE LITTLE Desensitization Supervision - Single Injection Desensitization Supervision - Single Injection [id number] 2013 LAURA BELLA Non-Physician Phone Call To Patient/Provider Brief (5-10min) Non-Physician Phone Call To Patient/Provider Brief (5-10min) [id number] [facility] Desensitization Supervision - Single Injection Desensitization Supervision - Single Injection [id number] 2013 LAURA BELLA Desensitization Supervision - Single Injection Desensitization Supervision - Single Injection [id number] 2013 LAURA BELLA Desensitization Supervision - Single Injection Desensitization Supervision - Single Injection [id number] 2013 LAURA BELLA Desensitization Supervision - Single Injection Desensitization Supervision - Single Injection [address] [facility] Desensitization Supervision - Single Injection Desensitization Supervision - Single Injection 07521 2013 LAURA BELLA Desensitization Supervision - Single Injection Desensitization Supervision - Single Injection [address] [facility] Desensitization Supervision - Single Injection Desensitization Supervision - Single Injection [address] [facility] Desensitization Supervision - Single Injection Desensitization Supervision - Single Injection [id number] [facility] Desensitization Supervision - Single Injection Desensitization Supervision - Single Injection [id number] 2013 LAURA BELLA Cluster schedule: Week 8 DoD Desensitization Supervision - Multiple Extract Injections Desensitization Supervision - Multiple Extract Injections [id number] 2013 LAURA BELLA Desensitization Supervision - Multiple Extract Injections Desensitization Supervision - Multiple Extract Injections 35601 2013 LAURA BELLA Desensitization Supervision - Multiple Extract Injections Desensitization Supervision - Multiple Extract Injections [id number] 2013 JADE LITTLE Cluster Schedule: Week 5 Pt had delayed Systemic reaction; Repeat week [address] [facility] Desensitization Supervision - Multiple Extract Injections Desensitization Supervision - Multiple Extract Injections 77050 2013 LAURA BELLA Desensitization Supervision - Multiple Extract Injections Desensitization Supervision - Multiple Extract Injections 12508 2013 LAURA BELLA Desensitization Supervision - Multiple Extract Injections Desensitization Supervision - Multiple Extract Injections 16426 2013 JADE LITTLE Cluster Schedule: Week3 DoD Desensitization Supervision - Multiple Extract Injections Desensitization Supervision - Multiple Extract Injections 46962 2013 JADE LITTLE Cluster Schedule: Week 3 DoD Screening papanicolaou smear; obtaining, preparing and conveyance of cervical or vaginal smear to laboratory 2013 SHAWN MUÑOZ [facility] Desensitization Supervision - Single Injection Desensitization Supervision - Single Injection [id number] 2013 LAURA BELLA Desensitization Supervision - Multiple Extract Injections Desensitization Supervision - Multiple Extract Injections 21934 2013 JADE LITTLE Cluster schedule: Week 1 DoD Desensitization Supervision - Single Injection Desensitization Supervision - Single Injection [id number] [facility] Arthrocentesis Injection Of Shoulder Joint Arthrocentesis Injection Of Shoulder Joint 88675 MAXIMUS, KEIRSTIN A [facility] Injection, triamcinolone acetonide, not otherwise specified, 10 mg MAXIMUS, KEIRSTIN A [facility] Non-Physician Phone Call To Patient/Provider Brief (5-10min) Non-Physician Phone Call To Patient/Provider Brief (5-10min) [id number] [facility] Waiver services; not otherwise specified (NOS) LIV, JURGEN Davis [facility] Non-Physician Phone Call To Pt/Provider Intermed (11-20 min) Non-Physician Phone Call To Pt/Provider Intermed (11-20 min) [id number] [facility] Non-Physician Phone Call To Pt/Provider Lengthy (21-30 min) Non-Physician Phone Call To Pt/Provider Lengthy (21-30 min) [id number] SOFIA CHAVEZ [facility] Non-Physician Phone Call To Pt/Provider Intermed (11-20 min) Non-Physician Phone Call To Pt/Provider Intermed (11-20 min) [id number] [facility] Non-Physician Phone Call To Pt/Provider Intermed (11-20 min) Non-Physician Phone Call To Pt/Provider Intermed (11-20 min) [id number] [facility] Coordinated care fee, maintenance rate [address] [facility] Case Management, each 15 minutes [address] [facility] Case Management, each 15 minutes [address] [facility] Coordinated care fee, maintenance rate [address] [facility] Non-Physician Phone Call To Pt/Provider Lengthy (21-30 min) Non-Physician Phone Call To Pt/Provider Lengthy (21-30 min) [id number] [facility] Non-Physician Phone Call To Pt/Provider Intermed (11-20 min) Non-Physician Phone Call To Pt/Provider Intermed (11-20 min) [id number] [facility] Non-Physician Phone Call To Patient/Provider Brief (5-10min) Non-Physician Phone Call To Patient/Provider Brief (5-10min) [id number] [facility] Non-Physician Phone Call To Patient/Provider Brief (5-10min) Non-Physician Phone Call To Patient/Provider Brief (5-10min) [id number] [address] [facility] Injection, medroxyprogesterone acetate for contraceptive use, 150 mg 2012 KYREE CAMARA Depo-Provera given IM x1 in LUQ of Left gluteal. Pt tolerated the injection well, site clean and dry after injection. LLR Lot: [id number] Exp: 10/2014 Next Injection: Oct- [address] [facility] Cervical or vaginal cancer screening; pelvic and clinical breast examination 2011 [place] Screening papanicolaou smear; obtaining, preparing and conveyance of cervical or vaginal smear to laboratory [address] Supervised Injection Intramuscular Supervised Injection Intramuscular [id number] 2011 RACHEL FAUST Pt presented to [facility] for repeat injection. All Id verified. Last dose 15 Mar 2012, pt within window of refill. Pt stated that she is still having periods but very light, LMP 28 May 2012. Pt have no questions regarding medications and desires to continue. Please review note attached below for orders. Pt given depo Provera inj 150 mg IM ROQ gluteus per order and well tolerated. Next dose between 22 Aug 2012 - 05 Sep 2012. No allergic reaction noted or voiced. Pt informed of clinic walk in hours and is unable to make it during that time to call and make arrange with a nurse. Pt given my name and clinic numbers. Pt agree with all instructions and denies any questions. Lot# [id number] Exp: 10/2014 DoD Injection, medroxyprogesterone acetate for contraceptive use, 150 mg 2011 RACHEL FAUST Non-Physician Phone Call To Patient/Provider Brief (5-10min) Non-Physician Phone Call To Patient/Provider Brief (5-10min) [id number] 2011 LINDA GARCIA Complete Colonoscopy For Polyp Removal [address] Supervised Injection Intramuscular Supervised Injection Intramuscular [id number] 2011 RACHEL FAUST Pt presented to [facility] clinic for injection. All ID verified. A urine sample was collected and tested for with Negative result - pt informed. Pt is currently on ocp switching control to Depo Provera inj. Pt v/u of risks benefits, and denies any questions. Please review provider note attached below for orders. Pt given initial dose of Depot Provera inj 150 mg ROQ gluteus per order and well tolerated. Pt was kept in clinic for observation. No allergic reaction noted or voiced. Pt wanted to know if she should expect a period since she had taken the pill today. Discussed with Dr. Lofton, pt to expect period this time, may not have a cycle starting next month. No extra protection needed for intercourse. Pt was informed. Next dose due -14 Jun 2012, to [employer] meds then up to [facility] clinic, call for appt with a nurse. Pt agree and denies any questions. Pt was released from the clinic. Lot #: [id number] Exp: 10/2014 DoD Injection, medroxyprogesterone acetate for contraceptive use, 150 mg [address] [facility] Endometrial Biopsy By Suction Endometrial Biopsy By Suction [address] [facility] Urine HCG, Test Urine HCG, Test 83194 2011 CARMELA LOFTON test negative DoD Non-Physician Phone Call To Patient/Provider Brief (5-10min) Non-Physician Phone Call To Patient/Provider Brief (5-10min) [id number] [facility] Pulmonary Function Tests Peak Expiratory Flow Pulmonary Function Tests Peak Expiratory Flow 32384 2011 ANGELINE LYONS Created by entry in Vitals Module DoD Non-Physician Phone Call To Patient/Provider Brief (5-10min) Non-Physician Phone Call To Patient/Provider Brief (5-10min) [id number] 2010 JUAN ALBERTO CERVANTES DoD Colposcopy Cervix With Biopsy(s) Colposcopy Cervix With Biopsy(s) 93547 2010 DEBBIE AVITIA DoD Test Test 64607 2010 DEBBIE AVITIA Pt notified of Negative test result DoD Non-Physician Phone Call To Patient/Provider Brief (5-10min) Non-Physician Phone Call To Patient/Provider Brief (5-10min) [id number] 2010 JUSTA FLORES Screening papanicolaou smear; obtaining, preparing and conveyance of cervical or vaginal smear to laboratory [address] [facility] Non-Physician Phone Call To Patient/Provider Brief (5-10min) Non-Physician Phone Call To Patient/Provider Brief (5-10min) 133[address] [facility] Spirometry Spirometry [address] [facility] Non-Physician Phone Call To Pt/Provider Intermed (11-20 min) Non-Physician Phone Call To Pt/Provider Intermed (11-20 min) [id number] [facility] Pulse Oximetry Pulse Oximetry [address] [facility] Pulmonary Function Tests Peak Expiratory Flow Pulmonary Function Tests Peak Expiratory Flow 95388 2009 CHICHI STERLING Created by entry in Vitals Module [facility] Gynecologic Services Intrauterine Device (IUD) Insertion Gynecologic Services Intrauterine Device (IUD) Insertion [id number] [facility] Urine HCG, Test Urine HCG, Test 04852 2009 ARTHUR HELMS Pt informed of Negative urine test [facility] Non-Physician Phone Call To Patient/Provider Brief (5-10min) Non-Physician Phone Call To Patient/Provider Brief (5-10min) [id number] [facility] ECG Interpretation And Report Only ECG Interpretation And Report Only [address] [facility] Screening papanicolaou smear; obtaining, preparing and conveyance of cervical or vaginal smear to laboratory [address] [facility] ECG Performance of Tracing Only ECG Performance of Tracing Only [address] [facility] Biopsy Endometrial, Without Cervical Dilation Biopsy Endometrial, Without Cervical Dilation [address] [facility] Physical Medicine Physical Therapy Re-Evaluation Physical Medicine Physical Therapy Re-Evaluation [address] [facility] Modalities Electrical Stimulation Unattended Modalities Electrical Stimulation Unattended [address] [facility] Electrodes (e.g., apnea monitor), per pair 2008 SONIA MOHAN Modalities Iontophoresis Modalities Iontophoresis 68226 2008 SONIA MOHAN Modalities Cryotherapy Cold Packs Modalities Cryotherapy Cold Packs 45362 2008 SONIA MOHAN Modalities Electrical Stimulation Unattended Modalities Electrical Stimulation Unattended 10468 2008 SONIA MOHAN Electrodes (e.g., apnea monitor), per pair 2008 SONIA MOHAN Modalities Iontophoresis Modalities Iontophoresis 90461 2008 SONIA MOHAN Modalities Cryotherapy Cold Packs Modalities Cryotherapy Cold Packs 04873 2008 MICHAEL OREILLY Modalities Electrical Stimulation Unattended Modalities Electrical Stimulation Unattended 66225 2008 MICHAEL OREILLY Electrodes (e.g., apnea monitor), per pair 2008 MICHAEL OREILLY Modalities Iontophoresis Modalities Iontophoresis 20559 2008 MICHAEL OREILLY Electrodes (e.g., apnea monitor), per pair 2008 SONIA MOHAN Modalities Iontophoresis Modalities Iontophoresis 03770 2008 SONIA MOHAN Modalities Cryotherapy Cold Packs Modalities Cryotherapy Cold Packs 72037 2008 SONIA MOHAN Modalities Electrical Stimulation Unattended Modalities Electrical Stimulation Unattended 73166 2008 SONIA MOHAN Physical Therapy: ___ Se ion Segments, 15 Minutes Each Physical Therapy: ___ Session Segments, 15 Minutes Each 58889 2008 MICHAEL OREILLY Modalities Cryotherapy Cold Packs Modalities Cryotherapy Cold Packs 46868 2008 MICHAEL OREILLY Modalities Electrical Stimulation Unattended Modalities Electrical Stimulation Unattended 55248 2008 MICHAEL OREILLY Modalities Iontophoresis Modalities Iontophoresis 74376 2008 MICHAEL OREILLY Training And Self-Care Skills Training And Self-Care Skills 85083 2008 SONIA MOHAN Modalities Cryotherapy Cold Packs Modalities Cryotherapy Cold Packs 13491 2008 SONIA MOHAN Modalities Electrical Stimulation Unattended Modalities Electrical Stimulation Unattended 01730 2008 SONIA MOHAN Modalities Iontophoresis Modalities Iontophoresis 73561 2008 SONIA MOHAN Phys Therapy Education Self Care Training - Per 15 Minutes Phys Therapy Education Self Care Training - Per 15 Minutes 44909 2007 TESS DOBSON Physical Medicine Physical Therapy Evaluation Physical Medicine Physical Therapy Evaluation 88293 2007 TESS DOBSON Physical Therapy Gait Training Physical Therapy Gait Training 24906 2006 BRIAN VALENCIA Cane, includes canes of all materials, adjustable or fixed, with tip 2006 BRIAN VALENCIA Crutches, underarm, wood, adjustable or fixed, pair, with pads, tips and handgrips 2006 BRIAN VALENCIA Screening papanicolaou smear; obtaining, preparing and conveyance of cervical or vaginal smear to laboratory 2006 JOAO ROMAN Hepatitis A Vaccine Adult Dosage (Intramuscular Use) Hepatitis A Vaccine Adult Dosage (Intramuscular Use) 98652 2006 TIAGO EARLY Removal Of Cast (Applied Elsewhere) Full Leg Removal Of Cast (Applied Elsewhere) Full Leg 66892 2005 HAYLEE JONES Walking boot, non-pneumatic, with or without joints, with or without interface material, prefabricated, includes fitting and adjustment 2005 HAYLEE JONES Orthopedic Casting Short Leg Orthopedic Casting Short Leg 82332 2005 HAYLEE JONES Orthopedic Casting Short Leg Orthopedic Casting Short Leg 09702 2005 HAYLEE JONES Physical Therapy Gait Training Physical Therapy Gait Training 12577 2005 BRIAN VALENCIA Crutches, underarm, wood, adjustable or fixed, pair, with pads, tips and handgrips 2005 BRIAN VALENCIA Screening papanicolaou smear; obtaining, preparing and conveyance of cervical or vaginal smear to laboratory 2005 JOAO ROMAN Skin Test Anergy tuberculin Skin Test Anergy tuberculin [address] [facility] Screening papanicolaou smear; obtaining, preparing and conveyance of cervical or vaginal smear to laboratory [address] [facility] Gynecologic Services Intrauterine Device (IUD) Removal Gynecologic Services Intrauterine Device (IUD) Removal [address] [facility] Gynecologic Services Intrauterine Device (IUD) Insertion Gynecologic Services Intrauterine Device (IUD) Insertion [address] [facility] Gynecologic Services Intrauterine Device (IUD) Removal Gynecologic Services Intrauterine Device (IUD) Removal 23268 2003 [address] [facility] Endocervical Curettage (Not D&C) Endocervical Curettage (Not D&C) [address] [facility] Biopsy Endometrial, Without Cervical Dilation Biopsy Endometrial, Without Cervical Dilation [address] [facility] Gynecologic Services Intrauterine Device (IUD) Insertion Gynecologic Services Intrauterine Device (IUD) Insertion 46697 2003 FITZHU[address]CELESTINO [facility] No data available for this section Ambulatory Pharmacy Social History Combined list of available smoking, tobacco, and other social history from Department of Defense and Veterans Affairs facilities. Social History Type Response Date Comment Sour e Sex Representation Female (finding) 11/01/2022 Unknown Organization This section is an empty social history section. [facility] Tobacco Cigarette use: Never-cigarette user. Other Tobacco use: Never-other tobacco user (not cigarettes). Ambulatory Pharmacy Sexual Orientation Ambula tory Pharmacy Gender identity Ambulator y Pharmacy Assessment and Plan Combined list of future care activities from Department of Defense and Veterans Affairs facilities (e.g., assessment and plan notes, appointments, orders, and referrals). Additional future care activities may be listed in the Plan of Care section. Result Assessment and Plan Date Source Assessment and Plan Extracted from:Title : 0055 [facility] - ER Follow Up-RLQ Pain Author: TIAGO LOPEZ PA, Family Medicine Date: 02/24/25 1. R ight lower quadrant pain [age]-year-old female went to the emergency department approximately 1 to 2 days ago due to s evere right lower quadrant pain o jerri the past 3 to 4 days. S tates that she noticed m ild pain to right lower quadrant that lasted approximate 20 minutes S at morning a nd then it recurred again later that evening which had her i n excruciating pain. Pain subsided but then reemerged following day on Sunday which made patient go to the e mergency department. P nelson had l abs and imaging done which did not show any evidence of n ephrolithiasis, c ystitis, a nd no appendicitis due to history of appendectomy. Patient was discharged with diagnosis of possible i ntestinal spasm a nd prescribed a ntispasmodic medication, w hich has seemed to help with symptoms. Acute. No acute abdomen sxs. No evidence of pancreatitis, cholecystitis, cholangitis, hepatitis?on work up. L ower suspicion for appendicitis due to hx of appendectomy. N o melena to suggest gastric ulcer. No evidence of acute bowel obstruction. N ot likely acute cystitis, or pyelonephritis. Low suspicion for ACS. No pulmonary sxs on hx or exam to suggest PNA. - Reassured pt no signs of surgical abdomen and continue to monitor. Most likely due to stool burden, m ild constipation. - ED precautions discussed. -Follow-up as needed. Maj Nubia Lopez PA-C [facility] JOSE/KITTY Oconnor Extracted from:Title: 0055 [facility] - Medication Refill/Referral Author: TIAGO LOPEZ PA, Family Medicine Date: 12/25/24 1. E ncounter for issue of repeat prescription Chronic and stable. Pt requesting refill of medications. - Prescriptions refilled and placed to [facility] for activation. 2. S plenic artery aneurysm 64-year-old female with incidental finding of splenic artery aneurysm and following impression on CTA: Splenic artery aneurysm corresponding t o finding on comparison lumbar radiographs. - Referral placed to Vascular for consult. Maj [facility] JOSE/KITTY Oconnor Extracted from:Title: 0055 [facility] - AWE/PARDEEP Author: TIAGO LOPEZ PA, Family Medicine Date: 09/30/24 1. E ncounter for general adult medical examination with abnormal findings P revention: - 10yr ASCVD risk: n /a - C olonoscopy: U TD - L jonny Cancer: Non-smoker/no prior hx. N /A - V accinations: D UE - M ammo: D UE O rdered and advised to go to Radiology to schedule - P ap Smear: U TD - L abs: r eviewed;unremarkable kidney/liver function - C ounseled with regards to healthy eating habits, adequate sleep, adequate exercise, alcohol moderation, to abstain from smoking. Diet: The [employer] recommends a diet with a high intake of vegetables, fruits, and whole grains. A dditional recommendations include consuming low-fat dairy products, fish, lean meats, legumes, non-tropical vegetable oils, and nuts; and limiting intake of sweets, sugar-sweetened beverages, and red meat. [employer] Exercise recommendation for adults (overall cardiovascular health): At least 30 minutes of moderate-intensity aerobic activity at least 5 days per week for a total of 150 minutes/week or 25 minutes of vigorous-intensity aerobic activity at least 3 days per week for a total of 75 minutes/week. - C ounseled in regards to recommended daily requirements of calcium and vitamin D. - R ecommended annual flu shot and tetanus as needed. - A dvised to wear seatbelt and use sunscreen. - R ecommended annual dental and optometry exams. 2. E ncounter for screening mammogram for malignant neoplasm of breast [age] y/o F due for annual mammogram screening. - Order placed and advised to schedule with Radiology. Ordered: MG Mammo Miller Screening Bilateral 3. I DA - Iron deficiency anemia Patient states that she has been experiencing lightheadedness/dizziness for the past few months?and recently w hen attempting to donate blood, was t old that her iron levels were low via fingerstick test. Recent labs show patient h as iron deficiency anemia a nd low on vitamin D. Hemoglobin at 9.8 and ferritin -- Will prescribe ferrous sulfate 325 mg x 3 mo -- Repeat CBC/iron panel in 3 mo Discussed and encouraged the following: -Iron-rich foods include red meat; poultry; fish (all heme iron sources, best absorbed); and iron-fortified breads/cereals, lentils, beans, dark green vegetables, and raisins (all non-heme iron sources, less well absorbed. -Foods and beverages containing ascorbic acid (vitamin C) enhance iron absorption when taken simultaneously such as a glass of orange juice or citrus fruit. -Avoid milk or dairy products within 2 hours of iron tablet ingestion -Limit milk to 16 oz/day (adults). -Increase fluid and dietary fiber to decrease likelihood of constipation. Medication possible reactions to iron supplements discussed: -- Constipation will occur in ~1/4 of patients. Consider a stool softener along with iron. --Medications that reduce gastric acid secretion such as proton pump inhibitors and H2 antagonists reduce iron absorption. Ordered: ferrous sulfate (iron sulfate)(ferrous sulfate 325 mg (65 mg elemental iron) oral delayed release tablet), 1 tab(s), Oral, every other day, # 45 tab(s), 0 total refill(s), Maintenance, Pharmacy: [facility] [Last filled 09/30/24] 4. V itamin D deficiency See comments above. Will also prescribe Cholecalciferol 125 mcg for 3 months. - Repeat Vit D i n 3 months. 5. E sophageal reflux finding 64 y/o F w/ chronic hx of GERD with uncontrolled symptoms. Takes PPI twice daily with breakthrough symptoms. - Referral placed to GI for consultation. Ordered: Referral Request 2.0 - [facility] Orders: cholecalciferol(cholecalciferol 125 mcg (5000 intl units) oral capsule), 1 cap(s), Oral, Daily, with food, # 90 cap(s), 0 total refill(s), Maintenance, Pharmacy: [facility] [Last filled 09/30/24] Maj Nubia Lopez PA-C [facility] [address] [employer], [place] Extracted from:Title: 0055 [facility] virtual lab request/vertigo/lightheadedness Author: CRIS DURON NP Date: 09/11/24 1. L ightheadedness Occurs with exercise. She reports getting easily winded--especially when walking uphill. Denies hx?of asthma, heart issues. She has HTN that is reportedly well-controlled on HCTZ. BP this AM 129/76. She reports giving blood to [place] and was told she had Fe deficiency based on pinprick. She presents today with request for labs. She is due for annual visit and will schedule with PCM. - will check for anemia, iron deficiency - RTC for annual s/p lab completion + further workup of sxs 10 minutes total time spent on evaluation and management. Cris Duron R., Reji, [place] [address] Ordered: CBC w/ Diff Comprehensive Metabolic Panel Ferritin Hemoglobin A1c Iron Studies Panel Lipid Panel TSH w/ Reflex FT4 and Total T3 Vitamin D 25 Hydroxy Level 2. V ertigo O ccurs with position changes--from supine to standing. She believes it is due to getting old. Encouraged to RTC for accurate assessment/testing with provocative maneuvers. Extracted from:Title: 0055 [facility] MRI f/u Author: YENY PUENTES PA Date: 06/11/24 1. S houlder pain 63 Years-old F emale p resenting v irtually f or l ab r esults. Verified name and . Discussed the following findings: PLAN: - patient was already able to obtain copies of the MRI/x-ray - Patient has follow-up with her previous orthopedic doctor - She is currently doing the activities with her shoulder and minimizing any aggravating activities - Follow up in clinic: P RN - All questions answered. Patient verbalized understanding and expressed comfort with this plan. Yeny Puentes, 1st Lt, [place] [address] Extracted from:Title: Ambulatory Patient Education Author: YENY PUENTES PA Date: 04/30/24 Rotator Cuff Repair Rehabilitation These guidelines were created as a framework for the post-operative rehabilitation program. They DO NOT substitute for any specific restrictions or requirements that are determined through the necessary shared decision-making and collaboration between the operating surgeon and treating rehabilitation team. PHASE 1: Generally 0 to 5-8 Weeks Post-Op GOALS: 1) Control pain and swelling 2) Protect the surgical repair 3) Protect wound healing 4) Normal elbow/wrist ROM 5) PROM to 90# ABD and 90# FLEX for small and medium tears PRECAUTIONS: NO lifting NO push-ups or other sports participation NO supporting of body weight by hands NO AROM Sling AT ALL TIMES except while performing rehab exercises For subscapularis repair: ER limited at Ortho#s discretion ROM and SLING: Avoid gaining ROM too quickly by adhering to the following: Forward FLEX: table slides in hammer coordinate measuring machine technician only progress as pain allows Passive ER (i.e. with stick) per Ortho#s direction Modified pendulums; progress to full as tolerated Tear Size Sling Use Begin PROM Begin AROM Small 0 - 1 cm2 4 weeks Immediate 4 weeks Medium 1 - 3 cm2 6 weeks Immediate 6 weeks Large 3 - 5 cm2 6 - 8 weeks 6 - 8 weeks 8 weeks Massive > 5 cm2 6 - 8 weeks 6 - 8 weeks 8 weeks WOUND: Post-op dressing removed at PT eval Shower at post-op day #3 Submerge in water after wound is fully healed Suture removal @ 7-14 days post-op by Ortho MODALITIES: Cryotherapy Hourly for 15 minutes for the first 24 hours after sensation is restored from nerve block Continue use until acute inflammation is controlled Once controlled, use 3x per day for 15 minutes may use longer as tolerated Soft tissue mobilization, other integrative medicine techniques Soft tissue/trigger point work to the kinetic chain (i.e. cervical spine, scapula, and forearm) REHABILITATION: Frequent use of cryotherapy and/or ice Exercise prescription is dependent upon the tissue healing process and individual functional readiness in all stages. If any concerns or complications arise regarding the progress of any patient, PT should contact Ortho. Healing of the RC tendon(s) to the humerus can take 8-12 weeks As tolerated, progress rehabilitation exercises as wound healing occurs and the inflammatory response decreases ROM exercises: Shoulder PROM for small and medium tears only within listed ROM guidelines in non-impingement position (i.e. hammer coordinate measuring machine technician) Scapular retractions, shoulder shrugs, and scapular depressions Modified pendulums in sling; progress to full pendulums after 3-5 days Strengthening: Hand squeezing exercises Elbow/wrist AROM and coordinate measuring machine technician strengthening with shoulder in neutral position at side Gentle sub-maximal (#2-finger#) shoulder isometrics for shoulder FLEX, ADD, EXT, and ABD (no IR/ER) Cardiovascular training: Recumbent bike while wearing sling NO running or high-impact activity for aerobic training FOLLOW-UP: Supervised rehab: 1-2x per week PT re-eval: ~10-14 days Ortho re-eval: ~2 weeks PHASE 2: Generally 5-8 Weeks Post-Op GOALS: 1) AAROM for FLEX and ABD to 120# for small and medium tears 2) PROM for FLEX and ABD to 90# for large and massive tears 3) Progressing passive ER 4) Pain-free ADLs PRECAUTIONS: NO lifting > 10 lbs NO overhead motions Avoid impingement positions, moderate or higher level exertional activities with involved arm, and high impact aerobic training ROM and SLING: Wean from sling Progress ROM as tolerated REHABILITATION: ROM exercises Trunk stabilization (NWB) Scapular strengthening emphasizing scapular retractors and upward rotators Modalities PRN Cardiovascular training: continue recumbent bike; progress to elliptical (no push/pull with surgical arm) and/or treadmill walking Adjunct treatments to consider: dry needling, cervicothoracic manual therapy, aquatic walking with water at chest level or below (no UE movement or resistance; no swimming) FOLLOW-UP: Supervised rehab: 2-4x per week as needed PT re-eval: every 2 weeks Ortho re-eval: 6 weeks CRITERIA FOR PROGRESSION: Full ROM Minimal pain and pain-free ADLs D/C sling PHASE 3: Generally 9-16 weeks Post-Op GOALS: 1) Normal ROM in all planes 2) Initiate strength training 3) Running progression protocol as indicated PRECAUTIONS: - Minimize pain and any inflammatory response REHABILITATION: ROM exercises Trunk stabilization (FWB) Scapular strengthening emphasizing scapula retractions and upward rotators Initiate strengthening as ROM normalizes, starting with high reps/low loads progressing to low reps/high loads Modalities PRN Cardiovascular training: continue recumbent bike, elliptical, and/or treadmill walking; consider initiating a running progression Adjunct treatments to consider: dry needling, manual therapy to GH joint and cervicothoracic regions, aquatic walking with water at chest level or below (no UE movement or resistance; no swimming) FOLLOW-UP: Supervised rehab: 1-2x per week as needed PT re-eval: every 2 weeks Ortho re-eval: 12 weeks PHASE 4: Generally 4-6 Months Post-Op GOALS: 1) Pain-free ADLs 2) Shoulder strength equal bilaterally 3) Meet occupational requirements at 4-6 months 4) Pain-free functional/sports drills REHABILITATION: - Advanced specific, functional, and individualized training to achieve Phase 4 goals (i.e. lift, pull, carry, and climb in unloaded/loaded conditions) FOLLOW-UP: Supervised rehab: 1-2x per week as needed with gradual transition to home program PT re-eval: monthly Ortho re-eval: ~6 months post-op MISCELLANEOUS: Pass Service fitness test at 9-12 months Progress activities for return to sport/collision sports or aggressive training (i.e. airborne school) based on the patient#s functional performance and endurance. This time period will be directed by the Ortho Surgeon and the Physical Therapist. This may require between 6-12 months before cleared without restrictions. Extracted from:Title: 0055 [facility] 3mo R shoulder pain Author: YENY PUENTES PA Date: 04/30/24 1. S houlder pain 63 y /o F emale p resents with 3 -4 m os p ersistent shoulder?pain o n right side. Pt has hx of shoulder surgery for rotator cuff tear. Pt had p reviously completed PT but did not have much success. Pt will take Advil as needed. Pt states pain is similar to previous injury. Severity is 2 o ut of 10 at appointment; at worst 6 /10 pain. Pain r adiates to n antonia. Better with rest/arm at neutral position; worse with lateral arm raise. Pt reports no swelling, instability, locking, i nfection, or systemic joint process. Likely tendinopathy vs ligamentous injury. OA may be contributing to symptoms. -Discussed RICE treatment plan -Recommended Naproxen for pain -Referral to ortho -Continue with at home stretched learned from PT -Recommend avoiding painful positions/activities -Advised to go to ED of red flag symptoms occur (symptoms discussed with pt) -F/u in 1mo or sooner if symptoms worsen Yeny Puentes, 1Lt, [facility] [place] [address] Ordered: MRI Shoulder w/o Contrast Right XR Shoulder Complete 2+ Views Right 2. P rimary hypertension 63 y/o f emalewith hx of HTN. Currently well controlled. No firm evidence to suggest secondary hypertension. Denies any chest pain, vision changes, headaches, swelling in legs, or changes in urinary output. - No medication changes currently -Recommended continued home BP monitoring and validating monitor -Discussed importance of low salt <2g/day, BP control, and exercise (5x/week, 20-30 sustained) -Follow up in three months or sooner if needed (or if BP >180/120) Ordered: hydroCHLOROthiazide(hydroCHLORO thiazide 25 mg oral tablet), 1 tab(s), Oral, Daily, for blood pressure, # 90 tab(s), 3 total refill(s), Maintenance, 1 tab(s) Oral Daily,Instr:for blood pressure, Pharmacy: [facility] [Not filled] Extracted from:Title: 0055 [facility] Virtual BP f/u Author: YENY PUENTES PA Date: 04/08/24 1. P rimary hypertension 63 y /o F emale h ere for virtual appointment. Verified name and . Discussed the following: Currently n ot well controlled o n HCTZ 25mg o r amlodipine 10mg w ith at home cuffs. She states the wrist cuff was within r nedra but arm cuff was always high. N o firm evidence to suggest secondary hypertension. Denies any chest pain, vision changes, headaches, swelling in legs, or changes in urinary output. - No medication changes currently -Recommended continued home BP monitoring and validating monitor -Recommended 2 weeks B P check as discussed; bring in cuffs -Discussed importance of low salt <2g/day, BP control, and exercise (5x/week, 20-30 sustained) -Follow up in three months or sooner if needed (or if BP >180/120) Ordered: hydroCHLOROthiazide(hydroCHLORO thiazide 25 mg oral tablet), 1 tab(s), Oral, Daily, for blood pressure, # 90 tab(s), 0 total refill(s), Maintenance, 1 tab(s) Oral Daily,Instr:for blood pressure, Pharmacy: [facility] [Not filled] Extracted from:Title: 0055 [facility] BP f/u/Knee pain Author: YENY PUENTES PA Date: 01/14/24 1. P rimary hypertension 63 y /o m triston with hx of HTN. Currently well controlled. Pts at home BP cuff w as off compared to in-clinic BP machine. No firm evidence to suggest secondary hypertension. - N o medication changes currently -Recommended continued home BP monitoring and validating monitor -Recommended 1 month B P check as discussed with trialing different blood pressure monitors -Discussed importance of low salt <2g/day, BP control, and exercise (5x/week, 20-30 sustained) -Follow up in 3 months or sooner if c onsistently elevated above goal ( or if BP >180/120) Ordered: hydroCHLOROthiazide(hydroCHLORO thiazide 25 mg oral tablet), 1 tab(s), Oral, Daily, for blood pressure, # 90 tab(s), 0 total refill(s), Maintenance, 1 tab(s) Oral Daily,Instr:for blood pressure, Pharmacy: [facility] [Last filled 01/14/24] 2. K nee pain Pt c/o of increased L k nee pain over the last 2 wks. Pt states pain is 5-6/10 at worse. Worsens with physical activity (weeding or caring for grandchild). She states it usually improves with ice and rest. Pt denies any trauma or past hx of issue with knee pain. patient denies any locking/instability with her knee. No infectious process in the joint. -Discussed RICE treatment plan -RX Naproxen for painTo -Consider Physical therapy -Provided stretching/strengthening handout -Recommend avoiding painful positions/activities -Advised to go to ED of red flag symptoms occur (symptoms discussed with pt) -F/u in 1mo or sooner if symptoms worsen -Will consider imaging/X-rays ordered/MRI ordered -Will consider Steroid injection -Consider referral to Ortho for surgical eval Yeny Puentes, 1Lt, [facility] [address] Ordered: naproxen(naproxen 500 mg oral tablet), 1 tab(s), Oral, BID, Take BID as needeed for knee pain, # 60 tab(s), 0 total refill(s), Acute, 04/26/2024, 1 tab(s) Oral BID,Instr:Take BID as needeed for knee pain, Pharmacy: [facility] [Last filled 01/14/24] Orders: amLODIPine(amLODIPine 10 mg oral tablet), 1 tab(s), Oral, Daily, # 90 tab(s), 3 total refill(s), Maintenance, 1 tab(s) Oral Daily, Pharmacy: [facility] [Not filled] Extracted from:Title: 0055 [facility] Virtual BP f/u Author: YENY PUENTES PA Date: 12/10/23 1. P rimary hypertension [age] y/o f emale h ere for virtual appointment. Verified name and . Discussed the following: Pts BP is currently n ot well controlled. Pts at home B P has been around 120-135/80-90. Pt states N o firm evidence to suggest secondary hypertension. - w ill change medication to 2 5mg hydrochlorothiazide -Recommended continued home BP monitoring and validating monitor -Recommended 2 weeks B P check as discussed -Discussed importance of low salt <2g/day, BP control, and exercise (5x/week, 20-30 sustained) -Follow up in three months or sooner if needed (or if BP >180/120) Ordered: hydroCHLOROthiazide(hydroCHLORO thiazide 25 mg oral tablet), 1 tab(s), Oral, Daily, for blood pressure, # 30 tab(s), 0 total refill(s), Maintenance, 1 tab(s) Oral Daily,Instr:for blood pressure, Pharmacy: [facility] [Not filled] 2. A llergic rhinitis Chronic condition. Well controlled. No other concerns. -Will continue current medication regimen -f/u as needed Ordered: azelastine nasal(azelastine 137 mcg/inh (0.1%) nasal spray), See Instructions, 1 spray(s) in each nostril daily, # 3 EA, 3 total refill(s), Maintenance, 1 spray(s) in each nostril daily, 1 spray(s) in each nostril daily, Pharmacy: [facility] [Not filled] Extracted from:Title: 0055 [facility] HTN f/u Author: YENY PUENTES PA Date: 10/26/23 1. P rimary hypertension 63 y /o f emale w ith hx of HTN. Currently well controlled. No firm evidence to suggest secondary hypertension. Pt had a few random elevations in at home l evels but feels its user error with new BP cuff. - N o medication changes currently -Recommended continued home BP monitoring and validating monitor -Recommended 1 month B P check as discussed; if elevated check over next few days (return sooner if consistently high) -Discussed importance of low salt <2g/day, BP control, and exercise (5x/week, 20-30 sustained) -Follow up in 1 months or sooner if needed (or if BP >180/120) Orders: hydroCHLOROthiazide(hydroCHLORO thiazide 12.5 mg oral tablet), 1 tab(s), Oral, Daily, for blood pressure, # 45 tab(s), 0 total refill(s), Maintenance, 1 tab(s) Oral Daily,Instr:for blood pressure, Pharmacy: [facility] [Not filled] Extracted from:Title: Ambulatory Patient Education Author: DEREK LU Date: 01/27/23 Future Appointments Appointment Date: 04/03/2025 08:40:00 AM Scheduled Provider: TIAGO LOPEZ PA, Family Medicine Location: [address] [place] [address] Appointment Type: [facility] Future Scheduled TestsLaboratoryIron Studies Panel 03/27/25Ferritin 03/27/25CBC w/ Diff 03/27/25 03/12/[address] [place] [address] [facility] Assessment and Plan Extracted from:Title : 0055 [facility] - ER Follow Up-RLQ Pain Author: TIAGO LOPEZ PA, Family Medicine Date: 02/24/25 1. R ight lower quadrant pain [age]-year-old female went to the emergency department approximately 1 to 2 days ago due to s evere right lower quadrant pain o jerri the past 3 to 4 days. S tates that she noticed m ild pain to right lower quadrant that lasted approximate 20 minutes S at morning a nd then it recurred again later that evening which had her i n excruciating pain. Pain subsided but then reemerged following day on Sunday which made patient go to the e mergency department. P atient had l abs and imaging done which did not show any evidence of n ephrolithiasis, c ystitis, a nd no appendicitis due to history of appendectomy. Patient was discharged with diagnosis of possible i ntestinal spasm a nd prescribed a ntispasmodic medication, w hich has seemed to help with symptoms. Acute. No acute abdomen sxs. No evidence of pancreatitis, cholecystitis, cholangitis, hepatitis?on work up. L ower suspicion for appendicitis due to hx of appendectomy. N o melena to suggest gastric ulcer. No evidence of acute bowel obstruction. N ot likely acute cystitis, or pyelonephritis. Low suspicion for ACS. No pulmonary sxs on hx or exam to suggest PNA. - Reassured pt no signs of surgical abdomen and continue to monitor. Most likely due to stool burden, m ild constipation. - ED precautions discussed. -Follow-up as needed. Maj Nubia Lopez PA-C [facility] [address] [employer], [place] Extracted from:Title: 0055 [facility] - Medication Refill/Referral Author: TIAGO LOPEZ PA, Family Medicine Date: 12/25/24 1. E ncounter for issue of repeat prescription Chronic and stable. Pt requesting refill of medications. - Prescriptions refilled and placed to [facility] for activation. 2. S plenic artery aneurysm 64-year-old female with incidental finding of splenic artery aneurysm and following impression on CTA: Splenic artery aneurysm corresponding t o finding on comparison lumbar radiographs. - Referral placed to Vascular for consult. YADIRA FinchC [facility] [address] [place], [place] Extracted from:Title: 0055 B[facility] - AWE/PARDEEP Author: TIAGO LOPEZ PA, Family Medicine Date: 09/30/24 1. E ncounter for general adult medical examination with abnormal findings P revention: - 10yr ASCVD risk: n /a - C olonoscopy: U TD - L jonny Cancer: Non-smoker/no prior hx. N /A - V accinations: D UE - M ammo: D UE O rdered and advised to go to Radiology to schedule - P ap Smear: U TD - L abs: r eviewed;unremarkable kidney/liver function - C ounseled with regards to healthy eating habits, adequate sleep, adequate exercise, alcohol moderation, to abstain from smoking. Diet: The [employer] recommends a diet with a high intake of vegetables, fruits, and whole grains. A dditional recommendations include consuming low-fat dairy products, fish, lean meats, legumes, non-tropical vegetable oils, and nuts; and limiting intake of sweets, sugar-sweetened beverages, and red meat. [employer] Exercise recommendation for adults (overall cardiovascular health): At least 30 minutes of moderate-intensity aerobic activity at least 5 days per week for a total of 150 minutes/week or 25 minutes of vigorous-intensity aerobic activity at least 3 days per week for a total of 75 minutes/week. - C ounseled in regards to recommended daily requirements of calcium and vitamin D. - R ecommended annual flu shot and tetanus as needed. - A dvised to wear seatbelt and use sunscreen. - R ecommended annual dental and optometry exams. 2. E ncounter for screening mammogram for malignant neoplasm of breast [age] y/o F due for annual mammogram screening. - Order placed and advised to schedule with Radiology. Ordered: MG Mammo Miller Screening Bilateral 3. I DA - Iron deficiency anemia Patient states that she has been experiencing lightheadedness/dizziness for the past few months?and recently w hen attempting to donate blood, was t old that her iron levels were low via fingerstick test. Recent labs show patient h as iron deficiency anemia a nd low on vitamin D. Hemoglobin at 9.8 and ferritin -- Will prescribe ferrous sulfate 325 mg x 3 mo -- Repeat CBC/iron panel in 3 mo Discussed and encouraged the following: -Iron-rich foods include red meat; poultry; fish (all heme iron sources, best absorbed); and iron-fortified breads/cereals, lentils, beans, dark green vegetables, and raisins (all non-heme iron sources, less well absorbed. -Foods and beverages containing ascorbic acid (vitamin C) enhance iron absorption when taken simultaneously such as a glass of orange juice or citrus fruit. -Avoid milk or dairy products within 2 hours of iron tablet ingestion -Limit milk to 16 oz/day (adults). -Increase fluid and dietary fiber to decrease likelihood of constipation. Medication possible reactions to iron supplements discussed: -- Constipation will occur in ~1/4 of patients. Consider a stool softener along with iron. --Medications that reduce gastric acid secretion such as proton pump inhibitors and H2 antagonists reduce iron absorption. Ordered: ferrous sulfate (iron sulfate)(ferrous sulfate 325 mg (65 mg elemental iron) oral delayed release tablet), 1 tab(s), Oral, every other day, # 45 tab(s), 0 total refill(s), Maintenance, Pharmacy: [facility] [Last filled 09/30/24] 4. V itamin D deficiency See comments above. Will also prescribe Cholecalciferol 125 mcg for 3 months. - Repeat Vit D i n 3 months. 5. E sophageal reflux finding 64 y/o F w/ chronic hx of GERD with uncontrolled symptoms. Takes PPI twice daily with breakthrough symptoms. - Referral placed to GI for consultation. Ordered: Referral Request 2.0 - [facility] Orders: cholecalciferol(cholecalciferol 125 mcg (5000 intl units) oral capsule), 1 cap(s), Oral, Daily, with food, # 90 cap(s), 0 total refill(s), Maintenance, Pharmacy: [facility] [Last filled 09/30/24] YADIRA FinchC [facility] [address], [place] Extracted from:Title: 0055 [facility] virtual lab request/vertigo/lightheadedness Author: CRIS DURON NP Date: 09/11/24 1. L ightheadedness Occurs with exercise. She reports getting easily winded--especially when walking uphill. Denies hx?of asthma, heart issues. She has HTN that is reportedly well-controlled on HCTZ. BP this AM 129/76. She reports giving blood to [place] and was told she had Fe deficiency based on pinprick. She presents today with request for labs. She is due for annual visit and will schedule with PCM. - will check for anemia, iron deficiency - RTC for annual s/p lab completion + further workup of sxs 10 minutes total time spent on evaluation and management. Cris Duron R., [place] [address] Ordered: CBC w/ Diff Comprehensive Metabolic Panel Ferritin Hemoglobin A1c Iron Studies Panel Lipid Panel TSH w/ Reflex FT4 and Total T3 Vitamin D 25 Hydroxy Level 2. V ertigo O ccurs with position changes--from supine to standing. She believes it is due to getting old. Encouraged to RTC for accurate assessment/testing with provocative maneuvers. Extracted from:Title: 0055 [facility] MRI f/u Author: YENY PUENTES PA Date: 06/11/24 1. S houlder pain 63 Years-old F emale p resenting v irtually f or l ab r esults. Verified name and . Discussed the following findings: PLAN: - patient was already able to obtain copies of the MRI/x-ray - Patient has follow-up with her previous orthopedic doctor - She is currently doing the activities with her shoulder and minimizing any aggravating activities - Follow up in clinic: P RN - All questions answered. Patient verbalized understanding and expressed comfort with this plan. Yeny Puentes, 1st Lt, [place] [address] Extracted from:Title: Ambulatory Patient Education Author: YENY PUENTES PA Date: 04/30/24 Rotator Cuff Repair Rehabilitation These guidelines were created as a framework for the post-operative rehabilitation program. They DO NOT substitute for any specific restrictions or requirements that are determined through the necessary shared decision-making and collaboration between the operating surgeon and treating rehabilitation team. PHASE 1: Generally 0 to 5-8 Weeks Post-Op GOALS: 1) Control pain and swelling 2) Protect the surgical repair 3) Protect wound healing 4) Normal elbow/wrist ROM 5) PROM to 90# ABD and 90# FLEX for small and medium tears PRECAUTIONS: NO lifting NO push-ups or other sports participation NO supporting of body weight by hands NO AROM Sling AT ALL TIMES except while performing rehab exercises For subscapularis repair: ER limited at Ortho#s discretion ROM and SLING: Avoid gaining ROM too quickly by adhering to the following: Forward FLEX: table slides in hammer coordinate measuring machine technician only progress as pain allows Passive ER (i.e. with stick) per Ortho#s direction Modified pendulums; progress to full as tolerated Tear Size Sling Use Begin PROM Begin AROM Small 0 - 1 cm2 4 weeks Immediate 4 weeks Medium 1 - 3 cm2 6 weeks Immediate 6 weeks Large 3 - 5 cm2 6 - 8 weeks 6 - 8 weeks 8 weeks Massive > 5 cm2 6 - 8 weeks 6 - 8 weeks 8 weeks WOUND: Post-op dressing removed at PT eval Shower at post-op day #3 Submerge in water after wound is fully healed Suture removal @ 7-14 days post-op by Ortho MODALITIES: Cryotherapy Hourly for 15 minutes for the first 24 hours after sensation is restored from nerve block Continue use until acute inflammation is controlled Once controlled, use 3x per day for 15 minutes may use longer as tolerated Soft tissue mobilization, other integrative medicine techniques Soft tissue/trigger point work to the kinetic chain (i.e. cervical spine, scapula, and forearm) REHABILITATION: Frequent use of cryotherapy and/or ice Exercise prescription is dependent upon the tissue healing process and individual functional readiness in all stages. If any concerns or complications arise regarding the progress of any patient, PT should contact Ortho. Healing of the RC tendon(s) to the humerus can take 8-12 weeks As tolerated, progress rehabilitation exercises as wound healing occurs and the inflammatory response decreases ROM exercises: Shoulder PROM for small and medium tears only within listed ROM guidelines in non-impingement position (i.e. hammer coordinate measuring machine technician) Scapular retractions, shoulder shrugs, and scapular depressions Modified pendulums in sling; progress to full pendulums after 3-5 days Strengthening: Hand squeezing exercises Elbow/wrist AROM and coordinate measuring machine technician strengthening with shoulder in neutral position at side Gentle sub-maximal (#2-finger#) shoulder isometrics for shoulder FLEX, ADD, EXT, and ABD (no IR/ER) Cardiovascular training: Recumbent bike while wearing sling NO running or high-impact activity for aerobic training FOLLOW-UP: Supervised rehab: 1-2x per week PT re-eval: ~10-14 days Ortho re-eval: ~2 weeks PHASE 2: Generally 5-8 Weeks Post-Op GOALS: 1) AAROM for FLEX and ABD to 120# for small and medium tears 2) PROM for FLEX and ABD to 90# for large and massive tears 3) Progressing passive ER 4) Pain-free ADLs PRECAUTIONS: NO lifting > 10 lbs NO overhead motions Avoid impingement positions, moderate or higher level exertional activities with involved arm, and high impact aerobic training ROM and SLING: Wean from sling Progress ROM as tolerated REHABILITATION: ROM exercises Trunk stabilization (NWB) Scapular strengthening emphasizing scapular retractors and upward rotators Modalities PRN Cardiovascular training: continue recumbent bike; progress to elliptical (no push/pull with surgical arm) and/or treadmill walking Adjunct treatments to consider: dry needling, cervicothoracic manual therapy, aquatic walking with water at chest level or below (no UE movement or resistance; no swimming) FOLLOW-UP: Supervised rehab: 2-4x per week as needed PT re-eval: every 2 weeks Ortho re-eval: 6 weeks CRITERIA FOR PROGRESSION: Full ROM Minimal pain and pain-free ADLs D/C sling PHASE 3: Generally 9-16 weeks Post-Op GOALS: 1) Normal ROM in all planes 2) Initiate strength training 3) Running progression protocol as indicated PRECAUTIONS: - Minimize pain and any inflammatory response REHABILITATION: ROM exercises Trunk stabilization (FWB) Scapular strengthening emphasizing scapula retractions and upward rotators Initiate strengthening as ROM normalizes, starting with high reps/low loads progressing to low reps/high loads Modalities PRN Cardiovascular training: continue recumbent bike, elliptical, and/or treadmill walking; consider initiating a running progression Adjunct treatments to consider: dry needling, manual therapy to GH joint and cervicothoracic regions, aquatic walking with water at chest level or below (no UE movement or resistance; no swimming) FOLLOW-UP: Supervised rehab: 1-2x per week as needed PT re-eval: every 2 weeks Ortho re-eval: 12 weeks PHASE 4: Generally 4-6 Months Post-Op GOALS: 1) Pain-free ADLs 2) Shoulder strength equal bilaterally 3) Meet occupational requirements at 4-6 months 4) Pain-free functional/sports drills REHABILITATION: - Advanced specific, functional, and individualized training to achieve Phase 4 goals (i.e. lift, pull, carry, and climb in unloaded/loaded conditions) FOLLOW-UP: Supervised rehab: 1-2x per week as needed with gradual transition to home program PT re-eval: monthly Ortho re-eval: ~6 months post-op MISCELLANEOUS: Pass Service fitness test at 9-12 months Progress activities for return to sport/collision sports or aggressive training (i.e. airborne school) based on the patient#s functional performance and endurance. This time period will be directed by the Ortho Surgeon and the Physical Therapist. This may require between 6-12 months before cleared without restrictions. Extracted from:Title: 0055 [facility] 3mo R shoulder pain Author: YENY PUENTES PA Date: 04/30/24 1. S houlder pain 63 y /o F emale p resents with 3 -4 m os p ersistent shoulder?pain o n right side. Pt has hx of shoulder surgery for rotator cuff tear. Pt had p reviously completed PT but did not have much success. Pt will take Advil as needed. Pt states pain is similar to previous injury. Severity is 2 o ut of 10 at appointment; at worst 6 /10 pain. Pain r adiates to n antonia. Better with rest/arm at neutral position; worse with lateral arm raise. Pt reports no swelling, instability, locking, i nfection, or systemic joint process. Likely tendinopathy vs ligamentous injury. OA may be contributing to symptoms. -Discussed RICE treatment plan -Recommended Naproxen for pain -Referral to ortho -Continue with at home stretched learned from PT -Recommend avoiding painful positions/activities -Advised to go to ED of red flag symptoms occur (symptoms discussed with pt) -F/u in 1mo or sooner if symptoms worsen Yeny Puentes, 1Lt, [facility] [place] [address] Ordered: MRI Shoulder w/o Contrast Right XR Shoulder Complete 2+ Views Right 2. P rimary hypertension 63 y/o f emalewith hx of HTN. Currently well controlled. No firm evidence to suggest secondary hypertension. Denies any chest pain, vision changes, headaches, swelling in legs, or changes in urinary output. - No medication changes currently -Recommended continued home BP monitoring and validating monitor -Discussed importance of low salt <2g/day, BP control, and exercise (5x/week, 20-30 sustained) -Follow up in three months or sooner if needed (or if BP >180/120) Ordered: hydroCHLOROthiazide(hydroCHLORO thiazide 25 mg oral tablet), 1 tab(s), Oral, Daily, for blood pressure, # 90 tab(s), 3 total refill(s), Maintenance, 1 tab(s) Oral Daily,Instr:for blood pressure, Pharmacy: [facility] [Not filled] Extracted from:Title: 0055 [facility] Virtual BP f/u Author: YENY PUENTES PA Date: 04/08/24 1. P rimary hypertension 63 y /o F emale h ere for virtual appointment. Verified name and . Discussed the following: Currently n ot well controlled o n HCTZ 25mg o r amlodipine 10mg w ith at home cuffs. She states the wrist cuff was within r nedra but arm cuff was always high. N o firm evidence to suggest secondary hypertension. Denies any chest pain, vision changes, headaches, swelling in legs, or changes in urinary output. - No medication changes currently -Recommended continued home BP monitoring and validating monitor -Recommended 2 weeks B P check as discussed; bring in cuffs -Discussed importance of low salt <2g/day, BP control, and exercise (5x/week, 20-30 sustained) -Follow up in three months or sooner if needed (or if BP >180/120) Ordered: hydroCHLOROthiazide(hydroCHLORO thiazide 25 mg oral tablet), 1 tab(s), Oral, Daily, for blood pressure, # 90 tab(s), 0 total refill(s), Maintenance, 1 tab(s) Oral Daily,Instr:for blood pressure, Pharmacy: [facility] [Not filled] Extracted from:Title: 0055 [facility] BP f/u/Knee pain Author: YENY PUENTES PA Date: 01/14/24 1. P rimary hypertension 63 y /o m triston with hx of HTN. Currently well controlled. Pts at home BP cuff w as off compared to in-clinic BP machine. No firm evidence to suggest secondary hypertension. - N o medication changes currently -Recommended continued home BP monitoring and validating monitor -Recommended 1 month B P check as discussed with trialing different blood pressure monitors -Discussed importance of low salt <2g/day, BP control, and exercise (5x/week, 20-30 sustained) -Follow up in 3 months or sooner if c onsistently elevated above goal ( or if BP >180/120) Ordered: hydroCHLOROthiazide(hydroCHLORO thiazide 25 mg oral tablet), 1 tab(s), Oral, Daily, for blood pressure, # 90 tab(s), 0 total refill(s), Maintenance, 1 tab(s) Oral Daily,Instr:for blood pressure, Pharmacy: [facility] [Last filled 01/14/24] 2. K nee pain Pt c/o of increased L k nee pain over the last 2 wks. Pt states pain is 5-6/10 at worse. Worsens with physical activity (weeding or caring for grandchild). She states it usually improves with ice and rest. Pt denies any trauma or past hx of issue with knee pain. patient denies any locking/instability with her knee. No infectious process in the joint. -Discussed RICE treatment plan -RX Naproxen for painTo -Consider Physical therapy -Provided stretching/strengthening handout -Recommend avoiding painful positions/activities -Advised to go to ED of red flag symptoms occur (symptoms discussed with pt) -F/u in 1mo or sooner if symptoms worsen -Will consider imaging/X-rays ordered/MRI ordered -Will consider Steroid injection -Consider referral to Ortho for surgical Yeny White, 1Lt, P A-[facility] [place] [address] Ordered: naproxen(naproxen 500 mg oral tablet), 1 tab(s), Oral, BID, Take BID as needeed for knee pain, # 60 tab(s), 0 total refill(s), Acute, 04/26/2024, 1 tab(s) Oral BID,Instr:Take BID as needeed for knee pain, Pharmacy: [facility] [Last filled 01/14/24] Orders: amLODIPine(amLODIPine 10 mg oral tablet), 1 tab(s), Oral, Daily, # 90 tab(s), 3 total refill(s), Maintenance, 1 tab(s) Oral Daily, Pharmacy: [facility] [Not filled] Extracted from:Title: 0055 [facility] Virtual BP f/u Author: YENY PUENTES PA Date: 12/10/23 1. P rimary hypertension [age] y/o f emale h ere for virtual appointment. Verified name and . Discussed the following: Pts BP is currently n ot well controlled. Pts at home B P has been around 120-135/80-90. Pt states N o firm evidence to suggest secondary hypertension. - w ill change medication to 2 5mg hydrochlorothiazide -Recommended continued home BP monitoring and validating monitor -Recommended 2 weeks B P check as discussed -Discussed importance of low salt <2g/day, BP control, and exercise (5x/week, 20-30 sustained) -Follow up in three months or sooner if needed (or if BP >180/120) Ordered: hydroCHLOROthiazide(hydroCHLORO thiazide 25 mg oral tablet), 1 tab(s), Oral, Daily, for blood pressure, # 30 tab(s), 0 total refill(s), Maintenance, 1 tab(s) Oral Daily,Instr:for blood pressure, Pharmacy: [facility] [Not filled] 2. A llergic rhinitis Chronic condition. Well controlled. No other concerns. -Will continue current medication regimen -f/u as needed Ordered: azelastine nasal(azelastine 137 mcg/inh (0.1%) nasal spray), See Instructions, 1 spray(s) in each nostril daily, # 3 EA, 3 total refill(s), Maintenance, 1 spray(s) in each nostril daily, 1 spray(s) in each nostril daily, Pharmacy: [facility] [Not filled] Extracted from:Title: 0055 [facility] HTN f/u Author: YENY PUENTES PA Date: 10/26/23 1. P rimary hypertension 63 y /o f emale w ith hx of HTN. Currently well controlled. No firm evidence to suggest secondary hypertension. Pt had a few random elevations in at home l evels but feels its user error with new BP cuff. - N o medication changes currently -Recommended continued home BP monitoring and validating monitor -Recommended 1 month B P check as discussed; if elevated check over next few days (return sooner if consistently high) -Discussed importance of low salt <2g/day, BP control, and exercise (5x/week, 20-30 sustained) -Follow up in 1 months or sooner if needed (or if BP >180/120) Orders: hydroCHLOROthiazide(hydroCHLORO thiazide 12.5 mg oral tablet), 1 tab(s), Oral, Daily, for blood pressure, # 45 tab(s), 0 total refill(s), Maintenance, 1 tab(s) Oral Daily,Instr:for blood pressure, Pharmacy: [facility] [Not filled] Extracted from:Title: Ambulatory Patient Education Author: DEREK LU Date: 01/27/23 Future Appointments Appointment Date: 04/03/2025 08:40:00 AM Scheduled Provider: TIAGO LOPEZ PA, Family Medicine Location: [address] [place] [address] Appointment Type: DEBBIE FTR Future Scheduled TestsLaboratoryIron Studies Panel 03/27/25Ferritin 03/27/25CBC w/ Diff 03/27/25 03/12/2025 Unknown Organization Functional Status Combined list of recent functional and cognitive assessments recorded at [facility] [employer] [facility] ([facility]VA Functional [place] Measurement (FIM) Scale: 1 = Total Assistance (Subject = 0% +), 2 = Maximal Assistance (Subject = 25% +), 3 = Moderate Assistance (Subject = 50% +), 4 = Minimal Assistance (Subject = 75% +), 5 = Supervision, 6 = Modified [place] (Device), 7 = Complete [place] (Timely, Safely). Assessment Date/Time Source Assessment Type Assessment Skill Assessment Score Assessment Details No data available for this section
--- OUTSIDE RECORDS SUMMARY | 2025-03-12 02:27 | XMS_ITS | Data Portability ---
Author Organization [place] - [facility] , [facility] Address [address] [place] [address] Assessment Encounter Date Assessment Date Assessment LastModified by Organization Details LastModified Time 07/14/2024 07/14/2024 Provided counseling/treatme nt recommendations as noted below: Education provided on relevant diagnosis Medication Options: DD: benign positional vertigo, labyrinthitis, meniere's disease A: Benign positional vertigo suspected due to sudden onset of symptoms and worse with position changes. -Patient is informed that since she does not have a blood pressure cuff at home I am unable to determine if her symptoms are related to blood pressure Limited examination today with inability to view ear canals and TMs with possibility of eustachian tube dysfunction and/or otitis media discussed with patient-Patient will need to increase fluid intake and rest while symptomatic P: Meclizine 25 mg every 6 hours as needed for dizziness.Do not drive, climb ladders or operate any heavy machinery until your symptoms are gone for at least 12 hours. Follow up with your doctor in 3-5 days if not better. -Take medication as prescribed -If symptoms worsen call 911, report to the emergency department for further evaluation, management, and treatment -Patient instructed to follow up with her PCP for continued symptoms -Counseled on the importance of follow up if symptoms not improving with recommended treatment plan. Patient to be seen for repeat evaluation if symptoms worsen, counseled on red flag symptoms to indicate need for emergent follow up. Patient expressed understanding and agreement with the treatment plan as outlined. [email or web address] Not available 07/14/2024 11:34:37 Plan of Treatment Reminders Order Date Submit Date Provider Last Modified By Organization Details Last Modified Time Details Appointments None recorded. Lab None recorded. Referral None recorded. Procedures None recorded. Surgeries None recorded. Imaging None recorded. Medication Orders meclizine 25 mg tablet 2023 [id number], [address], [place], [place], [phone], 11:33:04 Patient TargetsNo targets recorded. Patient InstructionsNo instructions recorded. Reason for Referral None Reported. Medical Equipment None Reported. Allergies Allergen ID Allergen Name Allergen Category Reaction Reaction Severity Criticality Documentation Date Start Date Code Code System Note Provider Name and Address Organization Details Recorded Time 92576 grass pollen environme nt,medica tion Not available Not available Not available 07/14/2024 51486 UNK Not Available [facility] [place] 10:35:24 Medications Name Sig Start Date Stop Date Status Note LastModified by Organization Details LastModified Time meclizine 25 mg tablet Take 1 tablet every 8 hours by oral route as needed, for dizzine ss. 2023 active Not Available Not Available Not Avai lable hydrochlorothia zide active Not Available Not Available Not Available amlodipine active Not Available Not Av ailable Not Available Prilosec active Not Available Not Avai lable Not Available cetirizine 10 mg capsule active ADDED BY PATIEN T: 2x daily Not Available Not Available Not Available calcium 1,000 mg (as calcium carbonate 2,500 mg) effervescent tablet Take by oral route. active Not Available Not Available No t Available Vitals None Recorded Social History None recorded. Functional Status None recorded. Mental Status None recorded. Family History Nothing Reported. Medical History No medical history recorded. Gynecological HistoryNo gynecological history recorded. Obstetrics History GPAL:G 0 P 0 0 0 0 Past Encounters Encounter ID Performer Location Encounter Start Date Encounter Closed Date Diagnosis/Indication Diagnosis SNOMED-CT Code Diagnosis ICD10 Code Diagnosis Note [id number] SANDEEP Urias [facility] [address] [place] [address] 07/14/2024 11:23:23 07/14/2024 17:33:10 Vertigo 510223689 R42 Health Concerns Section Related Observation LastModified by Organization Detai ls LastModified Time None Recorded Concern Status LastModified by Organization Details LastModified Time None Recorded Advance Directives Directive None Recorded Payers Insurance Date Sequence Insurance Name Policy Number Policy Lee Covered Member ID Lee Member ID Guarantor Name 07/14/2024 1 *SELF PAY* Mounika Beach [id number] Mounika Beach 07/14/2024 1 *SELF PAY* Christie [place] 07/31/2024 1 [employer] - () [address] [place] [id number] [place] 07/14/2024 [employer] [facility] [address] [place] [id number] Mounika Beach 07/14/2024 2 *SELF PAY* [address] [place] [id number] Mounika Beach Notes Date Note Type Note Provider Name and Address Organization Details Recorded Time 07/14/2024 text/html Call connected, patient greeted. Patient name, , telephone number and location verified verbally with the patient. Telemedicine limitations reviewed, answered all questions the patient had about the telehealth interaction, and verbal consent obtained to treat. Clinician attests they are physically located in the following state at the time of visit: [place] CC:dizziness HPI:63 year old female patient presents today for dizziness, nausea starting yesterday. Patient admits to improvement in nausea since onset but the dizziness has worsened today. Dizziness occurs with any movement.OTC/presc ription medications and/or at home treatments include: prilosec, alena seltzer, sudafed, flonase, zyrtec, azelastine sprayPatient denies: headaches, changes to vision, ear pain, chest pain, fatigue SANDEEP Urias [address], [place], [address], [facility] 07/14/2024 11:36:00 OBGyn Episode No OBEpisode recorded.
[2025-03-12 08:01] VITALS: BP 138/77; PULSE 79; RESP 16; TEMP 36.6; O2SAT 99
[2025-03-12] MEDS: LACTATED RINGERS 1,000 ML 150 ML IV CONT (08:14)
[2025-03-12] MEDS: SIMETHICONE ORAL SUSPENSION 20 MG/0.3 ML 30 ML BOTTLE 1.8 ML PO (08:15)
--- NOTE | 2025-03-12 08:49 | PM.IMHP ---
H&P: HPI History of Present Illness Date/Time: 03/12/25 08:49 Chief Complaint: GERD Narrative: this patient is suffering from GERD for more than a decade, and has recently been prescribed higher dose of omeprazole, from 20-40 mg once a day with which she has experienced some relief. However, she continued to have a sensation of phlegm in the back of her throat and some cough episodes as well as burping. She is referred for EGD. Review of Systems Review of Systems: All systems reviewed & are unremarkable except as noted in HPI and below PMFSH Past Medical History Medical History Chronic cough Impingement of right shoulder Rotator cuff tendinitis GERD (gastroesophageal reflux disease) Hypertension Hearing loss Headache Subscapularis tendinitis of right shoulder Surgical History Surgical History History of appendectomy Labral tear of long head of right biceps tendon Family History Family History Other Cancer Hypertension Social History Social History Smoking status: Never smoker Alcohol intake: current Drinks per week: 1 Substance use: never Substance use type: does not use Living arrangements: with family Gender identity (if verbalized by the patient): Female Spiritual care concerns: No Meds Home Medications and Allergies Home Medications ?Medication ?Instructions ?Recorded ?Confirmed ?Type gabapentin 600 mg tablet 600 mg PO QPM 09/23/19 03/12/25 History calcium carbonate (Calcium 600) 600 mg PO DAILY 10/09/19 03/12/25 History vit C 250 mg-vit E 200 unit-zinc 1 cap PO BID 10/09/19 03/12/25 History ox 12.5 ep-rrwrje-hgboie-zeax capsule (ICaps AREDS2) azelastine 137 mcg (0.1 %) nasal 1 mcg intranasal DIRECTED 05/10/21 03/12/25 History spray fluticasone propionate 50 2 spray intranasal DAILY 05/10/21 03/12/25 History mcg/actuation nasal spray,suspension cetirizine 5 mg tablet 5 mg PO BID 10/10/21 03/12/25 History cephalexin 250 mg capsule 250 mg PO DAILY PRN other 12/05/22 03/12/25 History amlodipine 5 mg tablet 10 mg PO DAILY 04/03/23 03/12/25 History cholecalciferol (vitamin D3) 10 10 mcg PO DAILY 11/03/24 03/12/25 History mcg (400 unit) capsule famotidine 40 mg tablet 40 mg PO DAILY 11/03/24 03/12/25 History montelukast 10 mg tablet 10 mg PO DAILY 11/03/24 03/12/25 History multivitamin with iron (Daily 1 tablet PO DAILY 11/03/24 03/12/25 History Vitamin with Iron tablet) omeprazole 40 mg capsule,delayed 40 mg PO BID 3 months #180 caps 11/03/24 03/12/25 Rx release dicyclomine 20 mg tablet 20 mg PO TID PRN abdominal pain 02/22/25 03/12/25 Rx #20 tabs ferrous sulfate 325 mg (65 mg 325 mg PO DAILY 02/22/25 03/12/25 History iron) tablet (FeroSul) hydrochlorothiazide 25 mg tablet 25 mg PO DAILY 02/22/25 03/12/25 History Allergies Allergy/AdvReac Type Severity Reaction Status Date / Time No Known Allergies Allergy Verified 03/12/25 07:58 Vital Signs Vital Signs - 24 hr 03/12/25 08:01 Temperature 97.9 F Pulse Rate 79 Respiratory Rate 16 Blood Pressure 138/77 Pulse Oximetry 99 Oxygen Delivery Room Air Exam Const: General: cooperative and healthy appearing Resp: Effort & Inspection: normal respiratory effort and able to speak in complete sentences Auscultation: clear to auscultation bilaterally Cardio: Rate: regular rate Rhythm: regular rhythm GI: Inspection: normal to inspection GI Palp: No No hepatosplenomegaly present Auscultation: normal bowel sounds Rectal Exam: deferred Skin: General skin exam: normal color Psych: Appearance: grossly normal Mental Status: mental status grossly normal Assessment and Plan Assessment and plan (1) GERD (gastroesophageal reflux disease): Code(s): K21.9 - Gastro-esophageal reflux disease without esophagitis Status: Acute Assessment and Plan: The patient is deemed a good candidate for the procedure. Consent signed. Will proceed.
--- NOTE | 2025-03-12 08:49 | WPDANESEPPF ---
Anes - Initial Pre Proc Eval Procedure: Operation Date: 03/12/25 09:00 Proposed Procedures p Esophagogastroduodenoscopy EGD - Braydon Bruce MD Date/Time: 03/12/25 08:49 Surgeon: Braydon Bruce MD Pre Op Diagnosis: GERD Patient Data Age: 64 Gender: F Height: 1.75 m Weight: 84 kg Last Vital Signs Temp 97.9 F 03/12/25 08:01 Pulse 79 03/12/25 08:01 Resp 16 03/12/25 08:01 BP 138/77 03/12/25 08:01 Pulse Ox 99 03/12/25 08:01 O2 Del Method Room Air 03/12/25 08:01 Allergies Allergy/AdvReac Type Severity Reaction Status Date / Time No Known Allergies Allergy Verified 03/12/25 07:58 Home Medications ?Medication ?Instructions ?Recorded ?Confirmed ?Type gabapentin 600 mg tablet 600 mg PO QPM 09/23/19 03/12/25 History calcium carbonate (Calcium 600) 600 mg PO DAILY 10/09/19 03/12/25 History vit C 250 mg-vit E 200 unit-zinc 1 cap PO BID 10/09/19 03/12/25 History ox 12.5 ik-rjmwfh-euktjx-zeax capsule (ICaps AREDS2) azelastine 137 mcg (0.1 %) nasal 1 mcg intranasal DIRECTED 05/10/21 03/12/25 History spray fluticasone propionate 50 2 spray intranasal DAILY 05/10/21 03/12/25 History mcg/actuation nasal spray,suspension cetirizine 5 mg tablet 5 mg PO BID 10/10/21 03/12/25 History cephalexin 250 mg capsule 250 mg PO DAILY PRN other 12/05/22 03/12/25 History amlodipine 5 mg tablet 10 mg PO DAILY 04/03/23 03/12/25 History cholecalciferol (vitamin D3) 10 10 mcg PO DAILY 11/03/24 03/12/25 History mcg (400 unit) capsule famotidine 40 mg tablet 40 mg PO DAILY 11/03/24 03/12/25 History montelukast 10 mg tablet 10 mg PO DAILY 11/03/24 03/12/25 History multivitamin with iron (Daily 1 tablet PO DAILY 11/03/24 03/12/25 History Vitamin with Iron tablet) omeprazole 40 mg capsule,delayed 40 mg PO BID 3 months #180 caps 11/03/24 03/12/25 Rx release dicyclomine 20 mg tablet 20 mg PO TID PRN abdominal pain 02/22/25 03/12/25 Rx #20 tabs ferrous sulfate 325 mg (65 mg 325 mg PO DAILY 02/22/25 03/12/25 History iron) tablet (FeroSul) hydrochlorothiazide 25 mg tablet 25 mg PO DAILY 02/22/25 03/12/25 History Patient hx anesthesia problems: post op nausea/vomiting Family hx anesthesia problems: none Results Review: All pre-operative results and documents have been reviewed as part of the pre-operative evaluation. [facility] Past Medical History Medical History Chronic cough Impingement of right shoulder Rotator cuff tendinitis GERD (gastroesophageal reflux disease) Hypertension Hearing loss Headache Subscapularis tendinitis of right shoulder Surgical History Surgical History History of appendectomy Labral tear of long head of right biceps tendon Family History Family History Other Cancer Hypertension Social History Social History Smoking status: Never smoker Alcohol intake: current Drinks per week: 1 Substance use: never Substance use type: does not use Living arrangements: with family Gender identity (if verbalized by the patient): Female Spiritual care concerns: No Anes - Eval Final PreProcedure Day of Procedure 03/12/25 08:49 Patient weight: normal Lungs: normal air movement Airway: Mallampati scale class II Neurological: alert and oriented Last oral intake: >/= 8 hours ASA classification: II Emergent: no Anesthetic plan: proceed Anesthesia type and monitoring: general GIVS and standard monitoring Results Review: All pre-operative results and documents have been reviewed as part of the pre-operative evaluation. HTN, GERD. Informed Consent: The patient's anesthetic plan and its attendant risks and benefits were discussed with the patient/family/POA. Questions were solicited and answers provided to the satisfaction of the patient/family/POA.
--- NOTE | 2025-03-12 09:04 | S_PTH ---
PATIENT: Mounika Beach LOC: [facility] U#:[id number] AGE/SX: 64/F ROOM: RE03/12/[address]: Braydon Bruce MD : 1960 BED: DIS: 03/12/2025 SPEC #: [id number] RECD: 03/12/25 09:55 STATUS: FABIANA REQ #: [id number] DAVID: 03/12/25 09:[address]: Braydon Bruce DEPT: [facility] Surgical RECD BY: Marianela Nava ENTERED: 03/12/25 09:55 SP TYPE: Surgical OTHR DR: AINSWORTH Tissues: A - Gastric Biopsy B - Gastric Biopsy Procedures: Hematoxylin and Eosin Stain Gross and Microscopic Level 4
[2025-03-12 09:08] VITALS: BP 119/76; PULSE 70; RESP 23; O2SAT 98
[2025-03-12 09:18] VITALS: BP 128/79; PULSE 59; RESP 16; O2SAT 98
[2025-03-12 09:28] VITALS: BP 141/76; PULSE 62; RESP 16; O2SAT 98
== END 2025-03-12 09:33 | disposition home or self-care (01) ==
PROVIDERS: Referring Provider Nurse Practitioner Family; Visit Provider Internal Medicine Gastroenterology
PROC: 0DJ08ZZ Inspection of Upper Intestinal Tract, Via Natural or Artificial Opening Endoscopic (ICD-10-PCS; CPT 43239; principal; 2025-03-12 09:00)
DX: K21.9 Gastro-esophageal reflux disease without esophagitis (principal); K29.30 Chronic superficial gastritis without bleeding; K31.7 Polyp of stomach and duodenum
CPT/HCPCS: 43239; 88305; J2003; J2704; J7120

== ENCOUNTER 2025-08-25 09:39 | Emergency (ER) | payer OTHER, SELFPAY ==
[2025-08-25 09:59] VITALS: BP 147/93; PULSE 70; RESP 16; TEMP 36.8; O2SAT 98
[2025-08-25 10:22] LABS: EDCOVIDSCREEN Negative (Negative); EDINFLUASCREEN Negative (Negative); EDINFLUBSCREEN Negative (Negative); EDSTREPNEGPOS1 Negative (Negative)
--- NOTE | 2025-08-25 10:43 | ED.URI ---
HPI - URI/Sore Throat General Chief Complaint: Upper Respiratory Infection Stated Complaint: Flu Symptoms Time Seen by Provider: 08/25/25 10:30 Source: patient and RN notes reviewed Mode of arrival: ambulatory Limitations: no limitations History of Present Illness HPI Narrative: 64-year-old female presents to the [facility] complaining of sore throat, tender lymph nodes, body aches, chills, fatigue, since last night. Patient denies any other symptoms. Patient denies any difficulty swallowing or difficulty breathing, chest pains, nausea, vomiting, diarrhea, voice worsens, symptoms. Patient reports a history of hypertension and anemia. Related Data Home Medications ?Medication ?Instructions ?Recorded ?Confirmed ?Last Taken ?Type gabapentin 600 mg tablet 600 mg PO QPM 09/23/19 08/04/25 03/11/25 History calcium carbonate (Calcium 600) 600 mg PO DAILY 10/09/19 08/04/25 03/11/25 History vit C 250 mg-vit E 200 unit-zinc 1 cap PO BID 10/09/19 08/04/25 03/11/25 History ox 12.5 [id number] capsule (ICaps AREDS2) azelastine 137 mcg (0.1 %) nasal 1 mcg intranasal DIRECTED 05/10/21 08/04/25 03/11/25 History spray fluticasone propionate 50 2 spray intranasal DAILY 05/10/21 08/04/25 03/11/25 History mcg/actuation nasal spray,suspension cetirizine 5 mg tablet 5 mg PO BID 10/10/21 08/04/25 03/11/25 History amlodipine 5 mg tablet 10 mg PO DAILY 04/03/23 08/04/25 03/11/25 History famotidine 40 mg tablet 40 mg PO DAILY 11/03/24 08/04/25 03/11/25 History montelukast 10 mg tablet 10 mg PO DAILY 11/03/24 08/04/25 03/11/25 History lisinopril 5 mg tablet 5 mg PO DAILY 07/27/25 08/04/25 Unknown History Allergies Allergy/AdvReac Type Severity Reaction Status Date / Time No Known Allergies Allergy Verified 08/25/25 10:03 Review of Systems Review of Systems: CONSTITUTIONAL: Denies fever, or sweats. Positive body eczema chills, fatigue EYES: Denies visual changes, redness, or discharge. ENT: Denies rhinorrhea, congestion, dysphagia, or otalgia. Positive for sore throat CARDIOVASCULAR: Denies chest pain, palpitations, or edema. RESPIRATORY: Denies cough or dyspnea. GASTROINTESTINAL: Denies abdominal pain, nausea, vomiting, or diarrhea. GENITOURINARY: Denies dysuria or hematuria. SKIN: Denies rash or itching. MUSCULOSKELETAL: Denies back pain, joint pain, or myalgia. NEUROLOGIC: Denies headache, numbness, or weakness. PSYCHIATRIC: Denies anxiety or depression. All other systems reviewed are negative, except as documented in HPI. [facility], [facility] Past Medical History Medical History Anemia Allergic rhinitis RLQ abdominal pain Chronic cough Impingement of right shoulder Rotator cuff tendinitis GERD (gastroesophageal reflux disease) Hypertension Hearing loss Headache Subscapularis tendinitis of right shoulder Surgical History Surgical History History of bunionectomy 2006 History of hysterectomy 2012 H/O stapedectomy 2020 History of repair of rotator cuff 2020 History of appendectomy 1974 Labral tear of long head of right biceps tendon Family History Family History Mother Breast cancer Hypertension Father Diabetes mellitus Hypertension Social History Social History Smoking status: Never smoker Alcohol intake: current Drinks per week: 1 Substance use: never Substance use type: does not use Living arrangements: with family Gender identity (if verbalized by the patient): Female Spiritual care concerns: No Comments At the time of my signature, I reviewed and agree with the nursing past medical, surgical, social, and family history. There is no relevant family history pertinent to the patient complaint. Exam Narrative: GENERAL: This is a well-nourished, well-developed adult, in no apparent distress. They are non ill-appearing, nontoxic appearing. HEAD: normocephalic, atraumatic. EYES: Sclera clear/white. Conjunctiva normal. Vision is grossly intact. Extraocular movements intact EARS: External ears normal, auditory canals clear and without drainage, TMs normal without perforation. Hearing grossly intact. NOSE: External nose normal with no obvious nasal discharge, nasal turbinates without redness, no rhinorrhea. THROAT: Mucous membranes moist, posterior pharynx erythematous red and patchy with exudate. Tonsils 2+ erythematous with exudate. Uvula midline. NECK: Neck supple, mild tender cervical lymphadenopathy no, masses or thyromegaly. CARDIOVASCULAR: Regular rate and rhythm without murmurs, gallops, or rubs. RESPIRATORY: Clear to auscultation. Breath sounds equal bilaterally. No wheezes, rales, or rhonchi. SKIN: warm, Dry, intact with no suspicious lesions or rash, good texture and turgor. NEURO: awake, alert, and oriented to person, place and time. There were no obvious focal neurologic abnormalities. EXTREMITIES: No joint tenderness, effusion, or edema noted. BACK: Nontender without deformity. Course Course Level of Care: Express Care Visit Vital Signs Vital signs: Vital Signs Temperature 98.2 F 08/25/25 09:59 Pulse Rate 70 08/25/25 09:59 Respiratory Rate 16 08/25/25 09:59 Blood Pressure 147/93 H 08/25/25 09:59 Pulse Oximetry 98 08/25/25 09:59 Temperature 98.2 F 08/25/25 09:59 Pulse Rate 70 08/25/25 09:59 Respiratory Rate 16 08/25/25 09:59 Blood Pressure 147/93 H 08/25/25 09:59 Pulse Oximetry 98 08/25/25 09:59 [facility] Narrative Medical decision making narrative: Rapid COVID, flu, strep were negative. A throat culture is pending. Clinical suspicion for strep pharyngitis given exam findings, you shared decision making with patient she would like to go and start antibiotic therapy. Discussed physical exam findings. Advised supportive measures and signs/symptoms to go to the ER. Pt is appropriate for outpt treatment and f/u. Differential Diagnosis Differential Diagnosis: Differential diagnostic considerations for upper respiratory infection include upper respiratory infection, croup, otitis media, sinusitis, viral infection, bronchitis, influenza, pharyngitis, strep, uvulitis. Lab Data [facility] Lab Attestation statement: I personally reviewed the patient's lab results. Labs: Lab Results 08/25/25 Range/Units 10:20 POC Influenza A Ag Negative (Negative) POC Influenza B Ag Negative (Negative) POC SARS CoV-2 Ag Negative (Negative) POC Grp A Strep Screen Negative (Negative) Critical Care Time Critical Care Time Critical Care Time: No Discharge Plan Discharge Clinical Impression: Pharyngitis Qualifiers: Pharyngitis/tonsillitis etiology: unspecified etiology Qualified Code(s): J02.9 - Acute pharyngitis, unspecified Patient Disposition: Home Condition: Stable Instructions: Antibiotic Form, Pharyngitis (ED) Additional Instructions: Your rapid strep negative your rapid COVID and flu were negative. A throat culture be sent off he will be contacted if it is positive. ?Please take the amoxicillin as prescribed until gone. ?You will be contagious for 24 hours after starting the medication. ?After 24 hours on antibiotics throw tooth brush away and start using a new one. Wash your sheets and cup/water bottle that is used daily. Do not share drinks. Take Tylenol or Ibuprofen for pain or fever, if able. ?Rest and stay hydrated. ?Follow up with your PCP in 3 days if symptoms are not improving. ?Go to the ER immediately if you develop worsening symptoms such as shortness of breath, difficulty swallowing difficulty speaking, voice hoarseness, breathing problems, or any serious concerns. ? Patient Language: Irish Prescriptions: New amoxicillin 875 mg tablet 875 mg PO Q12H 10 Days Qty: 20 0RF No Action azelastine 137 mcg (0.1 %) aerosol,spray 1 mcg INTRANASAL DIRECTED fluticasone propionate 50 mcg/actuation spray,suspension 2 spray INTRANASAL DAILY gabapentin 600 mg tablet 600 mg PO QPM amlodipine 5 mg tablet 10 mg PO DAILY famotidine 40 mg tablet 40 mg PO DAILY montelukast 10 mg tablet 10 mg PO DAILY omeprazole 40 mg capsule,delayed release(DR/EC) 40 mg PO BID 90 Days Qty: 180 3RF lisinopril 5 mg tablet 5 mg PO DAILY calcium carbonate [Calcium 600] 600 mg calcium (1,500 mg) Tablet 600 mg PO DAILY ICaps AREDS2 250 mg-200 unit -12.5 mg-1 mg Capsule 1 cap PO BID cetirizine 5 mg Tablet 5 mg PO BID Follow-up/Referrals: LAMONA, [Primary Care Provider] Time of Disposition: 10:41
== END 2025-08-25 10:47 | disposition home or self-care (01) ==
DX: J02.9 Acute pharyngitis, unspecified (principal); D64.9 Anemia, unspecified; J30.9 Allergic rhinitis, unspecified; K21.9 Gastro-esophageal reflux disease without esophagitis; I10 Essential (primary) hypertension; Z20.822 Contact with and (suspected) exposure to COVID-19
CPT/HCPCS: 87081; 87426; 87804; 87880; 99213; G0463